=== PATIENT | male | born 1955 | race Caucasian/White ===

== ENCOUNTER 2017-10-31 09:39 | Emergency (ER) | payer MEDICARE, OTHER ==
[~2017-10-31] VITALS: Ht 170.2 cm; Wt 120.2 kg
[~2017-10-31 09:39] MED LIST: AMLO5 PO; CARB50 PO; CEFD300 PO; CEFU500 PO; CEPH500 PO; CHOL10002; CHOL10002 PO; CIPR500 PO; CLON.1 PO; COLE5P; COLE5P PO; Ciprodex Otic7.5 ML RIGHTEAR; Ferrousul325 MG PO; GLUCHON; HCTZ; HYDACE5 PO; HYDACE5325 PO; HYDR1TAB94 PO; IRON; IRON PO; IRON150C PO; LEVAQUIN; LEVFLO500 PO; LEVO750 PO; LISI5; LOPE2C PO; Lisinopril2.5 MG PO; METF500; METF500 PO; MULT50L PO; MULVITA; MULVITMIND PO; MULVITMINE PO; MULVITMINF PO; Macrobid 100 M100 MG PO; NAPR500 PO; NEOPOLHCSU LEFTEAR; NEOPOLHCSU RIGHTEAR; NITR100; NITR100 PO; NITR100CA PO; Norco 5-325 Ta1 EACH PO; OLME20; OLME40 PO; OXYACE5T PO; OXYM.05NI; POTCIT5 PO; PROM25 PO; RIFA300 PO; RXDIPATR PO; SENN187 PO; SULFAMYLON TOP; SULTRIDS PO; TRIM100 PO; UNKNOWN ANTIBIOTIC; VITAMIN D3100 GM; VITNEPH PO; ZINC15; [UNRECOGNIZED DRUG - OTHER] PO; [UNRECOGNIZED DRUG - REMARK]
[2017-10-31] MEDS ORDERED: LISI5 PO (09:57)
== END 2017-10-31 10:42 | disposition home or self-care (01) ==
LOC: ER 09:39
DX: I87.2 Venous insufficiency (chronic) (peripheral) (principal); Z88.0 Allergy status to penicillin; Z88.8 Allergy status to other drugs, medicaments and biological substances; Z88.1 Allergy status to other antibiotic agents; Z79.899 Other long term (current) drug therapy; E11.9 Type 2 diabetes mellitus without complications; I10 Essential (primary) hypertension
CPT/HCPCS: 99282

== ENCOUNTER 2018-01-27 14:04 | Observation (INO) | payer MEDICARE, OTHER ==
[~2018-01-27] VITALS: Ht 170.2 cm; Wt 128.6 kg
[~2018-01-27 14:04] MED LIST changes: +LISI5 PO
[2018-01-27 15:02] LABS: BASOPHILS ABSOLUTE AUTO 0.04 K/mm3 (0.00-0.23); BASOPHILS PERCENT AUTO 0 % (0-2); EOSINOPHILS ABSOLUTE AUTO 0.24 K/mm3 (0.00-0.68); EOSINOPHILS PERCENT AUTO 2 % (0-6); Hematocrit 37.3 % (37.0-53.0); Hemoglobin 10.9 g/dL (13.5-17.5); IMMATURE GRAN ABSOLUTE AUTO 0.05 K/mm3 (0.00-0.10); IMMATURE GRAN PERCENT AUTO 1 % (0-1); LYMPHOCYTES PERCENT AUTO 14 % (21-46); MONOCYTES ABSOLUTE AUTO 0.59 K/mm3 (0.16-1.47); MONOCYTES PERCENT AUTO 6 % (4-13); Mean Corpuscular HGB 21.9 pg (26.0-34.0); Mean Corpuscular HGB Conc 29.2 g/dL (31.5-36.5); Mean Corpuscular Volume 75 fL (80-100); Mean Platelet Volume 9.9 fL (9.1-12.4); NEUTROPHILS ABSOLUTE AUTO 7.82 K/mm3 (1.96-9.15); NEUTROPHILS PERCENT AUTO 77 % (41-73); Platelet Count 302 K/mm3 (150-400); RDW Coefficient Variation 19.6 % (11.7-14.2); RDW Standard Deviation 51.6 fL (35.1-46.3); Red Blood Cell Count 4.98 M/mm3 (4.30-5.90); White Blood Cell Count 10.14 K/mm3 (4.00-11.30)
[2018-01-27 15:24] LABS: Alanine Aminotransfer (ALT/SGP 17 U/L (12-78); Albumin, Blood 2.5 g/dL (3.4-5.0); Albumin/Globulin Ratio 0.5 (0.8-1.8); Alk Phos 68 U/L (50-136); Anion Gap 9 mmol/L (6-16); Aspartate Aminotrans (AST/SGOT 17 U/L (12-37); Bilirubin, Total 0.2 mg/dL (0.1-1.0); Blood Urea Nitrogen 25 mg/dL (8-24); Bun/Creatinine Ratio 33.5 (12.0-20.0); CO2, Blood 24 mmol/L (21-32); Calcium, Blood 8.7 mg/dL (8.5-10.1); Chloride, Blood 108 mmol/L (98-108); Creatinine, Blood 0.75 mg/dL (0.60-1.20); Globulin, Blood 5.5 g/dL (2.2-4.0); Glomerular Filtration Rate >60 (60-); Glucose, Blood 125 mg/dL (70-99); Potassium, Blood 4.3 mmol/L (3.5-5.5); Sodium, Blood 141 mmol/L (136-145)
[2018-01-30] MEDS ORDERED: Acetaminophen325 M1 PO (14:08)
[2018-01-30] MEDS ORDERED: DOCU100 PO (14:08)
[2018-01-30] MEDS ORDERED: Prinivil10 MG PO (14:09)
== END 2018-01-30 15:08 | disposition home or self-care (01) ==
LOC: ER 14:04 → MEDS 14:05 → ER 17:43 → MEDS 17:43
PROVIDERS: Emergency Medicine
DX: L89.329 Pressure ulcer of left buttock, unspecified stage (principal); L89.319 Pressure ulcer of right buttock, unspecified stage; Q05.9 Spina bifida, unspecified; I10 Essential (primary) hypertension; M86.9 Osteomyelitis, unspecified; Z99.3 Dependence on wheelchair; Z88.0 Allergy status to penicillin; Z88.1 Allergy status to other antibiotic agents; Z91.041 Radiographic dye allergy status; Z79.899 Other long term (current) drug therapy; Z87.891 Personal history of nicotine dependence; Z87.442 Personal history of urinary calculi; Z98.890 Other specified postprocedural states; Z79.01 Long term (current) use of anticoagulants
CPT/HCPCS: 36415; 51702; 72131; 80053; 85025; 85651; 86140; 87070; 87075; 87076; 87077; 87185; 87205; 99285; G0378; J1650

== ENCOUNTER 2018-02-05 13:03 | Emergency (ER) | payer MEDICARE, OTHER ==
[~2018-02-05] VITALS: Ht 170.2 cm; Wt 141.1 kg
[~2018-02-05 13:03] MED LIST changes: +Acetaminophen325 M1 PO; +DOCU100 PO; +Prinivil10 MG PO
== END 2018-02-05 14:13 | disposition home or self-care (01) ==
LOC: ER 13:03
DX: S90.412A Abrasion, left great toe, initial encounter (principal); W22.8XXA Striking against or struck by other objects, initial encounter; Z88.0 Allergy status to penicillin; Z88.8 Allergy status to other drugs, medicaments and biological substances; Z88.1 Allergy status to other antibiotic agents; Z79.899 Other long term (current) drug therapy; E11.9 Type 2 diabetes mellitus without complications; I10 Essential (primary) hypertension; Z87.891 Personal history of nicotine dependence
CPT/HCPCS: 73660

== ENCOUNTER 2018-05-02 10:56 | Emergency (ER) | payer MEDICARE, OTHER ==
[~2018-05-02] VITALS: Ht 170.2 cm; Wt 136.1 kg
[2018-05-02 12:10] LABS: BASOPHILS ABSOLUTE AUTO 0.03 K/mm3 (0.00-0.23); BASOPHILS PERCENT AUTO 0 % (0-2); EOSINOPHILS ABSOLUTE AUTO 0.03 K/mm3 (0.00-0.68); EOSINOPHILS PERCENT AUTO 0 % (0-6); Hematocrit 31.4 % (37.0-53.0); Hemoglobin 9.2 g/dL (13.5-17.5); IMMATURE GRAN ABSOLUTE AUTO 0.07 K/mm3 (0.00-0.10); IMMATURE GRAN PERCENT AUTO 1 % (0-1); LYMPHOCYTES ABSOLUTE AUTO 0.62 K/mm3 (0.84-5.20); LYMPHOCYTES PERCENT AUTO 8 % (21-46); MONOCYTES ABSOLUTE AUTO 0.33 K/mm3 (0.16-1.47); MONOCYTES PERCENT AUTO 4 % (4-13); Mean Corpuscular HGB 21.1 pg (26.0-34.0); Mean Corpuscular HGB Conc 29.3 g/dL (31.5-36.5); Mean Corpuscular Volume 72 fL (80-100); Mean Platelet Volume 9.2 fL (9.1-12.4); NEUTROPHILS ABSOLUTE AUTO 6.94 K/mm3 (1.96-9.15); NEUTROPHILS PERCENT AUTO 87 % (41-73); Platelet Count 298 K/mm3 (150-400); RDW Coefficient Variation 18.6 % (11.7-14.2); RDW Standard Deviation 48.1 fL (35.1-46.3); Red Blood Cell Count 4.36 M/mm3 (4.30-5.90); White Blood Cell Count 8.02 K/mm3 (4.00-11.30)
[2018-05-02 12:26] LABS: Alanine Aminotransfer (ALT/SGP 15 U/L (12-78); Albumin, Blood 2.4 g/dL (3.4-5.0); Albumin/Globulin Ratio 0.5 (0.8-1.8); Alk Phos 67 U/L (50-136); Anion Gap 9 mmol/L (6-16); Aspartate Aminotrans (AST/SGOT 15 U/L (12-37); Bilirubin, Total 0.4 mg/dL (0.1-1.0); Blood Urea Nitrogen 18 mg/dL (8-24); Bun/Creatinine Ratio 22.8 (12.0-20.0); CO2, Blood 21 mmol/L (21-32); Calcium, Blood 8.2 mg/dL (8.5-10.1); Chloride, Blood 106 mmol/L (98-108); Creatinine, Blood 0.79 mg/dL (0.60-1.20); Glomerular Filtration Rate >60 (60-); Glucose, Blood 78 mg/dL (70-99); Potassium, Blood 3.6 mmol/L (3.5-5.5); Sodium, Blood 136 mmol/L (136-145); Total Protein, Blood 7.4 g/dL (6.4-8.2)
[2018-05-02 14:42] LABS: Source, Urine Catheter
[2018-05-02 14:44] LABS: Appearance, Urine Hazy (Clear); Bilirubin, Urine Neg (Neg); Blood, Urine 4+ (Neg); Color, Urine Yellow (P-Yellow); Glucose Qualitative, Urine Neg (Neg); Ketones, Urine Neg (Neg); Leukocyte Esterase, Urine 3+ (Neg); Nitrite, Urine Pos (Neg); Protein, Urine 2+ (Neg); Urobilinogen, Urine NORM (Normal)
[2018-05-02 14:58] LABS: Amorphous Light (0-Heavy); Bacteria Many /hpf; Calcium Oxalate Crystals Few /hpf; Red Blood Cells, Urine 0-2 /hpf (0-2); Squamous Epithelial Cells Few /hpf (Few)
[2018-05-02] MEDS ORDERED: Cipro250 MG PO (15:13)
== END 2018-05-02 15:35 | disposition home or self-care (01) ==
LOC: ER 10:56
PROVIDERS: Physician Assistant
DX: N39.0 Urinary tract infection, site not specified (principal); M86.68 Other chronic osteomyelitis, other site; L89.159 Pressure ulcer of sacral region, unspecified stage; E11.9 Type 2 diabetes mellitus without complications; I10 Essential (primary) hypertension; Z88.0 Allergy status to penicillin; Z91.048 Other nonmedicinal substance allergy status; Z88.1 Allergy status to other antibiotic agents; Z79.899 Other long term (current) drug therapy
CPT/HCPCS: 36415; 71046; 72192; 80053; 81001; 83605; 85025; 87070; 87075; 87077; 87086; 87147; 87186; 87205; 96365; 96366; 96367; 99284-25; J1956; J3370; J7030; J7050

== ENCOUNTER 2018-05-08 12:18 | Emergency (ER) | payer MEDICARE, OTHER ==
[~2018-05-08] VITALS: Ht 170.2 cm; Wt 138.8 kg
[~2018-05-08 12:18] MED LIST changes: +Cipro250 MG PO
[2018-05-08 15:35] LABS: Alanine Aminotransfer (ALT/SGP 18 U/L (12-78); Albumin, Blood 2.6 g/dL (3.4-5.0); Albumin/Globulin Ratio 0.5 (0.8-1.8); Alk Phos 74 U/L (50-136); Anion Gap 5 mmol/L (6-16); Aspartate Aminotrans (AST/SGOT 19 U/L (12-37); Bilirubin, Total 0.4 mg/dL (0.1-1.0); Blood Urea Nitrogen 19 mg/dL (8-24); CO2, Blood 26 mmol/L (21-32); Calcium, Blood 8.7 mg/dL (8.5-10.1); Chloride, Blood 110 mmol/L (98-108); Creatinine, Blood 0.95 mg/dL (0.60-1.20); Globulin, Blood 5.3 g/dL (2.2-4.0); Glomerular Filtration Rate >60 (60-); Glucose, Blood 150 mg/dL (70-99); Potassium, Blood 4.1 mmol/L (3.5-5.5); Sodium, Blood 141 mmol/L (136-145); Total Protein, Blood 7.9 g/dL (6.4-8.2)
[2018-05-08 16:04] LABS: BASOPHILS ABSOLUTE AUTO 0.05 K/mm3 (0.00-0.23); BASOPHILS PERCENT AUTO 1 % (0-2); EOSINOPHILS ABSOLUTE AUTO 0.26 K/mm3 (0.00-0.68); EOSINOPHILS PERCENT AUTO 3 % (0-6); Hemoglobin 9.9 g/dL (13.5-17.5); IMMATURE GRAN ABSOLUTE AUTO 0.09 K/mm3 (0.00-0.10); IMMATURE GRAN PERCENT AUTO 1 % (0-1); LYMPHOCYTES ABSOLUTE AUTO 1.49 K/mm3 (0.84-5.20); LYMPHOCYTES PERCENT AUTO 15 % (21-46); MONOCYTES ABSOLUTE AUTO 0.68 K/mm3 (0.16-1.47); MONOCYTES PERCENT AUTO 7 % (4-13); Mean Corpuscular HGB 21.2 pg (26.0-34.0); Mean Corpuscular HGB Conc 29.1 g/dL (31.5-36.5); Mean Corpuscular Volume 73 fL (80-100); Mean Platelet Volume 8.8 fL (9.1-12.4); NEUTROPHILS ABSOLUTE AUTO 7.09 K/mm3 (1.96-9.15); NEUTROPHILS PERCENT AUTO 74 % (41-73); Platelet Count 425 K/mm3 (150-400); RDW Coefficient Variation 18.8 % (11.7-14.2); RDW Standard Deviation 48.9 fL (35.1-46.3); Red Blood Cell Count 4.67 M/mm3 (4.30-5.90); White Blood Cell Count 9.66 K/mm3 (4.00-11.30)
[2018-05-08 16:35] LABS: Source, Urine Clean Catch
[2018-05-08 16:44] LABS: Appearance, Urine Hazy (Clear); Bilirubin, Urine Neg (Neg); Blood, Urine 3+ (Neg); Color, Urine Yellow (P-Yellow); Glucose Qualitative, Urine Neg (Neg); Ketones, Urine Neg (Neg); Leukocyte Esterase, Urine 3+ (Neg); Nitrite, Urine Neg (Neg); Protein, Urine 1+ (Neg); Specific Gravity, Urine 1.015 (1.003-1.022); Urobilinogen, Urine NORM (Normal)
[2018-05-08 17:03] LABS: White Blood Cells, Urine 50-100 /hpf (0-5)
[2018-05-08 17:04] LABS: Bacteria Many /hpf; Squamous Epithelial Cells Few /hpf (Few)
== END 2018-05-08 18:53 | disposition home or self-care (01) ==
LOC: ER 12:18
PROVIDERS: Emergency Medicine
DX: S90.412A Abrasion, left great toe, initial encounter (principal); N39.0 Urinary tract infection, site not specified; R19.7 Diarrhea, unspecified; Z23 Encounter for immunization; E11.9 Type 2 diabetes mellitus without complications; I10 Essential (primary) hypertension; Z88.0 Allergy status to penicillin; Z91.048 Other nonmedicinal substance allergy status; Z88.1 Allergy status to other antibiotic agents; Z79.899 Other long term (current) drug therapy; Z87.891 Personal history of nicotine dependence; X58.XXXA Exposure to other specified factors, initial encounter
CPT/HCPCS: 51701; 73660; 80053; 81001; 83690; 85025; 87077; 87086; 87186; 90471; 90714; 99284-25

== ENCOUNTER 2018-06-11 13:06 | Emergency (ER) | payer MEDICARE, OTHER ==
[~2018-06-11] VITALS: Ht 170.2 cm; Wt 136.1 kg
[2018-06-11 13:46] LABS: BASOPHILS ABSOLUTE AUTO 0.02 K/mm3 (0.00-0.23); BASOPHILS PERCENT AUTO 0 % (0-2); EOSINOPHILS PERCENT AUTO 0 % (0-6); Hematocrit 30.4 % (37.0-53.0); Hemoglobin 9.2 g/dL (13.5-17.5); IMMATURE GRAN ABSOLUTE AUTO 0.05 K/mm3 (0.00-0.10); IMMATURE GRAN PERCENT AUTO 1 % (0-1); LYMPHOCYTES ABSOLUTE AUTO 0.65 K/mm3 (0.84-5.20); LYMPHOCYTES PERCENT AUTO 7 % (21-46); MONOCYTES PERCENT AUTO 6 % (4-13); Mean Corpuscular HGB 21.6 pg (26.0-34.0); Mean Corpuscular HGB Conc 30.3 g/dL (31.5-36.5); Mean Corpuscular Volume 71 fL (80-100); Mean Platelet Volume 8.7 fL (9.1-12.4); NEUTROPHILS ABSOLUTE AUTO 7.93 K/mm3 (1.96-9.15); NEUTROPHILS PERCENT AUTO 87 % (41-73); Platelet Count 325 K/mm3 (150-400); RDW Coefficient Variation 19.6 % (11.7-14.2); RDW Standard Deviation 50.1 fL (35.1-46.3); Red Blood Cell Count 4.26 M/mm3 (4.30-5.90); White Blood Cell Count 9.15 K/mm3 (4.00-11.30)
[2018-06-11 13:59] LABS: Alanine Aminotransfer (ALT/SGP 31 U/L (12-78); Albumin, Blood 2.2 g/dL (3.4-5.0); Albumin/Globulin Ratio 0.4 (0.8-1.8); Alk Phos 65 U/L (50-136); Anion Gap 10 mmol/L (6-16); Aspartate Aminotrans (AST/SGOT 36 U/L (12-37); Bilirubin, Total 0.6 mg/dL (0.1-1.0); Blood Urea Nitrogen 20 mg/dL (8-24); Bun/Creatinine Ratio 20.7 (12.0-20.0); CO2, Blood 22 mmol/L (21-32); Chloride, Blood 102 mmol/L (98-108); Creatinine, Blood 0.97 mg/dL (0.60-1.20); Glomerular Filtration Rate >60 (60-); Glucose, Blood 133 mg/dL (70-99); Potassium, Blood 3.8 mmol/L (3.5-5.5); Sodium, Blood 134 mmol/L (136-145); Total Protein, Blood 8.2 g/dL (6.4-8.2)
[2018-06-11 15:19] LABS: Source, Urine Catheter
[2018-06-11 15:22] LABS: Bilirubin, Urine Neg (Neg); Blood, Urine 5+ (Neg); Glucose Qualitative, Urine Neg (Neg); Ketones, Urine Neg (Neg); Leukocyte Esterase, Urine 3+ (Neg); Nitrite, Urine Neg (Neg); Protein, Urine 2+ (Neg); Urobilinogen, Urine NORM (Normal)
[2018-06-11 15:29] LABS: Appearance, Urine Clear (Clear); Color, Urine Yellow (P-Yellow)
[2018-06-11 15:30] LABS: Granular Casts 0-2 /lpf (0)
[2018-06-11 15:32] LABS: Bacteria Many /hpf; Calcium Oxalate Crystals Few /hpf; Renal Epithelial Rare /hpf (0-Rare); Squamous Epithelial Cells Few /hpf (Few); Transitional Epithelial Cells Few /hpf (0-Rare); White Blood Cells, Urine 25-50 /hpf (0-5)
[2018-06-11] MEDS ORDERED: Augmentin 875-1 EACH PO (16:40)
== END 2018-06-11 16:51 | disposition home or self-care (01) ==
LOC: ER 13:06
PROVIDERS: Emergency Medicine
DX: N39.0 Urinary tract infection, site not specified (principal); G82.20 Paraplegia, unspecified; E11.9 Type 2 diabetes mellitus without complications; I10 Essential (primary) hypertension; Z88.0 Allergy status to penicillin; Z91.09 Other allergy status, other than to drugs and biological substances; Z88.1 Allergy status to other antibiotic agents
CPT/HCPCS: 51701; 51798; 80053; 81001; 83605; 85025; 87077; 87086; 87186; 96365; 99283-25; J0696

== ENCOUNTER 2018-06-12 13:44 | Inpatient (IN) | payer MEDICARE, OTHER ==
[~2018-06-12] VITALS: Ht 170.2 cm; Wt 133.5 kg
[~2018-06-12 13:44] MED LIST changes: +Augmentin 875-1 EACH PO
[2018-06-12 14:25] LABS: BASOPHILS ABSOLUTE AUTO 0.03 K/mm3 (0.00-0.23); BASOPHILS PERCENT AUTO 0 % (0-2); EOSINOPHILS ABSOLUTE AUTO 0.09 K/mm3 (0.00-0.68); EOSINOPHILS PERCENT AUTO 1 % (0-6); Hematocrit 33.8 % (37.0-53.0); Hemoglobin 9.8 g/dL (13.5-17.5); IMMATURE GRAN ABSOLUTE AUTO 0.08 K/mm3 (0.00-0.10); IMMATURE GRAN PERCENT AUTO 1 % (0-1); LYMPHOCYTES ABSOLUTE AUTO 1.06 K/mm3 (0.84-5.20); LYMPHOCYTES PERCENT AUTO 9 % (21-46); MONOCYTES ABSOLUTE AUTO 0.82 K/mm3 (0.16-1.47); MONOCYTES PERCENT AUTO 7 % (4-13); Mean Corpuscular HGB 20.9 pg (26.0-34.0); Mean Corpuscular Volume 72 fL (80-100); Mean Platelet Volume 10.2 fL (9.1-12.4); NEUTROPHILS ABSOLUTE AUTO 9.92 K/mm3 (1.96-9.15); NEUTROPHILS PERCENT AUTO 83 % (41-73); Platelet Count 304 K/mm3 (150-400); RDW Coefficient Variation 19.9 % (11.7-14.2); Red Blood Cell Count 4.68 M/mm3 (4.30-5.90)
[2018-06-12 14:39] LABS: Alanine Aminotransfer (ALT/SGP 38 U/L (12-78); Albumin, Blood 2.3 g/dL (3.4-5.0); Albumin/Globulin Ratio 0.4 (0.8-1.8); Alk Phos 75 U/L (50-136); Anion Gap 11 mmol/L (6-16); Aspartate Aminotrans (AST/SGOT 48 U/L (12-37); Bilirubin, Total 0.6 mg/dL (0.1-1.0); Blood Urea Nitrogen 29 mg/dL (8-24); Bun/Creatinine Ratio 29.6 (12.0-20.0); CO2, Blood 21 mmol/L (21-32); Calcium, Blood 8.5 mg/dL (8.5-10.1); Chloride, Blood 104 mmol/L (98-108); Creatinine, Blood 0.98 mg/dL (0.60-1.20); Globulin, Blood 6.3 g/dL (2.2-4.0); Glomerular Filtration Rate >60 (60-); Glucose, Blood 76 mg/dL (70-99); Potassium, Blood 3.8 mmol/L (3.5-5.5); Sodium, Blood 136 mmol/L (136-145); Total Protein, Blood 8.6 g/dL (6.4-8.2)
[2018-06-12 23:18] LABS: Source, Urine Catheter
[2018-06-12 23:21] LABS: Bilirubin, Urine Neg (Neg); Blood, Urine 5+ (Neg); Glucose Qualitative, Urine Neg (Neg); Ketones, Urine Neg (Neg); Leukocyte Esterase, Urine 3+ (Neg); Nitrite, Urine Neg (Neg); Protein, Urine 2+ (Neg); Urobilinogen, Urine NORM (Normal)
[2018-06-12 23:30] LABS: Amorphous Light (0-Heavy); Appearance, Urine Cloudy (Clear); Bacteria Many /hpf; Color, Urine Yellow (P-Yellow); Red Blood Cells, Urine 0-2 /hpf (0-2); Squamous Epithelial Cells Not Seen /hpf (Few); White Blood Cells, Urine TNTC /hpf (0-5)
[2018-06-13 05:46] LABS: BASOPHILS ABSOLUTE AUTO 0.02 K/mm3 (0.00-0.23); BASOPHILS PERCENT AUTO 0 % (0-2); EOSINOPHILS ABSOLUTE AUTO 0.23 K/mm3 (0.00-0.68); EOSINOPHILS PERCENT AUTO 2 % (0-6); Hematocrit 27.2 % (37.0-53.0); Hemoglobin 8.1 g/dL (13.5-17.5); IMMATURE GRAN ABSOLUTE AUTO 0.06 K/mm3 (0.00-0.10); IMMATURE GRAN PERCENT AUTO 1 % (0-1); LYMPHOCYTES ABSOLUTE AUTO 1.22 K/mm3 (0.84-5.20); LYMPHOCYTES PERCENT AUTO 11 % (21-46); MONOCYTES ABSOLUTE AUTO 0.84 K/mm3 (0.16-1.47); MONOCYTES PERCENT AUTO 8 % (4-13); Mean Corpuscular HGB 21.7 pg (26.0-34.0); Mean Corpuscular HGB Conc 29.8 g/dL (31.5-36.5); Mean Corpuscular Volume 73 fL (80-100); NEUTROPHILS ABSOLUTE AUTO 8.74 K/mm3 (1.96-9.15); NEUTROPHILS PERCENT AUTO 79 % (41-73); Platelet Count 307 K/mm3 (150-400); RDW Coefficient Variation 19.8 % (11.7-14.2); RDW Standard Deviation 52.1 fL (35.1-46.3); Red Blood Cell Count 3.74 M/mm3 (4.30-5.90); White Blood Cell Count 11.11 K/mm3 (4.00-11.30)
[2018-06-13 06:09] LABS: Anion Gap 8 mmol/L (6-16); Blood Urea Nitrogen 27 mg/dL (8-24); CO2, Blood 21 mmol/L (21-32); Calcium, Blood 7.7 mg/dL (8.5-10.1); Chloride, Blood 108 mmol/L (98-108); Glomerular Filtration Rate >60 (60-); Glucose, Blood 96 mg/dL (70-99); Potassium, Blood 3.7 mmol/L (3.5-5.5); Sodium, Blood 137 mmol/L (136-145)
[2018-06-14 05:49] LABS: BASOPHILS ABSOLUTE AUTO 0.03 K/mm3 (0.00-0.23); BASOPHILS PERCENT AUTO 0 % (0-2); EOSINOPHILS ABSOLUTE AUTO 0.45 K/mm3 (0.00-0.68); EOSINOPHILS PERCENT AUTO 6 % (0-6); Hematocrit 28.2 % (37.0-53.0); Hemoglobin 8.2 g/dL (13.5-17.5); IMMATURE GRAN ABSOLUTE AUTO 0.06 K/mm3 (0.00-0.10); IMMATURE GRAN PERCENT AUTO 1 % (0-1); LYMPHOCYTES ABSOLUTE AUTO 1.22 K/mm3 (0.84-5.20); LYMPHOCYTES PERCENT AUTO 15 % (21-46); MONOCYTES ABSOLUTE AUTO 0.55 K/mm3 (0.16-1.47); MONOCYTES PERCENT AUTO 7 % (4-13); Mean Corpuscular HGB 20.9 pg (26.0-34.0); Mean Corpuscular HGB Conc 29.1 g/dL (31.5-36.5); Mean Corpuscular Volume 72 fL (80-100); NEUTROPHILS ABSOLUTE AUTO 5.83 K/mm3 (1.96-9.15); NEUTROPHILS PERCENT AUTO 72 % (41-73); Platelet Count 373 K/mm3 (150-400); RDW Coefficient Variation 19.8 % (11.7-14.2); RDW Standard Deviation 51.1 fL (35.1-46.3); Red Blood Cell Count 3.93 M/mm3 (4.30-5.90); White Blood Cell Count 8.14 K/mm3 (4.00-11.30)
[2018-06-14 06:14] LABS: Anion Gap 7 mmol/L (6-16); Blood Urea Nitrogen 25 mg/dL (8-24); Bun/Creatinine Ratio 27.7 (12.0-20.0); CO2, Blood 23 mmol/L (21-32); Calcium, Blood 8.2 mg/dL (8.5-10.1); Chloride, Blood 109 mmol/L (98-108); Glomerular Filtration Rate >60 (60-); Glucose, Blood 118 mg/dL (70-99); Potassium, Blood 3.7 mmol/L (3.5-5.5); Sodium, Blood 139 mmol/L (136-145)
[2018-06-14] MEDS ORDERED: LISI5 PO (10:08)
[2018-06-14] MEDS ORDERED: Sulfamethoxazo1 EAC4 PO (10:09)
== END 2018-06-14 12:33 | disposition home or self-care (01) | DRG 699 ==
LOC: ER 13:44 → MEDS 13:45 → ENPENDDIS 06-14 11:20 → MEDS 06-14 12:33
PROVIDERS: Emergency Medicine; Hospitalist; Nurse Practitioner Acute Care
DX: T83.511A Infection and inflammatory reaction due to indwelling urethral catheter, initial encounter (principal); L03.116 Cellulitis of left lower limb; Q05.9 Spina bifida, unspecified; E11.9 Type 2 diabetes mellitus without complications; I10 Essential (primary) hypertension; Z99.3 Dependence on wheelchair; Z87.891 Personal history of nicotine dependence; L89.329 Pressure ulcer of left buttock, unspecified stage; L89.319 Pressure ulcer of right buttock, unspecified stage; I95.9 Hypotension, unspecified; Z88.0 Allergy status to penicillin; N20.0 Calculus of kidney; S90.412A Abrasion, left great toe, initial encounter; X58.XXXA Exposure to other specified factors, initial encounter; Y92.9 Unspecified place or not applicable
CPT/HCPCS: 36415; 51701; 51702; 51798; 80048; 80053; 81001; 82947; 83605; 83690; 85025; 87077; 87081; 87086; 87186; 90686; 93005; 93010; 93971; 96361; 96365; 96366; 96372; 96375; 99283-25; 99285-25; G0378; J0690; J0696; J1650; J1956; J2405; J7030

== ENCOUNTER 2018-07-10 00:06 | Day surgery (SDC) | payer MEDICARE, OTHER ==
[~2018-07-10 00:06] MED LIST changes: +Sulfamethoxazo1 EAC4 PO
== END 2018-07-10 22:37 | disposition home or self-care (01) ==
LOC: WOUND 00:06
DX: E11.622 Type 2 diabetes mellitus with other skin ulcer (principal); L89.314 Pressure ulcer of right buttock, stage 4; L89.324 Pressure ulcer of left buttock, stage 4; E88.09 Other disorders of plasma-protein metabolism, not elsewhere classified; E11.42 Type 2 diabetes mellitus with diabetic polyneuropathy; E66.01 Morbid (severe) obesity due to excess calories; G82.20 Paraplegia, unspecified; G47.33 Obstructive sleep apnea (adult) (pediatric); Q05.9 Spina bifida, unspecified
CPT/HCPCS: G0463

== ENCOUNTER 2018-07-17 00:19 | Day surgery (SDC) | payer MEDICARE, OTHER | END 2018-07-17 22:44 | disposition home or self-care (01) | LOC: WOUND 00:19 | DX: E11.622 Type 2 diabetes mellitus with other skin ulcer (principal); L89.314 Pressure ulcer of right buttock, stage 4; L89.324 Pressure ulcer of left buttock, stage 4; E88.09 Other disorders of plasma-protein metabolism, not elsewhere classified; I10 Essential (primary) hypertension; E11.42 Type 2 diabetes mellitus with diabetic polyneuropathy; E66.01 Morbid (severe) obesity due to excess calories; G82.20 Paraplegia, unspecified; G47.33 Obstructive sleep apnea (adult) (pediatric); Q05.9 Spina bifida, unspecified | CPT/HCPCS: G0463 ==

== ENCOUNTER 2018-09-18 10:30 | Day surgery (SDC) | payer MEDICARE, OTHER | END 2018-09-18 22:45 | disposition home or self-care (01) | LOC: WOUND 10:30 | DX: L89.314 Pressure ulcer of right buttock, stage 4 (principal); L89.324 Pressure ulcer of left buttock, stage 4; E88.09 Other disorders of plasma-protein metabolism, not elsewhere classified; E11.42 Type 2 diabetes mellitus with diabetic polyneuropathy; E11.622 Type 2 diabetes mellitus with other skin ulcer; E66.01 Morbid (severe) obesity due to excess calories; G82.20 Paraplegia, unspecified; Q05.9 Spina bifida, unspecified | CPT/HCPCS: 87070; 87147; 87205; G0463 ==

== ENCOUNTER → 2018-10-10 | Outpatient (CLI) | payer MEDICARE, OTHER ==
[2018-10-10 16:45] LABS: Appearance, Urine Hazy (Clear); Bilirubin, Urine Neg (Neg); Blood, Urine 4+ (Neg); Color, Urine Yellow (P-Yellow); Glucose Qualitative, Urine Neg (Neg); Ketones, Urine Neg (Neg); Leukocyte Esterase, Urine 3+ (Neg); Nitrite, Urine Neg (Neg); Protein, Urine Neg (Neg); Specific Gravity, Urine 1.015 (1.003-1.022); Urobilinogen, Urine NORM (Normal)
[2018-10-10 16:53] LABS: Bacteria Many /hpf; Squamous Epithelial Cells Few /hpf (Few); White Blood Cells, Urine 25-50 /hpf (0-5)
== END | disposition home or self-care (01) ==
LOC: LAB 16:36 → LAB SHORT 16:36
PROVIDERS: Internal Medicine Hematology & Oncology
DX: N39.0 Urinary tract infection, site not specified (principal)
CPT/HCPCS: 81001; 87077; 87086; 87186

== ENCOUNTER 2018-10-22 10:45 | Day surgery (SDC) | payer MEDICARE, OTHER ==
[2018-10-22 14:48] LABS: Albumin, Blood 2.6 g/dL (3.4-5.0); Prealbumin, Blood 13.9 mg/dL (20.0-40.0)
== END 2018-10-22 22:55 | disposition home or self-care (01) ==
LOC: WOUND 10:45
PROVIDERS: Nurse Practitioner Family
PROC: 0KBP0ZZ Excision of Left Hip Muscle, Open Approach (ICD-10-PCS; principal; 2018-10-22)
PROC: 0KBN0ZZ Excision of Right Hip Muscle, Open Approach (ICD-10-PCS; principal; 2018-10-22)
DX: L89.314 Pressure ulcer of right buttock, stage 4 (principal); L89.324 Pressure ulcer of left buttock, stage 4; E11.42 Type 2 diabetes mellitus with diabetic polyneuropathy; E88.09 Other disorders of plasma-protein metabolism, not elsewhere classified; E66.01 Morbid (severe) obesity due to excess calories
CPT/HCPCS: 36415; 82040; 84134

== ENCOUNTER → 2018-10-29 | Outpatient (CLI) | payer MEDICARE, OTHER ==
[2018-10-29 11:45] LABS: Albumin, Blood 2.3 g/dL (3.4-5.0)
== END | disposition home or self-care (01) ==
LOC: LAB 10:58 → LAB SHORT 10:58
PROVIDERS: Family Medicine
DX: L89.314 Pressure ulcer of right buttock, stage 4 (principal); L89.324 Pressure ulcer of left buttock, stage 4; E88.09 Other disorders of plasma-protein metabolism, not elsewhere classified
CPT/HCPCS: 82040; 84134

== ENCOUNTER 2018-12-05 00:15 | Day surgery (SDC) | payer MEDICARE, OTHER | END 2018-12-05 12:00 | disposition home or self-care (01) | LOC: WOUND 00:15 | DX: L89.314 Pressure ulcer of right buttock, stage 4 (principal); L89.324 Pressure ulcer of left buttock, stage 4; I10 Essential (primary) hypertension; E11.42 Type 2 diabetes mellitus with diabetic polyneuropathy; E88.09 Other disorders of plasma-protein metabolism, not elsewhere classified; G82.20 Paraplegia, unspecified; Q05.9 Spina bifida, unspecified; E66.01 Morbid (severe) obesity due to excess calories; Z68.42 Body mass index [BMI] 45.0-49.9, adult | CPT/HCPCS: G0463 ==

== ENCOUNTER → 2018-12-17 | Outpatient (CLI) | payer MEDICARE, OTHER ==
[2018-12-17 14:41] LABS: Source, Urine Catheter
[2018-12-17 14:48] LABS: Bilirubin, Urine Neg (Neg); Blood, Urine 1+ (Neg); Glucose Qualitative, Urine Neg (Neg); Ketones, Urine Neg (Neg); Leukocyte Esterase, Urine 3+ (Neg); Nitrite, Urine Pos (Neg); Protein, Urine Neg (Neg); Urobilinogen, Urine NORM (Normal)
[2018-12-17 14:58] LABS: Appearance, Urine Hazy (Clear); Color, Urine Yellow (P-Yellow)
[2018-12-17 14:59] LABS: Bacteria Many /hpf; Squamous Epithelial Cells Few /hpf (Few); Transitional Epithelial Cells Few /hpf (0-Rare); White Blood Cells, Urine 50-100 /hpf (0-5)
== END | disposition home or self-care (01) ==
LOC: LAB SHORT 14:38 → LAB 14:38
PROVIDERS: Family Medicine
DX: R41.0 Disorientation, unspecified (principal)
CPT/HCPCS: 81001; 87086

== ENCOUNTER 2019-01-09 13:25 | Day surgery (SDC) | payer MEDICARE, OTHER | END 2019-01-09 16:00 | disposition home or self-care (01) | LOC: WOUND 13:25 | DX: L89.314 Pressure ulcer of right buttock, stage 4 (principal); L89.324 Pressure ulcer of left buttock, stage 4; E11.622 Type 2 diabetes mellitus with other skin ulcer; E11.42 Type 2 diabetes mellitus with diabetic polyneuropathy; I10 Essential (primary) hypertension; E88.09 Other disorders of plasma-protein metabolism, not elsewhere classified; G82.20 Paraplegia, unspecified; Q05.9 Spina bifida, unspecified; G47.33 Obstructive sleep apnea (adult) (pediatric); E66.01 Morbid (severe) obesity due to excess calories | CPT/HCPCS: G0463 ==

== ENCOUNTER 2019-02-02 07:49 | Day surgery (SDC) | payer MEDICARE, OTHER | END 2019-02-02 22:37 | disposition home or self-care (01) | LOC: WOUND 07:49 | DX: L89.314 Pressure ulcer of right buttock, stage 4 (principal); L89.324 Pressure ulcer of left buttock, stage 4; E88.09 Other disorders of plasma-protein metabolism, not elsewhere classified; E11.42 Type 2 diabetes mellitus with diabetic polyneuropathy; E11.622 Type 2 diabetes mellitus with other skin ulcer; G82.20 Paraplegia, unspecified; Q05.9 Spina bifida, unspecified ==

== ENCOUNTER 2019-02-16 10:48 | Day surgery (SDC) | payer MEDICARE, OTHER | END 2019-02-16 22:38 | disposition home or self-care (01) | LOC: WOUND 10:48 | DX: L89.314 Pressure ulcer of right buttock, stage 4 (principal); L89.324 Pressure ulcer of left buttock, stage 4; E88.09 Other disorders of plasma-protein metabolism, not elsewhere classified; E11.42 Type 2 diabetes mellitus with diabetic polyneuropathy; I10 Essential (primary) hypertension; E11.622 Type 2 diabetes mellitus with other skin ulcer; E66.01 Morbid (severe) obesity due to excess calories; G82.20 Paraplegia, unspecified; Q05.9 Spina bifida, unspecified; Z99.3 Dependence on wheelchair; Z68.42 Body mass index [BMI] 45.0-49.9, adult | CPT/HCPCS: G0463 ==

== ENCOUNTER 2019-03-02 13:50 | Day surgery (SDC) | payer MEDICARE, OTHER | END 2019-03-02 23:06 | disposition home or self-care (01) | LOC: WOUND 13:50 | DX: L89.314 Pressure ulcer of right buttock, stage 4 (principal); L89.324 Pressure ulcer of left buttock, stage 4; E88.09 Other disorders of plasma-protein metabolism, not elsewhere classified; E11.622 Type 2 diabetes mellitus with other skin ulcer; E11.42 Type 2 diabetes mellitus with diabetic polyneuropathy; I10 Essential (primary) hypertension; G82.20 Paraplegia, unspecified; E66.01 Morbid (severe) obesity due to excess calories; Q05.9 Spina bifida, unspecified; G47.33 Obstructive sleep apnea (adult) (pediatric) | CPT/HCPCS: G0463 ==

== ENCOUNTER 2019-04-14 00:08 | Day surgery (SDC) | payer MEDICARE, OTHER | END 2019-04-14 22:47 | disposition home or self-care (01) | LOC: WOUND 00:08 | DX: L89.314 Pressure ulcer of right buttock, stage 4 (principal); L89.324 Pressure ulcer of left buttock, stage 4; E11.42 Type 2 diabetes mellitus with diabetic polyneuropathy; I10 Essential (primary) hypertension; E46 Unspecified protein-calorie malnutrition; E11.622 Type 2 diabetes mellitus with other skin ulcer; E66.01 Morbid (severe) obesity due to excess calories; G82.20 Paraplegia, unspecified; Q05.9 Spina bifida, unspecified | CPT/HCPCS: G0463 ==

== ENCOUNTER 2019-04-24 08:52 | Emergency (ER) | payer MEDICARE, OTHER ==
[~2019-04-24] VITALS: Ht 170.2 cm; Wt 136.1 kg
[2019-04-24 09:28] LABS: Source, Urine Clean Catch
[2019-04-24 09:36] LABS: Bilirubin, Urine Neg (Neg); Blood, Urine 3+ (Neg); Glucose Qualitative, Urine Neg (Neg); Ketones, Urine Neg (Neg); Leukocyte Esterase, Urine 3+ (Neg); Nitrite, Urine Neg (Neg); Protein, Urine 1+ (Neg); Specific Gravity, Urine 1.015 (1.003-1.022); Urobilinogen, Urine NORM (Normal)
[2019-04-24 09:56] LABS: Appearance, Urine Hazy (Clear); Color, Urine Yellow (P-Yellow)
[2019-04-24 09:57] LABS: Bacteria Many /hpf; Red Blood Cells, Urine 25-50 /hpf (0-2); Squamous Epithelial Cells Mod /hpf (Few); White Blood Cells, Urine TNTC /hpf (0-5)
[2019-04-24 09:59] LABS: Amorphous Mod (0-Heavy); Hyaline Casts 0-2 /lpf (0-2); Mucus Light (0-Heavy); Transitional Epithelial Cells Few /hpf (0-Rare)
[2019-04-24] MEDS ORDERED: Bactrim Ds Tab1 EACH PO (10:04)
== END 2019-04-24 10:18 | disposition home or self-care (01) ==
LOC: ER 08:52
PROVIDERS: Physician Assistant
DX: N39.0 Urinary tract infection, site not specified (principal); E11.9 Type 2 diabetes mellitus without complications; I10 Essential (primary) hypertension; Z88.0 Allergy status to penicillin; Z88.1 Allergy status to other antibiotic agents; Z91.041 Radiographic dye allergy status; Z87.891 Personal history of nicotine dependence
CPT/HCPCS: 51701; 81001; 87077; 87086; 87186; 99283

== ENCOUNTER 2019-05-11 00:26 | Day surgery (SDC) | payer MEDICARE, OTHER ==
[~2019-05-11 00:26] MED LIST changes: +Bactrim Ds Tab1 EACH PO
== END 2019-05-11 22:42 | disposition home or self-care (01) ==
LOC: WOUND 00:26
DX: L89.314 Pressure ulcer of right buttock, stage 4 (principal); L89.324 Pressure ulcer of left buttock, stage 4; E11.42 Type 2 diabetes mellitus with diabetic polyneuropathy; I10 Essential (primary) hypertension; E46 Unspecified protein-calorie malnutrition; E66.01 Morbid (severe) obesity due to excess calories; G82.20 Paraplegia, unspecified; Q05.9 Spina bifida, unspecified; E11.622 Type 2 diabetes mellitus with other skin ulcer; E11.51 Type 2 diabetes mellitus with diabetic peripheral angiopathy without gangrene
CPT/HCPCS: G0463

== ENCOUNTER 2019-05-29 14:46 | Emergency (ER) | payer MEDICARE, OTHER ==
[~2019-05-29] VITALS: Ht 170.2 cm; Wt 136.1 kg
[2019-05-29 15:27] LABS: BASOPHILS ABSOLUTE AUTO 0.04 K/mm3 (0.00-0.23); BASOPHILS PERCENT AUTO 0 % (0-2); EOSINOPHILS PERCENT AUTO 0 % (0-6); Hematocrit 36.5 % (37.0-53.0); Hemoglobin 11.1 g/dL (13.5-17.5); IMMATURE GRAN ABSOLUTE AUTO 0.11 K/mm3 (0.00-0.10); IMMATURE GRAN PERCENT AUTO 1 % (0-1); LYMPHOCYTES ABSOLUTE AUTO 0.56 K/mm3 (0.84-5.20); LYMPHOCYTES PERCENT AUTO 3 % (21-46); MONOCYTES ABSOLUTE AUTO 0.41 K/mm3 (0.16-1.47); MONOCYTES PERCENT AUTO 3 % (4-13); Mean Corpuscular HGB 25.1 pg (26.0-34.0); Mean Corpuscular HGB Conc 30.4 g/dL (31.5-36.5); Mean Corpuscular Volume 83 fL (80-100); Mean Platelet Volume 9.6 fL (9.1-12.4); NEUTROPHILS ABSOLUTE AUTO 15.44 K/mm3 (1.96-9.15); NEUTROPHILS PERCENT AUTO 93 % (41-73); Platelet Count 331 K/mm3 (150-400); RDW Coefficient Variation 17.4 % (11.7-14.2); RDW Standard Deviation 52.8 fL (35.1-46.3); Red Blood Cell Count 4.42 M/mm3 (4.30-5.90); White Blood Cell Count 16.56 K/mm3 (4.00-11.30)
[2019-05-29 15:45] LABS: Alanine Aminotransfer (ALT/SGP 14 U/L (12-78); Albumin, Blood 2.5 g/dL (3.4-5.0); Albumin/Globulin Ratio 0.5 (0.8-1.8); Alk Phos 77 U/L (50-136); Anion Gap 7 mmol/L (6-16); Aspartate Aminotrans (AST/SGOT 14 U/L (12-37); Bilirubin, Total 0.5 mg/dL (0.1-1.0); Blood Urea Nitrogen 26 mg/dL (8-24); Bun/Creatinine Ratio 31.3 (12.0-20.0); CO2, Blood 20 mmol/L (21-32); Calcium, Blood 8.8 mg/dL (8.5-10.1); Chloride, Blood 111 mmol/L (98-108); Creatinine, Blood 0.83 mg/dL (0.60-1.20); Globulin, Blood 5.5 g/dL (2.2-4.0); Glomerular Filtration Rate >60 (60-); Glucose, Blood 89 mg/dL (70-99); Potassium, Blood 4.3 mmol/L (3.5-5.5); Sodium, Blood 138 mmol/L (136-145)
[2019-05-30] MEDS ORDERED: ACET325 PO (19:44)
[2019-05-30] MEDS ORDERED: THERA1 EACH PO (19:44)
== END 2019-05-29 16:53 | disposition left against medical advice (07) ==
LOC: ER 14:46
PROVIDERS: Physician Assistant
DX: Z53.21 Procedure and treatment not carried out due to patient leaving prior to being seen by health care provider (principal)
CPT/HCPCS: 36415; 80053; 85025; 99283

== ENCOUNTER 2019-05-30 12:06 | Observation (INO) | payer MEDICARE, OTHER ==
[~2019-05-30] VITALS: Ht 170.2 cm; Wt 136.1 kg
[2019-05-30 13:09] LABS: BASOPHILS ABSOLUTE AUTO 0.02 K/mm3 (0.00-0.23); BASOPHILS PERCENT AUTO 0 % (0-2); EOSINOPHILS ABSOLUTE AUTO 0.02 K/mm3 (0.00-0.68); EOSINOPHILS PERCENT AUTO 0 % (0-6); Hematocrit 38.5 % (37.0-53.0); Hemoglobin 11.6 g/dL (13.5-17.5); IMMATURE GRAN ABSOLUTE AUTO 0.05 K/mm3 (0.00-0.10); IMMATURE GRAN PERCENT AUTO 1 % (0-1); LYMPHOCYTES ABSOLUTE AUTO 0.65 K/mm3 (0.84-5.20); LYMPHOCYTES PERCENT AUTO 6 % (21-46); MONOCYTES ABSOLUTE AUTO 0.45 K/mm3 (0.16-1.47); MONOCYTES PERCENT AUTO 4 % (4-13); Mean Corpuscular HGB 24.8 pg (26.0-34.0); Mean Corpuscular HGB Conc 30.1 g/dL (31.5-36.5); Mean Corpuscular Volume 82 fL (80-100); Mean Platelet Volume 9.3 fL (9.1-12.4); NEUTROPHILS ABSOLUTE AUTO 9.46 K/mm3 (1.96-9.15); NEUTROPHILS PERCENT AUTO 89 % (41-73); Platelet Count 284 K/mm3 (150-400); RDW Coefficient Variation 17.6 % (11.7-14.2); RDW Standard Deviation 52.8 fL (35.1-46.3); Red Blood Cell Count 4.67 M/mm3 (4.30-5.90); White Blood Cell Count 10.65 K/mm3 (4.00-11.30)
[2019-05-30 13:27] LABS: Albumin, Blood 2.6 g/dL (3.4-5.0); Albumin/Globulin Ratio 0.5 (0.8-1.8); Bilirubin, Total 0.6 mg/dL (0.1-1.0); Bun/Creatinine Ratio 28.2 (12.0-20.0); Calcium, Blood 8.7 mg/dL (8.5-10.1); Creatinine, Blood 1.31 mg/dL (0.60-1.20); Globulin, Blood 5.5 g/dL (2.2-4.0); Potassium, Blood 4.5 mmol/L (3.5-5.5); Total Protein, Blood 8.1 g/dL (6.4-8.2)
[2019-05-30] MEDS ORDERED: ACET325 PO (19:44)
[2019-05-30] MEDS ORDERED: THERA1 EACH PO (19:44)
--- NOTE | 2019-05-30 20:00 | NUR ---
PT HAS LARGE DECUB ULCER TO L GLUTEAL FOLD. WOUND IS DEEP WITH FOUL ODOR AND SMALL AMOUNT OF PURULENT DISCHARGE. GRANULATION TISSUE AND SLOUGHING NOTED. ROLLED, HARD EDGES NOTED. TUNNELLING. PACKED ULCER WITH WET TO DRY DRESSING AND COVERED WITH MEPILEX. PHOTOS DOCUMENTED, SEE CHART. MRSA WOUND CULTURE SENT TO LAB, WELL THROAT AND NARES TO R/O MRSA. PT IN CONTACT ISOLATION. PT HAS EXTREMELY LARGE SWOLLEN TESTICLES WELL, ACCORDING TO PT, THIS IS BASELINE. Q SHIFT BLADDER SCAN UNREMARKABLE AT 108 ML. ASSUMING CARE OF PT.
--- NOTE | 2019-05-30 22:54 | NUR ---
CBG CHECK Q2H - PT HAS STABILIZED IN ER PT HAD CBG OF 57. DR MALONE ORDERED CBG CHECK Q2H X2 UNTIL CBG STABILIZES. LAST CBG WAS 122.
--- NOTE | 2019-05-30 23:12 | NUR ---
INCONTINENCE, URINE IN WOUND PT HAS NEUROGRENIC BLADDER D/T SPINA BIFDIA CAUSING INCONTINENCE. PT HAS SATURATED ATTENDS AND WOUND DRESSING WITH URINE SEVERAL TIMES TONIGHT. PT HAS DEEP DECUB ULCER TO L GLUTEAL FOLD, SEE PRIOR NOTE. CALLED HOSPITALIST YANNA TO OBTAIN ORDER FOR QUINTEROS PLACEMENT TO PROTECT WOUND FROM URINE. NO ANSWER. WILL RE ATTEMPT IN 15 MINS.
--- NOTE | 2019-05-30 23:24 | NUR ---
QUINTEROS CATH DECLINED. YANNA ORDERS TO USE CONDOM CATH.
--- NOTE | 2019-05-30 23:52 | NUR ---
DIFFICULTY PLACING AND KEEPIGNG CONDOM CATH ON PENIS D/T SMALL SIZE AND ENLARGED SCROTUM.
[2019-05-31 01:16] LABS: Source, Urine Voided
[2019-05-31 01:32] LABS: Appearance, Urine Cloudy (Clear); Bilirubin, Urine Neg (Neg); Blood, Urine 5+ (Neg); Color, Urine Brown (P-Yellow); Glucose Qualitative, Urine Neg (Neg); Ketones, Urine 1+ (Neg); Leukocyte Esterase, Urine 3+ (Neg); Nitrite, Urine Pos (Neg); Protein, Urine 4+ (Neg); Urobilinogen, Urine NORM (Normal)
[2019-05-31 01:33] LABS: Amorphous Light (0-Heavy); Bacteria Many /hpf; Red Blood Cells, Urine 0-2 /hpf (0-2); Squamous Epithelial Cells Few /hpf (Few); White Blood Cells, Urine TNTC /hpf (0-5)
[2019-05-31 05:12] LABS: Hematocrit 33.4 % (37.0-53.0); Hemoglobin 10.2 g/dL (13.5-17.5); Mean Corpuscular HGB Conc 30.5 g/dL (31.5-36.5); Mean Corpuscular Volume 82 fL (80-100); Mean Platelet Volume 8.8 fL (9.1-12.4); Platelet Count 240 K/mm3 (150-400); RDW Coefficient Variation 17.6 % (11.7-14.2); RDW Standard Deviation 51.8 fL (35.1-46.3); Red Blood Cell Count 4.08 M/mm3 (4.30-5.90); White Blood Cell Count 9.75 K/mm3 (4.00-11.30)
--- NOTE | 2019-05-31 05:28 | NUR ---
SHIFT SUMMARY PT HAS SPINA BIFIDA CUASING NEUROGENIC BLADDER, REQUIRING SELF CATH FOR URINATION. URINE IS BROWN, FOUL ODOR, SEDMIMENT AND MUCOUS VISUALIZED. CONDOM CATH APPLIED, BUT IS A VERY POOR REMEDY IT DOES NOT STAY ON WELL D/T SWOLLEN SCROTUM AND INVERTED PENIS. PT HAS INDEPENDENTLY STRAIGHT CATH'D TONIGHT PRN. TELE IN PLACE, NSR @ 81, NO ACUTE TELEMETRY EVENTS. PT HAS DEEP DECUB ULCER TO GLUTEAL SKIN FOLDS, SEE PRIOR NOTE. DRESSING HAS BECOME SATURATED IN URINE SEVERAL TIMES TONIGHT D/T INCONTINENCE, ATTEMPTED TO GET ORDER FOR QUINTEROS PLACEMENT TO PROTECT WOUNDS, HOWEVER RAINES DECLINED. DRESSING CHANGES HAVE BEEN DONE SEVERAL TIMES TONIGHT. NO OTHER CHANGES. WILL CONT TO MONITOR AND PROVIDE CARE UNTIL PRESUMED BY ONCOMING RN.
[2019-05-31 05:48] LABS: Albumin, Blood 2.1 g/dL (3.4-5.0); Albumin/Globulin Ratio 0.4 (0.8-1.8); Bilirubin, Total 0.4 mg/dL (0.1-1.0); Bun/Creatinine Ratio 31.8 (12.0-20.0); Calcium, Blood 7.9 mg/dL (8.5-10.1); Creatinine, Blood 1.57 mg/dL (0.60-1.20); Globulin, Blood 4.8 g/dL (2.2-4.0); Potassium, Blood 4.1 mmol/L (3.5-5.5); Total Protein, Blood 6.9 g/dL (6.4-8.2)
[2019-05-31] MEDS ORDERED: CEFD300 PO (09:29)
--- NOTE | 2019-05-31 15:10 | NUR ---
DISCHARGE PT DISCHARGED TO HOME. THIS RN EXPLAINED DISCHARGE INSTRUCTIONS AND MEDICATIONS TO PT AND HE REPORTS HE UNDERSTANDS. IV REMOVED WITHOUT DIFFICULTY. PT DRESSED SELF AND WAS ABLE TO TRANSFER SELF TO OWN WHEELCHAIR. PT TRANSFERRED TO HOME BY WHEELCHAIR VAN. BELONGINGS WITH PT.
== END 2019-05-31 13:30 | disposition home or self-care (01) ==
LOC: ER 12:06 → MEDS 12:07 → ENPENDDIS 05-31 08:56 → MEDS 05-31 13:30
PROVIDERS: Physician Assistant; ADMIT Internal Medicine
DX: N39.0 Urinary tract infection, site not specified (principal); N17.9 Acute kidney failure, unspecified; E86.0 Dehydration; I10 Essential (primary) hypertension; E11.649 Type 2 diabetes mellitus with hypoglycemia without coma; L89.159 Pressure ulcer of sacral region, unspecified stage; L89.329 Pressure ulcer of left buttock, unspecified stage; Q05.9 Spina bifida, unspecified; G82.20 Paraplegia, unspecified; Z88.1 Allergy status to other antibiotic agents; Z88.0 Allergy status to penicillin; Z91.09 Other allergy status, other than to drugs and biological substances; Z99.3 Dependence on wheelchair
CPT/HCPCS: 36415; 51701; 71045; 80053; 81001; 82947; 85025; 85027; 87040; 87081; 87086; 96360-59; 96361; 96361-59; 96365; 96372; 99284-25; G0378; J0696; J1650; J7030

== ENCOUNTER 2019-06-15 00:31 | Day surgery (SDC) | payer MEDICARE, OTHER ==
[~2019-06-15 00:31] MED LIST changes: +ACET325 PO; +THERA1 EACH PO
== END 2019-06-15 23:01 | disposition home or self-care (01) ==
LOC: WOUND 00:31
DX: L89.314 Pressure ulcer of right buttock, stage 4 (principal); L89.324 Pressure ulcer of left buttock, stage 4; E11.42 Type 2 diabetes mellitus with diabetic polyneuropathy; I10 Essential (primary) hypertension; G82.20 Paraplegia, unspecified; E46 Unspecified protein-calorie malnutrition; E66.01 Morbid (severe) obesity due to excess calories; Z68.42 Body mass index [BMI] 45.0-49.9, adult
CPT/HCPCS: G0463

== ENCOUNTER 2019-07-02 14:51 | Day surgery (SDC) | payer MEDICARE, OTHER | END 2019-07-02 23:33 | disposition home or self-care (01) | LOC: WOUND 14:51 | DX: L89.324 Pressure ulcer of left buttock, stage 4 (principal); L89.314 Pressure ulcer of right buttock, stage 4; E11.622 Type 2 diabetes mellitus with other skin ulcer; E11.42 Type 2 diabetes mellitus with diabetic polyneuropathy; I10 Essential (primary) hypertension; E66.01 Morbid (severe) obesity due to excess calories; Q05.9 Spina bifida, unspecified; G82.20 Paraplegia, unspecified; E46 Unspecified protein-calorie malnutrition; Z68.42 Body mass index [BMI] 45.0-49.9, adult | CPT/HCPCS: G0463 ==

== ENCOUNTER 2019-07-09 14:20 | Day surgery (SDC) | payer MEDICARE, OTHER | END 2019-07-09 23:54 | disposition home or self-care (01) | LOC: WOUND 14:20 | DX: L89.324 Pressure ulcer of left buttock, stage 4 (principal); L89.314 Pressure ulcer of right buttock, stage 4 ==

== ENCOUNTER 2019-07-14 00:12 | Day surgery (SDC) | payer MEDICARE, OTHER | END 2019-07-14 22:35 | disposition home or self-care (01) | LOC: WOUND 00:12 | DX: L89.324 Pressure ulcer of left buttock, stage 4 (principal); L89.314 Pressure ulcer of right buttock, stage 4; Q05.7 Lumbar spina bifida without hydrocephalus; G82.20 Paraplegia, unspecified; N31.9 Neuromuscular dysfunction of bladder, unspecified; E11.42 Type 2 diabetes mellitus with diabetic polyneuropathy; I10 Essential (primary) hypertension; E46 Unspecified protein-calorie malnutrition; E66.01 Morbid (severe) obesity due to excess calories; Z68.42 Body mass index [BMI] 45.0-49.9, adult; Z79.1 Long term (current) use of non-steroidal anti-inflammatories (NSAID); Z79.899 Other long term (current) drug therapy; Z88.0 Allergy status to penicillin; Z88.1 Allergy status to other antibiotic agents; Z88.8 Allergy status to other drugs, medicaments and biological substances; Z91.041 Radiographic dye allergy status | CPT/HCPCS: G0463 ==

== ENCOUNTER 2019-07-16 00:19 | Day surgery (SDC) | payer MEDICARE, OTHER | END 2019-07-16 23:21 | disposition home or self-care (01) | LOC: WOUND 00:19 | DX: L89.324 Pressure ulcer of left buttock, stage 4 (principal); L89.314 Pressure ulcer of right buttock, stage 4; E11.622 Type 2 diabetes mellitus with other skin ulcer; E11.42 Type 2 diabetes mellitus with diabetic polyneuropathy; E66.01 Morbid (severe) obesity due to excess calories; Q05.9 Spina bifida, unspecified; G82.20 Paraplegia, unspecified; I10 Essential (primary) hypertension; Z79.1 Long term (current) use of non-steroidal anti-inflammatories (NSAID); Z79.899 Other long term (current) drug therapy; Z88.0 Allergy status to penicillin; Z88.1 Allergy status to other antibiotic agents; Z91.041 Radiographic dye allergy status | CPT/HCPCS: G0463 ==

== ENCOUNTER 2019-07-21 00:38 | Day surgery (SDC) | payer MEDICARE, OTHER | END 2019-07-21 22:43 | disposition home or self-care (01) | LOC: WOUND 00:38 | DX: L89.314 Pressure ulcer of right buttock, stage 4 (principal); L89.324 Pressure ulcer of left buttock, stage 4; E11.42 Type 2 diabetes mellitus with diabetic polyneuropathy; I10 Essential (primary) hypertension; G82.20 Paraplegia, unspecified; Q05.9 Spina bifida, unspecified; E46 Unspecified protein-calorie malnutrition; E66.01 Morbid (severe) obesity due to excess calories; Z68.42 Body mass index [BMI] 45.0-49.9, adult; Z79.899 Other long term (current) drug therapy; Z88.0 Allergy status to penicillin; Z88.1 Allergy status to other antibiotic agents; Z91.041 Radiographic dye allergy status | CPT/HCPCS: G0463 ==

== ENCOUNTER 2019-07-24 00:44 | Day surgery (SDC) | payer MEDICARE, OTHER | END 2019-07-24 23:09 | disposition home or self-care (01) | LOC: WOUND 00:44 | DX: L89.314 Pressure ulcer of right buttock, stage 4 (principal); L89.324 Pressure ulcer of left buttock, stage 4; E11.42 Type 2 diabetes mellitus with diabetic polyneuropathy; I10 Essential (primary) hypertension; E46 Unspecified protein-calorie malnutrition; G82.20 Paraplegia, unspecified; Q05.9 Spina bifida, unspecified; E66.01 Morbid (severe) obesity due to excess calories; Z68.42 Body mass index [BMI] 45.0-49.9, adult; Z79.899 Other long term (current) drug therapy; Z88.0 Allergy status to penicillin; Z88.1 Allergy status to other antibiotic agents; Z91.041 Radiographic dye allergy status | CPT/HCPCS: G0463 ==

== ENCOUNTER 2019-07-30 00:22 | Day surgery (SDC) | payer MEDICARE, OTHER | END 2019-07-30 23:14 | disposition home or self-care (01) | LOC: WOUND 00:22 | DX: L89.314 Pressure ulcer of right buttock, stage 4 (principal); L89.324 Pressure ulcer of left buttock, stage 4; E11.42 Type 2 diabetes mellitus with diabetic polyneuropathy; I10 Essential (primary) hypertension; E46 Unspecified protein-calorie malnutrition; E66.01 Morbid (severe) obesity due to excess calories; G82.20 Paraplegia, unspecified; Q05.9 Spina bifida, unspecified; Z79.899 Other long term (current) drug therapy | CPT/HCPCS: G0463 ==

== ENCOUNTER 2019-08-06 09:47 | Day surgery (SDC) | payer MEDICARE, OTHER | END 2019-08-06 12:00 | disposition home or self-care (01) | LOC: WOUND 09:47 | DX: I96 Gangrene, not elsewhere classified (principal); L89.314 Pressure ulcer of right buttock, stage 4; L89.324 Pressure ulcer of left buttock, stage 4; E11.42 Type 2 diabetes mellitus with diabetic polyneuropathy; G82.20 Paraplegia, unspecified; Q05.9 Spina bifida, unspecified; I10 Essential (primary) hypertension; K21.9 Gastro-esophageal reflux disease without esophagitis; E66.01 Morbid (severe) obesity due to excess calories; E46 Unspecified protein-calorie malnutrition; Z68.42 Body mass index [BMI] 45.0-49.9, adult; Z79.899 Other long term (current) drug therapy; Z88.1 Allergy status to other antibiotic agents; Z91.041 Radiographic dye allergy status ==

== ENCOUNTER 2019-08-10 13:05 | Day surgery (SDC) | payer MEDICARE, OTHER | END 2019-08-10 23:11 | disposition home or self-care (01) | LOC: WOUND 13:05 | DX: L89.314 Pressure ulcer of right buttock, stage 4 (principal); L89.324 Pressure ulcer of left buttock, stage 4; E11.42 Type 2 diabetes mellitus with diabetic polyneuropathy; I10 Essential (primary) hypertension; E46 Unspecified protein-calorie malnutrition; E66.01 Morbid (severe) obesity due to excess calories; G82.20 Paraplegia, unspecified; Q05.9 Spina bifida, unspecified; Z68.42 Body mass index [BMI] 45.0-49.9, adult; Z79.899 Other long term (current) drug therapy | CPT/HCPCS: G0463 ==

== ENCOUNTER 2019-08-17 15:48 | Inpatient (IN) | payer MEDICARE, OTHER ==
[~2019-08-17] VITALS: Ht 170.2 cm; Wt 136.1 kg
[2019-08-17 16:33] LABS: BASOPHILS ABSOLUTE AUTO 0.06 K/mm3 (0.00-0.23); BASOPHILS PERCENT AUTO 1 % (0-2); EOSINOPHILS ABSOLUTE AUTO 0.23 K/mm3 (0.00-0.68); EOSINOPHILS PERCENT AUTO 2 % (0-6); Hematocrit 41.1 % (37.0-53.0); Hemoglobin 12.2 g/dL (13.5-17.5); IMMATURE GRAN ABSOLUTE AUTO 0.03 K/mm3 (0.00-0.10); IMMATURE GRAN PERCENT AUTO 0 % (0-1); LYMPHOCYTES ABSOLUTE AUTO 1.66 K/mm3 (0.84-5.20); LYMPHOCYTES PERCENT AUTO 16 % (21-46); MONOCYTES ABSOLUTE AUTO 0.62 K/mm3 (0.16-1.47); MONOCYTES PERCENT AUTO 6 % (4-13); Mean Corpuscular HGB 25.4 pg (26.0-34.0); Mean Corpuscular HGB Conc 29.7 g/dL (31.5-36.5); Mean Corpuscular Volume 86 fL (80-100); NEUTROPHILS ABSOLUTE AUTO 7.66 K/mm3 (1.96-9.15); NEUTROPHILS PERCENT AUTO 75 % (41-73); Platelet Count 355 K/mm3 (150-400); RDW Coefficient Variation 17.3 % (11.7-14.2); RDW Standard Deviation 54.8 fL (35.1-46.3); White Blood Cell Count 10.26 K/mm3 (4.00-11.30)
[2019-08-17 17:22] LABS: Alanine Aminotransfer (ALT/SGP 17 U/L (12-78); Albumin, Blood 2.8 g/dL (3.4-5.0); Albumin/Globulin Ratio 0.5 (0.8-1.8); Alk Phos 86 U/L (50-136); Anion Gap 6 mmol/L (6-16); Aspartate Aminotrans (AST/SGOT 14 U/L (12-37); Bilirubin, Total 0.7 mg/dL (0.1-1.0); Blood Urea Nitrogen 18 mg/dL (8-24); Bun/Creatinine Ratio 22.8 (12.0-20.0); CO2, Blood 23 mmol/L (21-32); Chloride, Blood 113 mmol/L (98-108); Creatinine, Blood 0.79 mg/dL (0.60-1.20); Globulin, Blood 5.5 g/dL (2.2-4.0); Glomerular Filtration Rate >60 (60-); Glucose, Blood 75 mg/dL (70-99); Potassium, Blood 3.9 mmol/L (3.5-5.5); Sodium, Blood 142 mmol/L (136-145); Total Protein, Blood 8.3 g/dL (6.4-8.2)
--- NOTE | 2019-08-18 01:50 | NUR ---
PT ADMITTED FROM ER AT APPROX 2130. PT A&O X4. VSS. QUINTEROS IN PLACE AND DRAINING URINE. PT WHEELCHAIR BOUND AT BASELINE. PARAPLEGIC R/T HX OF SPINDA BIFIDA. TWO PRESSURE ULCERS NOTED ON GLUTEAL FOLDS. ULCERS PACKED WITH KERLEX. PHOTOS TAKEN AND SWABS SENT TO LAB FOR CULTURES. LEFT KNEE WOUND WRAPPED WITH DRESSING. PT W/O COMPLAINTS. WILL CTM. PLAN FOR ULTRASOUND GUIDED ASPIRATION IN MORNING.
[2019-08-18 04:29] LABS: BASOPHILS ABSOLUTE AUTO 0.07 K/mm3 (0.00-0.23); BASOPHILS PERCENT AUTO 1 % (0-2); EOSINOPHILS ABSOLUTE AUTO 0.25 K/mm3 (0.00-0.68); EOSINOPHILS PERCENT AUTO 3 % (0-6); Hemoglobin 10.5 g/dL (13.5-17.5); IMMATURE GRAN ABSOLUTE AUTO 0.03 K/mm3 (0.00-0.10); IMMATURE GRAN PERCENT AUTO 0 % (0-1); LYMPHOCYTES PERCENT AUTO 20 % (21-46); MONOCYTES ABSOLUTE AUTO 0.79 K/mm3 (0.16-1.47); MONOCYTES PERCENT AUTO 9 % (4-13); Mean Corpuscular HGB 25.4 pg (26.0-34.0); Mean Corpuscular HGB Conc 29.2 g/dL (31.5-36.5); Mean Corpuscular Volume 87 fL (80-100); Mean Platelet Volume 9.4 fL (9.1-12.4); NEUTROPHILS ABSOLUTE AUTO 6.29 K/mm3 (1.96-9.15); NEUTROPHILS PERCENT AUTO 68 % (41-73); Platelet Count 323 K/mm3 (150-400); RDW Coefficient Variation 17.5 % (11.7-14.2); Red Blood Cell Count 4.13 M/mm3 (4.30-5.90); White Blood Cell Count 9.23 K/mm3 (4.00-11.30)
[2019-08-18 04:44] LABS: International Normalized Ratio 1.08; Prothrombin Time Results 11.4 Sec (9.7-11.5)
[2019-08-18 04:51] LABS: Anion Gap 7 mmol/L (6-16); Blood Urea Nitrogen 23 mg/dL (8-24); Bun/Creatinine Ratio 30.2 (12.0-20.0); CO2, Blood 21 mmol/L (21-32); Calcium, Blood 8.3 mg/dL (8.5-10.1); Chloride, Blood 117 mmol/L (98-108); Creatinine, Blood 0.76 mg/dL (0.60-1.20); Glomerular Filtration Rate >60 (60-); Glucose, Blood 109 mg/dL (70-99); Sodium, Blood 145 mmol/L (136-145)
--- NOTE | 2019-08-18 11:18 | NUR ---
PT TO IMAGING FOR ASPIRATION OF KNEE
[2019-08-18 12:43] LABS: Source, Urine Catheter
[2019-08-18 12:54] LABS: BODY FLUID RBC 0.122 M/mm3 (0-0); RBC Count, Synovial Fluid 122000 /mm3 (0-0); WBC Count, Synovial Fluid 4539 /mm3 (0-180)
[2019-08-18 14:25] LABS: Body Fluid Crystals NEG (NEGATIVE)
[2019-08-18 14:27] LABS: Bilirubin, Urine Neg (Neg); Blood, Urine 4+ (Neg); Glucose Qualitative, Urine Neg (Neg); Ketones, Urine Neg (Neg); Leukocyte Esterase, Urine 3+ (Neg); Nitrite, Urine Pos (Neg); Protein, Urine 2+ (Neg); Urobilinogen, Urine NORM (Normal)
[2019-08-18 14:30] LABS: Eos, Synovial Fluid 1 % (0-2); Lymphs, Synovial Fluid 80 % (0-15); Monocytes/Macrophages, Synovia 10 % (0-65); Neutrophils, Synovial Fluid 9 % (0-24)
[2019-08-18 14:31] LABS: Appearance, Synovial Fluid Cloudy (Clear); Color, Synovial Fluid Red (None-P Yel)
[2019-08-18 14:50] LABS: Appearance, Urine Turbid (Clear); Color, Urine Yellow (P-Yellow)
[2019-08-18 14:51] LABS: Amorphous Mod (0-Heavy); Bacteria Many /hpf; Mucus Mod (0-Heavy); Squamous Epithelial Cells Rare /hpf (Few); Triple Phosphate Crystals Mod /hpf; White Blood Cells, Urine TNTC /hpf (0-5)
--- NOTE | 2019-08-18 17:09 | NUR ---
SHIFT SUMMARY PT HAD ASPIRATION COMPLETED TODAY. HAS DENIED PAIN DUE TO LACK OF FEELING BLE. REPOSITIONS SELF FROM SIDE TO SIDE. TOLERALTING DIET. BLOOD SUGARS WNL. PT C/O HATING BLOOD SUGAR CHECKS, ONLY COMPLAINT TODAY.
[2019-08-19 03:54] LABS: BASOPHILS ABSOLUTE AUTO 0.05 K/mm3 (0.00-0.23); BASOPHILS PERCENT AUTO 1 % (0-2); EOSINOPHILS ABSOLUTE AUTO 0.43 K/mm3 (0.00-0.68); EOSINOPHILS PERCENT AUTO 5 % (0-6); Hematocrit 35.9 % (37.0-53.0); Hemoglobin 11.1 g/dL (13.5-17.5); IMMATURE GRAN ABSOLUTE AUTO 0.03 K/mm3 (0.00-0.10); IMMATURE GRAN PERCENT AUTO 0 % (0-1); LYMPHOCYTES ABSOLUTE AUTO 2.22 K/mm3 (0.84-5.20); LYMPHOCYTES PERCENT AUTO 25 % (21-46); MONOCYTES ABSOLUTE AUTO 0.63 K/mm3 (0.16-1.47); MONOCYTES PERCENT AUTO 7 % (4-13); Mean Corpuscular HGB 25.9 pg (26.0-34.0); Mean Corpuscular HGB Conc 30.9 g/dL (31.5-36.5); Mean Platelet Volume 9.7 fL (9.1-12.4); NEUTROPHILS ABSOLUTE AUTO 5.55 K/mm3 (1.96-9.15); NEUTROPHILS PERCENT AUTO 62 % (41-73); Platelet Count 322 K/mm3 (150-400); RDW Coefficient Variation 17.5 % (11.7-14.2); RDW Standard Deviation 53.6 fL (35.1-46.3); Red Blood Cell Count 4.28 M/mm3 (4.30-5.90); White Blood Cell Count 8.91 K/mm3 (4.00-11.30)
[2019-08-19 03:56] LABS: Mean Corpuscular Volume 84 fL (80-100)
[2019-08-19 04:11] LABS: Anion Gap 7 mmol/L (6-16); Blood Urea Nitrogen 25 mg/dL (8-24); Bun/Creatinine Ratio 29.4 (12.0-20.0); CO2, Blood 23 mmol/L (21-32); Calcium, Blood 8.6 mg/dL (8.5-10.1); Chloride, Blood 111 mmol/L (98-108); Creatinine, Blood 0.85 mg/dL (0.60-1.20); Glomerular Filtration Rate >60 (60-); Glucose, Blood 87 mg/dL (70-99); Sodium, Blood 141 mmol/L (136-145)
[2019-08-19 04:21] LABS: Percent Saturation 19.8 % (20.0-50.0)
--- NOTE | 2019-08-19 05:06 | NUR ---
SHIFT SUMMARY DRSG'S TO LEFT KNEE AND COCCYX WERE CHANGED. BED BATH WAS GIVEN DUE TO QUINTEROS LEAKING, IT WAS FLUSHEDAND APPEARS TO HAVE BEEN KINKED. FLOWING WNL AT THIS TIME, LINEN WAS CHANGED. PT DENIES PAIN. VSS. NO ACUTE CHANGES NOTED FROM ASSESSMENT. CALL LIGHT IN REACH. WCTM
--- NOTE | 2019-08-19 18:19 | NUR ---
SHIFT SUMMARY PT A&O X4 WITH VSS T/O SHIFT. DRESSING TO GLUTEAL FOLDS CHANGED AND WOUND REPACKED WITH KERLEX. LEFT KNEE DRAINING SS, DRESSING ALSO CHANGED. QUINTEROS REPLACED D/T LEAKAGE. PT DENIED PAIN OR DISCOMFORT T/O DAY. IS NPO AND AWAITING SURGERY TONIGHT. PT IS CURRENTLY RESTING IN BED WITH CALL LIGHT IN HAND. WILL CONT. TO MONITOR AND GIVE REPORT TO ONCOMING RN.
--- NOTE | 2019-08-19 20:10 | NUR ---
TAKEN TO OR FOR WASH OUT.
--- NOTE | 2019-08-19 21:01 | NUR ---
08/19/192100 Taylor Ennis PT ON SCHEDULED ANTIBIOTICS AND RECIEVED PRIOR TO ARRIVAL TO OR. DR SEPULVEDA OK WITH THIS.
--- NOTE | 2019-08-20 00:15 | NUR ---
RETURNED TO ROOM FROM ICU RECOVERY. SITTING UP IN BED, AAOX3. RESPIRATIONS EVEN AND UNLABORED ON ROOM AIR. LUNG SOUNDS COARSE BILTERALLY. ABDOMEN SOFT AND NONDISTENDED. BOWEL SOUNDS NOTED IN ALL QUADS. RIGHT UPPER ARM POWERGLIDE IS PATENT, FLUSHING WITH EASE. QUINTEROS CATH IS PATENT, DRAINING CLEAR YELLOW URINE TO GRAVITY. DENIES PAIN AT THIS TIME. WOUND VAC TO LEFT KNEE IS PATENT, SEROUS FLUID NOTED IN COLLECTION CHAMBER AND THE LINE. VSS, POST OP VS IN PROGRESS. GIVEN SANDWICHES AND OTHER SNACKS SINCE HE WAS UNABLE TO EAT DINNER. DENIES FURTHER NEEDS OR WANTS AT THIS TIME. SAFETY MEASURES IN PLACE. WILL CONTINUE TO MONITOR.
--- NOTE | 2019-08-20 06:34 | NUR ---
SHIFT SUMMARY LYING IN HIGH FOWLERS WITH EYES OPEN WHILE WATCHING TV. HAS RESTED WELL THIS SHIFT SINCE RETIRN FROM OR AND ICU RECOVERY. DENIES PAIN, DISCOMFORT, OR FURTHER NEEDS AT THIS TIME. SAFETY MEASURES IN PLACE. WILL GIVE HAND OFF TO ONCOMING SHIFT USING SBAR.
--- NOTE | 2019-08-20 15:19 | NUR ---
DR. RAO IN TO SEE PT DR. RAO IN TO SEE PT AT THIS TIME. PLAN TO D/C QUINTEROS. PT WILL STRAIGHT CATH SELF, WHICH HE DOES DAILY AT HOME. ALSO D/C POC CBG TESTING.
--- NOTE | 2019-08-20 18:00 | NUR ---
DR SEPULVEDA IN TO SEE PT DR. SEPULVEDA IN TO SEE PT. PLAN FOR HER TO CHANGE WOUND VAC TOMORROW AT BEDSIDE.
--- NOTE | 2019-08-20 20:13 | NUR ---
SHIFT SUMMARY PT A&OX4 WITH VSS AT BASELINE. QUINTEROS D/C W/ PT TO STRAIGHT CATH SELF, PER ORDER. DRESSINGS CHANGED TO GLUTEAL FOLDS X 2 C/D/I. WOUND VAC TO LEFT KNEE IN PLACE AND DRAINING SS FLUID. DENIED ANY DISCOMFORT T/O SHIFT. TOLERATED REGULAR DIET. CURRENTLY RESTING IN ROOM WITH CALL LIGHT WITHIN REACH. REPORT GIVEN TO ONCOMING RN AT BEDSIDE.
[2019-08-21 05:25] LABS: BASOPHILS ABSOLUTE AUTO 0.04 K/mm3 (0.00-0.23); BASOPHILS PERCENT AUTO 0 % (0-2); EOSINOPHILS ABSOLUTE AUTO 0.29 K/mm3 (0.00-0.68); EOSINOPHILS PERCENT AUTO 3 % (0-6); Hematocrit 34.2 % (37.0-53.0); Hemoglobin 10.4 g/dL (13.5-17.5); IMMATURE GRAN ABSOLUTE AUTO 0.04 K/mm3 (0.00-0.10); IMMATURE GRAN PERCENT AUTO 0 % (0-1); LYMPHOCYTES ABSOLUTE AUTO 2.27 K/mm3 (0.84-5.20); LYMPHOCYTES PERCENT AUTO 23 % (21-46); MONOCYTES ABSOLUTE AUTO 0.77 K/mm3 (0.16-1.47); MONOCYTES PERCENT AUTO 8 % (4-13); Mean Corpuscular HGB 25.5 pg (26.0-34.0); Mean Corpuscular HGB Conc 30.4 g/dL (31.5-36.5); Mean Corpuscular Volume 84 fL (80-100); Mean Platelet Volume 9.4 fL (9.1-12.4); NEUTROPHILS ABSOLUTE AUTO 6.52 K/mm3 (1.96-9.15); NEUTROPHILS PERCENT AUTO 66 % (41-73); Platelet Count 302 K/mm3 (150-400); RDW Coefficient Variation 17.2 % (11.7-14.2); RDW Standard Deviation 53.5 fL (35.1-46.3); Red Blood Cell Count 4.08 M/mm3 (4.30-5.90); White Blood Cell Count 9.93 K/mm3 (4.00-11.30)
[2019-08-21 05:41] LABS: Anion Gap 7 mmol/L (6-16); Blood Urea Nitrogen 34 mg/dL (8-24); Bun/Creatinine Ratio 42.9 (12.0-20.0); CO2, Blood 23 mmol/L (21-32); Calcium, Blood 8.4 mg/dL (8.5-10.1); Chloride, Blood 111 mmol/L (98-108); Creatinine, Blood 0.79 mg/dL (0.60-1.20); Glomerular Filtration Rate >60 (60-); Glucose, Blood 101 mg/dL (70-99); Sodium, Blood 141 mmol/L (136-145)
--- NOTE | 2019-08-21 05:47 | NUR ---
SHIFT SUMMARY SITTING UP IN BED WHILE WATCHING TV. NURSING ASSISTED IN SELF CATHING, TOLERATED WELL. WOUND CARE TO GLUTEAL FOLD X2 COMPLETED, TOLERATED WELL. ABLE TO REPOSITION SELF IN BED TO COMFORT. STATES THAT HE IS LOOKING FORWARD TO GOING HOME AND SPENDING TIME WITH HIS CAT. DENIES PAIN, DISCOMFORT, OR FURTHER NEEDS AT THIS TIME. SAFETY MEASURES IN PLACE. WILL CONTINUE TO MONITOR.
--- NOTE | 2019-08-21 16:59 | NUR ---
ASKED BY SWAPNA XIONG TO CALL DR. RAO TO SEE IF HE WILL ORDER ID CONSULD AND ABX FOR PT PER DR. SEPULVEDA, DR. RAO STATES HE ALREADY DISCUSSED IT WITH DR. SEPULVEDA.
--- NOTE | 2019-08-21 18:46 | NUR ---
Patient has wound vac to left kneein place and draining. Dr. Lopez changed wound vac and dressing assisted by Dr. Rahman. Denies any pain or discomfort. Patient straight cath self; declined any assistance. dressing changed to gluteal pressure ulcers x2. Ulcers are deep, strong odor, and patient declines repositioning from back. Voiding well and eating regular diet no insulin checks - diabetes controlled by diet. Patient enjoyed football game.
--- NOTE | 2019-08-21 21:00 | NUR ---
PATIENT REFUSED NURSE ALBAN CATH. STATED THAT HE WOULD DO HIS OWN. i SET THE PATIENT UP WITH WHAT HE WOULD USUALLY NEED, WITH THE ADDITION OF SUPPLIES TO CLEAN AND MAINTAIN STERILITY. THIS WAS NOT USED, PT STATED THAT HE WOULD NOT USE THESE. HE ALSO REFUSES TO BE REPOSITIONED OFF OF HIS GLUTEAL WOUNDS WITH OUR HELP. HE DOES REPOSTITION SELF IN BED WELL. HE IS RESPECTFUL OF THE STAFF AND ENGAGING IN CONVERSATION.
--- NOTE | 2019-08-21 22:10 | NUR ---
ASSUMED CARE OF PT FROM SWAPNA SALAZAR. NO CHANGES FROM ASSESSMENT CHARTED. PT SITTING UP IN BED WATCHING TV. PT CONTINUES TO REFUSE ASSISTANCE WITH REPOSITIONING + ASSESSMENT OF COCCYX WOUNDS AT THIS TIME, WILL CONTINUE TO ENCOURAGE + EDUCATE. CALL LIGHT IN REACH.
--- NOTE | 2019-08-22 07:40 | NUR ---
SHIFT SUMMARY PT RESTED WELL THIS AM. AAOX4/ANXIOUS AT TIMES. PT DENIES DISCOMFORT/NAUSEA T/O SHIFT. DRESSINGS TO RIGHT + LEFT HIP D/C/I. PT REFUSING MOST CARE T/O NIGHT, ACCEPTED MIDNIGHT PO ABX. CONTINUE TO ENCOURAGE COOPERATION WITH CARE + MEDICATIONS. NO ACUTE CHANGES THIS SHIFT. PT RESTING AT THIS TIME, NADN, WITH CALL LIGHT IN REACH.
--- NOTE | 2019-08-22 07:44 | NUR ---
SHIFT SUMMARY PT RESTED WELL T/O SHIFT. AAOX4. PT DENIES DISCOMFORT/NAUSEA. DRESSING TO LEFT KNEE WITH WOUND VAC SECURE. DECUBITAL ULCERS WITH DRESSINGS CHANGED THIS AM. NO ACUTE CHANGES THIS SHIFT. PT RESTING AT THIS TIME, NADN, WITH CALL LIGHT IN REACH. REPORT TO DAY SHIFT RN.
--- NOTE | 2019-08-23 06:34 | NUR ---
shift summary PATIENT SLEPT THE MAJORITY OF THE NIGHT. HE WAS VERY COOPERATIVE WITH CARE WITH BOTH RN AND BONE CHAR PULLER. HE IS ABLE TO TURN AND REPOSITION SEFL TO HELP WITH CLEANING. HE DID ALLOW THE BONE CHAR PULLER TO CLEAN HIS TONY AREA AFTER HE SELF CATHED. NO OTHER ACUTE CHANGES.
--- NOTE | 2019-08-23 15:20 | NUR ---
SHIFT SUMMARY PT A&OX4, VSS, POD4 L KNEE I&D, WOUND VAC IN PLACE. GLUTEAL ULCERS DRESSINGS CHANGED. PT REPOSITIONS WELL, SELF CATHS, VINCENT PO INTAKE, DENIES N&V, DENIES PAIN. WILL REPORT TO ONCOMING NOC RN.
--- NOTE | 2019-08-24 05:02 | NUR ---
SHIFT SUMMARY: ED RESTED COMFORTABLY FOR THE MAJORITY OF THE SHIFT. HE DENIES ANY PAIN, CHEST PAIN, SOB, N/V. HE IS TOLERATING PO INTAKE WELL. HIS WOUND VAC TO THE LEFT KNEE IS PATENT DRAINING SEROSANGINOUS FLUID, CANISTER CHANGED THIS SHIFT. HE HAS PERFORMED STRAIGHT CATH WITHOUT ASSISTANCE. HE DOES HAVE SOME INCONTINENCE. VSS. DRESSINGS CHANGED TO THE BILATERAL DECUB IN HIS GLUTEAL FOLDS AND THE MEPILEX TO HIS COCCYX. HE IS ABLE TO MAKE HIS NEEDS KNOWN. HE IS LYING IN BED WTIH THE CALL LIGHT IN REACH.
--- NOTE | 2019-08-24 14:52 | NUR ---
ISOLATION EVALUATION: PT NEGATIVE FOR MRSA. HOWEVER, ONE TISSUE SPECIMEN IS POSITIVE FOR ESBL. PT TO REMAIN IN ISOLATION DUE TO PRESENCE OF ESBL IN JOINT TISSUE.
--- NOTE | 2019-08-24 17:08 | NUR ---
DR. CROWLEY SAW PT, DISCUSSED IV ANTIBIOTICS AND DISCHARGE TO SNF. ONEYDA, CONTRACT MANAGER AWARE. PLAN IS FOR PT TO BE TRANSFERED TO [facility] TOMORROW. DR. SEPULVEDA AT BEDSIDE TODAY WELL FOR L KNEE WOUND CLEANSING AND WOUND VAC CHANGE.
--- NOTE | 2019-08-24 19:15 | NUR ---
SUMMARY: PT IS POD5 L KNEE I&D. NO ACUTE CHANGE TODAY. VSS, A/O. SEE PREVIOUS NOTE. PT CONTINUES TO DENY PAIN. TURNING AND REPOSITIONING SELF. URINE CONTINUES TO LEAK FROM PENIS, SERVERAL UNMEASURED VOIDS, ENCOURAGING PT TO SELF CATH MORE FREQUENTLY. DRESSINGS CHANGED USING WET TO DRY AT GLUTEAL FOLDS, NO S/SX OF INFECTION. IV ANTIBIOTIC INFUSED. NO ACUTE CONCERNS AT THIS TIME. PLAN IS DC TOMORROW TO [facility].
--- NOTE | 2019-08-25 04:10 | NUR ---
SHIFT SUMMARY PT IS A/O X4. HAS BEEN IN BED THIS SHIFT BUT REPOSITIONS SELF WITH ASSISTANCE. PT HAS BEEN REPOSITIONED MULTIPLE TIMES THIS SHIFT. PT USES STRAIGHT CATH BUT HAS ALSO HAD TO BE CHANGED SEVERAL TIMES D/T LEAKING URINE. LINENS CHANGED THIS SHIFT, TONY CARE PROVIDED MULT TIMES. DRESSINGS ON COCCYX CHANGED THIS SHIFT. PT HAS REPORTED NO PAIN. WOUND VAC IN PLACE, FUNCTIONING. ASSISTED WITH ADL'S PRN. TOLERATING PO INTAKE.
--- NOTE | 2019-08-25 10:57 | NUR ---
THIS RN IN ROOM AT ABOUT 0820 TO ASSESS PT AND GIVE MEDS. PT EDUCATED ON BOWEL CARE AND IMPORTANCE OF HAVING BM'S. PT REFUSING BOWEL CARE AT THIS TIME AND STATES THAT IT TAKES HIM SOMETIMES OVER 2 WEEKS TO HAVE A BM AND TAKING MEDICATIONS WILL NOT HELP. THIS RN DID MORE EDUCATING AND CONVINCED PT TO TAKE STOOL SOFTENERS. PT AGREED THE THE COMPROMISE OF NO LAXATIVES OR ENAMAS AT THIS TIME BUT WILL TAKE SOFTENERS. WILL CTM
--- NOTE | 2019-08-25 16:47 | NUR ---
PICC LINE INSERTION FAILED X2, CIVIL ENGINEERING INTERN ATTEMPTING AT THIS TIME. PT DID AGREE TO TAKE DOCULAX. NO BM CURRENTLY, WILL CTM CALL MADE TO [facility] FOR TRANSFER REPORT, LEFT A MESSAGE AND [facility] REPORTS WILL BE CALLING THIS RN BACK.
--- NOTE | 2019-08-25 17:19 | NUR ---
REPORT GIVEN TO ZULAY RN AT [facility] AT 1700. PICC LINE PLACED, AWAITING XRAY PLACEMENT VERIFICATION. DISCHARGE SUMMARY FAXED TO [facility] PER RN REQUEST. PT TO BE TRANSPORTED AT 1730, WILL CTM
--- NOTE | 2019-08-25 18:38 | NUR ---
DISCHARGE: PICC LINE PLACEMENT VERIFIED VIA XRAY. TRANSPORT HERE AT 1730. DISCHARGE PACKET GIVEN TO TRANSPORTER. WOUND VAC CANISTER CHANGED PRIOR TO PT DC. PT HELPED ON TO OWN WHEELCHAIR AND ESCORTED OUT WITH TRANSPORT AT ABOUT 1805
== END 2019-08-25 18:05 | DRG 464 ==
LOC: ER 15:48 → SURS 18:53
PROVIDERS: Family Medicine; Internal Medicine; Orthopaedic Surgery; Physician Assistant; ADMIT Internal Medicine
PROC: 0SPD0JZ Removal of Synthetic Substitute from Left Knee Joint, Open Approach (ICD-10-PCS; 2019-08-19)
PROC: 0QBH0ZX Excision of Left Tibia, Open Approach, Diagnostic (ICD-10-PCS; 2019-08-19)
PROC: 0SBD0ZZ Excision of Left Knee Joint, Open Approach (ICD-10-PCS; principal; 2019-08-19 21:30)
DX: T84.54XA Infection and inflammatory reaction due to internal left knee prosthesis, initial encounter (principal); M86.9 Osteomyelitis, unspecified; G82.20 Paraplegia, unspecified; M00.9 Pyogenic arthritis, unspecified; Z68.42 Body mass index [BMI] 45.0-49.9, adult; T84.033A Mechanical loosening of internal left knee prosthetic joint, initial encounter; E88.09 Other disorders of plasma-protein metabolism, not elsewhere classified; Z99.3 Dependence on wheelchair; I10 Essential (primary) hypertension; N31.9 Neuromuscular dysfunction of bladder, unspecified; M14.66 Charcot's joint, knee; Z87.891 Personal history of nicotine dependence; B96.4 Proteus (mirabilis) (morganii) as the cause of diseases classified elsewhere; E66.01 Morbid (severe) obesity due to excess calories; E11.9 Type 2 diabetes mellitus without complications
CPT/HCPCS: 20611; 36415; 36569; 51702; 71045; 73560-LT; 73700; 76942; 80048; 80053; 81001; 82728; 82947; 83540; 83550; 83605; 85025; 85610; 85651; 86141; 87040; 87070; 87071; 87075; 87077; 87081; 87086; 87186; 87205; 89051; 89060; 96374-59; 99285-25; A9270-GY; C1751; C1769; C1894; J0690; J1100; J1335; J2250; J2370; J2405; J2704; J2710; J3010; J7120

== ENCOUNTER 2019-11-04 00:31 | Day surgery (SDC) | payer MEDICARE, OTHER | END 2019-11-04 23:18 | disposition home or self-care (01) | LOC: WOUND 00:31 | DX: L89.314 Pressure ulcer of right buttock, stage 4 (principal); L89.324 Pressure ulcer of left buttock, stage 4; E11.622 Type 2 diabetes mellitus with other skin ulcer; I10 Essential (primary) hypertension; E66.01 Morbid (severe) obesity due to excess calories; L89.152 Pressure ulcer of sacral region, stage 2; L97.825 Non-pressure chronic ulcer of other part of left lower leg with muscle involvement without evidence of necrosis; Z88.0 Allergy status to penicillin; Z88.1 Allergy status to other antibiotic agents; Z88.8 Allergy status to other drugs, medicaments and biological substances; Z91.041 Radiographic dye allergy status; Z87.891 Personal history of nicotine dependence; Z68.42 Body mass index [BMI] 45.0-49.9, adult; Z79.899 Other long term (current) drug therapy | CPT/HCPCS: G0463 ==

== ENCOUNTER 2019-12-08 13:03 | Inpatient (IN) | payer MEDICARE, OTHER ==
[~2019-12-08] VITALS: Ht 172.7 cm; Wt 114.5 kg
[2019-12-08 14:09] LABS: EOSINOPHILS ABSOLUTE AUTO 0.01 K/mm3 (0.00-0.68); EOSINOPHILS PERCENT AUTO 0 % (0-6); Hematocrit 37.9 % (37.0-53.0); Hemoglobin 11.4 g/dL (13.5-17.5); IMMATURE GRAN PERCENT AUTO 2 % (0-1); LYMPHOCYTES ABSOLUTE AUTO 0.74 K/mm3 (0.84-5.20); LYMPHOCYTES PERCENT AUTO 2 % (21-46); MONOCYTES ABSOLUTE AUTO 0.77 K/mm3 (0.16-1.47); MONOCYTES PERCENT AUTO 2 % (4-13); Mean Corpuscular HGB 22.7 pg (26.0-34.0); Mean Corpuscular HGB Conc 30.1 g/dL (31.5-36.5); Mean Corpuscular Volume 75 fL (80-100); Mean Platelet Volume 9.2 fL (9.1-12.4); NEUTROPHILS ABSOLUTE AUTO 40.56 K/mm3 (1.96-9.15); NEUTROPHILS PERCENT AUTO 95 % (41-73); Platelet Count 383 K/mm3 (150-400); RDW Coefficient Variation 23.4 % (11.7-14.2); RDW Standard Deviation 61.7 fL (35.1-46.3); Red Blood Cell Count 5.03 M/mm3 (4.30-5.90); White Blood Cell Count 42.89 K/mm3 (4.00-11.30)
[2019-12-08 14:17] LABS: BASOPHILS ABSOLUTE AUTO 0.01 K/mm3 (0.00-0.23); BASOPHILS PERCENT AUTO 0 % (0-2)
[2019-12-08 14:23] LABS: Albumin, Blood 1.6 g/dL (3.4-5.0); Albumin/Globulin Ratio 0.3 (0.8-1.8); Bilirubin, Total 0.5 mg/dL (0.1-1.0); Bun/Creatinine Ratio 53.8 (12.0-20.0); Calcium, Blood 7.8 mg/dL (8.5-10.1); Creatinine, Blood 2.36 mg/dL (0.60-1.20); Globulin, Blood 4.7 g/dL (2.2-4.0); Potassium, Blood 3.2 mmol/L (3.5-5.5); Total Protein, Blood 6.3 g/dL (6.4-8.2); Troponin I 0.109 ng/mL (0.000-0.040)
[2019-12-08 15:19] LABS: Source, Urine Catheter
[2019-12-08 15:24] LABS: Bilirubin, Urine Neg (Neg); Blood, Urine 5+ (Neg); Glucose Qualitative, Urine Neg (Neg); Ketones, Urine 1+ (Neg); Leukocyte Esterase, Urine 3+ (Neg); Nitrite, Urine Neg (Neg); Protein, Urine 3+ (Neg); Specific Gravity, Urine 1.015 (1.003-1.022); Urobilinogen, Urine NORM (Normal)
[2019-12-08 15:33] LABS: Appearance, Urine Cloudy (Clear); Color, Urine Yellow (P-Yellow); White Blood Cells, Urine TNTC /hpf (0-5)
[2019-12-08 15:34] LABS: Bacteria Many /hpf; Red Blood Cells, Urine 25-50 /hpf (0-2); Squamous Epithelial Cells Few /hpf (Few)
[2019-12-09 05:07] LABS: Hematocrit 31.6 % (37.0-53.0); Hemoglobin 9.7 g/dL (13.5-17.5); Mean Corpuscular HGB 23.2 pg (26.0-34.0); Mean Corpuscular HGB Conc 30.7 g/dL (31.5-36.5); Mean Corpuscular Volume 75 fL (80-100); Mean Platelet Volume 9.2 fL (9.1-12.4); Platelet Count 328 K/mm3 (150-400); RDW Coefficient Variation 23.5 % (11.7-14.2); RDW Standard Deviation 61.4 fL (35.1-46.3); Red Blood Cell Count 4.19 M/mm3 (4.30-5.90); White Blood Cell Count 41.47 K/mm3 (4.00-11.30)
[2019-12-09 05:34] LABS: Anion Gap 16 mmol/L (6-16); Blood Urea Nitrogen 120 mg/dL (8-24); Bun/Creatinine Ratio 55.8 (12.0-20.0); CO2, Blood 12 mmol/L (21-32); Calcium, Blood 7.3 mg/dL (8.5-10.1); Chloride, Blood 109 mmol/L (98-108); Creatinine, Blood 2.15 mg/dL (0.60-1.20); Glomerular Filtration Rate 33 (60-); Glucose, Blood 96 mg/dL (70-99); Potassium, Blood 3.2 mmol/L (3.5-5.5); Sodium, Blood 137 mmol/L (136-145)
== END 2019-12-09 22:58 | disposition short-term general hospital (02) | DRG 698 ==
LOC: ER 13:03 → MEDS 17:11
PROVIDERS: Emergency Medicine; ADMIT Internal Medicine
DX: T83.518A Infection and inflammatory reaction due to other urinary catheter, initial encounter (principal); A41.9 Sepsis, unspecified organism; R65.20 Severe sepsis without septic shock; N39.0 Urinary tract infection, site not specified; N17.9 Acute kidney failure, unspecified; G82.20 Paraplegia, unspecified; L03.818 Cellulitis of other sites; M25.462 Effusion, left knee; E87.6 Hypokalemia; I10 Essential (primary) hypertension; D63.8 Anemia in other chronic diseases classified elsewhere; E11.610 Type 2 diabetes mellitus with diabetic neuropathic arthropathy; Q05.9 Spina bifida, unspecified; N31.9 Neuromuscular dysfunction of bladder, unspecified; Z87.891 Personal history of nicotine dependence; N13.9 Obstructive and reflux uropathy, unspecified; L89.899 Pressure ulcer of other site, unspecified stage; N20.0 Calculus of kidney; L89.329 Pressure ulcer of left buttock, unspecified stage
CPT/HCPCS: 36415; 51702; 71045; 74176; 76770; 80048; 80053; 80202; 81001; 83605; 84145; 84484; 85025; 85027; 87040; 87070; 87075; 87076; 87077; 87086; 87147; 87185; 87186; 87205; 93005; 93010; 96361-59; 96365-59; 96372-59; 99285-25; A9270; J1170; J1644; J2185; J2405; J3370; J7030; J7050; J7120

== ENCOUNTER → 2020-02-08 | Outpatient (CLI) | payer MEDICARE, OTHER | END | disposition home or self-care (01) | LOC: LAB RH 06:00 → EDSTATUS 12:52 | DX: N10 Acute pyelonephritis (principal); N31.9 Neuromuscular dysfunction of bladder, unspecified; N20.2 Calculus of kidney with calculus of ureter | CPT/HCPCS: 81050 ==

== ENCOUNTER → 2020-02-15 | Outpatient (CLI) | payer MEDICARE, OTHER ==
[2020-02-15 11:44] LABS: Source, Urine Catheter
[2020-02-15 12:15] LABS: Bilirubin, Urine Neg (Neg); Blood, Urine 5+ (Neg); Glucose Qualitative, Urine Neg (Neg); Ketones, Urine Neg (Neg); Leukocyte Esterase, Urine 3+ (Neg); Nitrite, Urine Neg (Neg); Protein, Urine 2+ (Neg); Urobilinogen, Urine NORM (Normal); pH, Urine 6.5 (5.0-8.0)
[2020-02-15 12:26] LABS: Appearance, Urine Hazy (Clear); Bacteria Few /hpf; Color, Urine Yellow (P-Yellow); Squamous Epithelial Cells Few /hpf (Few); Yeast/Fungi Urine Few /hpf
== END | disposition home or self-care (01) ==
LOC: EDSTATUS 10:33 → LAB RH 11:42
PROVIDERS: Family Medicine
DX: N10 Acute pyelonephritis (principal); N31.9 Neuromuscular dysfunction of bladder, unspecified
CPT/HCPCS: 81001; 87077; 87086; 87186

== ENCOUNTER → 2020-02-18 | Outpatient (CLI) | payer MEDICARE, OTHER | END | disposition home or self-care (01) | LOC: LAB RH 14:10 | DX: N10 Acute pyelonephritis (principal) | CPT/HCPCS: 85018 ==

== ENCOUNTER → 2020-03-02 | Outpatient (CLI) | payer MEDICARE, OTHER ==
[2020-03-02 21:26] LABS: Appearance, Urine Hazy (Clear); Bilirubin, Urine 1+ (Neg); Blood, Urine 5+ (Neg); Color, Urine Yellow (P-Yellow); Glucose Qualitative, Urine Neg (Neg); Ketones, Urine Neg (Neg); Leukocyte Esterase, Urine 3+ (Neg); Nitrite, Urine Neg (Neg); Protein, Urine 3+ (Neg); Specific Gravity, Urine 1.015 (1.003-1.022); Urobilinogen, Urine NORM (Normal)
[2020-03-02 21:34] LABS: Bacteria Many /hpf; Mucus Light (0-Heavy); Red Blood Cells, Urine 50-100 /hpf (0-2); Squamous Epithelial Cells Few /hpf (Few); White Blood Cells, Urine 50-100 /hpf (0-5)
== END | disposition home or self-care (01) ==
LOC: EDSTATUS 10:39 → LAB RH 20:40
PROVIDERS: Family Medicine
DX: N39.0 Urinary tract infection, site not specified (principal)
CPT/HCPCS: 81001; 87086

== ENCOUNTER 2020-04-14 11:12 | Inpatient (IN) | payer MEDICARE, OTHER ==
[~2020-04-14] VITALS: Ht 170.2 cm; Wt 102.0 kg
[2020-04-14 11:54] LABS: BASOPHILS ABSOLUTE AUTO 0.03 K/mm3 (0.00-0.23); BASOPHILS PERCENT AUTO 0 % (0-2); EOSINOPHILS ABSOLUTE AUTO 0.04 K/mm3 (0.00-0.68); EOSINOPHILS PERCENT AUTO 1 % (0-6); Hematocrit 32.1 % (37.0-53.0); Hemoglobin 9.7 g/dL (13.5-17.5); IMMATURE GRAN ABSOLUTE AUTO 0.04 K/mm3 (0.00-0.10); IMMATURE GRAN PERCENT AUTO 1 % (0-1); LYMPHOCYTES ABSOLUTE AUTO 0.78 K/mm3 (0.84-5.20); LYMPHOCYTES PERCENT AUTO 9 % (21-46); MONOCYTES ABSOLUTE AUTO 0.67 K/mm3 (0.16-1.47); MONOCYTES PERCENT AUTO 8 % (4-13); Mean Corpuscular HGB Conc 30.2 g/dL (31.5-36.5); Mean Corpuscular Volume 79 fL (80-100); Mean Platelet Volume 9.4 fL (9.1-12.4); NEUTROPHILS PERCENT AUTO 81 % (41-73); Platelet Count 274 K/mm3 (150-400); RDW Coefficient Variation 18.5 % (11.7-14.2); RDW Standard Deviation 53.1 fL (35.1-46.3); Red Blood Cell Count 4.05 M/mm3 (4.30-5.90); White Blood Cell Count 8.36 K/mm3 (4.00-11.30)
[2020-04-14 12:05] LABS: Albumin/Globulin Ratio 0.4 (0.8-1.8); Bilirubin, Total 0.4 mg/dL (0.1-1.0); Bun/Creatinine Ratio 25.3 (12.0-20.0); Calcium, Blood 8.9 mg/dL (8.5-10.1); Creatinine, Blood 1.5 mg/dL (0.60-1.20); Potassium, Blood 4.3 mmol/L (3.5-5.5)
[2020-04-14 14:36] LABS: Source, Urine Catheter
[2020-04-14 14:42] LABS: Appearance, Urine Cloudy (Clear); Bilirubin, Urine Neg (Neg); Blood, Urine 5+ (Neg); Color, Urine Yellow (P-Yellow); Glucose Qualitative, Urine Neg (Neg); Ketones, Urine Neg (Neg); Leukocyte Esterase, Urine 3+ (Neg); Nitrite, Urine Pos (Neg); Protein, Urine 3+ (Neg); Urobilinogen, Urine NORM (Normal)
[2020-04-14 14:51] LABS: Red Blood Cells, Urine TNTC /hpf (0-2); White Blood Cells, Urine TNTC /hpf (0-5)
[2020-04-14 14:52] LABS: Bacteria Many /hpf; Squamous Epithelial Cells Rare /hpf (Few)
[2020-04-14] MEDS ORDERED: FUROSEMIDE20 MG PO (15:32)
[2020-04-14] MEDS ORDERED: K-Dur10 MEQ PO (15:34)
[2020-04-14] MEDS ORDERED: CENTRUM SILVER1 EAC2 PO (15:35)
[2020-04-14] MEDS ORDERED: ACET325 PO (16:59)
[2020-04-14] MEDS ORDERED: Norco 5-325 Ta1 EACH PO (17:01)
[2020-04-14] MEDS ORDERED: MIRALAX17 GM PO (17:02)
[2020-04-14 17:53] LABS: International Normalized Ratio 1.12; Prothrombin Time Results 11.9 Sec (9.7-11.5)
[2020-04-14 18:01] LABS: Gentamicin, Random 14.4 ug/Ml
[2020-04-14 19:22] LABS: Gentamicin, Peak 9.5 ug/mL (4.0-8.0)
[2020-04-15 05:32] LABS: BASOPHILS ABSOLUTE AUTO 0.04 K/mm3 (0.00-0.23); BASOPHILS PERCENT AUTO 0 % (0-2); EOSINOPHILS PERCENT AUTO 0 % (0-6); Hematocrit 31.5 % (37.0-53.0); Hemoglobin 9.5 g/dL (13.5-17.5); IMMATURE GRAN ABSOLUTE AUTO 0.11 K/mm3 (0.00-0.10); IMMATURE GRAN PERCENT AUTO 1 % (0-1); LYMPHOCYTES ABSOLUTE AUTO 0.91 K/mm3 (0.84-5.20); LYMPHOCYTES PERCENT AUTO 6 % (21-46); MONOCYTES ABSOLUTE AUTO 1.04 K/mm3 (0.16-1.47); MONOCYTES PERCENT AUTO 7 % (4-13); Mean Corpuscular HGB Conc 30.2 g/dL (31.5-36.5); Mean Corpuscular Volume 80 fL (80-100); Mean Platelet Volume 9.6 fL (9.1-12.4); NEUTROPHILS PERCENT AUTO 86 % (41-73); Platelet Count 263 K/mm3 (150-400); RDW Coefficient Variation 18.6 % (11.7-14.2); RDW Standard Deviation 53.8 fL (35.1-46.3); Red Blood Cell Count 3.96 M/mm3 (4.30-5.90)
[2020-04-15 05:57] LABS: Albumin, Blood 1.8 g/dL (3.4-5.0); Anion Gap 5 mmol/L (6-16); Blood Urea Nitrogen 42 mg/dL (8-24); Bun/Creatinine Ratio 24.4 (12.0-20.0); CO2, Blood 25 mmol/L (21-32); Calcium, Blood 8.4 mg/dL (8.5-10.1); Chloride, Blood 109 mmol/L (98-108); Creatinine, Blood 1.72 mg/dL (0.60-1.20); Glomerular Filtration Rate 42 (60-); Glucose, Blood 93 mg/dL (70-99); Phosphorus, Blood 4.8 mg/dL (2.5-4.9); Potassium, Blood 4.4 mmol/L (3.5-5.5); Sodium, Blood 139 mmol/L (136-145)
[2020-04-15 10:33] LABS: Gentamicin, Random 6.7 ug/Ml
[2020-04-16 10:02] LABS: Creatinine, Blood 1.32 mg/dL (0.60-1.20)
[2020-04-17 04:58] LABS: BASOPHILS ABSOLUTE AUTO 0.03 K/mm3 (0.00-0.23); BASOPHILS PERCENT AUTO 1 % (0-2); EOSINOPHILS ABSOLUTE AUTO 0.38 K/mm3 (0.00-0.68); EOSINOPHILS PERCENT AUTO 6 % (0-6); Hematocrit 30.7 % (37.0-53.0); Hemoglobin 9.1 g/dL (13.5-17.5); IMMATURE GRAN ABSOLUTE AUTO 0.02 K/mm3 (0.00-0.10); IMMATURE GRAN PERCENT AUTO 0 % (0-1); LYMPHOCYTES ABSOLUTE AUTO 1.11 K/mm3 (0.84-5.20); LYMPHOCYTES PERCENT AUTO 18 % (21-46); MONOCYTES ABSOLUTE AUTO 0.57 K/mm3 (0.16-1.47); MONOCYTES PERCENT AUTO 9 % (4-13); Mean Corpuscular HGB 23.4 pg (26.0-34.0); Mean Corpuscular HGB Conc 29.6 g/dL (31.5-36.5); Mean Corpuscular Volume 79 fL (80-100); Mean Platelet Volume 8.9 fL (9.1-12.4); NEUTROPHILS ABSOLUTE AUTO 4.24 K/mm3 (1.96-9.15); NEUTROPHILS PERCENT AUTO 67 % (41-73); Platelet Count 268 K/mm3 (150-400); RDW Coefficient Variation 18.7 % (11.7-14.2); RDW Standard Deviation 53.6 fL (35.1-46.3); Red Blood Cell Count 3.89 M/mm3 (4.30-5.90); White Blood Cell Count 6.35 K/mm3 (4.00-11.30)
[2020-04-17 05:40] LABS: Alanine Aminotransfer (ALT/SGP 12 U/L (12-78); Albumin, Blood 1.6 g/dL (3.4-5.0); Albumin/Globulin Ratio 0.3 (0.8-1.8); Alk Phos 74 U/L (50-136); Anion Gap 5 mmol/L (6-16); Aspartate Aminotrans (AST/SGOT 17 U/L (12-37); Bilirubin, Total 0.3 mg/dL (0.1-1.0); Blood Urea Nitrogen 30 mg/dL (8-24); CO2, Blood 24 mmol/L (21-32); Calcium, Blood 8.3 mg/dL (8.5-10.1); Chloride, Blood 110 mmol/L (98-108); Creatinine, Blood 1.11 mg/dL (0.60-1.20); Globulin, Blood 4.6 g/dL (2.2-4.0); Glomerular Filtration Rate >60 (60-); Glucose, Blood 94 mg/dL (70-99); Potassium, Blood 3.9 mmol/L (3.5-5.5); Sodium, Blood 139 mmol/L (136-145); Total Protein, Blood 6.2 g/dL (6.4-8.2); Vancomycin, Random 10.7 ug/mL
[2020-04-18 06:00] LABS: Vancomycin, Random 16.4 ug/mL
[2020-04-19 06:40] LABS: Vancomycin, Random 21.6 ug/mL
[2020-04-19 17:36] LABS: Vancomycin, Random 17.9 ug/mL
[2020-04-20 05:52] LABS: Vancomycin, Trough 16.5 ug/mL (5.0-10.0)
[2020-04-21 05:55] LABS: Creatinine, Blood 1.05 mg/dL (0.60-1.20); Vancomycin, Random 17.8 ug/mL
[2020-04-21] MEDS ORDERED: VANCOMYCIN HCL1 G1 IV (11:22)
[2020-04-21] MEDS ORDERED: PROBIOTIC PO (11:23)
== END 2020-04-21 14:55 | DRG 698 ==
LOC: ER 11:12 → MEDS 11:13 → ENPENDDIS 04-21 10:10 → MEDS 04-21 14:55
PROVIDERS: Emergency Medicine; Internal Medicine; Nurse Practitioner Acute Care; Pharmacist; ADMIT Internal Medicine
PROC: 0T25X0Z Change Drainage Device in Kidney, External Approach (ICD-10-PCS; principal; 2020-04-15)
DX: T83.022A Displacement of nephrostomy catheter, initial encounter (principal); L89.323 Pressure ulcer of left buttock, stage 3; L89.313 Pressure ulcer of right buttock, stage 3; L89.153 Pressure ulcer of sacral region, stage 3; L89.523 Pressure ulcer of left ankle, stage 3; N17.9 Acute kidney failure, unspecified; N13.6 Pyonephrosis; G82.20 Paraplegia, unspecified; Z20.828 Contact with and (suspected) exposure to other viral communicable diseases; S81.012A Laceration without foreign body, left knee, initial encounter; S91.312A Laceration without foreign body, left foot, initial encounter; S91.311A Laceration without foreign body, right foot, initial encounter; Q05.9 Spina bifida, unspecified; K59.00 Constipation, unspecified; D63.1 Anemia in chronic kidney disease; I12.9 Hypertensive chronic kidney disease with stage 1 through stage 4 chronic kidney disease, or unspecified chronic kidney disease; E11.22 Type 2 diabetes mellitus with diabetic chronic kidney disease; N18.3 Chronic kidney disease, stage 3 (moderate); B95.1 Streptococcus, group B, as the cause of diseases classified elsewhere; B95.2 Enterococcus as the cause of diseases classified elsewhere; B95.61 Methicillin susceptible Staphylococcus aureus infection as the cause of diseases classified elsewhere; Z87.891 Personal history of nicotine dependence
CPT/HCPCS: 36415; 36569; 50435; 51702; 76770; 80048; 80053; 80069; 80170; 80202; 81001; 82565; 83605; 84145; 85025; 85610; 85651; 85730; 86141; 86850; 86900; 86901; 87040; 87077; 87086; 87147; 87186; 93306; 94762; 96361; 96365; 96367; 96375; 99152; 99285-25; A9270; C1729; C1751; C1769; J0696; J1170; J1580; J1650; J2250; J2405; J3010; J3370; J7030; J7040; J7050; J7120; Q9967; U0002

== ENCOUNTER 2020-05-11 11:23 | Day surgery (SDC) | payer MEDICARE, OTHER ==
[~2020-05-11] VITALS: Ht 170.2 cm; Wt 136.0 kg
[~2020-05-11 11:23] MED LIST changes: +CENTRUM SILVER1 EAC2 PO; +FUROSEMIDE20 MG PO; +K-Dur10 MEQ PO; +MIRALAX17 GM PO; +PROBIOTIC PO; +VANCOMYCIN HCL1 G1 IV
--- NOTE | 2020-05-11 17:15 | NUR ---
PT PROVIDED WITH MEAL TRAY, TOLERATES PO FLUIDS/FOOD WITH NO DIFFICULTIES. REPORT CALLED TO NURSE AT [facility]. BILATERAL NEPHROSTOMY TUBES DRAINGING STRAIGHT TO GRAVITY. PT DENIES PAIN. CALL LIGHT IN REACH.
--- NOTE | 2020-05-11 17:45 | NUR ---
BOTH NEPHROSTOMY TUBES REMAIN STRAIGHT DRAINING. DRESSINGS INTACT, RIGHT DRAINAGE BAG NOTED TO HAVE BLOODY COLORED URINE DRAINING AND ALSO IN QUINTEROS BAG. PT ARRIVED TO HOSPITAL TODAY WITH LEFT SIDED NEPHROSTOMY AND QUINTEROS BAG.
--- NOTE | 2020-05-11 18:00 | NUR ---
PT VERBALIZED UNDERSTANDING OF D/C INSTRUCTIONS. PAPERWORK PROVIDED TO GIVE TO NURSE AT [facility]. FULL BODY LIFT USED TO TRANSFER PT INTO PERSONAL W/C. TRANSPORTATION CALLED TO GET RIDE BACK TO FACILITY. NO ACUTE DISTRESS NOTED AT TIME OF TRANSFER. BILATERAL NEPHROSTOMY TUBES DRAINING, RED COLORED URINE WITH CLOTS. STAYFIX DRESSINGS HOLDING TUBES IN PLACE. PICC LINE REMAINS IN MARIELLA, PT ARRIVED BANQUET LEAD WITH IT IN PLACE.
== END 2020-05-11 22:00 | disposition home or self-care (01) ==
LOC: MHTC 11:23
DX: N13.30 Unspecified hydronephrosis (principal); I10 Essential (primary) hypertension; E11.9 Type 2 diabetes mellitus without complications; E66.01 Morbid (severe) obesity due to excess calories; K21.9 Gastro-esophageal reflux disease without esophagitis; Z87.891 Personal history of nicotine dependence; Z88.0 Allergy status to penicillin; Z88.1 Allergy status to other antibiotic agents; Z91.041 Radiographic dye allergy status; Z79.899 Other long term (current) drug therapy; Z96.0 Presence of urogenital implants
CPT/HCPCS: 50432; 50435; 76937; 99152; 99153; C1729; C1769; C1887; C1894; J1200; J1720; J2250; J3010; J7030; J7040; Q9967

== ENCOUNTER → 2020-05-31 | Outpatient (CLI) | payer MEDICARE, OTHER | END | disposition home or self-care (01) | LOC: OLS 09:40 → LAB SHORT 09:40 | DX: R78.81 Bacteremia (principal); B95.62 Methicillin resistant Staphylococcus aureus infection as the cause of diseases classified elsewhere | CPT/HCPCS: 87040 ==

== ENCOUNTER → 2020-07-13 | Outpatient (CLI) | payer MEDICARE, OTHER ==
[2020-07-13 20:36] LABS: Albumin, Blood 2.4 g/dL (3.4-5.0); Anion Gap 7 mmol/L (6-16); Blood Urea Nitrogen 47 mg/dL (8-24); Bun/Creatinine Ratio 45.2 (12.0-20.0); CO2, Blood 23 mmol/L (21-32); Chloride, Blood 112 mmol/L (98-108); Creatinine, Blood 1.04 mg/dL (0.60-1.20); Glomerular Filtration Rate >60 (60-); Glucose, Blood 89 mg/dL (70-99); Phosphorus, Blood 3.8 mg/dL (2.5-4.9); Potassium, Blood 3.8 mmol/L (3.5-5.5); Sodium, Blood 142 mmol/L (136-145)
== END | disposition home or self-care (01) ==
LOC: EDSTATUS 13:53 → LAB RH 19:04
PROVIDERS: Family Medicine
DX: N31.9 Neuromuscular dysfunction of bladder, unspecified (principal); Z93.6 Other artificial openings of urinary tract status
CPT/HCPCS: 80069; 85018

== ENCOUNTER 2020-07-26 16:04 | Observation (INO) | payer MEDICARE, OTHER ==
[~2020-07-26] VITALS: Ht 170.2 cm; Wt 127.0 kg
[2020-07-26] MEDS ORDERED: FUROSEMIDE20 MG PO (20:47)
[2020-07-26] MEDS ORDERED: POTA8 PO (20:47)
[2020-07-26 21:33] LABS: BASOPHILS ABSOLUTE AUTO 0.04 K/mm3 (0.00-0.23); BASOPHILS PERCENT AUTO 1 % (0-2); EOSINOPHILS ABSOLUTE AUTO 0.48 K/mm3 (0.00-0.68); EOSINOPHILS PERCENT AUTO 7 % (0-6); Hematocrit 39.5 % (37.0-53.0); Hemoglobin 12.1 g/dL (13.5-17.5); IMMATURE GRAN ABSOLUTE AUTO 0.02 K/mm3 (0.00-0.10); IMMATURE GRAN PERCENT AUTO 0 % (0-1); LYMPHOCYTES PERCENT AUTO 12 % (21-46); MONOCYTES ABSOLUTE AUTO 0.46 K/mm3 (0.16-1.47); MONOCYTES PERCENT AUTO 6 % (4-13); Mean Corpuscular HGB 25.5 pg (26.0-34.0); Mean Corpuscular HGB Conc 30.6 g/dL (31.5-36.5); Mean Corpuscular Volume 83 fL (80-100); Mean Platelet Volume 10.2 fL (9.1-12.4); NEUTROPHILS ABSOLUTE AUTO 5.39 K/mm3 (1.96-9.15); NEUTROPHILS PERCENT AUTO 74 % (41-73); Platelet Count 238 K/mm3 (150-400); RDW Coefficient Variation 16.6 % (11.7-14.2); RDW Standard Deviation 50.7 fL (35.1-46.3); Red Blood Cell Count 4.75 M/mm3 (4.30-5.90); White Blood Cell Count 7.29 K/mm3 (4.00-11.30)
[2020-07-26 21:44] LABS: Alanine Aminotransfer (ALT/SGP 16 U/L (12-78); Albumin, Blood 2.6 g/dL (3.4-5.0); Albumin/Globulin Ratio 0.5 (0.8-1.8); Alk Phos 82 U/L (50-136); Anion Gap 6 mmol/L (6-16); Aspartate Aminotrans (AST/SGOT 21 U/L (12-37); Bilirubin, Total 0.5 mg/dL (0.1-1.0); Blood Urea Nitrogen 43 mg/dL (8-24); Bun/Creatinine Ratio 33.9 (12.0-20.0); CO2, Blood 24 mmol/L (21-32); Calcium, Blood 9.1 mg/dL (8.5-10.1); Chloride, Blood 117 mmol/L (98-108); Creatinine, Blood 1.27 mg/dL (0.60-1.20); Globulin, Blood 5.2 g/dL (2.2-4.0); Glomerular Filtration Rate >60 (60-); Glucose, Blood 121 mg/dL (70-99); Potassium, Blood 3.7 mmol/L (3.5-5.5); Sodium, Blood 147 mmol/L (136-145); Total Protein, Blood 7.8 g/dL (6.4-8.2)
[2020-07-26 21:45] LABS: International Normalized Ratio 1.02; Prothrombin Time Results 10.9 Sec (9.7-11.5)
[2020-07-27 05:14] LABS: BASOPHILS ABSOLUTE AUTO 0.05 K/mm3 (0.00-0.23); BASOPHILS PERCENT AUTO 1 % (0-2); EOSINOPHILS ABSOLUTE AUTO 0.53 K/mm3 (0.00-0.68); EOSINOPHILS PERCENT AUTO 7 % (0-6); Hematocrit 33.2 % (37.0-53.0); Hemoglobin 10.4 g/dL (13.5-17.5); IMMATURE GRAN ABSOLUTE AUTO 0.03 K/mm3 (0.00-0.10); IMMATURE GRAN PERCENT AUTO 0 % (0-1); LYMPHOCYTES ABSOLUTE AUTO 1.07 K/mm3 (0.84-5.20); LYMPHOCYTES PERCENT AUTO 14 % (21-46); MONOCYTES ABSOLUTE AUTO 0.57 K/mm3 (0.16-1.47); MONOCYTES PERCENT AUTO 8 % (4-13); Mean Corpuscular HGB 25.6 pg (26.0-34.0); Mean Corpuscular HGB Conc 31.3 g/dL (31.5-36.5); Mean Corpuscular Volume 82 fL (80-100); Mean Platelet Volume 9.5 fL (9.1-12.4); NEUTROPHILS ABSOLUTE AUTO 5.26 K/mm3 (1.96-9.15); NEUTROPHILS PERCENT AUTO 70 % (41-73); Platelet Count 292 K/mm3 (150-400); RDW Coefficient Variation 16.6 % (11.7-14.2); RDW Standard Deviation 49.5 fL (35.1-46.3); Red Blood Cell Count 4.06 M/mm3 (4.30-5.90); White Blood Cell Count 7.51 K/mm3 (4.00-11.30)
[2020-07-27 05:49] LABS: Alanine Aminotransfer (ALT/SGP 10 U/L (12-78); Albumin, Blood 2.1 g/dL (3.4-5.0); Albumin/Globulin Ratio 0.5 (0.8-1.8); Alk Phos 74 U/L (50-136); Anion Gap 7 mmol/L (6-16); Aspartate Aminotrans (AST/SGOT 16 U/L (12-37); Bilirubin, Total 0.2 mg/dL (0.1-1.0); Blood Urea Nitrogen 42 mg/dL (8-24); Bun/Creatinine Ratio 40.8 (12.0-20.0); CO2, Blood 20 mmol/L (21-32); Calcium, Blood 8.5 mg/dL (8.5-10.1); Chloride, Blood 115 mmol/L (98-108); Creatinine, Blood 1.03 mg/dL (0.60-1.20); Globulin, Blood 4.5 g/dL (2.2-4.0); Glomerular Filtration Rate >60 (60-); Glucose, Blood 164 mg/dL (70-99); Potassium, Blood 3.9 mmol/L (3.5-5.5); Sodium, Blood 142 mmol/L (136-145); Total Protein, Blood 6.6 g/dL (6.4-8.2)
--- NOTE | 2020-07-27 07:37 | NUR ---
pt new admit. arrived to unit overnight. pt is a/o x4. 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 pt states he cannot feel anything from below the hips. ulcer present upon admission on left tamym-gluteal area. ulcer also present on l heel- this was cleaned with wound spray and wrapped in gauze and coban. consent for photo given. meplex in place on coccyx area. skin tears present on coccyx. pictures in chart. nephrostomy tube present in right flank. nephrostomy site on l flank has purulent drainage. pt denies pain. appears to be irritated and wants to be "left alone" and "want to sleep". pt has a suprapubic cath in place upon admission. stoma around brandi appears to be leaking draining purulent drainage. bed alarm in place, call light within reach. report given to balwinder ren.
[2020-07-27 16:31] LABS: Source, Urine Urostomy Bag
[2020-07-27 16:46] LABS: Bilirubin, Urine Neg (Neg); Blood, Urine 5+ (Neg); Glucose Qualitative, Urine Neg (Neg); Ketones, Urine Neg (Neg); Leukocyte Esterase, Urine 3+ (Neg); Nitrite, Urine Neg (Neg); Protein, Urine 2+ (Neg); Urobilinogen, Urine NORM (Normal)
[2020-07-27 17:20] LABS: Appearance, Urine Hazy (Clear); Color, Urine Yellow (P-Yellow)
[2020-07-27 17:23] LABS: Red Blood Cells, Urine 25-50 /hpf (0-2); White Blood Cells, Urine 25-50 /hpf (0-5)
[2020-07-27 17:29] LABS: Amorphous Light (0-Heavy); Bacteria Many /hpf; Squamous Epithelial Cells Few /hpf (Few)
--- NOTE | 2020-07-27 19:13 | NUR ---
SHIFT SUMMARY PT IS AOX4. PT DENIES PAIN, N/V, SOB. PT IS BEDBOUND WITH REPOSITIONING NEEDED. PT HAD BILATERAL NEPHROSTOMY TUBES PLACED THIS ROSA M. PT POST-OP VITAL SIGNS IN PROGRESS. NEW QUINTEROS CATH PLACED THIS SHIFT FOR URINE SPECIMEN COLLECTION. THIS RN SPOKE WITH PT FAMILY ABOUT WHEN PT WOULD RETURN TO ROOM AFTER PROCEDURE. PT IS IN BED, CALL LIGHT IN REACH, BED IN LOW POSITION.
--- NOTE | 2020-07-27 20:00 | NUR ---
ASSUMED CARE. AOX3, PARAPLEGIC, BEDBOUND. LUNG SOUNDS CLEAR, HR REGULAR. DENIES CHEST PAIN OR SOB. NO COUGH OR CONGESTION NOTED. ABDOMIN DISTENDED, NON TENDER, BTX4. QUINTEROS CATHETER DRAINING ORANGE TO TEA COLOR URINE, BILATERAL NEPHROSTOMY TUBES TO DRAINAGE BAGS. LEFT DRAINING BRIGHT RED BLOOD AND SOME URINE. RIGHT PINK TINGED URINE. DRESSINGS ARE INTACT. DENIES ANY PAIN OR DISCOMFORT. HAS DRESSING ON BOTTOM, DOES NOT WANT TO ROLL OVER FOR ME TO ASSESS. DRESSING TO LEFT HEEL REMOVED ULCER CLEANSED, 100% SLOUGH TO WOUND BED, REDNESS AROUND SITE. PIC TOOKEN, FOAM DRESSING APPLIED. DENIES ANY NEEDS WILL CONTINUE TO MONITOR, CALL LIGHT IN REACH.
--- NOTE | 2020-07-28 03:38 | NUR ---
PT REFUSED VITALS, NURSE NOTIFIED OF REFUSAL.
--- NOTE | 2020-07-28 05:18 | NUR ---
SHIFT SUMMARY: AOX3, BEDBOUND, PARAPLEGIC. BILATERAL NEPHROSTOMY TUBES TO DRAINAGE BAGS, LEFT DRAINING BRIGHT RED BLOOD/URINE, SMALL AMOUNT. RIGHT DRAINAGE WAS PINK TINGED THAT CLEARED UP DURING THE NIGHT. QUINTEROS CATHETER DARK ORANGE COLOR URINE, SOME SEDIMENT. TESTICALS SWOLLEN. WOUND TO COCCYX DRESSING REMAINED INTAKE. DRESSING TO LEFT MEDIAL ANKLE CHANGED, WOUND IS SLOUGH WITH REDNESS IN SURROUDING TISSUE, PIC TAKEN AND IN CHART. FOAM APPLIED. IV SL AFTER 1500 BOLUS WAS COMPLETED. HE DID REFUSE LAST POST OP VITALS AND MORNING VITALS. GOOD APPETITE. DENIED PAIN. DRESSINGS TO NEPHROSTOMY TUBES CDI. SLEPT OFF AND ON. VS WNL, AFEBRILE. NO OTHER CHANGES TO REPORT. CALL LIGHT REMAINED IN REACH.
[2020-07-28] MEDS ORDERED: CEPH500 PO (12:15)
--- NOTE | 2020-07-28 13:42 | NUR ---
DISCHARGE NOTE THIS RN REMOVED PT IV. THIS RN REVIEWED PT DC INSTRUCTIONS WITH PT AND FAMILY. PT VERBALIZED AN UNDERSTANDING OF INSTRUCTIONS. PT TRANSFERRED INTO WHEELCHAIR USING EDELMIRA LIFT BY THIS RN AND TEST PREPARER. PT REFUSED PHOTOS OF WOUNDS UPON DC. FAMILY MEMBER AND TEST PREPARER ASSISTED PT INT0 HOME CLOTHING. PT WHEELED SELF OFF UNIT WITH FAMILY MEMBER AT APPROXIMATELY 1340.
== END 2020-07-28 13:38 | disposition home health service (06) ==
LOC: ER 16:04 → MEDS 16:05
PROVIDERS: Emergency Medicine; Internal Medicine; ADMIT Internal Medicine
DX: T83.022A Displacement of nephrostomy catheter, initial encounter (principal); E87.0 Hyperosmolality and hypernatremia; B36.9 Superficial mycosis, unspecified; I12.9 Hypertensive chronic kidney disease with stage 1 through stage 4 chronic kidney disease, or unspecified chronic kidney disease; E11.22 Type 2 diabetes mellitus with diabetic chronic kidney disease; N18.30 Chronic kidney disease, stage 3 unspecified; Q05.9 Spina bifida, unspecified; G82.20 Paraplegia, unspecified; K21.9 Gastro-esophageal reflux disease without esophagitis; E66.01 Morbid (severe) obesity due to excess calories; Z68.42 Body mass index [BMI] 45.0-49.9, adult; Z51.5 Encounter for palliative care; Z88.0 Allergy status to penicillin; Z88.1 Allergy status to other antibiotic agents; Z91.041 Radiographic dye allergy status; Z79.899 Other long term (current) drug therapy; Z87.891 Personal history of nicotine dependence; Z87.442 Personal history of urinary calculi; Z96.651 Presence of right artificial knee joint; Z20.828 Contact with and (suspected) exposure to other viral communicable diseases; Z23 Encounter for immunization; Y83.8 Other surgical procedures as the cause of abnormal reaction of the patient, or of later complication, without mention of misadventure at the time of the procedure
CPT/HCPCS: 36415; 50432; 50435; 74176; 80053; 81001; 83605; 85025; 85610; 85730; 87040; 87086; 96365; 96366; 96367; 96372; 96376; 99152; 99284-25; C1729; C1769; C1887; G0378; J0696; J1650; J2250; J3010; J3370; J7040; J7050; Q9967; U0004

== ENCOUNTER 2020-08-04 10:53 | Emergency (ER) | payer MEDICARE, OTHER ==
[~2020-08-04] VITALS: Ht 170.2 cm; Wt 127.0 kg
[~2020-08-04 10:53] MED LIST changes: +POTA8 PO
== END 2020-08-04 16:35 | disposition home or self-care (01) ==
LOC: ER 10:53
DX: T83.031A Leakage of indwelling urethral catheter, initial encounter (principal); I10 Essential (primary) hypertension; E11.9 Type 2 diabetes mellitus without complications; Z88.0 Allergy status to penicillin; Z91.041 Radiographic dye allergy status; Z88.1 Allergy status to other antibiotic agents; Z79.899 Other long term (current) drug therapy; Z87.442 Personal history of urinary calculi; Z87.798 Personal history of other (corrected) congenital malformations
CPT/HCPCS: 51702; 99284-25

== ENCOUNTER 2020-08-16 12:54 | Emergency (ER) | payer MEDICARE, OTHER ==
[~2020-08-16] VITALS: Ht 170.2 cm; Wt 127.0 kg
[2020-08-16] MEDS ORDERED: MULVITA PO (13:11)
[2020-08-16] MEDS ORDERED: FUROSEMIDE20 MG PO (13:11)
[2020-08-16] MEDS ORDERED: POTA8 PO (13:11)
[2020-08-16 14:20] LABS: BASOPHILS ABSOLUTE AUTO 0.06 K/mm3 (0.00-0.23); BASOPHILS PERCENT AUTO 1 % (0-2); EOSINOPHILS ABSOLUTE AUTO 0.42 K/mm3 (0.00-0.68); EOSINOPHILS PERCENT AUTO 5 % (0-6); Hematocrit 34.6 % (37.0-53.0); Hemoglobin 10.4 g/dL (13.5-17.5); IMMATURE GRAN ABSOLUTE AUTO 0.02 K/mm3 (0.00-0.10); IMMATURE GRAN PERCENT AUTO 0 % (0-1); LYMPHOCYTES ABSOLUTE AUTO 1.34 K/mm3 (0.84-5.20); LYMPHOCYTES PERCENT AUTO 17 % (21-46); MONOCYTES PERCENT AUTO 8 % (4-13); Mean Corpuscular HGB 25.7 pg (26.0-34.0); Mean Corpuscular HGB Conc 30.1 g/dL (31.5-36.5); Mean Corpuscular Volume 85 fL (80-100); Mean Platelet Volume 9.3 fL (9.1-12.4); NEUTROPHILS ABSOLUTE AUTO 5.42 K/mm3 (1.96-9.15); NEUTROPHILS PERCENT AUTO 69 % (41-73); Platelet Count 304 K/mm3 (150-400); RDW Coefficient Variation 16.7 % (11.7-14.2); RDW Standard Deviation 52.3 fL (35.1-46.3); Red Blood Cell Count 4.05 M/mm3 (4.30-5.90); White Blood Cell Count 7.86 K/mm3 (4.00-11.30)
[2020-08-16 14:39] LABS: International Normalized Ratio 1.03
[2020-08-16 14:46] LABS: Anion Gap 5 mmol/L (6-16); Blood Urea Nitrogen 47 mg/dL (8-24); CO2, Blood 25 mmol/L (21-32); Calcium, Blood 8.6 mg/dL (8.5-10.1); Chloride, Blood 113 mmol/L (98-108); Creatinine, Blood 1.12 mg/dL (0.60-1.20); Glomerular Filtration Rate >60 (60-); Glucose, Blood 105 mg/dL (70-99); Potassium, Blood 4.2 mmol/L (3.5-5.5); Sodium, Blood 143 mmol/L (136-145)
[2020-08-16 15:53] LABS: Influenza A, PCR Negative (NEGATIVE); Influenza B, PCR Negative (NEGATIVE); Resp Syncytial Virus, PCR Negative (NEGATIVE); SARS-Cov-2 (COVID-19) PCR, MMC Negative (NEGATIVE)
--- NOTE | 2020-08-16 17:38 | NUR ---
PT OUT TO VAN AFTER PROCEDURE. RIGHT NEPHROSTOMY TUBE REPLACEMENT WAS UNSUCCESSFUL, BUT DR MARTINEZ STATES PT URETER APPEARS TO BE WORKING ON THE RIGHT. PT WILL HAVE A FOLLOW UP ULTRASOUND THIS WEEK AND FOLLOW UP WITH DR MARTINEZ NEXT WEEK. PT VERBALIZED UNDERSTANDING OF DC INSTRUCTIONS AND FOLLOW UP.
== END 2020-08-16 16:20 | disposition other institution (70) ==
LOC: ER 12:54
PROVIDERS: Emergency Medicine; Radiology Diagnostic Radiology
DX: T83.022A Displacement of nephrostomy catheter, initial encounter (principal); E11.9 Type 2 diabetes mellitus without complications; I10 Essential (primary) hypertension; Z87.442 Personal history of urinary calculi; Z79.899 Other long term (current) drug therapy; Z87.891 Personal history of nicotine dependence; Z88.0 Allergy status to penicillin; Z91.041 Radiographic dye allergy status; Z20.828 Contact with and (suspected) exposure to other viral communicable diseases
CPT/HCPCS: 0241U; 36415; 50431; 80048; 85025; 85610; 99284-25; C1769; C1887; C1894; Q9967

== ENCOUNTER 2020-08-18 16:20 | Emergency (ER) | payer MEDICARE, OTHER ==
[~2020-08-18] VITALS: Ht 170.2 cm; Wt 127.0 kg
[~2020-08-18 16:20] MED LIST changes: +MULVITA PO
[2020-08-18 19:14] LABS: Source, Urine Catheter
[2020-08-18 19:22] LABS: Appearance, Urine Hazy (Clear); Bilirubin, Urine Neg (Neg); Blood, Urine 5+ (Neg); Color, Urine Yellow (P-Yellow); Glucose Qualitative, Urine Neg (Neg); Ketones, Urine Neg (Neg); Leukocyte Esterase, Urine 3+ (Neg); Nitrite, Urine Neg (Neg); Protein, Urine 2+ (Neg); Urobilinogen, Urine NORM (Normal)
[2020-08-18 19:39] LABS: White Blood Cells, Urine 50-100 /hpf (0-5)
[2020-08-18 19:40] LABS: Bacteria Many /hpf; Squamous Epithelial Cells Few /hpf (Few)
== END 2020-08-18 20:35 | disposition home or self-care (01) ==
LOC: ER 16:20
PROVIDERS: Physician Assistant
DX: R33.9 Retention of urine, unspecified (principal); I10 Essential (primary) hypertension; E11.9 Type 2 diabetes mellitus without complications; Z87.891 Personal history of nicotine dependence; Z88.0 Allergy status to penicillin; Z91.041 Radiographic dye allergy status; Z88.1 Allergy status to other antibiotic agents; Z79.899 Other long term (current) drug therapy
CPT/HCPCS: 51702; 51798; 81001; 87077; 87086; 87186; 99283-25

== ENCOUNTER 2020-08-21 10:02 | Emergency (ER) | payer MEDICARE, OTHER ==
[~2020-08-21] VITALS: Ht 172.7 cm; Wt 127.0 kg
[2020-08-21 11:32] LABS: Source, Urine Catheter
[2020-08-21 11:35] LABS: Calcium, Ionized (POC) 1.21 mmol/L (1.10-1.46); Chloride (POC) 107 mmol/L (98-108); Creatinine (POC) 1.3 mg/dL (0.8-1.3); Glucose (ISTAT POC) 98 mg/dL (70-99); Hemoglobin (POC) 10.9 g/dL (13.5-17.5); Potassium (POC) 3.9 mmol/L (3.5-5.5); Sodium (POC) 142 mmol/L (135-148); Total CO2 (POC) 22 mmol/L (21-32)
[2020-08-21 11:36] LABS: Appearance, Urine Turbid (Clear); Bilirubin, Urine Neg (Neg); Blood, Urine 4+ (Neg); Color, Urine Yellow (P-Yellow); Glucose Qualitative, Urine Neg (Neg); Ketones, Urine Neg (Neg); Leukocyte Esterase, Urine 3+ (Neg); Nitrite, Urine Neg (Neg); Protein, Urine 2+ (Neg); Urobilinogen, Urine NORM (Normal)
[2020-08-21 12:09] LABS: White Blood Cells, Urine TNTC /hpf (0-5)
[2020-08-21 12:10] LABS: Bacteria Many /hpf; Squamous Epithelial Cells Few /hpf (Few)
[2020-08-21 12:11] LABS: Hyaline Casts 0-2 /lpf (0-2); Yeast/Fungi Urine Few /hpf
== END 2020-08-21 12:30 | disposition home or self-care (01) ==
LOC: ER 10:02
PROVIDERS: Emergency Medicine
DX: T83.022A Displacement of nephrostomy catheter, initial encounter (principal); Q05.9 Spina bifida, unspecified; G82.20 Paraplegia, unspecified; E11.9 Type 2 diabetes mellitus without complications; I10 Essential (primary) hypertension; Z79.899 Other long term (current) drug therapy; Z96.0 Presence of urogenital implants; Z88.0 Allergy status to penicillin; Z91.041 Radiographic dye allergy status; Z88.1 Allergy status to other antibiotic agents; Z87.891 Personal history of nicotine dependence
CPT/HCPCS: 76770; 80047; 81001; 85014; 87077; 87086; 87186; 99284-25

== ENCOUNTER → 2020-09-30 | Outpatient (CLI) | payer MEDICARE, OTHER ==
[~2020-09-30] MED LIST changes: +CEFTRIAXONE2 G7 IV; +Cipro500 MG PO; +FURO20 PO; +K-TAB ER20 ME1 PO
== END ==
LOC: LAB SHORT 19:05 → LAB EV 19:05
DX: N39.0 Urinary tract infection, site not specified (principal)
CPT/HCPCS: 87077; 87086; 87186

== ENCOUNTER 2020-10-14 14:28 | Emergency (ER) | payer MEDICARE, OTHER ==
[~2020-10-14] VITALS: Ht 170.2 cm; Wt 127.0 kg
[~2020-10-14 14:28] MED LIST changes: -CEFTRIAXONE2 G7 IV; -Cipro500 MG PO; -FURO20 PO; -K-TAB ER20 ME1 PO
[2020-10-14 15:56] LABS: BASOPHILS ABSOLUTE AUTO 0.04 K/mm3 (0.00-0.23); BASOPHILS PERCENT AUTO 0 % (0-2); EOSINOPHILS ABSOLUTE AUTO 0.44 K/mm3 (0.00-0.68); EOSINOPHILS PERCENT AUTO 5 % (0-6); Hemoglobin 9.6 g/dL (13.5-17.5); IMMATURE GRAN ABSOLUTE AUTO 0.05 K/mm3 (0.00-0.10); IMMATURE GRAN PERCENT AUTO 1 % (0-1); LYMPHOCYTES ABSOLUTE AUTO 1.34 K/mm3 (0.84-5.20); LYMPHOCYTES PERCENT AUTO 15 % (21-46); MONOCYTES ABSOLUTE AUTO 0.64 K/mm3 (0.16-1.47); MONOCYTES PERCENT AUTO 7 % (4-13); Mean Corpuscular HGB 24.5 pg (26.0-34.0); Mean Corpuscular Volume 82 fL (80-100); NEUTROPHILS ABSOLUTE AUTO 6.49 K/mm3 (1.96-9.15); NEUTROPHILS PERCENT AUTO 72 % (41-73); Platelet Count 354 K/mm3 (150-400); RDW Coefficient Variation 16.9 % (11.7-14.2); RDW Standard Deviation 50.3 fL (35.1-46.3); Red Blood Cell Count 3.92 M/mm3 (4.30-5.90)
[2020-10-14 16:16] LABS: Albumin/Globulin Ratio 0.4 (0.8-1.8); Bilirubin, Total 0.3 mg/dL (0.1-1.0); Bun/Creatinine Ratio 26.5 (12.0-20.0); C-REACTIVE PROTEIN, EXT RANGE 6.1 mg/dL (0.000-0.300); Calcium, Blood 8.5 mg/dL (8.5-10.1); Creatinine, Blood 1.36 mg/dL (0.60-1.20); Globulin, Blood 5.7 g/dL (2.2-4.0); Potassium, Blood 3.8 mmol/L (3.5-5.5); Total Protein, Blood 7.7 g/dL (6.4-8.2)
[2020-10-14] MEDS ORDERED: Cipro500 MG PO (19:19)
[2020-10-14] MEDS ORDERED: Bactrim Ds Tab1 EACH PO (19:19)
== END 2020-10-14 23:40 | disposition home or self-care (01) ==
LOC: ER 14:28
PROVIDERS: Emergency Medicine
DX: E11.622 Type 2 diabetes mellitus with other skin ulcer (principal); L89.159 Pressure ulcer of sacral region, unspecified stage; I10 Essential (primary) hypertension; Z88.0 Allergy status to penicillin; Z91.041 Radiographic dye allergy status; Z88.1 Allergy status to other antibiotic agents; Z87.442 Personal history of urinary calculi; Z87.891 Personal history of nicotine dependence
CPT/HCPCS: 36415; 51702; 74176; 80053; 83605; 85025; 85651; 86140; 87040; 99284-25; A9270

== ENCOUNTER 2020-10-18 10:37 | Day surgery (SDC) | payer MEDICARE, OTHER ==
[~2020-10-18 10:37] MED LIST changes: +Cipro500 MG PO
== END 2020-10-18 23:45 ==
LOC: WOUND 10:37
DX: L89.304 Pressure ulcer of unspecified buttock, stage 4 (principal); Z20.822 Contact with and (suspected) exposure to COVID-19
CPT/HCPCS: G0463

== ENCOUNTER 2020-10-27 00:38 | Day surgery (SDC) | payer MEDICARE, OTHER | END 2020-10-27 22:48 | disposition home or self-care (01) | LOC: WOUND 00:38 | DX: L89.154 Pressure ulcer of sacral region, stage 4 (principal); L89.522 Pressure ulcer of left ankle, stage 2; Q05.9 Spina bifida, unspecified; G82.20 Paraplegia, unspecified; I10 Essential (primary) hypertension; E11.9 Type 2 diabetes mellitus without complications; G47.30 Sleep apnea, unspecified; D50.9 Iron deficiency anemia, unspecified; E66.01 Morbid (severe) obesity due to excess calories; N31.9 Neuromuscular dysfunction of bladder, unspecified; Z68.41 Body mass index [BMI] 40.0-44.9, adult ==

== ENCOUNTER → 2020-11-02 | Outpatient (CLI) | payer MEDICARE, OTHER ==
[~2020-11-02] MED LIST changes: +CEFTRIAXONE2 G7 IV; +FURO20 PO; +K-TAB ER20 ME1 PO
== END | disposition home or self-care (01) ==
LOC: LAB SHORT 15:57 → LAB 15:57
DX: L89.324 Pressure ulcer of left buttock, stage 4 (principal)
CPT/HCPCS: 87070; 87075; 87076; 87077; 87185; 87186; 87205

== ENCOUNTER 2020-11-03 00:33 | Day surgery (SDC) | payer MEDICARE, OTHER ==
[~2020-11-03 00:33] MED LIST changes: -CEFTRIAXONE2 G7 IV; -FURO20 PO; -K-TAB ER20 ME1 PO
== END 2020-11-03 23:50 | disposition home or self-care (01) ==
LOC: WOUND 00:33
DX: L89.154 Pressure ulcer of sacral region, stage 4 (principal); L89.522 Pressure ulcer of left ankle, stage 2; L89.892 Pressure ulcer of other site, stage 2; E11.9 Type 2 diabetes mellitus without complications; I10 Essential (primary) hypertension; E66.01 Morbid (severe) obesity due to excess calories; Z68.41 Body mass index [BMI] 40.0-44.9, adult; Q05.9 Spina bifida, unspecified; G82.20 Paraplegia, unspecified

== ENCOUNTER 2020-11-10 00:18 | Day surgery (SDC) | payer MEDICARE, OTHER | END 2020-11-10 23:44 | disposition home or self-care (01) | LOC: WOUND 00:18 | DX: L89.154 Pressure ulcer of sacral region, stage 4 (principal); L89.522 Pressure ulcer of left ankle, stage 2; L89.892 Pressure ulcer of other site, stage 2; L89.304 Pressure ulcer of unspecified buttock, stage 4; S91.104D Unspecified open wound of right lesser toe(s) without damage to nail, subsequent encounter; S91.102A Unspecified open wound of left great toe without damage to nail, initial encounter; E11.9 Type 2 diabetes mellitus without complications; I10 Essential (primary) hypertension; E66.01 Morbid (severe) obesity due to excess calories; G82.20 Paraplegia, unspecified; Q05.9 Spina bifida, unspecified; Z68.41 Body mass index [BMI] 40.0-44.9, adult | CPT/HCPCS: 87071; 87075; 87076; 87077; 87185; 87205; A9270 ==

== ENCOUNTER 2020-11-17 00:06 | Day surgery (SDC) | payer MEDICARE, OTHER ==
[2020-11-17] MEDS ORDERED: CEFTRIAXONE2 G7 IV (17:30)
[2020-11-17] MEDS ORDERED: FURO20 PO (17:31)
[2020-11-17] MEDS ORDERED: K-TAB ER20 ME1 PO (17:31)
== END 2020-11-17 17:45 | disposition home or self-care (01) ==
LOC: ATC 00:06
DX: L89.154 Pressure ulcer of sacral region, stage 4 (principal); E66.9 Obesity, unspecified; E11.22 Type 2 diabetes mellitus with diabetic chronic kidney disease; I12.0 Hypertensive chronic kidney disease with stage 5 chronic kidney disease or end stage renal disease; N18.6 End stage renal disease; Q05.9 Spina bifida, unspecified; G82.20 Paraplegia, unspecified; Z87.891 Personal history of nicotine dependence; Z88.0 Allergy status to penicillin; Z88.8 Allergy status to other drugs, medicaments and biological substances; Z88.1 Allergy status to other antibiotic agents; Z91.041 Radiographic dye allergy status
CPT/HCPCS: 36569; 96365; C1751; J0696

== ENCOUNTER 2020-11-17 00:19 | Day surgery (SDC) | payer MEDICARE, OTHER ==
[2020-11-17] MEDS ORDERED: CEFTRIAXONE2 G7 IV (17:30)
[2020-11-17] MEDS ORDERED: K-TAB ER20 ME1 PO (17:31)
[2020-11-17] MEDS ORDERED: FURO20 PO (17:31)
== END 2020-11-17 23:02 | disposition home or self-care (01) ==
LOC: WOUND 00:19
DX: L89.154 Pressure ulcer of sacral region, stage 4 (principal); L89.324 Pressure ulcer of left buttock, stage 4; L89.522 Pressure ulcer of left ankle, stage 2; L89.892 Pressure ulcer of other site, stage 2; L89.312 Pressure ulcer of right buttock, stage 2; S91.102D Unspecified open wound of left great toe without damage to nail, subsequent encounter; S91.104D Unspecified open wound of right lesser toe(s) without damage to nail, subsequent encounter; I10 Essential (primary) hypertension; E11.9 Type 2 diabetes mellitus without complications; E66.01 Morbid (severe) obesity due to excess calories; G47.30 Sleep apnea, unspecified; Q05.9 Spina bifida, unspecified; G82.20 Paraplegia, unspecified; D50.9 Iron deficiency anemia, unspecified; X58.XXXD Exposure to other specified factors, subsequent encounter; Z99.3 Dependence on wheelchair

== ENCOUNTER 2020-11-24 00:26 | Day surgery (SDC) | payer MEDICARE, OTHER ==
[~2020-11-24 00:26] MED LIST changes: +CEFTRIAXONE2 G7 IV; +FURO20 PO; +K-TAB ER20 ME1 PO
== END 2020-11-24 22:55 | disposition home or self-care (01) ==
LOC: WOUND 00:26
DX: L89.154 Pressure ulcer of sacral region, stage 4 (principal); L89.522 Pressure ulcer of left ankle, stage 2; L89.892 Pressure ulcer of other site, stage 2; L89.324 Pressure ulcer of left buttock, stage 4; L89.314 Pressure ulcer of right buttock, stage 4; S91.102D Unspecified open wound of left great toe without damage to nail, subsequent encounter; S91.104D Unspecified open wound of right lesser toe(s) without damage to nail, subsequent encounter; G82.20 Paraplegia, unspecified; I10 Essential (primary) hypertension; E11.9 Type 2 diabetes mellitus without complications; G47.30 Sleep apnea, unspecified; D50.9 Iron deficiency anemia, unspecified; E66.01 Morbid (severe) obesity due to excess calories; Z68.41 Body mass index [BMI] 40.0-44.9, adult

== ENCOUNTER 2020-11-28 10:27 | Day surgery (SDC) | payer MEDICARE, OTHER | END 2020-11-28 14:59 | disposition home or self-care (01) | LOC: ATC 10:27 | DX: L89.154 Pressure ulcer of sacral region, stage 4 (principal); I13.2 Hypertensive heart and chronic kidney disease with heart failure and with stage 5 chronic kidney disease, or end stage renal disease; I50.9 Heart failure, unspecified; E09.22 Drug or chemical induced diabetes mellitus with diabetic chronic kidney disease; N18.6 End stage renal disease; G47.33 Obstructive sleep apnea (adult) (pediatric); Z87.891 Personal history of nicotine dependence; Z88.0 Allergy status to penicillin; Z88.8 Allergy status to other drugs, medicaments and biological substances; Z88.1 Allergy status to other antibiotic agents; Z91.041 Radiographic dye allergy status | CPT/HCPCS: 96365; J0696 ==

== ENCOUNTER 2020-11-29 00:27 | Day surgery (SDC) | payer MEDICARE, OTHER | END 2020-11-29 14:00 | disposition home or self-care (01) | LOC: ATC 00:27 | DX: L89.154 Pressure ulcer of sacral region, stage 4 (principal); G47.33 Obstructive sleep apnea (adult) (pediatric); I13.2 Hypertensive heart and chronic kidney disease with heart failure and with stage 5 chronic kidney disease, or end stage renal disease; E11.22 Type 2 diabetes mellitus with diabetic chronic kidney disease; I50.9 Heart failure, unspecified; N18.6 End stage renal disease; E66.9 Obesity, unspecified; E11.40 Type 2 diabetes mellitus with diabetic neuropathy, unspecified; G82.20 Paraplegia, unspecified | CPT/HCPCS: 96365; J0696 ==

== ENCOUNTER 2020-11-30 09:24 | Day surgery (SDC) | payer MEDICARE, OTHER | END 2020-11-30 14:36 | disposition home or self-care (01) | LOC: ATC 09:24 | DX: L89.154 Pressure ulcer of sacral region, stage 4 (principal); G47.33 Obstructive sleep apnea (adult) (pediatric); I13.2 Hypertensive heart and chronic kidney disease with heart failure and with stage 5 chronic kidney disease, or end stage renal disease; I50.9 Heart failure, unspecified; E11.22 Type 2 diabetes mellitus with diabetic chronic kidney disease; N18.6 End stage renal disease; E66.9 Obesity, unspecified; E11.40 Type 2 diabetes mellitus with diabetic neuropathy, unspecified; G82.20 Paraplegia, unspecified; Q05.9 Spina bifida, unspecified | CPT/HCPCS: 96365; J0696 ==

== ENCOUNTER 2020-12-01 00:23 | Day surgery (SDC) | payer MEDICARE, OTHER | END 2020-12-01 23:00 | disposition home or self-care (01) | LOC: WOUND 00:23 | DX: L89.154 Pressure ulcer of sacral region, stage 4 (principal); L89.522 Pressure ulcer of left ankle, stage 2; L89.892 Pressure ulcer of other site, stage 2; L89.324 Pressure ulcer of left buttock, stage 4; L89.314 Pressure ulcer of right buttock, stage 4; S91.102D Unspecified open wound of left great toe without damage to nail, subsequent encounter; S91.104D Unspecified open wound of right lesser toe(s) without damage to nail, subsequent encounter; G82.20 Paraplegia, unspecified; Q05.9 Spina bifida, unspecified; I10 Essential (primary) hypertension; E11.9 Type 2 diabetes mellitus without complications; G47.30 Sleep apnea, unspecified; E66.01 Morbid (severe) obesity due to excess calories; Z68.41 Body mass index [BMI] 40.0-44.9, adult | CPT/HCPCS: 96365; G0463; J0696 ==

== ENCOUNTER 2020-12-02 00:52 | Day surgery (SDC) | payer MEDICARE, OTHER ==
--- NOTE | 2020-12-02 14:34 | NUR ---
REC'D CALL THAT PT WAS IN [place] TODAY AND WILL NOT BE HERE FOR HIS INFUSION.
== END 2020-12-02 22:41 | disposition home or self-care (01) ==
LOC: ATC 00:52
DX: L89.154 Pressure ulcer of sacral region, stage 4 (principal); Z88.0 Allergy status to penicillin; Z88.1 Allergy status to other antibiotic agents; Z91.041 Radiographic dye allergy status; G47.33 Obstructive sleep apnea (adult) (pediatric); I13.2 Hypertensive heart and chronic kidney disease with heart failure and with stage 5 chronic kidney disease, or end stage renal disease; I50.9 Heart failure, unspecified; N18.6 End stage renal disease; E11.22 Type 2 diabetes mellitus with diabetic chronic kidney disease
CPT/HCPCS: J0696

== ENCOUNTER 2021-09-07 10:15 | Inpatient (IN) | payer MEDICARE, OTHER ==
[~2021-09-07] VITALS: Ht 170.2 cm; Wt 126.0 kg
[~2021-09-07 10:15] MED LIST changes: -FURO20 PO; -K-TAB ER20 ME1 PO
[2021-09-07 10:48] LABS: BASOPHILS ABSOLUTE AUTO 0.03 K/mm3 (0.00-0.23); BASOPHILS PERCENT AUTO 0 % (0-2); EOSINOPHILS ABSOLUTE AUTO 0.02 K/mm3 (0.00-0.68); EOSINOPHILS PERCENT AUTO 0 % (0-6); Hematocrit 35.4 % (37.0-53.0); IMMATURE GRAN ABSOLUTE AUTO 0.07 K/mm3 (0.00-0.10); IMMATURE GRAN PERCENT AUTO 1 % (0-1); LYMPHOCYTES ABSOLUTE AUTO 0.28 K/mm3 (0.84-5.20); LYMPHOCYTES PERCENT AUTO 3 % (21-46); MONOCYTES ABSOLUTE AUTO 0.98 K/mm3 (0.16-1.47); MONOCYTES PERCENT AUTO 10 % (4-13); Mean Corpuscular HGB 27.4 pg (26.0-34.0); Mean Corpuscular HGB Conc 31.1 g/dL (31.5-36.5); Mean Corpuscular Volume 88 fL (80-100); Mean Platelet Volume 9.6 fL (9.1-12.4); NEUTROPHILS ABSOLUTE AUTO 8.58 K/mm3 (1.96-9.15); NEUTROPHILS PERCENT AUTO 86 % (41-73); Platelet Count 170 K/mm3 (150-400); RDW Standard Deviation 52.4 fL (35.1-46.3); Red Blood Cell Count 4.01 M/mm3 (4.30-5.90); White Blood Cell Count 9.96 K/mm3 (4.00-11.30)
[2021-09-07 11:04] LABS: Albumin/Globulin Ratio 0.5 (0.8-1.8); Bilirubin, Total 0.4 mg/dL (0.1-1.0); Bun/Creatinine Ratio 30.8 (12.0-20.0); Calcium, Blood 7.7 mg/dL (8.5-10.1); Creatinine, Blood 1.56 mg/dL (0.60-1.20); Potassium, Blood 4.7 mmol/L (3.5-5.5)
[2021-09-07 11:20] LABS: Source, Urine Catheter
[2021-09-07 11:35] LABS: Appearance, Urine Turbid (Clear); Bilirubin, Urine Neg (Neg); Blood, Urine 5+ (Neg); Color, Urine Brown (P-Yellow); Glucose Qualitative, Urine Neg (Neg); Ketones, Urine 1+ (Neg); Leukocyte Esterase, Urine 3+ (Neg); Nitrite, Urine Pos (Neg); Protein, Urine 4+ (Neg); Urobilinogen, Urine NORM (Normal)
[2021-09-07 12:18] LABS: Red Blood Cells, Urine TNTC /hpf (0-2); White Blood Cells, Urine TNTC /hpf (0-5)
[2021-09-07 12:19] LABS: Bacteria Many /hpf; Squamous Epithelial Cells Rare /hpf (Few)
[2021-09-07] MEDS ORDERED: ESCI10 PO (12:23)
[2021-09-07] MEDS ORDERED: FURO20 PO (15:44)
[2021-09-07] MEDS ORDERED: LISI5 PO (15:56)
--- NOTE | 2021-09-08 03:17 | NUR ---
BLOOD CULTURE RESULT OF GRAM - BACILLI CAME BACK. THE MD WAS NOTIFIED AND IS NOW REVIEWING THE PTs ABX COVERAGE.
[2021-09-08 05:03] LABS: Hematocrit 32.1 % (37.0-53.0); Mean Corpuscular HGB 27.2 pg (26.0-34.0); Mean Corpuscular HGB Conc 31.2 g/dL (31.5-36.5); Mean Corpuscular Volume 88 fL (80-100); Red Blood Cell Count 3.67 M/mm3 (4.30-5.90)
[2021-09-08 05:04] LABS: BASOPHILS ABSOLUTE AUTO 0.01 K/mm3 (0.00-0.23); BASOPHILS PERCENT AUTO 0 % (0-2); EOSINOPHILS ABSOLUTE AUTO 0.01 K/mm3 (0.00-0.68); EOSINOPHILS PERCENT AUTO 0 % (0-6); IMMATURE GRAN ABSOLUTE AUTO 0.04 K/mm3 (0.00-0.10); IMMATURE GRAN PERCENT AUTO 1 % (0-1); LYMPHOCYTES ABSOLUTE AUTO 0.29 K/mm3 (0.84-5.20); LYMPHOCYTES PERCENT AUTO 4 % (21-46); MONOCYTES ABSOLUTE AUTO 0.75 K/mm3 (0.16-1.47); MONOCYTES PERCENT AUTO 10 % (4-13); Mean Platelet Volume 9.2 fL (9.1-12.4); NEUTROPHILS PERCENT AUTO 85 % (41-73); Platelet Count 169 K/mm3 (150-400); RDW Coefficient Variation 16.2 % (11.7-14.2); RDW Standard Deviation 51.5 fL (35.1-46.3)
--- NOTE | 2021-09-08 06:01 | NUR ---
PT IS A/OX3-4. HE IS A PARAPLEGIC. THE PT IS ON CONTACT FOR MRSA IN THE WOUNDS, ESBL IN URINE. QUINTEROS CATH HAS DARK JYOTI URINE. A 1L LR BAG IS INFUSING AND HE'LL BE SL/INTERMITTENT ABX AFTER. WOUND PICTURES ARE IN CHART, ALL DRESSINGS ARE CDI.
[2021-09-08 06:21] LABS: Albumin, Blood 1.8 g/dL (3.4-5.0); Anion Gap 9 mmol/L (6-16); Blood Urea Nitrogen 48 mg/dL (8-24); Bun/Creatinine Ratio 26.2 (12.0-20.0); CO2, Blood 18 mmol/L (21-32); Calcium, Blood 7.8 mg/dL (8.5-10.1); Chloride, Blood 106 mmol/L (98-108); Creatinine, Blood 1.83 mg/dL (0.60-1.20); Glomerular Filtration Rate 37 (60-); Glucose, Blood 102 mg/dL (70-99); Magnesium, Blood 1.3 mg/dL (1.6-2.4); Phosphorus, Blood 3.7 mg/dL (2.5-4.9); Potassium, Blood 5.2 mmol/L (3.5-5.5); Sodium, Blood 133 mmol/L (136-145)
--- NOTE | 2021-09-08 17:10 | NUR ---
PT AAOX 4 ABLE TO MAKE NEEDS KNOWN, COMPLIANT WITH MEDICATION REGIMEN. PT HAS GOOD APPETITE, TAKES MEDS WHOLE. DRESSING DONE,IN PLACE TO COCCYX AND BUTTOCKS AREA CLEAN AND INTACT. PT CONTINUES ON IV FLUIDS AND ABT, NO ADVERSE REACTION NOTED. NO COMPLAINTS VOICED, NO DISTRESS NOTED. ASSIST X 2 PROVIDED ACRE NEEDED, TOLERATED WELL. BED IN LOWEST POSITION. CALL LIGHT IN REACH.
--- NOTE | 2021-09-09 05:14 | NUR ---
PATIENT WAS ALERT AND ORIENTED X4, STABLE VITAL SIGNS, NO ACUTE CHANGES, PATIENT DENIES ANY PAIN, QUINTEROS PATENT. PATIENT SLEPT FOR MOST OF THE NIGHT. CALL LIGHT WITHIN REACH, BED DOWN TO THE LOWEST POSITION. WILL CONTINUE TO MONITOR TILL HAND OFF.
--- NOTE | 2021-09-09 18:42 | NUR ---
PATIENT RESTING IN BED WATCHING TV. PATIENT ON CONTACT ISOLATION FOR ESBL IN BLOOD. PATIENT RECEIVING IV ANTIBIOTICS AND PLAN TO STAY IN HOSPITAL FOR A 5 DAY COURSE. PATIENT COMPLETE BEDREST WITH 2PA FOR TURNING AND CHANGING. PATIENT HAS A CHRONIC QUINTEROS CATHETER DRAINING TEA COLORED URINE. VITAL SIGNS STABLE WILL CONTINUE TO MONITOR.
--- NOTE | 2021-09-10 03:27 | NUR ---
SHIFT SUMMARY PATIENT HAD NO ACUTE CHANGES. AXOX 3 AND BEDREST, PARAPLEGIC. PIV REMAINS INTACT. IV ABX INFUSED. CBG 82. CHRONIC QUINTEROS INTACT DRAINING TEA COLOR URINE. WOUND PHOTOS IN CHART. DRESSINGS C/D/I. VSS/AFEBRILE. DENIES PAIN, SOB, AND N/V. CALL LIGHT IN REACH. BED IN LOWEST POSITION. WILL CONTINUE TO MONITOR UNTIL DAY SHIFT NURSE ASSUMES CARE.
[2021-09-10 05:22] LABS: BASOPHILS ABSOLUTE AUTO 0.02 K/mm3 (0.00-0.23); BASOPHILS PERCENT AUTO 0 % (0-2); EOSINOPHILS PERCENT AUTO 6 % (0-6); Hematocrit 30.6 % (37.0-53.0); Hemoglobin 9.6 g/dL (13.5-17.5); IMMATURE GRAN ABSOLUTE AUTO 0.03 K/mm3 (0.00-0.10); IMMATURE GRAN PERCENT AUTO 1 % (0-1); LYMPHOCYTES ABSOLUTE AUTO 0.45 K/mm3 (0.84-5.20); LYMPHOCYTES PERCENT AUTO 8 % (21-46); MONOCYTES ABSOLUTE AUTO 0.88 K/mm3 (0.16-1.47); MONOCYTES PERCENT AUTO 16 % (4-13); Mean Corpuscular HGB 27.2 pg (26.0-34.0); Mean Corpuscular HGB Conc 31.4 g/dL (31.5-36.5); Mean Corpuscular Volume 87 fL (80-100); Mean Platelet Volume 8.7 fL (9.1-12.4); NEUTROPHILS ABSOLUTE AUTO 3.68 K/mm3 (1.96-9.15); NEUTROPHILS PERCENT AUTO 69 % (41-73); Platelet Count 172 K/mm3 (150-400); RDW Coefficient Variation 16.5 % (11.7-14.2); RDW Standard Deviation 52.4 fL (35.1-46.3); Red Blood Cell Count 3.53 M/mm3 (4.30-5.90); White Blood Cell Count 5.36 K/mm3 (4.00-11.30)
[2021-09-10 06:53] LABS: Albumin, Blood 1.8 g/dL (3.4-5.0); Albumin/Globulin Ratio 0.5 (0.8-1.8); Bilirubin, Total 0.4 mg/dL (0.1-1.0); Bun/Creatinine Ratio 30.7 (12.0-20.0); Calcium, Blood 8.3 mg/dL (8.5-10.1); Creatinine, Blood 2.15 mg/dL (0.60-1.20); Globulin, Blood 3.9 g/dL (2.2-4.0); Potassium, Blood 5.1 mmol/L (3.5-5.5); Total Protein, Blood 5.7 g/dL (6.4-8.2)
--- NOTE | 2021-09-10 18:29 | NUR ---
SHIFT SUMMARY PATIENT RESTING IN BED WATCHING TV. NO SIGNIFICANT EVENTS T/O SHIFT. PATIENT HAS MULTIPLE PRESSURE WOUNDS. DRESSINGS ON SACRUM AND UPPER THIGH BECAME SOILED AND WERE CHANGED TODAY. PATIENT HAS A CHRONIC QUINTEROS WITH DARK TEA COLORED URINE DRAINING WELL. VITAL SIGNS STABLE. WILL CONTINUE TO MONITOR
--- NOTE | 2021-09-11 03:23 | NUR ---
SHIFT SUMMARY PATIENT HAD NO ACUTE CHANGES OBSERVED. AXOX 3 AND BEDREST, PARAPLEGIC. PIV REMAINS INTACT. IV ABX INFUSED. LR STARTED AT 75mL/HR. VSS/AFEBRILE. DENIES PAIN, SOB, AND N/V. MULTIPLE WOUND PHOTOS IN CHART. DRESSINGS C/D/I. CHRONIC QUINTEROS DRAINING TEA COLOR URINE. CALL LIGHT IN REACH. BED IN LOWEST POSITION. WILL CONTINUE TO MONITOR UNTIL DAY SHIFT NURSE ASSUMES CARE.
[2021-09-11 05:09] LABS: BASOPHILS ABSOLUTE AUTO 0.04 K/mm3 (0.00-0.23); BASOPHILS PERCENT AUTO 1 % (0-2); EOSINOPHILS ABSOLUTE AUTO 0.38 K/mm3 (0.00-0.68); EOSINOPHILS PERCENT AUTO 8 % (0-6); Hematocrit 32.8 % (37.0-53.0); Hemoglobin 9.8 g/dL (13.5-17.5); IMMATURE GRAN ABSOLUTE AUTO 0.03 K/mm3 (0.00-0.10); IMMATURE GRAN PERCENT AUTO 1 % (0-1); LYMPHOCYTES ABSOLUTE AUTO 0.65 K/mm3 (0.84-5.20); LYMPHOCYTES PERCENT AUTO 13 % (21-46); MONOCYTES ABSOLUTE AUTO 0.74 K/mm3 (0.16-1.47); MONOCYTES PERCENT AUTO 15 % (4-13); Mean Corpuscular HGB 26.4 pg (26.0-34.0); Mean Corpuscular HGB Conc 29.9 g/dL (31.5-36.5); Mean Corpuscular Volume 88 fL (80-100); Mean Platelet Volume 9.5 fL (9.1-12.4); NEUTROPHILS ABSOLUTE AUTO 3.16 K/mm3 (1.96-9.15); NEUTROPHILS PERCENT AUTO 63 % (41-73); Platelet Count 188 K/mm3 (150-400); RDW Coefficient Variation 16.5 % (11.7-14.2); RDW Standard Deviation 53.1 fL (35.1-46.3); Red Blood Cell Count 3.71 M/mm3 (4.30-5.90)
[2021-09-11 05:59] LABS: Bun/Creatinine Ratio 34.5 (12.0-20.0); Creatinine, Blood 2.06 mg/dL (0.60-1.20); Potassium, Blood 5.6 mmol/L (3.5-5.5)
--- NOTE | 2021-09-11 16:13 | NUR ---
SHIFT SUMMARY PATIENT DENIES PAIN, NAUSEA, AND SHORTNESS OF BREATH. PATIENT OFFERED REPOSITIONING REGULARLY BUT FREQUENTLY DECLINES. PATIENT EDUCATED ON PRESSURE INJURY PREVENTION. EATING AND DRINKING WELL. QUINTEROS DRAINING DARK CLOUDY URINE. PLEASANT AND COOPERATIVE WITH CARE.
--- NOTE | 2021-09-12 04:32 | NUR ---
NO CHANGES WITH EDWARD LAST NIGHT. NO COMPLAINTS OF PAIN OR DISCOMFORT. VERY FLAT, ALMOST GRUFF AFFECT. WOUNDS IMPROVING SLOWLY. COOPERATIVE WITH EVELIN
[2021-09-12] MEDS ORDERED: JUVEN PACKET1 EAC3 PO (10:04)
[2021-09-12] MEDS ORDERED: Vitamin D1000 UNI1 PO (10:05)
[2021-09-12] MEDS ORDERED: VISBIOME 112.51 EACH PO (10:05)
--- NOTE | 2021-09-12 14:36 | NUR ---
DISCHARGE DISCHARGE MEDICATIONS AND INSTRUCTIONS EXPLAINED TO PATIENT. PATIENT STATED UNDERSTANDING. COUSIN TRENT WILL BE WAITING AT HOME FOR PATIENT. [facility] NOTIFIED OF PATIENT'S DISCHARGE. FOLLOW UP WITH PCP SCHEDULED. IV REMOVED WITHOUT ISSUE. PATIENT TRANSFERED HOME VIA [facility]SP[facility].
== END 2021-09-12 14:10 | disposition home or self-care (01) | DRG 698 ==
LOC: ER 10:15 → MEDS 13:02
PROVIDERS: Emergency Medicine; Internal Medicine; ADMIT Internal Medicine
DX: T83.511A Infection and inflammatory reaction due to indwelling urethral catheter, initial encounter (principal); A41.51 Sepsis due to Escherichia coli [E. coli]; N17.0 Acute kidney failure with tubular necrosis; Z68.42 Body mass index [BMI] 45.0-49.9, adult; G82.20 Paraplegia, unspecified; N39.0 Urinary tract infection, site not specified; Q05.9 Spina bifida, unspecified; Z96.651 Presence of right artificial knee joint; M19.012 Primary osteoarthritis, left shoulder; E11.22 Type 2 diabetes mellitus with diabetic chronic kidney disease; N18.2 Chronic kidney disease, stage 2 (mild); N31.9 Neuromuscular dysfunction of bladder, unspecified; L89.152 Pressure ulcer of sacral region, stage 2; I12.9 Hypertensive chronic kidney disease with stage 1 through stage 4 chronic kidney disease, or unspecified chronic kidney disease; E66.01 Morbid (severe) obesity due to excess calories; M19.011 Primary osteoarthritis, right shoulder; Z87.442 Personal history of urinary calculi; Z98.890 Other specified postprocedural states; Z98.1 Arthrodesis status; Z90.49 Acquired absence of other specified parts of digestive tract; Z88.0 Allergy status to penicillin; Z88.1 Allergy status to other antibiotic agents; Z88.8 Allergy status to other drugs, medicaments and biological substances; Z91.041 Radiographic dye allergy status; Z87.891 Personal history of nicotine dependence; Z79.899 Other long term (current) drug therapy; Z99.3 Dependence on wheelchair; Z74.01 Bed confinement status
CPT/HCPCS: 36415; 51702; 71045; 80048; 80053; 80069; 81001; 82947; 83605; 83735; 85025; 87040; 87077; 87086; 87186; 92526; 92610; 96365; 99285-25; A9270; J0696; J0878; J1650; J2185; J7030; J7050; J7120

== ENCOUNTER 2021-09-26 08:10 | Inpatient (IN) | payer MEDICARE, OTHER ==
[~2021-09-26] VITALS: Ht 170.2 cm; Wt 136.0 kg
[~2021-09-26 08:10] MED LIST changes: +ESCI10 PO; +FURO20 PO; +JUVEN PACKET1 EAC3 PO; +VISBIOME 112.51 EACH PO; +Vitamin D1000 UNI1 PO
[2021-09-26 09:14] LABS: BASOPHILS ABSOLUTE AUTO 0.08 K/mm3 (0.00-0.23); BASOPHILS PERCENT AUTO 1 % (0-2); EOSINOPHILS ABSOLUTE AUTO 0.06 K/mm3 (0.00-0.68); EOSINOPHILS PERCENT AUTO 0 % (0-6); Hematocrit 38.6 % (37.0-53.0); Hemoglobin 11.7 g/dL (13.5-17.5); IMMATURE GRAN ABSOLUTE AUTO 0.08 K/mm3 (0.00-0.10); IMMATURE GRAN PERCENT AUTO 1 % (0-1); LYMPHOCYTES ABSOLUTE AUTO 1.04 K/mm3 (0.84-5.20); LYMPHOCYTES PERCENT AUTO 7 % (21-46); MONOCYTES PERCENT AUTO 6 % (4-13); Mean Corpuscular HGB 26.8 pg (26.0-34.0); Mean Corpuscular HGB Conc 30.3 g/dL (31.5-36.5); Mean Corpuscular Volume 89 fL (80-100); Mean Platelet Volume 9.9 fL (9.1-12.4); NEUTROPHILS ABSOLUTE AUTO 13.68 K/mm3 (1.96-9.15); NEUTROPHILS PERCENT AUTO 86 % (41-73); Platelet Count 394 K/mm3 (150-400); RDW Coefficient Variation 16.3 % (11.7-14.2); RDW Standard Deviation 52.2 fL (35.1-46.3); Red Blood Cell Count 4.36 M/mm3 (4.30-5.90); White Blood Cell Count 15.84 K/mm3 (4.00-11.30)
[2021-09-26 09:40] LABS: Albumin, Blood 2.3 g/dL (3.4-5.0); Albumin/Globulin Ratio 0.4 (0.8-1.8); Bilirubin, Total 0.5 mg/dL (0.1-1.0); Bun/Creatinine Ratio 31.6 (12.0-20.0); Calcium, Blood 8.9 mg/dL (8.5-10.1); Creatinine, Blood 2.15 mg/dL (0.60-1.20); Globulin, Blood 5.7 g/dL (2.2-4.0); Potassium, Blood 6.1 mmol/L (3.5-5.5)
[2021-09-26 11:04] LABS: Source, Urine Foley catheter
[2021-09-26 11:09] LABS: Appearance, Urine Turbid (Clear); Bilirubin, Urine Neg (Neg); Blood, Urine 5+ (Neg); Color, Urine Yellow (P-Yellow); Glucose Qualitative, Urine Neg (Neg); Ketones, Urine Neg (Neg); Leukocyte Esterase, Urine 3+ (Neg); Nitrite, Urine Neg (Neg); Protein, Urine 4+ (Neg); Urobilinogen, Urine NORM (Normal)
[2021-09-26 11:36] LABS: Red Blood Cells, Urine 25-50 /hpf (0-2); Squamous Epithelial Cells Rare /hpf (Few); White Blood Cells, Urine TNTC /hpf (0-5)
[2021-09-26 11:37] LABS: Bacteria Many /hpf
--- NOTE | 2021-09-26 18:33 | NUR ---
SUMMARY PT ADMITTED FROM THE ER FOR UTI SEPSIS, PT IS ALERT AND ORIENTED, IS BED BOUND AT BASELINE, HAS SPINA BIFIDA, PT HAS AN OPEN AREA ON HIS COCCYX/LOWER BACK AREA, AND A SMALL OPEN AREA BETWEEN THE POSTERIOR OF HIS SCROTUM AND ANUS, OPEN AREA ALSO TO THE R FOOT INNER ANKLE, PT DENIES ANY PAIN, ABLE TO TAKE PILLS WHOLE AND FEED SELF, VSS, WILL CONT TO MONITOR
[2021-09-27 04:38] LABS: BASOPHILS ABSOLUTE AUTO 0.05 K/mm3 (0.00-0.23); BASOPHILS PERCENT AUTO 1 % (0-2); EOSINOPHILS ABSOLUTE AUTO 0.33 K/mm3 (0.00-0.68); EOSINOPHILS PERCENT AUTO 3 % (0-6); Hematocrit 30.5 % (37.0-53.0); Hemoglobin 9.4 g/dL (13.5-17.5); IMMATURE GRAN ABSOLUTE AUTO 0.04 K/mm3 (0.00-0.10); IMMATURE GRAN PERCENT AUTO 0 % (0-1); LYMPHOCYTES ABSOLUTE AUTO 0.81 K/mm3 (0.84-5.20); LYMPHOCYTES PERCENT AUTO 8 % (21-46); MONOCYTES ABSOLUTE AUTO 0.67 K/mm3 (0.16-1.47); MONOCYTES PERCENT AUTO 6 % (4-13); Mean Corpuscular HGB 27.5 pg (26.0-34.0); Mean Corpuscular HGB Conc 30.8 g/dL (31.5-36.5); Mean Corpuscular Volume 89 fL (80-100); Mean Platelet Volume 9.8 fL (9.1-12.4); NEUTROPHILS ABSOLUTE AUTO 8.58 K/mm3 (1.96-9.15); NEUTROPHILS PERCENT AUTO 82 % (41-73); Platelet Count 292 K/mm3 (150-400); RDW Coefficient Variation 16.5 % (11.7-14.2); Red Blood Cell Count 3.42 M/mm3 (4.30-5.90); White Blood Cell Count 10.48 K/mm3 (4.00-11.30)
[2021-09-27 05:05] LABS: Magnesium, Blood 1.8 mg/dL (1.6-2.4)
[2021-09-27 05:11] LABS: Albumin, Blood 1.9 g/dL (3.4-5.0); Albumin/Globulin Ratio 0.5 (0.8-1.8); Bilirubin, Total 0.4 mg/dL (0.1-1.0); Bun/Creatinine Ratio 32.8 (12.0-20.0); Calcium, Blood 7.7 mg/dL (8.5-10.1); Creatinine, Blood 2.04 mg/dL (0.60-1.20); Globulin, Blood 3.9 g/dL (2.2-4.0); Potassium, Blood 5.3 mmol/L (3.5-5.5)
[2021-09-27 05:14] LABS: Total Protein, Blood 5.8 g/dL (6.4-8.2)
--- NOTE | 2021-09-27 05:43 | NUR ---
SHIFT SUMMARY AOX3. FOLLOWS DIRECTIONS. DX SEPSIS R/T UTI, RECIEVING IV ANTIBIOTICS. QUINTEROS PATENT & DRAINING CLOUDY RESTREPO COLORED URINE. BP LOW THIS AM @88/50 WHEN CHECKED MANUALLY, RECHECKED LATER & 99/54, PT WAS SLEEPING BOTH TIMES BP CHECKED. REST OF VITALS STABLE. HAS MULT ABRASIONS, WOUNDS. COCCYX HAS STAGE 2 PRESSURE SORE, CLEANSED & PLACED MEPILEX DRESSING ON. UNDER L GLUTE FOLD THERE IS AN 5x2.5 CM OPEN WOUND, TOOK PIC & PLACED IN CHART, SEE CHART FOR ALL OTHER WOUNDS. REPOSITIONED, CLEANSED FOLDS. DENIES N/V OR SOB. CALL LIGHT IN REACH. WCTM.
--- NOTE | 2021-09-27 12:47 | NUR ---
Wound care recommendation; apply calazine barrier cream nickel thick, cover with bordered foam, change daily or when soiled or dislodged. Reposition Q2hrs
[2021-09-27] MEDS ORDERED: FURO20 PO (15:58)
[2021-09-27] MEDS ORDERED: POTA10T PO (15:58)
[2021-09-27] MEDS ORDERED: TROSPIUM CHLORI60 MG PO (15:59)
[2021-09-27] MEDS ORDERED: BUPROPION XL150 M1 PO (15:59)
[2021-09-27] MEDS ORDERED: POTA8 PO (15:59)
--- NOTE | 2021-09-27 17:05 | NUR ---
SUMMARY PT SITTING UP IN BED WATCHING TV, PT HAS BEEN PLEASANT AND COOPERATIVE WITH CARE T/O THE DAY, PT DECLINED TO TURN FREQUENTLY ASKED, PT USING OVERHEAD TRAPEEZE TO REPOSITION SELF AT TIMES, WOUND CARE HAS BEEN IN TO DRESS PT'S WOUNDS AND MAKE RECOMMENDATIONS, PT'S FAMILY AND MANAGER STUDIO HAVE BEEN IN TO VISIT, HOME CARE AGENCY AND PT'S [facility] ADMINISTRATIVE ASSISTANT HAVE CALLED TO CHECK ON THE PT, PLAN TO DC PT HOME TOMORROW TO RESUME HOME HEALTH, PT AND FAMILY AWARE AND AGREEABLE, VSS, NO COMPLAINTS, WILL CONT TO MONITOR
--- NOTE | 2021-09-28 04:17 | NUR ---
SHIFT SUMMARY ADMITTED FOR UTI/SEPSIS. FULL CODE. CONTACT PRECAUTIONS FOR ESBL IN BLOOD. HX OF MRSA IN WOUND, ESBL IN WOUND. CHRONIC QUINTEROS IN PLACE. NS INFUSING @ 150 ML/HR. IV ANTIB RX ARE SCHEDULED. PLAN IS TO HOPEFULLY DC TODAY W/HH. HE LIVES W/HIS NIECE AND HAS CAREGIVERS. HE IS BEDBOUND/WHEELCHAIR BOUND DUE TO SPINA BIFIDA. HE HAS A NEUROGENIC BLADDER. HE IS A&O X4
[2021-09-28 04:30] LABS: BASOPHILS ABSOLUTE AUTO 0.03 K/mm3 (0.00-0.23); BASOPHILS PERCENT AUTO 1 % (0-2); EOSINOPHILS ABSOLUTE AUTO 0.07 K/mm3 (0.00-0.68); EOSINOPHILS PERCENT AUTO 1 % (0-6); Hematocrit 30.5 % (37.0-53.0); IMMATURE GRAN ABSOLUTE AUTO 0.04 K/mm3 (0.00-0.10); IMMATURE GRAN PERCENT AUTO 1 % (0-1); LYMPHOCYTES ABSOLUTE AUTO 0.45 K/mm3 (0.84-5.20); LYMPHOCYTES PERCENT AUTO 7 % (21-46); MONOCYTES PERCENT AUTO 5 % (4-13); Mean Corpuscular HGB 27.1 pg (26.0-34.0); Mean Corpuscular HGB Conc 29.5 g/dL (31.5-36.5); Mean Corpuscular Volume 92 fL (80-100); Mean Platelet Volume 9.3 fL (9.1-12.4); NEUTROPHILS ABSOLUTE AUTO 5.73 K/mm3 (1.96-9.15); NEUTROPHILS PERCENT AUTO 87 % (41-73); Platelet Count 257 K/mm3 (150-400); RDW Coefficient Variation 16.3 % (11.7-14.2); RDW Standard Deviation 54.4 fL (35.1-46.3); Red Blood Cell Count 3.32 M/mm3 (4.30-5.90); White Blood Cell Count 6.62 K/mm3 (4.00-11.30)
[2021-09-28 05:13] LABS: Bun/Creatinine Ratio 31.5 (12.0-20.0); Calcium, Blood 7.6 mg/dL (8.5-10.1); Creatinine, Blood 1.84 mg/dL (0.60-1.20); Potassium, Blood 5.1 mmol/L (3.5-5.5)
--- NOTE | 2021-09-28 17:20 | NUR ---
PATIENT IS ALERT AND ORIENTED AND COOPERATIVE WITH CARE. PLANS TO DISCHARGE THIS EVENING. NO NEW CONCERNS TODAY. WAITING FOR RIDE. WILL CONTINUE TO MONITOR
== END 2021-09-28 18:14 | disposition home or self-care (01) | DRG 698 ==
LOC: ER 08:10 → MEDS 13:09 → ERHOLD 13:09 → MEDS 16:47
PROVIDERS: Emergency Medicine; Family Medicine; Internal Medicine; Nurse Practitioner Acute Care; ADMIT Internal Medicine
DX: T83.511A Infection and inflammatory reaction due to indwelling urethral catheter, initial encounter (principal); G92.8 Other toxic encephalopathy; Z68.42 Body mass index [BMI] 45.0-49.9, adult; I12.9 Hypertensive chronic kidney disease with stage 1 through stage 4 chronic kidney disease, or unspecified chronic kidney disease; N31.9 Neuromuscular dysfunction of bladder, unspecified; N18.30 Chronic kidney disease, stage 3 unspecified; E87.5 Hyperkalemia; Z96.652 Presence of left artificial knee joint; E11.22 Type 2 diabetes mellitus with diabetic chronic kidney disease; F41.8 Other specified anxiety disorders; E86.0 Dehydration; F19.90 Other psychoactive substance use, unspecified, uncomplicated; L89.152 Pressure ulcer of sacral region, stage 2; E66.01 Morbid (severe) obesity due to excess calories; Z96.653 Presence of artificial knee joint, bilateral; Z74.01 Bed confinement status; Z98.1 Arthrodesis status; Z99.3 Dependence on wheelchair; Z98.890 Other specified postprocedural states; Z87.891 Personal history of nicotine dependence; Z88.0 Allergy status to penicillin; Z88.1 Allergy status to other antibiotic agents; Z88.8 Allergy status to other drugs, medicaments and biological substances; Z79.899 Other long term (current) drug therapy; Y84.6 Urinary catheterization as the cause of abnormal reaction of the patient, or of later complication, without mention of misadventure at the time of the procedure
CPT/HCPCS: 36415; 51702; 74176; 80048; 80053; 80400; 81001; 82533; 82550; 82947; 83605; 83690; 83735; 85025; 87040; 87077; 87086; 87186; 94760; 96365-59; 96375-59; 97162; 97530; 99285-25; A9270; J0834; J1644; J1815; J2185; J2405; J7030; J7040

== ENCOUNTER 2021-12-28 10:02 | Inpatient (IN) | payer MEDICARE, OTHER ==
[~2021-12-28] VITALS: Ht 170.2 cm; Wt 143.0 kg
[~2021-12-28 10:02] MED LIST changes: +BUPROPION XL150 M1 PO; +POTA10T PO; +TROSPIUM CHLORI60 MG PO
[2021-12-28 11:00] LABS: Hematocrit 33.1 % (37.0-53.0); Hemoglobin 10.3 g/dL (13.5-17.5); Mean Corpuscular HGB 26.1 pg (26.0-34.0); Mean Corpuscular HGB Conc 31.1 g/dL (31.5-36.5); Mean Corpuscular Volume 84 fL (80-100); Mean Platelet Volume 9.4 fL (9.1-12.4); Platelet Count 228 K/mm3 (150-400); RDW Coefficient Variation 16.1 % (11.7-14.2); RDW Standard Deviation 49.7 fL (35.1-46.3); Red Blood Cell Count 3.94 M/mm3 (4.30-5.90); White Blood Cell Count 12.83 K/mm3 (4.00-11.30)
[2021-12-28 11:12] LABS: Albumin, Blood 2.5 g/dL (3.4-5.0); Albumin/Globulin Ratio 0.5 (0.8-1.8); Bilirubin, Total 0.4 mg/dL (0.1-1.0); Bun/Creatinine Ratio 37.7 (12.0-20.0); Calcium, Blood 8.2 mg/dL (8.5-10.1); Creatinine, Blood 1.51 mg/dL (0.60-1.20); Potassium, Blood 4.1 mmol/L (3.5-5.5); Total Protein, Blood 7.5 g/dL (6.4-8.2)
[2021-12-28 12:08] LABS: BAND PERCENT MAN 13 % (0-8); BASOPHILS PERCENT MAN 0 % (0-2); EOSINOPHILS PERCENT MAN 0 % (0-6); LYMPHOCYTES ABSOLUTE MAN 0.25 K/mm3 (0.84-5.20); LYMPHOCYTES PERCENT MAN 2 % (21-46); MONOCYTES ABSOLUTE MAN 0.25 K/mm3 (0.16-1.47); MONOCYTES PERCENT MAN 2 % (4-13); NEUTROPHILS ABSOLUTE MAN 12.31 K/mm3 (1.96-9.15); SEG NEUTROPHILS PERCENT MAN 83 % (41-73); TOTAL CELLS COUNTED 100
[2021-12-28 12:09] LABS: Source, Urine Foley catheter
[2021-12-28 12:22] LABS: Appearance, Urine Cloudy (Clear); Bilirubin, Urine Neg (Neg); Blood, Urine 5+ (Neg); Color, Urine Amber (P-Yellow); Glucose Qualitative, Urine Neg (Neg); Ketones, Urine 1+ (Neg); Leukocyte Esterase, Urine 3+ (Neg); Nitrite, Urine Neg (Neg); Protein, Urine 3+ (Neg); Urobilinogen, Urine 1+ (Normal)
[2021-12-28 12:44] LABS: Amorphous Mod (0-Heavy); Bacteria Many /hpf; Red Blood Cells, Urine TNTC /hpf (0-2); Squamous Epithelial Cells Few /hpf (Few); White Blood Cells, Urine 25-50 /hpf (0-5)
[2021-12-28 12:53] LABS: Influenza A, PCR NEGATIVE (NEGATIVE); Influenza B, PCR NEGATIVE (NEGATIVE); Resp Syncytial Virus, PCR NEGATIVE (NEGATIVE); SARS-Cov-2 (COVID-19) PCR, MMC NEGATIVE (NEGATIVE)
[2021-12-28 16:01] LABS: Source, Urine Foley catheter
[2021-12-28 16:32] LABS: Appearance, Urine Cloudy (Clear); Bilirubin, Urine Neg (Neg); Blood, Urine 5+ (Neg); Color, Urine Brown (P-Yellow); Glucose Qualitative, Urine Neg (Neg); Ketones, Urine 1+ (Neg); Leukocyte Esterase, Urine 3+ (Neg); Nitrite, Urine Pos (Neg); Protein, Urine 3+ (Neg); Urobilinogen, Urine NORM (Normal)
[2021-12-28 16:58] LABS: Red Blood Cells, Urine TNTC /hpf (0-2); White Blood Cells, Urine TNTC /hpf (0-5)
[2021-12-28 16:59] LABS: Bacteria Many /hpf; Renal Epithelial Rare /hpf (0-Rare); Squamous Epithelial Cells Few /hpf (Few); Transitional Epithelial Cells Few /hpf (0-Rare)
[2021-12-28 17:00] LABS: Hyaline Casts 0-2 /lpf (0-2); Mucus Light (0-Heavy)
--- NOTE | 2021-12-28 17:49 | NUR ---
PATIENT ADMIT TO PCU AT 1530. WHEELCHAIR BOUND AT BASELINE. USED SLIDE SHEET TO TRANSFER. PERRLA. NUMBNESS TO BLE BELOW KNEES AND SOME INTERMITTENT NUMBNESS TO HIPS. HISTORY OF CEREBRAL PALSY. COMPLAINS OF CHRONIC JOINT PAIN. RIGHT SHOULDER PAIN, MEDICATED WITH TYLENOL. ALERT AND ORIENTED X4. VERY QUIET. TELE SHOWING SINUS RHYTHM WITH HR 70-80'S. BP SLIGHTLY ELEVATED. DENIES CHEST PAIN/PRESSURE. ON 2L UPON ADMIT, DOES NOT WEAR O2 AT HOME. ABLE TO TITRATED DOWN TO ROOM AIR, SATING HIGH 90'S. DENIES COUGH. DENIES ABDOMINAL PAIN/NAUSEA. TOLERATING PO DIET, DRINKING WATER. STATES OCCASIONAL CONSTIPATION. COUSIN AND CAREGIVER TRENT AT BEDSIDE. MED REC COMPLETED. PATIENT HOME MEDS IN BELONGINGS AND INSTRUCTED TRENT TO TAKE HOME. CHRONIC QUINTEROS THAT WAS REPLACED IN ED AND URINE SAMPLE SENT. URINE OUTPUT DARK/JYOTI IN COLOR, DRAINING TO GRAVITY. VERY ENLARGED/EDEMATOUS SCROTUM. PATIENT STATES NO PAIN, AND THAT HIS SCROTUM HAS ALWAYS BEEN ENLARGED, WEEPING AT THIS TIME. ELEVATED AND CLEANED. ISO PRECAUTIONS IN PLACE. LR INFUSING AT 125 ML/HR. SKIN OVERALL HOT TO TOUCH, ORAL TEMP 99.2, TYLENOL GIVEN AND COLD WASH CLOTH. SEE CHART FOR WOUND PICTURES. RIGHT LOWER EXTREMITY WARM AND SLIGHTLY RED COMPARED TO LEFT. CALL LIGHT IN REACH. Q2 TURNING AND NEEDED. WILL CONTINUE TO MONITOR AND REPORT OFF.
--- NOTE | 2021-12-29 00:21 | NUR ---
CARE ASSUMPTION: PATIENT ASLEEP IN BED. CALL LIGHT IN REACH. LR RUNNING PER EMAR. PATIENT SLOW TO WAKE UPON RN INTRODUCTION AND DRIFTED BACK TO SLEEP WHILE RN TOOK VS. VSS ON RA. QUINTEROS DRAINING DARK URINE TO GRAVITY.
[2021-12-29 04:14] LABS: Hematocrit 35.2 % (37.0-53.0); Hemoglobin 10.5 g/dL (13.5-17.5); Mean Corpuscular HGB 25.7 pg (26.0-34.0); Mean Corpuscular HGB Conc 29.8 g/dL (31.5-36.5); Mean Corpuscular Volume 86 fL (80-100); Mean Platelet Volume 9.4 fL (9.1-12.4); Platelet Count 204 K/mm3 (150-400); RDW Coefficient Variation 16.3 % (11.7-14.2); Red Blood Cell Count 4.08 M/mm3 (4.30-5.90); White Blood Cell Count 11.47 K/mm3 (4.00-11.30)
[2021-12-29 04:46] LABS: Albumin, Blood 2.2 g/dL (3.4-5.0); Albumin/Globulin Ratio 0.4 (0.8-1.8); Bilirubin, Total 0.5 mg/dL (0.1-1.0); Bun/Creatinine Ratio 32.5 (12.0-20.0); Calcium, Blood 8.3 mg/dL (8.5-10.1); Creatinine, Blood 1.94 mg/dL (0.60-1.20); Globulin, Blood 4.9 g/dL (2.2-4.0); Potassium, Blood 4.2 mmol/L (3.5-5.5); Total Protein, Blood 7.1 g/dL (6.4-8.2)
[2021-12-29 05:55] LABS: BAND PERCENT MAN 13 % (0-8); BASOPHILS PERCENT MAN 0 % (0-2); EOSINOPHILS ABSOLUTE MAN 0.11 K/mm3 (0.00-0.68); EOSINOPHILS PERCENT MAN 1 % (0-6); LYMPHOCYTES ABSOLUTE MAN 0.22 K/mm3 (0.84-5.20); LYMPHOCYTES PERCENT MAN 2 % (21-46); MONOCYTES PERCENT MAN 7 % (4-13); NEUTROPHILS ABSOLUTE MAN 10.32 K/mm3 (1.96-9.15); SEG NEUTROPHILS PERCENT MAN 77 % (41-73); TOTAL CELLS COUNTED 100
--- NOTE | 2021-12-29 06:03 | NUR ---
SHIFT SUMMARY: PATIENT DENIES SOB AND CHEST PAIN, A&O X4. VSS T/O SHIFT. ONE LARGE BM THIS MORNING. QUINTEROS DRAINING DARK JYOTI URINE WITH SEDIMENT TO GRAVITY. WOUNDS ON BUTTOCKS CLEANED WITH WOUND CLEANSER THIS AM. LR RUNNING PER EMAR. NO ACUTE EVENTS THIS SHIFT. WILL CONTINUE TO MONITOR AND REPORT TO ONCOMING RN.
--- NOTE | 2021-12-29 17:50 | NUR ---
SHIFT NOTE PT A/O X3, ANSWERS QUESTIONS SLOWLY BUT APPROPRIATELY. PT WITH LARGE BM THIS AM. VSS. DENIES CP OR SOB. NSR ON MONITOR. DAILY PHOTOS TAKEN OF BUTTOCK WOUND. REPOSITIONED NEEDED FOR COMFORT. PT HAS SLEPT THOROUGH THE DAY. QUINTEROS DRAINING TEA COLORED URINE TO GRAVITY. LR INFUSING AT 125/HR. PT WITH DECREASED SENSATION TO LEGS BITLAT WHICH PT STS IS NORMAL. THERE ARE NO ADDITIONAL ACUTE CHANGES TO DISCUSS FOR THIS SHIFT
--- NOTE | 2021-12-30 05:27 | NUR ---
SHIFT SUMMARY: PATIENT'S VSS T/O SHIFT, DENIES SOB OR CHEST PAIN, MILD NONPRODUCTIVE COUGH THIS AM. LR RUNNING 125 MLS/HR AND ABX INFUSED PER EMAR. QUINTEROS DRAINING JYOTI URINE TO GRAVITY, SCANT BM THIS AM. PATIENT AWAKE MOST OF NIGHT, REQUESTED TO BE LAID ON SIDE AND SLEPT INTERMITTENTLY IN THAT POSITION. NO ACUTE EVENTS THIS SHIFT. WILL CONTINUE TO MONITOR AND REPORT TO ONCOMING RN.
[2021-12-30 08:31] LABS: BASOPHILS ABSOLUTE AUTO 0.03 K/mm3 (0.00-0.23); BASOPHILS PERCENT AUTO 0 % (0-2); EOSINOPHILS ABSOLUTE AUTO 0.49 K/mm3 (0.00-0.68); EOSINOPHILS PERCENT AUTO 5 % (0-6); Hematocrit 31.3 % (37.0-53.0); Hemoglobin 9.5 g/dL (13.5-17.5); IMMATURE GRAN ABSOLUTE AUTO 0.06 K/mm3 (0.00-0.10); IMMATURE GRAN PERCENT AUTO 1 % (0-1); LYMPHOCYTES ABSOLUTE AUTO 0.54 K/mm3 (0.84-5.20); LYMPHOCYTES PERCENT AUTO 6 % (21-46); MONOCYTES ABSOLUTE AUTO 0.55 K/mm3 (0.16-1.47); MONOCYTES PERCENT AUTO 6 % (4-13); Mean Corpuscular HGB 25.7 pg (26.0-34.0); Mean Corpuscular HGB Conc 30.4 g/dL (31.5-36.5); Mean Corpuscular Volume 85 fL (80-100); Mean Platelet Volume 9.4 fL (9.1-12.4); NEUTROPHILS ABSOLUTE AUTO 7.69 K/mm3 (1.96-9.15); NEUTROPHILS PERCENT AUTO 82 % (41-73); Platelet Count 195 K/mm3 (150-400); RDW Coefficient Variation 16.4 % (11.7-14.2); RDW Standard Deviation 50.4 fL (35.1-46.3); White Blood Cell Count 9.36 K/mm3 (4.00-11.30)
[2021-12-30 08:51] LABS: Albumin, Blood 2.1 g/dL (3.4-5.0); Albumin/Globulin Ratio 0.4 (0.8-1.8); Bilirubin, Total 0.3 mg/dL (0.1-1.0); Bun/Creatinine Ratio 30.4 (12.0-20.0); Creatinine, Blood 2.17 mg/dL (0.60-1.20); Globulin, Blood 4.7 g/dL (2.2-4.0); Potassium, Blood 4.4 mmol/L (3.5-5.5); Total Protein, Blood 6.8 g/dL (6.4-8.2)
--- NOTE | 2021-12-30 16:27 | NUR ---
SHIFT NOTE PT A/O X4, ANSWERING QUESTIONS APPROPRIATELY IN FULL SENTENCES. DENIES ANY PAIN. FLUIDS D/C TODAY, REMAINS WITH GOOD INTAKE AND OUTPUT. DENIES CP OR SOB. VSS. PT HAS BEEN CHANGED TO MEDICAL WITHOUT TELE STATUS, PT HAD REMAINED NSR UNTIL TIME THAT TELE WAS REMOVED. AFEBRILE. FAMILY HAS BEEN IN TODAY AND IS UPDATED. THERE ARE NO OTHER ACUTE CHANGES TO DISCUSS FOR THIS SHIFT
--- NOTE | 2021-12-30 21:44 | NUR ---
CARE ASSUMPTION: PATIENT ASLEEP IN BED, COMPLAINED OF ABDOMINAL PAIN "LIKE HEARTBURN" AND REFUSED HEPARIN. PATIENT ASKED TO BE TURNED ONTO RIGHT SIDE, LINENS AND CHUCKS WERE SOILED SO WERE CHANGED WITH 3 PERSON ASSIST. PATIENT LATER COMPLAINED OF NAUSEA, BROUGHT EMESIS BAG AND MEDICATED PER EMAR. PATIENT RESTING IN BED NOW.
[2021-12-31 03:43] LABS: BASOPHILS ABSOLUTE AUTO 0.03 K/mm3 (0.00-0.23); BASOPHILS PERCENT AUTO 0 % (0-2); EOSINOPHILS ABSOLUTE AUTO 0.46 K/mm3 (0.00-0.68); EOSINOPHILS PERCENT AUTO 6 % (0-6); Hemoglobin 9.3 g/dL (13.5-17.5); IMMATURE GRAN ABSOLUTE AUTO 0.06 K/mm3 (0.00-0.10); IMMATURE GRAN PERCENT AUTO 1 % (0-1); LYMPHOCYTES ABSOLUTE AUTO 0.56 K/mm3 (0.84-5.20); LYMPHOCYTES PERCENT AUTO 8 % (21-46); MONOCYTES PERCENT AUTO 8 % (4-13); Mean Corpuscular HGB 25.6 pg (26.0-34.0); Mean Corpuscular Volume 85 fL (80-100); Mean Platelet Volume 8.9 fL (9.1-12.4); NEUTROPHILS ABSOLUTE AUTO 5.56 K/mm3 (1.96-9.15); NEUTROPHILS PERCENT AUTO 77 % (41-73); Platelet Count 212 K/mm3 (150-400); RDW Coefficient Variation 16.5 % (11.7-14.2); RDW Standard Deviation 51.2 fL (35.1-46.3); Red Blood Cell Count 3.63 M/mm3 (4.30-5.90); White Blood Cell Count 7.27 K/mm3 (4.00-11.30)
[2021-12-31 04:02] LABS: Bun/Creatinine Ratio 30.5 (12.0-20.0); Calcium, Blood 7.6 mg/dL (8.5-10.1); Creatinine, Blood 2.2 mg/dL (0.60-1.20); Potassium, Blood 4.5 mmol/L (3.5-5.5)
--- NOTE | 2021-12-31 06:57 | NUR ---
SHIFT SUMMARY: PATIENT A&O X4, NAUSEA SUBSIDED WITH MEDICATION, RESTED THROUGH MOST OF SHIFT, NO ACUTE CHANGES. CALL LIGHT IN PLACE, WILL REPORT TO ONCOMING RN.
--- NOTE | 2021-12-31 16:40 | NUR ---
SUMMARY NO ACUTE CHANGES NOTED THROUGH THE DAY. PT REMAINS A&O X4, ON RA, IV ABX INFUSED PER EMAR, PT DENIES PAIN. PT HAS REFUSED REPOSITIONING ON OCCASION BUT IS DOING BETTER WITH IT THIS AFTERNOON. DRYFLOW PADS PLACED UNDER PT DUE TO WEEPING EDEMA. PT'S CAREGIVER WAS IN TO VISIT TODAY AND BROUGHT FOOD. QUINTEROS REMAINS PATENT, DARK JYOTI URINE NOTED. WCTM & REPORT TO NOC RN. CALL LIGHT IN REACH.
--- NOTE | 2021-12-31 22:51 | NUR ---
Assumed care of pt at 1900. A/Ox4, very displeased to still be in the hospital but still cooperative with care. W/C bound at baseline. Denies any pain, CP/pressure, N/V. Genitourinary: Chronic perez draining josey urine to gravity. Scrotal weeping edema noted. Respiratory: Maintains above 95% on RA, LS expiratory wheezes upper lobes bl, and dim at bases. Cardiac: SBP 167, pt not on telemetry. Faint +1 ble pulses. Cap refill over 3 seconds. 3+ pitting edema ble, with redness and warmth noted at the R ankle. +1 pitting edema BUE. Integumentary: Pale with fair skin turgor. Redness on coccyx (q2 turns), cellulitis RLE with a small red ulcer. L buttock wounds. Photos available in chart. Gastrointestinal: Firm & distended abdomen, pt states normal. Hypoactive bs. Psychosocial: Flat affect. Will update as changes occur.
[2022-01-01 04:30] LABS: BASOPHILS ABSOLUTE AUTO 0.03 K/mm3 (0.00-0.23); BASOPHILS PERCENT AUTO 1 % (0-2); EOSINOPHILS ABSOLUTE AUTO 0.46 K/mm3 (0.00-0.68); EOSINOPHILS PERCENT AUTO 8 % (0-6); Hematocrit 31.5 % (37.0-53.0); Hemoglobin 9.3 g/dL (13.5-17.5); IMMATURE GRAN ABSOLUTE AUTO 0.07 K/mm3 (0.00-0.10); IMMATURE GRAN PERCENT AUTO 1 % (0-1); LYMPHOCYTES ABSOLUTE AUTO 0.42 K/mm3 (0.84-5.20); LYMPHOCYTES PERCENT AUTO 7 % (21-46); MONOCYTES ABSOLUTE AUTO 0.55 K/mm3 (0.16-1.47); MONOCYTES PERCENT AUTO 10 % (4-13); Mean Corpuscular HGB 25.3 pg (26.0-34.0); Mean Corpuscular HGB Conc 29.5 g/dL (31.5-36.5); Mean Corpuscular Volume 86 fL (80-100); Mean Platelet Volume 9.6 fL (9.1-12.4); NEUTROPHILS ABSOLUTE AUTO 4.15 K/mm3 (1.96-9.15); NEUTROPHILS PERCENT AUTO 73 % (41-73); Platelet Count 223 K/mm3 (150-400); RDW Coefficient Variation 16.5 % (11.7-14.2); RDW Standard Deviation 51.7 fL (35.1-46.3); Red Blood Cell Count 3.68 M/mm3 (4.30-5.90); White Blood Cell Count 5.68 K/mm3 (4.00-11.30)
[2022-01-01 04:49] LABS: Bun/Creatinine Ratio 28.9 (12.0-20.0); Calcium, Blood 7.9 mg/dL (8.5-10.1); Creatinine, Blood 2.28 mg/dL (0.60-1.20); Potassium, Blood 5.1 mmol/L (3.5-5.5)
--- NOTE | 2022-01-01 08:25 | NUR ---
AM NOTE PT ALERT, ORIENTED x4; COOPERATIVE WITH CARE. PT RESTING IN BED. Q2 TURN. PT DENIES PAIN, CHEST PAIN/PRESSURE, SOB, NAUSEA, DIZZINESS AND NUMB/TINGLING. SPO2 >90% ON RA, RESP RATE 18-20, BREATHING EVEN AND UNLABORED. BP ELEVATED BUT STABLE. ABD DISTENDED, FIRM, WITH NORMOACTIVE BT x4 QUAD; NO BM SINCE 12/29/21, NOTIFIED DR STRICKLAND AT BEDSIDE, NEW ORDERS ENTERED. CLARIFIED ORDERS FOR 1/2 NS AND EDEMA, NEW ORDERS TO HOLD FLUID BOLUS. 4+ PITTING EDEMA TO RLE, RED AND WARM TO TOUCH; 3+ PUTTING EDEMA TO LLE, EDEMA NOTED TO BUE, AND WEEPING EDEMA NOTED TO SCRTUM. OTHER VSS. NO OTHER ACUTE CHANGES NOTED.
--- NOTE | 2022-01-01 18:14 | NUR ---
SHIFT SUMMARY NO ACUTE CHANGES NOTED DURING SHIFT. LINENS CHANGED THIS AFTERNOON DUE TO WEEPING EDEMA. NO BM T/O SHIFT, PT REFUSING MIRALAX AND COLACE AT THIS TIME. PT REFUSING Q2 TURNING AT TIMES. VSS. NO S/SX OF DISTRESS NOTED. PT AGREEABLE TO GO TO SNF FOR ANTIBIOTICS. PIV TO RIGHT HAND NOT PATENT, PLACED PG IN AMANDA. WILL CONTINUE TO MONITOR UNITL REPORT GIVEN TO ONCOMING RN.
--- NOTE | 2022-01-02 05:48 | NUR ---
INSIDE PARTS SALES SUMMARY PT IS AXO X4 AND COMMUNICATING APPROPRIATELY. PT HAS BEEN VERY UPSET THIS SHIFT REFUSING TO BE REPOSITIONED AT TIMES AND YELLING WHEN STAFF ATTEMPTS TO MOVE HIM. VSS AND AFEBRILE. PT SLEPT FOR MOST OF THE SHIFT WITH CALL LIGHT WITHIN REACH. QUINTEROS IN PLACE AND DRAINING VERY DARK URINE, SEE I&O'S FOR OUTPUT. WILL REPORT TO ONCOMING RN.
[2022-01-02 07:21] LABS: Bun/Creatinine Ratio 30.3 (12.0-20.0); Calcium, Blood 7.9 mg/dL (8.5-10.1); Creatinine, Blood 2.08 mg/dL (0.60-1.20); Potassium, Blood 4.9 mmol/L (3.5-5.5)
[2022-01-02] MEDS ORDERED: ACET325 PO (11:08)
[2022-01-02] MEDS ORDERED: AMOCLA875 PO (11:09)
[2022-01-02] MEDS ORDERED: Colace100 MG PO (11:11)
[2022-01-02] MEDS ORDERED: Prinivil10 MG PO (11:12)
[2022-01-02] MEDS ORDERED: MEROPENEM IV (11:13)
[2022-01-02] MEDS ORDERED: MIRALAX17 GM PO (11:14)
[2022-01-02] MEDS ORDERED: VISBIOME 112.51 EACH PO (11:15)
[2022-01-02 11:16] LABS: Influenza A, PCR NEGATIVE (NEGATIVE); Influenza B, PCR NEGATIVE (NEGATIVE); Resp Syncytial Virus, PCR NEGATIVE (NEGATIVE); SARS-Cov-2 (COVID-19) PCR, MMC NEGATIVE (NEGATIVE)
--- NOTE | 2022-01-02 15:02 | NUR ---
DISCHARGE SUMMARY PT A&Ox4; IRRITABLE, UNCOOPERATIVE WITH CARE AT TIMES. PT REFUSING Q2 TURNS. ALLOWED DRESSING CHANGE AND PICTURES FOR DISCHARGE. PT W/C BOUND AT BASELINE, LIFT USED. PT DENIES PAIN, CHEST PAIN/PRESSURE, SOB, NAUSEA, DIZZINESS AND NUMB/TINGLING. POWERGLIDE IN PLACE IN AMANDA, DRESSING CHANGED, STAYING IN PLACE FOR DISCHARGE NEEDING IV ABX. BP AND HEART RATE STABLE. LS EXP WHEEZES IN UPPER LOBES, DIM T/O, SPO2 >90% ON RA. BT HYPOACTIVE T/O, NO BM SINCE 12/29/21, PT CONTINUES TO HAVE FLATULENCE, REFUSING BOWEL CARE. CHRONIC QUNITEROS IN PLACE AND DRAINING. PT CONTINUES TO HAVE BLE AND SCROTAL EDEMA. OTHER VSS. NO S/SX OF DISTRESS NOTED. NO OTHER ACUTE CHANGES. EDUCATED PT AND CAREGIVER OF DISCHARGE PLANS TO [facility]. REPORT GIVEN TO [facility]ULAY NURSE ASSUMING CARE OF PATIENT AT 1422. PT LEFT ROOM VIA WHEELCHAIR TRANSPORT AT 1448.
== END 2022-01-02 14:55 | DRG 698 ==
LOC: ER 10:02 → PCU 13:14
PROVIDERS: Emergency Medicine; Family Medicine; Nurse Practitioner Acute Care; Physician Assistant; Student in an Organized Health Care Education/Training Program; ADMIT Internal Medicine
DX: T83.511A Infection and inflammatory reaction due to indwelling urethral catheter, initial encounter (principal); A41.51 Sepsis due to Escherichia coli [E. coli]; A41.81 Sepsis due to Enterococcus; N17.9 Acute kidney failure, unspecified; G93.40 Encephalopathy, unspecified; N39.0 Urinary tract infection, site not specified; N31.9 Neuromuscular dysfunction of bladder, unspecified; Q05.9 Spina bifida, unspecified; E11.9 Type 2 diabetes mellitus without complications; Z20.822 Contact with and (suspected) exposure to COVID-19; E66.01 Morbid (severe) obesity due to excess calories; Z88.0 Allergy status to penicillin; Z88.1 Allergy status to other antibiotic agents; Z88.8 Allergy status to other drugs, medicaments and biological substances; N18.30 Chronic kidney disease, stage 3 unspecified; Z98.890 Other specified postprocedural states; Z79.899 Other long term (current) drug therapy; Z96.652 Presence of left artificial knee joint; Z74.01 Bed confinement status; L89.159 Pressure ulcer of sacral region, unspecified stage
CPT/HCPCS: 0241U; 36415; 51702; 71045; 80048; 80053; 81001; 83605; 83735; 84100; 85025; 87040; 87077; 87086; 87186; 93005; 93010; 96365; 96375; 99285-25; A9270; C1751; J1644; J2185; J2405; J7030; J7120

== ENCOUNTER → 2022-01-29 | Outpatient (CLI) | payer MEDICARE, OTHER ==
[~2022-01-29] MED LIST changes: +AMOCLA875 PO; +Colace100 MG PO; +MEROPENEM IV; +POTA10T
[2022-01-30 08:19] LABS: Source, Urine Foley catheter
[2022-01-30 09:27] LABS: Appearance, Urine Cloudy (Clear); Bilirubin, Urine Neg (Neg); Blood, Urine 5+ (Neg); Color, Urine Yellow (P-Yellow); Glucose Qualitative, Urine Neg (Neg); Ketones, Urine Neg (Neg); Leukocyte Esterase, Urine 3+ (Neg); Nitrite, Urine Neg (Neg); Protein, Urine 3+ (Neg); Specific Gravity, Urine 1.015 (1.003-1.022); Urobilinogen, Urine NORM (Normal)
[2022-01-30 09:52] LABS: White Blood Cells, Urine TNTC /hpf (0-5)
[2022-01-30 09:54] LABS: Bacteria Many /hpf; Squamous Epithelial Cells Few /hpf (Few); Yeast/Fungi Urine Mod /hpf
== END | disposition home or self-care (01) ==
LOC: LAB 18:13 → LAB SHORT 18:13
PROVIDERS: Internal Medicine Nephrology
DX: N39.0 Urinary tract infection, site not specified (principal); N31.9 Neuromuscular dysfunction of bladder, unspecified; T85.51 Breakdown (mechanical) of gastrointestinal prosthetic devices, implants and grafts
CPT/HCPCS: 81001; 87086

== ENCOUNTER 2022-02-24 18:55 | Inpatient (IN) | payer MEDICARE, OTHER ==
[~2022-02-24] VITALS: Ht 170.2 cm; Wt 134.9 kg
[~2022-02-24 18:55] MED LIST changes: -POTA10T
[2022-02-24 19:41] LABS: BASOPHILS ABSOLUTE AUTO 0.03 K/mm3 (0.00-0.23); BASOPHILS PERCENT AUTO 0 % (0-2); EOSINOPHILS ABSOLUTE AUTO 0.04 K/mm3 (0.00-0.68); EOSINOPHILS PERCENT AUTO 0 % (0-6); Hemoglobin 9.4 g/dL (13.5-17.5); IMMATURE GRAN ABSOLUTE AUTO 0.08 K/mm3 (0.00-0.10); IMMATURE GRAN PERCENT AUTO 1 % (0-1); LYMPHOCYTES ABSOLUTE AUTO 0.56 K/mm3 (0.84-5.20); LYMPHOCYTES PERCENT AUTO 3 % (21-46); MONOCYTES ABSOLUTE AUTO 0.51 K/mm3 (0.16-1.47); MONOCYTES PERCENT AUTO 3 % (4-13); Mean Corpuscular HGB 26.5 pg (26.0-34.0); Mean Corpuscular HGB Conc 31.3 g/dL (31.5-36.5); Mean Corpuscular Volume 85 fL (80-100); Mean Platelet Volume 9.4 fL (9.1-12.4); NEUTROPHILS ABSOLUTE AUTO 16.04 K/mm3 (1.96-9.15); NEUTROPHILS PERCENT AUTO 93 % (41-73); Platelet Count 266 K/mm3 (150-400); RDW Coefficient Variation 18.8 % (11.7-14.2); RDW Standard Deviation 58.3 fL (35.1-46.3); Red Blood Cell Count 3.55 M/mm3 (4.30-5.90); White Blood Cell Count 17.26 K/mm3 (4.00-11.30)
[2022-02-24 19:50] LABS: Calcium, Blood 8.4 mg/dL (8.5-10.1); Creatinine, Blood 2.44 mg/dL (0.60-1.20); Potassium, Blood 4.6 mmol/L (3.5-5.5)
[2022-02-24 20:35] LABS: Source, Urine Foley catheter
[2022-02-24 20:37] LABS: Appearance, Urine Cloudy (Clear); Bilirubin, Urine Neg (Neg); Blood, Urine 5+ (Neg); Color, Urine Red (P-Yellow); Glucose Qualitative, Urine Neg (Neg); Ketones, Urine 1+ (Neg); Leukocyte Esterase, Urine 3+ (Neg); Nitrite, Urine Neg (Neg); Protein, Urine 3+ (Neg); Urobilinogen, Urine NORM (Normal)
[2022-02-24 20:52] LABS: Bacteria Many /hpf; Red Blood Cells, Urine TNTC /hpf (0-2); Squamous Epithelial Cells Few /hpf (Few); White Blood Cells, Urine 25-50 /hpf (0-5)
[2022-02-24 20:54] LABS: Triple Phosphate Crystals Few /hpf
[2022-02-24 20:55] LABS: Amorphous Mod (0-Heavy)
[2022-02-24 21:01] LABS: Influenza A, PCR NEGATIVE (NEGATIVE); Influenza B, PCR NEGATIVE (NEGATIVE); Resp Syncytial Virus, PCR NEGATIVE (NEGATIVE); SARS-Cov-2 (COVID-19) PCR, MMC NEGATIVE (NEGATIVE)
[2022-02-24] MEDS ORDERED: POTA10T (21:01)
[2022-02-25 04:53] LABS: BASOPHILS ABSOLUTE AUTO 0.02 K/mm3 (0.00-0.23); BASOPHILS PERCENT AUTO 0 % (0-2); EOSINOPHILS ABSOLUTE AUTO 0.13 K/mm3 (0.00-0.68); EOSINOPHILS PERCENT AUTO 1 % (0-6); Hematocrit 29.1 % (37.0-53.0); Hemoglobin 8.9 g/dL (13.5-17.5); IMMATURE GRAN ABSOLUTE AUTO 0.11 K/mm3 (0.00-0.10); IMMATURE GRAN PERCENT AUTO 1 % (0-1); LYMPHOCYTES ABSOLUTE AUTO 0.59 K/mm3 (0.84-5.20); LYMPHOCYTES PERCENT AUTO 4 % (21-46); MONOCYTES PERCENT AUTO 3 % (4-13); Mean Corpuscular HGB 25.9 pg (26.0-34.0); Mean Corpuscular HGB Conc 30.6 g/dL (31.5-36.5); Mean Corpuscular Volume 85 fL (80-100); Mean Platelet Volume 9.3 fL (9.1-12.4); NEUTROPHILS ABSOLUTE AUTO 13.84 K/mm3 (1.96-9.15); NEUTROPHILS PERCENT AUTO 91 % (41-73); Platelet Count 203 K/mm3 (150-400); RDW Standard Deviation 58.8 fL (35.1-46.3); Red Blood Cell Count 3.44 M/mm3 (4.30-5.90); White Blood Cell Count 15.19 K/mm3 (4.00-11.30)
[2022-02-25 05:16] LABS: Albumin, Blood 2.8 g/dL (3.4-5.0); Albumin/Globulin Ratio 0.6 (0.8-1.8); Bilirubin, Total 0.4 mg/dL (0.1-1.0); Bun/Creatinine Ratio 42.5 (12.0-20.0); Calcium, Blood 8.4 mg/dL (8.5-10.1); Creatinine, Blood 2.54 mg/dL (0.60-1.20); Globulin, Blood 4.7 g/dL (2.2-4.0); Potassium, Blood 4.6 mmol/L (3.5-5.5); Total Protein, Blood 7.5 g/dL (6.4-8.2)
--- NOTE | 2022-02-25 05:35 | NUR ---
SHIFT SUMMARY ER TRANSFER. PT ALERT AND ORIENTED X3. BP STABLE. AFEBRILE. ON RA SATS OVER 97%. HR SR 70'S. QUINTEROS IN PLACE DRAINING DARK COLORED URINE TO GRAVITY. SKIN BREAKDOWN ON SACRUM, MEPILEX IN PLACE AND Q2 TURNS. PT FORGETFUL AT TIMES, UNABLE TO RECALL NAME OF FAMILY MEMBERS. PG PLACED IN AMANDA, DRAWS BLOOD. SODIUM BICAR INFUSING. ASLEEP MOST OF NIGHT. IN BED SLEEPING WITH CALL ALARM AT SIDE, WILL CONTINUE TO MONITOR UNTIL REPORT GIVEN TO DAYSHIFT RN
--- NOTE | 2022-02-25 10:15 | NUR ---
CARE ASSUMPTION THIS RN ASSUMED CARE FROM MONICA BARCENAS AT 0700. VSS. TELE SR BBB PVC 70S. RA SPO2 >95%. PATIENT IS ALERT AND ORIENTED X4. NEURO INTACT. PERRLA. PATIENT HAS NO SENSATION FROM HIS KNEES DOWN. PATINET REPORTS NO NUMBNESS OR TINGLING OR HEADACHES. PATIENT REPORTS NO PAIN. PATIENT REPORTS NO SHORTNESS OF BREATH. LUNG SOUNDS CLEAR. PATINET REPORTS NO CHEST PAIN/PRESSURE. STRONG RADIAL AND PEDIS PULSE. CAP REFILL <3SECONDS. NO EDEMA NOTED. PATIENT SCROTUM IS ENLARGED, LARGE THAN A GRAPEFRUIT. REDDNESS TO BOTTOM MEPILEX IN PLACE AND REPOSITIONING EVERY TWO HPURS. ABD IS NONTENDER AND ACTIVE. SEE SHIFT ASSESSMENT FOR FURTHER DETAILS. CHRONIC QUINTEROS CATH IN PLACE DRAINING WITH GRAVITY, JYOTI COLORATION. MD GARCIA IN TO SEE PATIENT THIS AM AND WENT OVER PLAN OF CARE. DIET ORDERED FOR PATIENT. PATIENT HAS SODIUM BICARB INFUSING, THE FIRST BAG, ONCE BAG IS COMPLETE WILL START THE SECOND BAG AND ONLY INFUSE HALF A LITER PER EMAR. PATIENT TAKES MEDS HOLE WITH WATER WITH NO DIFFICULITIES. PATIENT IS ABLE TO MAKE NEEDS KNOWN AND USES CALL LIGHT APPROPRIATELY. PATIENT REFUSED A BED BATH AND RANGE OF MOTION. THIS RN WILL ASK LATER TO SEE IF PATIENT WANTS TO DO RANGE OF MOTION. CALL LIGHT IS WITHIN REACH, BED IN LOWEST POSITION. WILL CONITNUE TO MONITOR AND PROVIDE CARE.
[2022-02-25 12:40] LABS: Vancomycin, Random 17.1 ug/mL
--- NOTE | 2022-02-25 14:57 | NUR ---
EDUCATION ON CATH CARE THIS RN EDUCATED THE PATIENT AND FAMILY MEMBER ON CATH CARE. THIS RN PROVIDED PRINTED HAND OUT WITH INFORMATION FOR THEM TO REFER TO. THIS RN DEOMSTRATED HOW TO PERFORM THE CATH CARE. THIS RN EDUCATED THE IMPORTANCE OF CLEANING THE CATHETER WHERE THE URINE COMES FROM AND NOT HAVING IT TOUCH THE URINAL WHEN EMPTYING IT, BUT IF IT DOES ENSURE TO CLEAN IT WITH AN ALCOHOL SWAB. PATIENT AND FAMILY VERABLIZED UNDERSTANDING. PATIENT HAS DECLINED THE LAST REPOSITION AND THIS RN EDUCATED HIM THAT WE NEED TO REPOSITION HIM TO PREVENT SKIN BREAKDOWN.
--- NOTE | 2022-02-25 17:08 | NUR ---
SHIFT SUMMARY PATIENT NEURO REMAINS INTACT. NO ACUTE CHANGES THIS SHIFT. VSS. TELE SR PVC BBB 70S. QUINTEROS CATH DRAINING WITH GRAVITY TEA COLORATION. REPOSITIONED PATIENT PATIENTED ALLOWED. CALL LIGHT WITHIN REACH. WILL CONTINUE TO MONITOR AND PROVIDE CARE UNTIL HAND OFF WITH NEXT SHIFT.
[2022-02-26 03:57] LABS: BASOPHILS ABSOLUTE AUTO 0.02 K/mm3 (0.00-0.23); BASOPHILS PERCENT AUTO 0 % (0-2); EOSINOPHILS ABSOLUTE AUTO 0.44 K/mm3 (0.00-0.68); EOSINOPHILS PERCENT AUTO 5 % (0-6); Hematocrit 28.7 % (37.0-53.0); Hemoglobin 9.1 g/dL (13.5-17.5); IMMATURE GRAN ABSOLUTE AUTO 0.04 K/mm3 (0.00-0.10); IMMATURE GRAN PERCENT AUTO 0 % (0-1); LYMPHOCYTES ABSOLUTE AUTO 0.49 K/mm3 (0.84-5.20); LYMPHOCYTES PERCENT AUTO 5 % (21-46); MONOCYTES PERCENT AUTO 5 % (4-13); Mean Corpuscular HGB 26.6 pg (26.0-34.0); Mean Corpuscular HGB Conc 31.7 g/dL (31.5-36.5); Mean Corpuscular Volume 84 fL (80-100); Mean Platelet Volume 9.6 fL (9.1-12.4); NEUTROPHILS ABSOLUTE AUTO 7.72 K/mm3 (1.96-9.15); NEUTROPHILS PERCENT AUTO 84 % (41-73); Platelet Count 221 K/mm3 (150-400); RDW Standard Deviation 58.2 fL (35.1-46.3); Red Blood Cell Count 3.42 M/mm3 (4.30-5.90); White Blood Cell Count 9.21 K/mm3 (4.00-11.30)
[2022-02-26 04:18] LABS: Albumin, Blood 2.4 g/dL (3.4-5.0); Anion Gap 9 mmol/L (6-16); Blood Urea Nitrogen 104 mg/dL (8-24); Bun/Creatinine Ratio 37.4 (12.0-20.0); CO2, Blood 16 mmol/L (21-32); Calcium, Blood 8.2 mg/dL (8.5-10.1); Chloride, Blood 111 mmol/L (98-108); Creatinine, Blood 2.78 mg/dL (0.60-1.20); Glomerular Filtration Rate 24 (60-); Glucose, Blood 117 mg/dL (70-99); Phosphorus, Blood 5.7 mg/dL (2.5-4.9); Potassium, Blood 4.2 mmol/L (3.5-5.5); Sodium, Blood 136 mmol/L (136-145); Vancomycin, Random 24.2 ug/mL
--- NOTE | 2022-02-26 05:26 | NUR ---
SHIFT SUMMARY PT ALERT AND ORIENTED X4. AFEBRILE. HR SR W/ PVC'S, 60-70'S. BP STABLE. ON RA SATS OVER 97%. DENIES PAIN. AMANDA PG SALINE LOCKED, DRAWS BLOOD. QUINTEROS IN PLACE DRAINING JYOTI COLORED URINE TO GRAVITY. PT ABLE TO REPOSITION HIMSELF IN BED. IN BED SLEEPING WITH CALL ALARM AT SIDE. WILL CONTINUE TO MONITOR UNTIL REPORT GIVEN TO DAYSHIFT RN
--- NOTE | 2022-02-26 08:54 | NUR ---
AM NOTE: ALERT AND ORIENTED X4. DENIES NUMBNESS/TINGLING. PERRLA. HISTORY OF SPINA BIFIDA, PATIENT STATES HE IS "NUMB FROM KNEES DOWN". WHEELCHAIR BOUND AT BASELINE. DENIES PAINS. Q2 TURNING AND NEEDED. ON ROOM AIR SATING ABOVE 94%. LUNGS SOUNDING CLEAR. DRY OCCASIONAL COUGH. DENIES SOB. TELE SHOWING SINUS RHYTHM WITH HR 60-70'S. DENIES CP/PRESSURE. VITAL SIGNS STABLE. DENIES ABDOMINAL PAIN/NAUSEA. TOLERATING PO DIET. QUINTEROS CATH IN PLACE DRAINING DARK JYOTI URINE WITH SEDIMENT. CATH CARE COMPLETED THIS AM. PRESSURE WOUND ON COCCYX. CLEANED AND MEPILEX CHANGED THIS AM, Q2 TURNING IN PLACE AND NEEDED. ANTIBIOTICS INFUSED. POWER GLIDE SALINE LOCKED. CALL LIGHT IN REACH. WILL CONTINUE TO MONITOR.
--- NOTE | 2022-02-26 16:46 | NUR ---
SHIFT SUMMARY: NO ACUTE CHANGES. PATIENT NEURO REMAINS UNCHANGED. Q2 TURNING AND NEEDED TO RELIEVE PRESSURE ON COCCYX. ON ROOM AIR SATING ABOVE 94% ALL VITALS STABLE. MEDICAL STATUS NO TELE. CONTINUES TO DENY ALL PAINS. QUINTEROS CATH REMAINS IN PLACE DRAINING DARK/JYOTI URINE WITH SEDIMENT. CATH CARE COMPLETED THIS SHIFT. TOLERATING PO DIET. DRINKING FLUIDS. CALL LIGHT IN REACH. WATCHING TV AT THIS TIME. DENIES NEEDS. WILL CONTINUE TO MONITOR AND REPORT OFF.
[2022-02-27 04:15] LABS: BASOPHILS ABSOLUTE AUTO 0.03 K/mm3 (0.00-0.23); BASOPHILS PERCENT AUTO 0 % (0-2); EOSINOPHILS ABSOLUTE AUTO 0.53 K/mm3 (0.00-0.68); EOSINOPHILS PERCENT AUTO 7 % (0-6); Hematocrit 30.8 % (37.0-53.0); Hemoglobin 9.4 g/dL (13.5-17.5); IMMATURE GRAN ABSOLUTE AUTO 0.05 K/mm3 (0.00-0.10); IMMATURE GRAN PERCENT AUTO 1 % (0-1); LYMPHOCYTES ABSOLUTE AUTO 0.44 K/mm3 (0.84-5.20); LYMPHOCYTES PERCENT AUTO 6 % (21-46); MONOCYTES ABSOLUTE AUTO 0.56 K/mm3 (0.16-1.47); MONOCYTES PERCENT AUTO 7 % (4-13); Mean Corpuscular HGB 25.7 pg (26.0-34.0); Mean Corpuscular HGB Conc 30.5 g/dL (31.5-36.5); Mean Corpuscular Volume 84 fL (80-100); Mean Platelet Volume 9.3 fL (9.1-12.4); NEUTROPHILS ABSOLUTE AUTO 5.97 K/mm3 (1.96-9.15); NEUTROPHILS PERCENT AUTO 79 % (41-73); Platelet Count 241 K/mm3 (150-400); RDW Standard Deviation 58.8 fL (35.1-46.3); Red Blood Cell Count 3.66 M/mm3 (4.30-5.90); White Blood Cell Count 7.58 K/mm3 (4.00-11.30)
[2022-02-27 04:36] LABS: Albumin, Blood 2.5 g/dL (3.4-5.0); Anion Gap 9 mmol/L (6-16); Blood Urea Nitrogen 107 mg/dL (8-24); Bun/Creatinine Ratio 37.9 (12.0-20.0); CO2, Blood 15 mmol/L (21-32); Calcium, Blood 8.4 mg/dL (8.5-10.1); Chloride, Blood 113 mmol/L (98-108); Creatinine, Blood 2.82 mg/dL (0.60-1.20); Glomerular Filtration Rate 24 (60-); Glucose, Blood 96 mg/dL (70-99); Potassium, Blood 4.5 mmol/L (3.5-5.5); Sodium, Blood 137 mmol/L (136-145); Vancomycin, Random 21.3 ug/mL
--- NOTE | 2022-02-27 05:28 | NUR ---
SHIFT SUMMARY PT ALERT AND ORIENTED X 4. HR STABLE. BP STABLE. NO CP OR PRESSURE. MEPLEX IN PLACE ON COCCYX. PT REFUSING Q 2 TURNS AT TIMES. OXYGEN SATURATION MAINTAINED ABOVE 95% ON RA. NO ACUTE CHANGES T/O SHIFT. CALL LIGHT WITHIN REACH. WILL CONT TO MONITOR UNTIL REPORT GIVEN TO DAYSHIFT RN.
--- NOTE | 2022-02-27 17:43 | NUR ---
NO ACUTE EVENTS T/O THE SHIFT. PT HAS NO COMPLAINTS. VSS. QUINTEROS CATHETER CONTINUES TO DRAIN COLA COLORED URINE. LABS ORDERED FOR AM. NO NEEDS IDENTIFIED AT THIS TIME. CALL LIGHT IN REACH. WILL CONTINUE TO MONITOR AND GIVE REPORT TO NOC SHIFT RN.
--- NOTE | 2022-02-27 18:35 | NUR ---
PT TRANSFERED TO ROOM 310, ALL BELONGINGS SENT WITH PT. REPORT TO RECEIVING RN.
--- NOTE | 2022-02-27 18:44 | NUR ---
PATIENT TRANSFERRED FROM PCU AT 1835. Handoff report given from AUTO SUSPENSION AND STEERING MECHANIC, Patient alert & oriented. Oriented pt to room, bed alarm activated and audible for safety. Call light in reach, pt demonstrated how to use. Bernal patent, draining to gravity. No other concerns at this time.
--- NOTE | 2022-02-28 04:37 | NUR ---
SHIFT SUMMARY 66 YR M TRANSFERED FROM U ON 02/27/22. FULL CODE. NO ACUTE CHANGES THIS SHIFT. PT HAS BEEN RESTING COMFORTABLY FOR MOST OF THIS SHIFT. HE HAS HAD NO C/O PAIN. QUINTEROS IS DRAINING JYOTI COLORED URINE TO GRAVITY. BED IN LOW POSITION AND CALL LIGHT WITHIN REACH.
[2022-02-28 05:17] LABS: Hemoglobin 9.5 g/dL (13.5-17.5)
[2022-02-28 05:48] LABS: Albumin, Blood 2.5 g/dL (3.4-5.0); Anion Gap 9 mmol/L (6-16); Blood Urea Nitrogen 103 mg/dL (8-24); Bun/Creatinine Ratio 37.2 (12.0-20.0); CO2, Blood 14 mmol/L (21-32); Calcium, Blood 8.6 mg/dL (8.5-10.1); Chloride, Blood 115 mmol/L (98-108); Creatinine, Blood 2.77 mg/dL (0.60-1.20); Glomerular Filtration Rate 24 (60-); Glucose, Blood 83 mg/dL (70-99); Phosphorus, Blood 5.9 mg/dL (2.5-4.9); Potassium, Blood 4.7 mmol/L (3.5-5.5); Sodium, Blood 138 mmol/L (136-145); Vancomycin, Random 19.9 ug/mL
--- NOTE | 2022-03-01 05:25 | NUR ---
PT A/OX4, PER REPORT PT HAS BEEN REFUSING TO ALLOW ASSESSMENTS OF HIS SACRAL WOUND. PT WILLING TO ALLOW ME TO ASSESS WOUND AND TAKE PICTURES. FOUL ODOR NOTED HOWEVER UNABLE TO DETERMINE IF THIS IS FROM WOUND OR SCROTUM SWELLING/MOISTURE. PT REPORTS SCROTUM HAS ALWAYS BEEN THIS SWOLLEN AND SOMETIMES IT WEEPS. UNABLE TO DO THROUGH SKIN ASSESSMENT DUE TO PT BECOMING ANNOYED AND WANTING TO BE LEFT ALONE. MEPILEX APPLIED TO SACRAL AREA. EDUCATED PT ON NEED FOR Q2H TURNS HOWEVER PT STRONGLY REFUSED AND STATED HE COULD TURN HIMSELF. PT WAS ABLE TO ASSIST IN TURNING WHILE ASSESSING SACRAL AREA. PT NOTED TO BE LAYING ON HIS RIGHT SIDE ONLY, COUNSELED ONCE AGAIN ON IMPORTANCE OF TURNING Q2H AND OFFERED ASSISTANCE WITH THIS. PT ROLLED HIS EYES AND STATED THAT "I KNOW I'VE HAD PREVIOUS SURGERIES FOR WOUND." WILL CONTINUE TO ENCOURAGE PT TURNING Q2H.
[2022-03-01 05:48] LABS: Vancomycin, Random 18.1 ug/mL
[2022-03-01 06:04] LABS: Hematocrit 30.3 % (37.0-53.0); Hemoglobin 9.5 g/dL (13.5-17.5)
[2022-03-01 06:15] LABS: Albumin, Blood 2.4 g/dL (3.4-5.0); Anion Gap 11 mmol/L (6-16); Blood Urea Nitrogen 98 mg/dL (8-24); Bun/Creatinine Ratio 37.5 (12.0-20.0); CO2, Blood 13 mmol/L (21-32); Calcium, Blood 8.5 mg/dL (8.5-10.1); Chloride, Blood 117 mmol/L (98-108); Creatinine, Blood 2.61 mg/dL (0.60-1.20); Glomerular Filtration Rate 26 (60-); Glucose, Blood 86 mg/dL (70-99); Phosphorus, Blood 5.7 mg/dL (2.5-4.9); Potassium, Blood 4.9 mmol/L (3.5-5.5); Sodium, Blood 141 mmol/L (136-145)
[2022-03-02 04:41] LABS: Vancomycin, Random 16.3 ug/mL
--- NOTE | 2022-03-02 07:16 | NUR ---
PT A/OX4, THIS SHIFT PT MORE WILLING TO TURN [id number]. PT STATING "WE WILL DO WHAT YOU WANT" WHEN ASKED HIM IF HE WOULD ALLOW US TO TURN HIM. PT ABLE TO HAVE 2 SMALL BM. PT UPSET THIS [id number] WHEN STAFF TURNED HIM AND CLEANED HIM. STATING HE JUST WANTS TO GO HOME AND BE LEFT ALONE. PT ONCE AGAIN EDUCATED REGARDING WHY WE ARE TURNING AND WHY WE NEEDED TO CLEAN HIS BM. PT LOOKING FORWARD TO GOING HOME. TURNED PT TO BEST THAT HE WOULD ALLOW US. OTHERWISE NO ACUTE CHANGES NOTED.
[2022-03-02] MEDS ORDERED: VISBIOME 112.51 EACH PO (11:53)
--- NOTE | 2022-03-02 13:21 | NUR ---
DISCHARGE NOTE PATIENT DISCHARGED AT 1255 TODAY VIA [facility]. PATIENT WAS GIVEN DISCHARGE INSTRUCTIONS. PATIENT VERBALIZED UNDERSTANDING OF DISCHARGE INSTRUCTIONS GIVEN. PATIENT WILL FOLLOW UP WITH PCP AND DR. KO SCHEDULED. LINN'S MEDICATIONS FAXED TO [facility]. VITAL SIGNS STABLE AT DISCHARGE NOTHING FURTHER TO REPORT.
== END 2022-03-02 12:55 | disposition home health service (06) | DRG 698 ==
LOC: ER 18:55 → PCU 18:56 → MEDS 02-27 18:30
PROVIDERS: Internal Medicine; Pharmacist; Student in an Organized Health Care Education/Training Program; ADMIT Internal Medicine
DX: T83.511A Infection and inflammatory reaction due to indwelling urethral catheter, initial encounter (principal); A41.51 Sepsis due to Escherichia coli [E. coli]; R65.20 Severe sepsis without septic shock; N17.9 Acute kidney failure, unspecified; E87.2 Acidosis; Z68.42 Body mass index [BMI] 45.0-49.9, adult; G82.20 Paraplegia, unspecified; N18.4 Chronic kidney disease, stage 4 (severe); Z16.12 Extended spectrum beta lactamase (ESBL) resistance; Z20.822 Contact with and (suspected) exposure to COVID-19; N39.0 Urinary tract infection, site not specified; N31.9 Neuromuscular dysfunction of bladder, unspecified; D63.1 Anemia in chronic kidney disease; L89.90 Pressure ulcer of unspecified site, unspecified stage; F32.A Depression, unspecified; F41.9 Anxiety disorder, unspecified; E66.01 Morbid (severe) obesity due to excess calories; I12.9 Hypertensive chronic kidney disease with stage 1 through stage 4 chronic kidney disease, or unspecified chronic kidney disease; Z96.0 Presence of urogenital implants; Z96.652 Presence of left artificial knee joint; E11.22 Type 2 diabetes mellitus with diabetic chronic kidney disease; Q05.9 Spina bifida, unspecified; Z88.0 Allergy status to penicillin; Z88.1 Allergy status to other antibiotic agents; Z88.8 Allergy status to other drugs, medicaments and biological substances; Z79.899 Other long term (current) drug therapy; Z98.890 Other specified postprocedural states; Y84.6 Urinary catheterization as the cause of abnormal reaction of the patient, or of later complication, without mention of misadventure at the time of the procedure
CPT/HCPCS: 0241U; 51702; 71045; 80048; 80053; 80069; 80202; 81001; 83880; 85014; 85018; 85025; 87077; 87086; 87186; 96361; 96374; 99284-25; A9270; C1751; J1650; J2185; J3370; J7030; J7060; P9046

== ENCOUNTER → 2022-03-08 | Outpatient (CLI) | payer MEDICARE, OTHER ==
[~2022-03-08] MED LIST changes: +POTA10T
[2022-03-08 12:18] LABS: Hematocrit 29.4 % (37.0-53.0); Mean Corpuscular HGB 26.5 pg (26.0-34.0); Mean Corpuscular HGB Conc 30.6 g/dL (31.5-36.5); Mean Corpuscular Volume 87 fL (80-100); Mean Platelet Volume 9.4 fL (9.1-12.4); Platelet Count 335 K/mm3 (150-400); RDW Coefficient Variation 18.2 % (11.7-14.2); RDW Standard Deviation 58.3 fL (35.1-46.3); White Blood Cell Count 10.01 K/mm3 (4.00-11.30)
[2022-03-08 12:21] LABS: Albumin, Blood 2.5 g/dL (3.4-5.0); Anion Gap 9 mmol/L (6-16); Blood Urea Nitrogen 80 mg/dL (8-24); Bun/Creatinine Ratio 44.2 (12.0-20.0); CO2, Blood 13 mmol/L (21-32); Calcium, Blood 8.3 mg/dL (8.5-10.1); Chloride, Blood 117 mmol/L (98-108); Creatinine, Blood 1.81 mg/dL (0.60-1.20); Glomerular Filtration Rate 40 (60-); Glucose, Blood 106 mg/dL (70-99); Phosphorus, Blood 5.8 mg/dL (2.5-4.9); Potassium, Blood 5.5 mmol/L (3.5-5.5); Sodium, Blood 139 mmol/L (136-145)
== END | disposition home or self-care (01) ==
LOC: LAB SHORT 10:00 → LAB 10:00
PROVIDERS: Family Medicine
DX: N17.9 Acute kidney failure, unspecified (principal); E11.22 Type 2 diabetes mellitus with diabetic chronic kidney disease; I13.0 Hypertensive heart and chronic kidney disease with heart failure and stage 1 through stage 4 chronic kidney disease, or unspecified chronic kidney disease; I50.9 Heart failure, unspecified; N18.9 Chronic kidney disease, unspecified; N39.0 Urinary tract infection, site not specified
CPT/HCPCS: 80069; 83036; 85027

== ENCOUNTER 2022-03-19 13:26 | Inpatient (IN) | payer MEDICARE, OTHER ==
[~2022-03-19] VITALS: Ht 170.2 cm; Wt 136.1 kg
[2022-03-19 14:41] LABS: BASOPHILS ABSOLUTE AUTO 0.03 K/mm3 (0.00-0.23); BASOPHILS PERCENT AUTO 0 % (0-2); EOSINOPHILS ABSOLUTE AUTO 0.47 K/mm3 (0.00-0.68); EOSINOPHILS PERCENT AUTO 6 % (0-6); Hematocrit 29.6 % (37.0-53.0); IMMATURE GRAN ABSOLUTE AUTO 0.06 K/mm3 (0.00-0.10); IMMATURE GRAN PERCENT AUTO 1 % (0-1); LYMPHOCYTES ABSOLUTE AUTO 0.94 K/mm3 (0.84-5.20); LYMPHOCYTES PERCENT AUTO 12 % (21-46); MONOCYTES ABSOLUTE AUTO 0.63 K/mm3 (0.16-1.47); MONOCYTES PERCENT AUTO 8 % (4-13); Mean Corpuscular HGB Conc 30.4 g/dL (31.5-36.5); Mean Corpuscular Volume 89 fL (80-100); NEUTROPHILS ABSOLUTE AUTO 5.61 K/mm3 (1.96-9.15); NEUTROPHILS PERCENT AUTO 73 % (41-73); Platelet Count 320 K/mm3 (150-400); RDW Coefficient Variation 19.2 % (11.7-14.2); Red Blood Cell Count 3.33 M/mm3 (4.30-5.90); White Blood Cell Count 7.74 K/mm3 (4.00-11.30)
[2022-03-19 15:13] LABS: Albumin, Blood 2.6 g/dL (3.4-5.0); Albumin/Globulin Ratio 0.5 (0.8-1.8); Bilirubin, Total 0.2 mg/dL (0.1-1.0); Bun/Creatinine Ratio 22.6 (12.0-20.0); Calcium, Blood 8.2 mg/dL (8.5-10.1); Creatinine, Blood 5.17 mg/dL (0.60-1.20); Globulin, Blood 5.1 g/dL (2.2-4.0); Potassium, Blood 6.3 mmol/L (3.5-5.5); Total Protein, Blood 7.7 g/dL (6.4-8.2)
[2022-03-19 16:30] LABS: Calcium, Ionized (POC) 1.25 mmol/L (1.10-1.46); Chloride (POC) 118 mmol/L (98-108); Creatinine (POC) 5.9 mg/dL (0.8-1.3); Glucose (ISTAT POC) 116 mg/dL (70-99); Hemoglobin (POC) 8.5 g/dL (13.5-17.5); Potassium (POC) 5.7 mmol/L (3.5-5.5); Sodium (POC) 139 mmol/L (135-148); Total CO2 (POC) 11 mmol/L (21-32)
[2022-03-19 17:30] LABS: pH Blood Arterial 7.05 (7.35-7.45)
[2022-03-19 17:31] LABS: PCO2 Arterial 25.3 mmHg (35-45); PO2 Arterial 105 mmHg (80-100)
--- NOTE | 2022-03-19 19:16 | NUR ---
PT ADMITTED FROM ED 1820, BED TO BED SLIDE TX. VS OBTAINED, AND IN NORMAL LIMIT. SATS 98% ROOM AIR. LUNGS DIM IN BASES BUT NO CRACKLES. GEN BODY EDEMA WITH GROSS SCROTAL EDEMA. QUINTEROS INTACT, DRAINING SCANT AMOUNTS OF CLOUDY URINE ONLY IN TUBING. GLUTIUS EXCORIATION AND BREAKDOWN, BLEEDING AND FOUL SMELLING UPON ARIVAL. CLEANSED AND PLACED AIR BED PADS, PT TURNED ONTO SIDE. GIVEN WATER. ORIENTED TO ROOM SET UP AND SAFETY. SODIUM BICARB RUNNING AT 100/HR,. LALITO, FOLLOWS COMMAND BUT FALLS ASLEEP IN MID CONVERSATION. REPOETED ALL TO NOC SWAPNA WHITTAKER. SHE IS AWARE THAT ADMIT AND ASSESSMENT NEED TO BE COMPLETED. WE HAVE PHONE # FOR HIS NEICE SHOULD WE NEED TO CALL FOR CHANGES.
[2022-03-19 21:59] LABS: Bun/Creatinine Ratio 24.1 (12.0-20.0); Calcium, Blood 8.4 mg/dL (8.5-10.1); Creatinine, Blood 4.89 mg/dL (0.60-1.20)
--- NOTE | 2022-03-20 02:53 | NUR ---
CRITICAL VALUES *LATE ENTRY* AROUND [address] RAO OF CRITICAL K @6.0 & CRITICAL CO2 @6. HE ORDERED 1 AMP D50 IV, 1 AMP BICARB IV, AND 5U REGULAR INSULIN IV.
[2022-03-20 05:50] LABS: Bicarbonate Venous 9.5 mmol/L (24.0-30.0); PCO2 Venous 22.6 mmHg (38-42)
[2022-03-20 05:52] LABS: pH Blood Venous 7.12 (7.34-7.37)
[2022-03-20 05:59] LABS: BASOPHILS ABSOLUTE AUTO 0.04 K/mm3 (0.00-0.23); BASOPHILS PERCENT AUTO 1 % (0-2); EOSINOPHILS ABSOLUTE AUTO 0.42 K/mm3 (0.00-0.68); EOSINOPHILS PERCENT AUTO 6 % (0-6); Hematocrit 27.4 % (37.0-53.0); Hemoglobin 8.3 g/dL (13.5-17.5); IMMATURE GRAN ABSOLUTE AUTO 0.03 K/mm3 (0.00-0.10); IMMATURE GRAN PERCENT AUTO 0 % (0-1); LYMPHOCYTES ABSOLUTE AUTO 0.89 K/mm3 (0.84-5.20); LYMPHOCYTES PERCENT AUTO 12 % (21-46); MONOCYTES PERCENT AUTO 10 % (4-13); Mean Corpuscular HGB 26.8 pg (26.0-34.0); Mean Corpuscular HGB Conc 30.3 g/dL (31.5-36.5); Mean Corpuscular Volume 88 fL (80-100); NEUTROPHILS PERCENT AUTO 72 % (41-73); Platelet Count 277 K/mm3 (150-400); RDW Standard Deviation 62.1 fL (35.1-46.3); White Blood Cell Count 7.38 K/mm3 (4.00-11.30)
[2022-03-20 06:17] LABS: Albumin, Blood 2.4 g/dL (3.4-5.0); Albumin/Globulin Ratio 0.5 (0.8-1.8); Bilirubin, Total 0.3 mg/dL (0.1-1.0); Bun/Creatinine Ratio 24.6 (12.0-20.0); Creatinine, Blood 4.95 mg/dL (0.60-1.20); Globulin, Blood 4.7 g/dL (2.2-4.0); Potassium, Blood 5.9 mmol/L (3.5-5.5); Total Protein, Blood 7.1 g/dL (6.4-8.2)
--- NOTE | 2022-03-20 06:27 | NUR ---
SHIFT SUMMARY RESPONDS TO VERBAL STIMULI. AOX2-SELF, PLACE, "BEING SICK", FOLLOWING MINIMAL DIRECTIONS. UNABLE TO FULLY ASSESS ORIENTATION FOR PT FALLS ASLEEP WHILE TALKING. HAS SLOW SLURRED SPEECH R/T BEING LETHARGIC/DROWSY & FALLING ASLEEP. VSS. DENIES PAIN. HAD 1 EPISODE NAUSEA & EMESIS AT BEGINNING OF SHIFT, MEDICATED 1X c ZOFRAN & NO FURTHER N/V NOTED. HS CBG @79, HAD PT DRINK SOME JUICE TO PREVENT HYPOGLYCEMIA. PT HAS CRITICAL K & CO2, INFORMED DR MILLARD- READ PREVIOUS NOTE. THIS AM PT STILL HAS A CRITICAL PH & CARBON DIOXIDE, WILL PASS TO ONCOMING NURSE, INFORMED CHARGE NURSE CHASE QUINTEROS PATENT & CLOUDY c SEDIMENT. CALL LIGHT & BED ALARM IN PLACE.
--- NOTE | 2022-03-20 13:39 | NUR ---
Pt resting in bed and is pleasantly confused. Pt is A&OX2. Pt denies pain and dyspnea at this time. Pt's niece Jacki is at bedside who reports being Pt's medical and durable POA. Reviewed current plan of care and answered questions. Spoke with Pt's Primary RN Deandre and discussed case. Palliative Care will remain available.
[2022-03-20 13:45] LABS: Bun/Creatinine Ratio 24.1 (12.0-20.0); Creatinine, Blood 4.86 mg/dL (0.60-1.20); Potassium, Blood 5.4 mmol/L (3.5-5.5)
--- NOTE | 2022-03-20 20:32 | NUR ---
SUMM- PT ALERT ORIENTED X3. INCEASED WEAKNESS AND LETHARGY PAST 2 WEEKS ACCORDING TO DAUGHTER AND CAREGIVER. PT HAD BEGAN REFUSING FOOD AND FLUIDS. THEY STATED HE ALSO HADN'T HAD A BM FOR A WEEK BUT THAT HE HASN'T EATEN MUCH. PT HAS BEEN TOLERATING PO FOOD FLUIDS AND EATING ABOUT 50% OF MEALS. MARLIN QUINTEROS, PUT OUT 400ML THIS SHIFT. GIVEN 2 AMPS NAHCO3 THIS AM, AND CHANGED IVF TO D5WITH SODIUM BICARG AT 100ML HR. OBTAINED 2ND IV LAC WAS POSITIONAL. PT ON BEDREST AND ROUTINE TURNS. BREAKDOWN TO GLUT, MEPILEX IN PLACE. CLEANSED ALL FOLDS AND APPLIED POWDER THIS AM AND ALSO PM ABOUT 1730. REDNESS TO AXILLA AND GROIN, SKIN SPLIT IN GROIN AREA. PT BECAME MORE AWAKE AND ALERT DAY PROGRESSED, DISORIENTED AT TIMES. FALLS ASLEEP BUT AWAKENS EASILY. PERIODS OF LOUD SNORING AND OBSTRUCTIVE APNEA, CONT PULSE OX, SATS NEVER DROPPED BELOW 95% ROOM AIR. LUNGS CTA, DIM IN BASES. VSS, HOLDING A GOOD BP AND MAP. AFIBRILE. REPORTED ALL TO NOC RN
[2022-03-21 05:46] LABS: Base Excess Venous -14.1 mmol/L; Bicarbonate Venous 14.3 mmol/L (24.0-30.0); PCO2 Venous 26.1 mmHg (38-42); pH Blood Venous 7.29 (7.34-7.37)
[2022-03-21 06:14] LABS: Bun/Creatinine Ratio 24.5 (12.0-20.0); Calcium, Blood 8.1 mg/dL (8.5-10.1); Creatinine, Blood 4.66 mg/dL (0.60-1.20); Potassium, Blood 5.1 mmol/L (3.5-5.5)
--- NOTE | 2022-03-21 07:43 | NUR ---
SHIFT SUMMARY NO ACUTE CHANGES OVERNIGHT. PT ON BEDREST OVERNIGHT. REPOSITIONED Q2. ENC ORAL FLUIDS, DENIES NAUSEA AND VOMITING. IV INFUSING 5Q NA BICARB AT 100MLS/HR. IV ON R AC IS POSITIONAL. AOX3, FORGETFUL AT TIMES AND HAS SOME DISORIENTED EPISODES. ANSWERS APPROPRIATELY AND COOPERATIVE WITH CARE. PT'S SCROTUM REMAINED SWOLLEN, PERICARE AND CATH CARE PERFORMED AND APPLIED POWDER TO HIS FOLD TO PREVENT SKIN BREAKDOWN AND REDUCE MOISTURE. REDNESS IN HIS AMPIT AND GROIN UNCHANGED. LUNG ARE CLEAR BUT DIM. MILD INT DRY COUGH. VSS. AFEBRILE. REPORT GIVEN TO LINDA BARCENAS
[2022-03-21 14:11] LABS: Calcium, Blood 7.9 mg/dL (8.5-10.1); Creatinine, Blood 4.4 mg/dL (0.60-1.20)
--- NOTE | 2022-03-21 16:18 | NUR ---
SHIFT SUMMARY PT AxOx3 WITH INTERMITTENT CONFUSION/FORGETFULNESS. PT BEDREST AT BASELINE WITH HX OF SPINA BIFIDA. PT RECEIVING BICARB INFUSION THIS SHIFT. PT DENIES PAIN. PT INCONTINENT OF BOWEL AND BLADDER. CHRONIC QUINTEROS DRAINING TO GRAVITY R/T NEUROGENIC BLADDER. PT HAS URINE LEAKAGE FROM AROUND QUINTEROS. SCROTUM HAS GROSS SWELLING AND SKIN BREAKDOWN NOTED. PT HAS PRESSURE ULCER ON COCCYX. WOUNDS CLEANSED AND NEW DRESSINGS PLACED THIS SHIFT. WOUND CARE CONSULT PLACED THIS SHIFT. VITALS REVIEWED. PT CURRENTLY RESTING IN BED WITH CALL LIGHT IN REACH. DENIES ANY NEEDS AT THIS TIME.
--- NOTE | 2022-03-22 03:00 | NUR ---
SHIFT SUMMARY NO ACUTE CHANGES OVERNIGHT. PT AOX2-3. FORGETFUL AND SOMETIMES CONFUSE, ABLE TO ANSWER QUESTIONS APPROPRIATELY. VSS, SOME MILD HTN T/O SHIFT. 160'S ON SYSTOLIC. AFEBRILE. BEDREST. NEEDING 3 PERSON ASSIST WHEN TURNING. PERICARE DONE, CLEANSED AND KEPT FOLDS DRY WITH POWDER. SCROTUM SWOLLEN WITH SKIN BREAKDOWN. AND ULCER ON COCCYX WITH MEPLEX. QUINTEROS CATH DRAINING, PATENT AND OFF FLOOR. SODIUM BICARB DRIP AT 100MLS/HR ON R AC IV. PT HAD 1 MED SOFT BM, DARK BROWN. PT DENIES CP, SOB, DIZZINESS, NAUSEA AND VOMITING. PT ALSO DENIES ANY PAIN. TOLERATING PO INTAKE. SWALLOW MEDS WHOLE. CALL LIGHT WITHIN REACH. WILL PROVIDE REPORT TO ONCOMING NURSE.
--- NOTE | 2022-03-22 07:30 | NUR ---
ASSUMED CARE: PT RESTING QUIETLY AT THIS TIME. NO ACUTE NEEDS OR CONCERNS.
[2022-03-22 08:05] LABS: Base Excess Venous -8.8 mmol/L; Bicarbonate Venous 17.9 mmol/L (24.0-30.0); PCO2 Venous 32.7 mmHg (38-42); pH Blood Venous 7.33 (7.34-7.37)
--- NOTE | 2022-03-22 17:37 | NUR ---
SHIFT SUMMARY: PT NO LONGER ON IV FLUIDS BUT GETTING ORAL SODIUM BICARB. SYSTEMS SOFTWARE MANAGER CAME TO SEE PT AND WAS GIVEN AN UPDATE. DRESSING CHANGE TO COCCYX THIS SHIFT. NO FURTHER NEEDS OR CONCERNS AT THIS TIME.
[2022-03-23 05:37] LABS: Bicarbonate Venous 17.5 mmol/L (24.0-30.0); PCO2 Venous 36.9 mmHg (38-42)
[2022-03-23 05:38] LABS: Base Excess Venous -9.3 mmol/L
[2022-03-23 05:39] LABS: pH Blood Venous 7.28 (7.34-7.37)
[2022-03-23 05:57] LABS: Bun/Creatinine Ratio 26.4 (12.0-20.0); Calcium, Blood 8.4 mg/dL (8.5-10.1); Creatinine, Blood 3.68 mg/dL (0.60-1.20); Potassium, Blood 4.7 mmol/L (3.5-5.5)
--- NOTE | 2022-03-23 06:36 | NUR ---
PT A/OX4 HOWEVER WITH PERIODS OF FORGETFULNESS AND CONFUSION. QUINTEROS NOTED WITH SOME LEAKING AROUND CATH HOWEVER PER REPORT QUINTEROS IS REPLACED BY UROLOGIST AND PT ALSO REPORTS THIS. THIS MORNING VBG PH 7.28, PCO2 36.9, BICARB 17.5, BASE EXCESS -9.3 DR. MALONE AWARE WITH NO NEW ORDERS. PT AWAKE AND WATCHING TV. PT WITH NOTED WOUNDS TO BUTTOCKS HOWEVER VERY ADAMANTLY REFUSING Q2H TURNS. PT AGREED TO TURN TO LET US SEE IF HE HAD BM. NOTICED SOME BLEEDING TO SITE AND EXPLAINED TO PT THAT WE NEEDED TO TURN HIM AND HE AGREED TO Q3H TURNS.
--- NOTE | 2022-03-23 16:55 | NUR ---
DAY SHIFT SUMMARY 66 YR OLD MALE PT WITH ACUTE ON CHRONIC KIDNEY INJURY. IV FLUIDS THROUGHOUT SHIFT. PT IS FORGETFUL, ON RA, TAKES MEDS WHOLE. ENLARGED SCROTUM, DECUBITUS ULCER TO SACRAL AREA, WOUND CARE PROVIDED PER ORDERS. QUINTEROS PATENT/INTACT/DRAINING VIA GRAVITY. CHRONIC QUINTEROS D/T NEUTROGENIC BLADDER. CALL LIGHT WITHIN REACH. FREQUENT ROUNDING. PT IS ON CONTACT ISOLATION.
[2022-03-24 00:40] LABS: Source, Urine Foley catheter
[2022-03-24 00:43] LABS: Bilirubin, Urine Neg (Neg); Blood, Urine 5+ (Neg); Glucose Qualitative, Urine Neg (Neg); Ketones, Urine Neg (Neg); Leukocyte Esterase, Urine 3+ (Neg); Nitrite, Urine Neg (Neg); Protein, Urine 2+ (Neg); Urobilinogen, Urine NORM (Normal)
[2022-03-24 01:10] LABS: Appearance, Urine Hazy (Clear); Color, Urine Pale Yellow (P-Yellow)
[2022-03-24 01:11] LABS: Bacteria Many /hpf; Squamous Epithelial Cells Not Seen /hpf (Few); White Blood Cells, Urine 50-100 /hpf (0-5)
[2022-03-24 06:13] LABS: Albumin, Blood 2.3 g/dL (3.4-5.0); Anion Gap 9 mmol/L (6-16); Blood Urea Nitrogen 86 mg/dL (8-24); Bun/Creatinine Ratio 27.5 (12.0-20.0); CO2, Blood 18 mmol/L (21-32); Chloride, Blood 118 mmol/L (98-108); Creatinine, Blood 3.13 mg/dL (0.60-1.20); Glomerular Filtration Rate 21 (60-); Glucose, Blood 84 mg/dL (70-99); Magnesium, Blood 1.5 mg/dL (1.6-2.4); Phosphorus, Blood 4.5 mg/dL (2.5-4.9); Potassium, Blood 4.4 mmol/L (3.5-5.5); Sodium, Blood 145 mmol/L (136-145)
--- NOTE | 2022-03-24 07:34 | NUR ---
PT OVERNIGHT WITH NO NEW COMPLAINS. QUINTEROS REMAINS WITH LEAKAGE HOWEVER BAG CONTINOUS TO HAVE GOOD DRAINAGE. PT REPORTS QUINTEROS IS USUALLY CHANGED BY UROLOGIST.
--- NOTE | 2022-03-24 08:00 | NUR ---
pt sitting on the side of the bed eating breakfast, asking for more food, tells nurse exactly how he will take his beth with coffee, PT in to see him, worked with him, took his po meds without diff, skin has wound vac to right stump, with dressing in place, otherwise skin c/w/d, [place], sylvia, voids via urinal, iv 22g to left wrist, clear and patent, decined miralax states he is moving his bowels, call light in reach.
--- NOTE | 2022-03-24 10:29 | NUR ---
pt laying in bed watching tv, a/ox3, flat affect, when asked how he is doing he states im here, lungs are clear dim in bases, resp even and unlabored, no cough noted, hrr, 2+ edema noted to b/l le, looks like foot drop, iv x3 infusing 1/2 ns at 75ml/hr, sites are clear and patent, btx4, abd large soft hypoactive bt, chronic perez cath draining josey urine, skin has a mepilex to coccyx, takes po meds without diff, moves upper ext well, is bed rest, sylvia, call light in reach.
--- NOTE | 2022-03-24 18:37 | NUR ---
pt has been turned throughout the day, had a large bm, no further acute changes this shift. call light in reach.
[2022-03-25 05:21] LABS: Base Excess Venous -6.6 mmol/L; Bicarbonate Venous 19.6 mmol/L (24.0-30.0); PCO2 Venous 31.2 mmHg (38-42); pH Blood Venous 7.38 (7.34-7.37)
[2022-03-25 05:21] LABS: BASOPHILS ABSOLUTE AUTO 0.03 K/mm3 (0.00-0.23); BASOPHILS PERCENT AUTO 0 % (0-2); EOSINOPHILS ABSOLUTE AUTO 0.53 K/mm3 (0.00-0.68); EOSINOPHILS PERCENT AUTO 6 % (0-6); Hemoglobin 7.6 g/dL (13.5-17.5); IMMATURE GRAN ABSOLUTE AUTO 0.06 K/mm3 (0.00-0.10); IMMATURE GRAN PERCENT AUTO 1 % (0-1); LYMPHOCYTES ABSOLUTE AUTO 0.94 K/mm3 (0.84-5.20); LYMPHOCYTES PERCENT AUTO 11 % (21-46); MONOCYTES ABSOLUTE AUTO 0.67 K/mm3 (0.16-1.47); MONOCYTES PERCENT AUTO 8 % (4-13); Mean Corpuscular HGB 26.9 pg (26.0-34.0); Mean Corpuscular HGB Conc 30.4 g/dL (31.5-36.5); Mean Corpuscular Volume 88 fL (80-100); Mean Platelet Volume 9.2 fL (9.1-12.4); NEUTROPHILS ABSOLUTE AUTO 6.45 K/mm3 (1.96-9.15); NEUTROPHILS PERCENT AUTO 74 % (41-73); Platelet Count 242 K/mm3 (150-400); RDW Coefficient Variation 18.6 % (11.7-14.2); RDW Standard Deviation 60.4 fL (35.1-46.3); Red Blood Cell Count 2.83 M/mm3 (4.30-5.90); White Blood Cell Count 8.68 K/mm3 (4.00-11.30)
[2022-03-25 05:44] LABS: Calcium, Blood 8.2 mg/dL (8.5-10.1); Creatinine, Blood 2.52 mg/dL (0.60-1.20); Potassium, Blood 4.1 mmol/L (3.5-5.5)
--- NOTE | 2022-03-25 07:44 | NUR ---
PT OVERNIGHT WITH NO NEW COMPLAINS. PT DECLINED BARIATRIC BED DUE TO NOT BEING SUE TO SLEEP DUE TO AIR PUMP. PT REPORTS HE HAS USED THEM BEFORE AND DOES NOT WANT TO HAVE ONE. TURNED IN BED BEST OF STAFF AVAILABILITY. CHRONIC QUINTEROS IN PLACE. DRESSING TO SACRAL AREA CHANGED AND PICTURES UPDATED IN CHART.
--- NOTE | 2022-03-25 08:00 | NUR ---
pt laying in bed, a/ox3, but forgetful, flat affect, but not as pronounced as yesterday, cooperative with care, lungs are clear dim t/o, resp even and unlabored, no cough noted, hrr, edema noted to b/l le, up legs, severe to scrotum, cap refill <3sec, vs stable, afebrile, iv site is clear and patent, btx4, abd large soft nontender, perez cath placed by urology draining josey urine, skin has a mepilex to coccyx, and left heel, dressings are c/d/i, moves upper ext well, no movement in legs, sylvia, call light in reach.
--- NOTE | 2022-03-25 18:18 | NUR ---
pt has been turned, although he refuses at times, he insisted on being on his back this evening, his fluids have been stopped, no further changes this shift. call light in reach.
[2022-03-26 05:38] LABS: BASOPHILS ABSOLUTE AUTO 0.03 K/mm3 (0.00-0.23); BASOPHILS PERCENT AUTO 0 % (0-2); EOSINOPHILS ABSOLUTE AUTO 0.52 K/mm3 (0.00-0.68); EOSINOPHILS PERCENT AUTO 6 % (0-6); Hematocrit 26.1 % (37.0-53.0); Hemoglobin 7.9 g/dL (13.5-17.5); IMMATURE GRAN ABSOLUTE AUTO 0.07 K/mm3 (0.00-0.10); IMMATURE GRAN PERCENT AUTO 1 % (0-1); LYMPHOCYTES ABSOLUTE AUTO 1.01 K/mm3 (0.84-5.20); LYMPHOCYTES PERCENT AUTO 12 % (21-46); MONOCYTES ABSOLUTE AUTO 0.58 K/mm3 (0.16-1.47); MONOCYTES PERCENT AUTO 7 % (4-13); Mean Corpuscular HGB 26.8 pg (26.0-34.0); Mean Corpuscular HGB Conc 30.3 g/dL (31.5-36.5); Mean Corpuscular Volume 89 fL (80-100); Mean Platelet Volume 9.6 fL (9.1-12.4); NEUTROPHILS ABSOLUTE AUTO 6.22 K/mm3 (1.96-9.15); NEUTROPHILS PERCENT AUTO 74 % (41-73); Platelet Count 235 K/mm3 (150-400); RDW Coefficient Variation 18.6 % (11.7-14.2); RDW Standard Deviation 60.6 fL (35.1-46.3); Red Blood Cell Count 2.95 M/mm3 (4.30-5.90); White Blood Cell Count 8.43 K/mm3 (4.00-11.30)
--- NOTE | 2022-03-26 06:15 | NUR ---
PT HAD ONE EPISODE OF NAUSEA/VOMIT. PT OFFERED REGLAN HOWEVER HE STATED HE DID NOT NEED IT STATING "I JUST NEED TO RELAX." INFORMED PT TO NOTIFY RN IF HE CHANGED HIS MIND. PT DID NOT HAVE ANY FURTHER EPISODES. QUINTEROS IN PLACE WITH SOME LEAKAGE HOWEVER DRAINING TO GRAVITY. SCROTUM CHRONICALLY SWOLLEN HOWEVER NOTED TO BE WEEPING. DRESSING TO L ANKLE CHANGED. PT INTERMITTENTLY REFUSING Q2H TURNS. SACRAL DRESSING C/D/I.
[2022-03-26 06:25] LABS: Ferritin, Serum 149 ng/mL (26-388); Iron Serum 25 ug/dL (65-175); Percent Saturation 11.8 % (20.0-50.0); Total Iron Binding Capacity 211 ug/dL (250-450)
[2022-03-26 07:07] LABS: Albumin, Blood 2.3 g/dL (3.4-5.0); Anion Gap 6 mmol/L (6-16); Blood Urea Nitrogen 64 mg/dL (8-24); Bun/Creatinine Ratio 28.7 (12.0-20.0); CO2, Blood 20 mmol/L (21-32); Calcium, Blood 8.3 mg/dL (8.5-10.1); Chloride, Blood 117 mmol/L (98-108); Creatinine, Blood 2.23 mg/dL (0.60-1.20); Glomerular Filtration Rate 31 (60-); Glucose, Blood 88 mg/dL (70-99); Potassium, Blood 3.9 mmol/L (3.5-5.5); Sodium, Blood 143 mmol/L (136-145)
[2022-03-26] MEDS ORDERED: Amlodipine Bes2.5 MG PO (10:59)
[2022-03-26] MEDS ORDERED: FAMO20 PO (11:00)
[2022-03-26] MEDS ORDERED: SODIUM BICARBO PO (11:00)
--- NOTE | 2022-03-26 12:20 | NUR ---
DISCHARGE: PATIENT D/C'D TO HOME WITH HOME HEALTH VIA W/C TRANSPORT. PATIENT USED OWN W/C. CAREGIVER MILA CALLED AND VERBAL D/C INSTRUCTION GIVEN TO HER ABOUT F/U APPOINTMENTS AND MEDICATIONS. RX MEDICATIONS FAXED TO [facility]. D/C INSTRUCTIONS AND EDUCATIONS SENT HOME WITH PATIENT IN PACKET. DRESSINGS CHANGED AND PHOTOS OF WOUNDS TAKEN PRIOR TO D/C. PATIENT DENIES ANY FURTHER QUESTIONS OR CONCERNS.
== END 2022-03-26 13:22 | disposition home health service (06) | DRG 682 ==
LOC: ER 13:26 → MEDS 17:39
PROVIDERS: Emergency Medicine; Family Medicine; Internal Medicine Nephrology; ADMIT Internal Medicine
DX: N17.0 Acute kidney failure with tubular necrosis (principal); G92.8 Other toxic encephalopathy; L89.524 Pressure ulcer of left ankle, stage 4; E87.1 Hypo-osmolality and hyponatremia; E87.2 Acidosis; N18.4 Chronic kidney disease, stage 4 (severe); I95.9 Hypotension, unspecified; I12.9 Hypertensive chronic kidney disease with stage 1 through stage 4 chronic kidney disease, or unspecified chronic kidney disease; E87.5 Hyperkalemia; Z74.01 Bed confinement status; G47.33 Obstructive sleep apnea (adult) (pediatric); F41.9 Anxiety disorder, unspecified; E88.09 Other disorders of plasma-protein metabolism, not elsewhere classified; E86.0 Dehydration; E11.22 Type 2 diabetes mellitus with diabetic chronic kidney disease; N31.9 Neuromuscular dysfunction of bladder, unspecified; Z88.1 Allergy status to other antibiotic agents; Z88.8 Allergy status to other drugs, medicaments and biological substances; Z88.0 Allergy status to penicillin; Z96.652 Presence of left artificial knee joint; Z98.890 Other specified postprocedural states; Z79.899 Other long term (current) drug therapy; Q05.9 Spina bifida, unspecified
CPT/HCPCS: 36415; 36600; 71045; 76770; 80047; 80048; 80053; 80069; 81001; 82306; 82607; 82728; 82746; 82803; 82947; 83540; 83550; 83605; 83690; 83735; 84100; 84484; 85014; 85025; 87040; 93005; 93010; 96374; 96375; 96376; 99285-25; A9270; J0610; J1815; J2765; J3475; J7030; J7070; J7120; J7799

== ENCOUNTER → 2022-04-06 | Outpatient (CLI) | payer MEDICARE, OTHER ==
[~2022-04-06] MED LIST changes: +Amlodipine Bes2.5 MG PO; +FAMO20 PO; +SODIUM BICARBO PO
[2022-04-06 18:08] LABS: Albumin, Blood 2.2 g/dL (3.4-5.0); Anion Gap 6 mmol/L (6-16); Blood Urea Nitrogen 55 mg/dL (8-24); Bun/Creatinine Ratio 33.1 (12.0-20.0); CO2, Blood 24 mmol/L (21-32); Chloride, Blood 112 mmol/L (98-108); Creatinine, Blood 1.66 mg/dL (0.60-1.20); Glomerular Filtration Rate 45 (60-); Glucose, Blood 98 mg/dL (70-99); Phosphorus, Blood 3.7 mg/dL (2.5-4.9); Potassium, Blood 5.4 mmol/L (3.5-5.5); Sodium, Blood 142 mmol/L (136-145)
== END | disposition home or self-care (01) ==
LOC: LAB 16:05 → LAB SHORT 16:05
PROVIDERS: Internal Medicine Nephrology
DX: N18.30 Chronic kidney disease, stage 3 unspecified (principal); D63.1 Anemia in chronic kidney disease; N25.81 Secondary hyperparathyroidism of renal origin; E55.9 Vitamin D deficiency, unspecified; E78.00 Pure hypercholesterolemia, unspecified; R76.9 Abnormal immunological finding in serum, unspecified; R94.5 Abnormal results of liver function studies; R94.6 Abnormal results of thyroid function studies
CPT/HCPCS: 80069

== ENCOUNTER → 2022-04-20 | Outpatient (CLI) | payer MEDICARE, OTHER | END | disposition home or self-care (01) | LOC: LAB SHORT 15:45 → LAB 15:45 | DX: E87.5 Hyperkalemia (principal) | CPT/HCPCS: 84132 ==

== ENCOUNTER → 2022-06-25 | Outpatient (CLI) | payer MEDICARE, OTHER ==
[2022-06-25 19:26] LABS: Albumin, Blood 2.7 g/dL (3.4-5.0); Anion Gap 10 mmol/L (6-16); Blood Urea Nitrogen 98 mg/dL (8-24); Bun/Creatinine Ratio 43.9 (12.0-20.0); CO2, Blood 19 mmol/L (21-32); Calcium, Blood 8.5 mg/dL (8.5-10.1); Chloride, Blood 106 mmol/L (98-108); Creatinine, Blood 2.23 mg/dL (0.60-1.20); Glomerular Filtration Rate 31 (60-); Glucose, Blood 87 mg/dL (70-99); Phosphorus, Blood 4.6 mg/dL (2.5-4.9); Potassium, Blood 4.4 mmol/L (3.5-5.5); Sodium, Blood 135 mmol/L (136-145)
== END | disposition home or self-care (01) ==
LOC: LAB 18:20 → LAB SHORT 18:20
PROVIDERS: Internal Medicine Nephrology
DX: N18.2 Chronic kidney disease, stage 2 (mild) (principal); D63.1 Anemia in chronic kidney disease; N25.81 Secondary hyperparathyroidism of renal origin; E55.9 Vitamin D deficiency, unspecified; E78.00 Pure hypercholesterolemia, unspecified; R76.9 Abnormal immunological finding in serum, unspecified; R94.5 Abnormal results of liver function studies; R94.6 Abnormal results of thyroid function studies
CPT/HCPCS: 80069

== ENCOUNTER 2022-07-31 08:27 | Inpatient (IN) | payer MEDICARE, OTHER ==
[~2022-07-31] VITALS: Ht 172.7 cm; Wt 133.4 kg
[2022-07-31] MEDS ORDERED: Nitrofurantoin100 M1 PO (08:58)
[2022-07-31] MEDS ORDERED: FURO80 PO (08:58)
[2022-07-31 09:36] LABS: BASOPHILS ABSOLUTE AUTO 0.08 K/mm3 (0.00-0.23); BASOPHILS PERCENT AUTO 0 % (0-2); EOSINOPHILS ABSOLUTE AUTO 0.02 K/mm3 (0.00-0.68); EOSINOPHILS PERCENT AUTO 0 % (0-6); Hematocrit 29.6 % (37.0-53.0); Hemoglobin 9.3 g/dL (13.5-17.5); IMMATURE GRAN ABSOLUTE AUTO 0.39 K/mm3 (0.00-0.10); IMMATURE GRAN PERCENT AUTO 1 % (0-1); LYMPHOCYTES ABSOLUTE AUTO 0.81 K/mm3 (0.84-5.20); LYMPHOCYTES PERCENT AUTO 2 % (21-46); MONOCYTES ABSOLUTE AUTO 0.75 K/mm3 (0.16-1.47); MONOCYTES PERCENT AUTO 2 % (4-13); Mean Corpuscular HGB Conc 31.4 g/dL (31.5-36.5); Mean Corpuscular Volume 86 fL (80-100); Mean Platelet Volume 9.4 fL (9.1-12.4); NEUTROPHILS ABSOLUTE AUTO 32.34 K/mm3 (1.96-9.15); NEUTROPHILS PERCENT AUTO 94 % (41-73); Platelet Count 331 K/mm3 (150-400); RDW Coefficient Variation 18.8 % (11.7-14.2); RDW Standard Deviation 59.2 fL (35.1-46.3); Red Blood Cell Count 3.45 M/mm3 (4.30-5.90); White Blood Cell Count 34.39 K/mm3 (4.00-11.30)
[2022-07-31 09:59] LABS: Bun/Creatinine Ratio 37.1 (12.0-20.0); Calcium, Blood 8.4 mg/dL (8.5-10.1); Creatinine, Blood 3.64 mg/dL (0.60-1.20); Potassium, Blood 5.2 mmol/L (3.5-5.5)
[2022-07-31 12:40] LABS: Bicarbonate Venous 10.4 mmol/L (24.0-30.0); PCO2 Venous 35.7 mmHg (38-42); PO2 Venous 101 mmHg (38-42)
[2022-07-31 12:41] LABS: pH Blood Venous 7.04 (7.34-7.37)
[2022-07-31 14:51] LABS: Uric Acid, Blood 7.1 mg/dL (3.5-7.2)
[2022-07-31 15:21] LABS: Source, Urine Foley catheter
--- NOTE | 2022-07-31 15:24 | NUR ---
1515 Pt has arrived in unit a few minutes earlier. Telephone report received from SWAPNA Aaron. Requested correction of indwelling urinary catheter which was "difficult to place" and "had to be placed by the attending physician in ED" and placement had been confirmed as "in the wrong place" by ultrasound and CT scan, per report from SWAPNA Aaron. Pt arrived in unit, 18 Nepalese coude noted in space inferior to penis with very long tail attached to collection bag which is not draining anything. 14 Nepalese coude was placed in the space which is inferior to pt's penis, and cloudy yellow urine was evacauted, with significant amount of sediment. Pt tolerated this very well. He is sleeping, often snoring. Repositioned to his left side. Vital signs are stable. Denies sleep apnea, denies use of CPAP/BIPAP at home. STates that he lives with a roommate who helps him out. States that he is wheelchair bound at baseline, without any sensation below the level of his knees. Pt is drowsy when not being spoken to. He is otherwise oriented to person, place, and ongoing events and situation. Answers questions appropriately.
[2022-07-31 15:27] LABS: Appearance, Urine Turbid (Clear); Bilirubin, Urine Neg (Neg); Blood, Urine 5+ (Neg); Color, Urine Yellow (P-Yellow); Glucose Qualitative, Urine Neg (Neg); Ketones, Urine 1+ (Neg); Leukocyte Esterase, Urine 3+ (Neg); Nitrite, Urine Neg (Neg); Protein, Urine 3+ (Neg); Urobilinogen, Urine NORM (Normal)
[2022-07-31 15:55] LABS: Mucus Heavy (0-Heavy)
[2022-07-31 15:56] LABS: Bacteria Many /hpf; Red Blood Cells, Urine 25-50 /hpf (0-2); Squamous Epithelial Cells Many /hpf (Few); Transitional Epithelial Cells Many /hpf (0-Rare); White Blood Cells, Urine TNTC /hpf (0-5)
[2022-07-31 15:57] LABS: Renal Epithelial Mod /hpf (0-Rare)
--- NOTE | 2022-07-31 16:49 | NUR ---
Call to Dr. Hammond per his request. New orders received. Pt continues to be sleepy, but awakens readily to conversation. He has no complaints.
[2022-07-31 17:49] LABS: Albumin, Blood 2.4 g/dL (3.4-5.0); Anion Gap 11 mmol/L (6-16); Blood Urea Nitrogen 116 mg/dL (8-24); Bun/Creatinine Ratio 33.9 (12.0-20.0); CO2, Blood 14 mmol/L (21-32); Chloride, Blood 111 mmol/L (98-108); Creatinine, Blood 3.42 mg/dL (0.60-1.20); Glomerular Filtration Rate 19 (60-); Glucose, Blood 91 mg/dL (70-99); Phosphorus, Blood 5.6 mg/dL (2.5-4.9); Potassium, Blood 5.3 mmol/L (3.5-5.5); Sodium, Blood 136 mmol/L (136-145)
--- NOTE | 2022-07-31 17:57 | NUR ---
Called renal panel results to Dr. Hammond at this time.
--- NOTE | 2022-07-31 18:42 | NUR ---
Pt remains sleepy, but awakens to eat dinner and to conversation. Sitting up in bed, occasionally spontaneously opening eyes. Appropriate in conversation. Urine output noted 125 cc, yellow with white sediment.
--- NOTE | 2022-08-01 04:20 | NUR ---
2 LPM NC PLACED, PT HAS HAD MULTIPLE EPISODES OF DESATURATION IN 70'S AND 80'S ASSOCIATED WITH BRIEF APNEA WHILE ASLEEP, PT RECOVERS QUICKLY AND STATES HE DOES NOT WEAR ANY TYPE OF DEVICE WHILE SLEEPING AT HOME, RT NOTIFIED WELL
[2022-08-01 04:53] LABS: BASOPHILS ABSOLUTE AUTO 0.04 K/mm3 (0.00-0.23); BASOPHILS PERCENT AUTO 0 % (0-2); EOSINOPHILS ABSOLUTE AUTO 0.45 K/mm3 (0.00-0.68); EOSINOPHILS PERCENT AUTO 3 % (0-6); Hematocrit 28.2 % (37.0-53.0); Hemoglobin 8.7 g/dL (13.5-17.5); IMMATURE GRAN ABSOLUTE AUTO 0.11 K/mm3 (0.00-0.10); IMMATURE GRAN PERCENT AUTO 1 % (0-1); LYMPHOCYTES ABSOLUTE AUTO 0.59 K/mm3 (0.84-5.20); LYMPHOCYTES PERCENT AUTO 3 % (21-46); MONOCYTES ABSOLUTE AUTO 0.69 K/mm3 (0.16-1.47); MONOCYTES PERCENT AUTO 4 % (4-13); Mean Corpuscular HGB 26.3 pg (26.0-34.0); Mean Corpuscular HGB Conc 30.9 g/dL (31.5-36.5); Mean Corpuscular Volume 85 fL (80-100); Mean Platelet Volume 9.6 fL (9.1-12.4); NEUTROPHILS ABSOLUTE AUTO 15.39 K/mm3 (1.96-9.15); NEUTROPHILS PERCENT AUTO 89 % (41-73); Platelet Count 288 K/mm3 (150-400); RDW Coefficient Variation 18.9 % (11.7-14.2); RDW Standard Deviation 59.3 fL (35.1-46.3); Red Blood Cell Count 3.31 M/mm3 (4.30-5.90); White Blood Cell Count 17.27 K/mm3 (4.00-11.30)
[2022-08-01 05:13] LABS: Alanine Aminotransfer (ALT/SGP 26 U/L (12-78); Albumin, Blood 2.3 g/dL (3.4-5.0); Albumin/Globulin Ratio 0.5 (0.8-1.8); Alk Phos 67 U/L (50-136); Anion Gap 9 mmol/L (6-16); Aspartate Aminotrans (AST/SGOT 21 U/L (12-37); Bilirubin, Total 0.2 mg/dL (0.1-1.0); Blood Urea Nitrogen 133 mg/dL (8-24); Bun/Creatinine Ratio 37.8 (12.0-20.0); CO2, Blood 17 mmol/L (21-32); Calcium, Blood 8.1 mg/dL (8.5-10.1); Chloride, Blood 108 mmol/L (98-108); Creatinine, Blood 3.52 mg/dL (0.60-1.20); Globulin, Blood 4.4 g/dL (2.2-4.0); Glomerular Filtration Rate 18 (60-); Glucose, Blood 108 mg/dL (70-99); Magnesium, Blood 1.9 mg/dL (1.6-2.4); Potassium, Blood 5.4 mmol/L (3.5-5.5); Sodium, Blood 134 mmol/L (136-145); Total Protein, Blood 6.7 g/dL (6.4-8.2); Vancomycin, Random 16.1 ug/mL
--- NOTE | 2022-08-01 05:58 | NUR ---
PT DROWSY OVERNIGHT BUT AROUSABLE, 360CC OF PO INTAKE AND 425 CC UO, PT REQUIRED THE ADDITION OF 2LPM O2 WHILE ASLEEP, VSS, ALL NEEDS MET, CALL LIGHT IN REACH
--- NOTE | 2022-08-01 13:50 | NUR ---
Pt is having hypoxia while sleeping supine, HOB elevated 45 degrees. spo2 82-90% while sleeping. Oxygen applied at 2 l/min. He is still having some occasional brief hypoxia even while on the oxygen.
--- NOTE | 2022-08-01 13:51 | NUR ---
Call to [facility], pt's caregiver/roommate to ask about possiblity of a sleep apnea diagnosis; pt states had a sleep study as outpatient 1-2 years ago.
--- NOTE | 2022-08-01 14:15 | NUR ---
Spoke with Nidhi, pt's roommate (also his cousin she informs me) who has been living with him and helping him for a year. She does not know of any outpatient sleep study. Confirms that the pt snores a lot at home, too, but does not use CPAP/BIPAP nor oxygen at home. She confirmed all of the doses of the pt's home medications with me over the phone.
[2022-08-01] MEDS ORDERED: FURO80 PO (14:20)
--- NOTE | 2022-08-01 15:19 | NUR ---
Assisted to reposition in bed. Pt is able to pull himself up by the handles on head board. He usually uses a trapeze at home for transfers. Ferguson pad was damp, as was the pillow case sling under his scrotum. Both were changed for the second time in 5 hours, and heavily powdered to promote drying of moisture in groin folds. Pt assisted to reposition to the left side lying position. HOB elevated to his stated comfort level.
[2022-08-02 04:15] LABS: Hematocrit 25.4 % (37.0-53.0)
[2022-08-02 04:38] LABS: Albumin, Blood 2.1 g/dL (3.4-5.0); Anion Gap 8 mmol/L (6-16); Blood Urea Nitrogen 133 mg/dL (8-24); Bun/Creatinine Ratio 37.5 (12.0-20.0); CO2, Blood 23 mmol/L (21-32); Calcium, Blood 7.9 mg/dL (8.5-10.1); Chloride, Blood 107 mmol/L (98-108); Creatinine, Blood 3.55 mg/dL (0.60-1.20); Glomerular Filtration Rate 18 (60-); Glucose, Blood 108 mg/dL (70-99); Magnesium, Blood 1.7 mg/dL (1.6-2.4); Phosphorus, Blood 6.4 mg/dL (2.5-4.9); Sodium, Blood 138 mmol/L (136-145); Vancomycin, Random 20.6 ug/mL
--- NOTE | 2022-08-02 06:18 | NUR ---
PT RESTING ON CPAP, NEEDED ADDITIONAL 2LPM O2 BLEED IN FOR EPISODES OF DESATURATION, HCO3 AT 75ML/HR, 800 CC UO, NO BM, VSS
--- NOTE | 2022-08-02 07:55 | NUR ---
Pt was wearing CPAP. Awakens easily to conversation. Mask off for conversation and breakfast this morning; he is appropriate and oriented. Falls back to sleep quite readily when not talking to staff.
[2022-08-02 11:50] LABS: Creatinine, Blood 3.2 mg/dL (0.60-1.20)
--- NOTE | 2022-08-02 12:39 | NUR ---
Pt was repositioned after linen change, pericare and cleansing his back and groin folds. Nystatin powder and dry linen to folds and his buttocks to keep his skin dry. Noted serous fluid on linens underneath him prior to this. No urine noted leaking around the perez insertion site. Possibly weeping from edematous scrotum. Repositioned up for eating lunch.
[2022-08-03 04:14] LABS: Hematocrit 27.7 % (37.0-53.0); Hemoglobin 8.6 g/dL (13.5-17.5)
[2022-08-03 04:35] LABS: Albumin, Blood 2.2 g/dL (3.4-5.0); Anion Gap 10 mmol/L (6-16); Blood Urea Nitrogen 128 mg/dL (8-24); Bun/Creatinine Ratio 36.9 (12.0-20.0); CO2, Blood 25 mmol/L (21-32); Calcium, Blood 7.8 mg/dL (8.5-10.1); Chloride, Blood 104 mmol/L (98-108); Creatinine, Blood 3.47 mg/dL (0.60-1.20); Glomerular Filtration Rate 18 (60-); Glucose, Blood 92 mg/dL (70-99); Magnesium, Blood 1.8 mg/dL (1.6-2.4); Phosphorus, Blood 5.7 mg/dL (2.5-4.9); Potassium, Blood 4.6 mmol/L (3.5-5.5); Sodium, Blood 139 mmol/L (136-145)
--- NOTE | 2022-08-03 05:56 | NUR ---
PT RESTED ON CPAP OVERNIGHT WITH ONE HOUR BREAK, HE DESATTED INTO THE 70'S AND MASK WAS PLACED, 2.5L UO, VSS, TMAX FOR SHIFT WAS 100.1
--- NOTE | 2022-08-03 18:11 | NUR ---
SHIFT SUMMARY. THIS RN ASSUMED PT CARE AT 0930 THIS AM. PT HAS BEEN REPOSITIONED Q2 HOURS AND NEED T/O THE DAY. PT HAS BEEN RESTING WELL T/O THIS SHIFT. PT WITH GOOD APPETITE FOR BREAKFAST AND LUNCH BUT DID REFUSE DINNER TRAY. ACHS BLOOD SUGARS PERFORMED, NO INSULIN COVERAGE REQUIRED. VSS. NADN. PT DENIES ANY CP OR SOB. 24 HOUR URINE COLLECTION IN PROGRESS, QUINTEROS BAG IS ON ICE, QUINTEROS DRAINING WELL TO GRAVITY. BIPAP PLACED THIS EVENING PT STS HE READY FOR BED. OTHERWISE THERE ARE NO ADDITIONAL CHANGES TO REPORT FROM THIS SHIFT
[2022-08-04 05:16] LABS: Hematocrit 27.6 % (37.0-53.0); Hemoglobin 8.9 g/dL (13.5-17.5)
[2022-08-04 05:42] LABS: Albumin, Blood 2.4 g/dL (3.4-5.0); Anion Gap 8 mmol/L (6-16); Blood Urea Nitrogen 119 mg/dL (8-24); Bun/Creatinine Ratio 40.6 (12.0-20.0); CO2, Blood 30 mmol/L (21-32); Calcium, Blood 8.3 mg/dL (8.5-10.1); Chloride, Blood 100 mmol/L (98-108); Creatinine, Blood 2.93 mg/dL (0.60-1.20); Glomerular Filtration Rate 23 (60-); Glucose, Blood 114 mg/dL (70-99); Magnesium, Blood 1.6 mg/dL (1.6-2.4); Phosphorus, Blood 5.4 mg/dL (2.5-4.9); Sodium, Blood 138 mmol/L (136-145)
--- NOTE | 2022-08-04 05:42 | NUR ---
SHIFT SUMMARY PATIENT ALERT AND ORIENTED x4, ABLE TO MAKE NEEDS KNOWN TO STAFF. VSS, PATIENT ALTERNATING BETWEEN RA, 2L NC AND WORE CPAP FOR A VERY SHORT TIME OVERNIGHT. O2 SAT >90%. QUINTEROS IN PLACE DRAINING YELLOW URINE WITH SOME SEDIMENT. QUINTEROS DRAINAGE BAG ON ICE. 24 HOUR URINE COLLECTION IN PROGRESS. PATIENT ABLE TO HAVE VERY LARGE BM THIS SHIFT. Q2 TURNS. NO OTHER CHANGES THIS SHIFT, WILL REPORT TO DAY SHIFT RN.
[2022-08-04 15:07] LABS: Protein, Urine Quantitative 38.5 mg/dL (0.0-11.9)
--- NOTE | 2022-08-04 18:50 | NUR ---
PT SUMMARY: PT HAD 2 EPISODES OF DRY HEAVING TODAY, NO EMESIS. MEDICATED WITH ZOFRAN, REFUSED BREAKFAST AND LUNCH, HAD ATLEAST SODA AND CRACKER FOR LUNCH AND ATE 50% OF DINNER. 24 HRS URINE COLLECTION DONE AND SENT TO LAB HAD ABOUT 2L URINE OUTPUT FOR THE SHIFT QUINTEROS DRAINING CLEAR URINE VIA GRAVITY, SODIUM BICARB RUNNING AT 75MLS/HR. HAD SMALL INCONTINENT BOWEL FOR THE SHIFT. PT DENIES ANY CHEST PAIN/DISCOMFORT. EDUCATED ABOUT MOBILITY IN BED TO PREVENT PRESSURE ULCER PT WAS ABLE TO TURN SIDEWAYS IN BED, REPOSITIONED WELL IN BED FOR COMFORT, MEPILEX IN PLACE AT THE BOTTOM, BARRIER CREAM APPLIED. PT TRANSITIONED TO MEDICAL STATUS WITH NO TELE. VITALS HRR 70'S, SBP 130'S, SATS ABOVE 90% ON RA, CPAP AT BEDSIDE PRN FOR SLEEP WHICH PT USED ONCE FOR THE SHIFT, AFEBRILE. PT REMAINS FORGETFUL CAN GET ANXIOUS BUT ABLE TO MAKE NEEDS KNOWN AND ANSWER QUESTIONS APPROPRIATELY. NO OTHER ISSUES ENCOUNTERED WILL REPORT TO ONCOMING SHIFT
[2022-08-05 04:49] LABS: Hematocrit 28.4 % (37.0-53.0)
[2022-08-05 05:23] LABS: Albumin, Blood 2.6 g/dL (3.4-5.0); Anion Gap 9 mmol/L (6-16); Blood Urea Nitrogen 106 mg/dL (8-24); Bun/Creatinine Ratio 39.1 (12.0-20.0); CO2, Blood 36 mmol/L (21-32); Calcium, Blood 8.6 mg/dL (8.5-10.1); Chloride, Blood 95 mmol/L (98-108); Creatinine, Blood 2.71 mg/dL (0.60-1.20); Glomerular Filtration Rate 25 (60-); Glucose, Blood 118 mg/dL (70-99); Magnesium, Blood 1.4 mg/dL (1.6-2.4); Phosphorus, Blood 5.2 mg/dL (2.5-4.9); Sodium, Blood 140 mmol/L (136-145)
--- NOTE | 2022-08-05 06:25 | NUR ---
SHIFT SUMMARY: NEURO: PARAPLEGIC. TURNS SELF WITH VERBAL CUES. CARDIAC: BP WNL. AFEBRILE. NO COMPLAINT OF CP OR SOB. RESP: 2L NC OVERNIGHT. CPAP FROM 2200 TO 0500. LUNGS DIM. GI/: CHRONIC QUINTEROS IN PLACE, 2000 UOP OVERNIGHT. ONE SMEAR BM NOTED. PATIENT HAVING BLADDER SPASMS. SKIN: DEXENEX POWDER APPLIED. FULL BED BATH COMPLETED. OTHER: MAGNESIUM LOW THIS AM, ORDERS RECEIVED FROM DR. KO FOR MAG REPLACEMENT. DC BICARB GTT.
--- NOTE | 2022-08-05 15:14 | NUR ---
PT TRANSFERRED TO 311 REPORT WAS GIVEN TO GERBER BARCENAS. ALL BELONGINGS SENT WITH THE PT. NO OTHER ISSUES FOR THE SHIFT, VITALS REMAINED STABLE. DRY HEAVING WAS ADDRESSED TO PROVIDER PT STARTED ON REGLAN PO, AND TESSALON PEARLS FOR COUGH. PT RECEIVED A BED BATH THIS MORNING, ALL WOUND DRESSING WAS CLEANED AND REPLACED. PT DENIES ANY CHEST PAIN/DISCOMFORT. REPOSITIONED Q2HRS. FOR POSSIBLE DISCHARGE TOMORROW IF REMAIN STABLE. WILL CONTINUE TO MONITOR
--- NOTE | 2022-08-05 19:41 | NUR ---
SHIFT SUMMARY PTN TRANSFER FROM PCU. CONTACT ISOLATION FOR ESBL. ADMIT DX UROSEPSIS. PARAPLEGIA, WHO CAN TURN AND IS USED TO ABOVE HEAD TRAPEZE, OTHERWISE NEEDS ASSIST. PTN ON 2L NEEDED AND CPAP AT 2L HS, SET UP BY RESPIRATORY. REPORTS OF BLE WOUNDS AND OTHER THAT WERE DRESSED IN PCU TODAY, PICTURES IN CHART. CHRONIC QUINTEROS, INCONTINENT STOOL. PTN WITH CKD, SHELBIE WITH GFR 25, CONSULT WITH DR KO ORDERED. INFORMATION PASSED ON TO WEBSPHERE CONSULTANT NURSE. CONTINUE TO MONITOR.
[2022-08-06 04:56] LABS: Hematocrit 31.2 % (37.0-53.0); Hemoglobin 9.6 g/dL (13.5-17.5)
[2022-08-06 05:37] LABS: Albumin, Blood 2.9 g/dL (3.4-5.0); Anion Gap 10 mmol/L (6-16); Blood Urea Nitrogen 100 mg/dL (8-24); Bun/Creatinine Ratio 40.2 (12.0-20.0); CO2, Blood 35 mmol/L (21-32); Calcium, Blood 8.5 mg/dL (8.5-10.1); Chloride, Blood 93 mmol/L (98-108); Creatinine, Blood 2.49 mg/dL (0.60-1.20); Glomerular Filtration Rate 27 (60-); Glucose, Blood 91 mg/dL (70-99); Magnesium, Blood 1.7 mg/dL (1.6-2.4); Phosphorus, Blood 5.2 mg/dL (2.5-4.9); Potassium, Blood 3.7 mmol/L (3.5-5.5); Sodium, Blood 138 mmol/L (136-145)
--- NOTE | 2022-08-06 05:57 | NUR ---
SHIFT SUMMARY: NO ACUTE CHANGES THIS SHIFT, VSS. NO REPORTS OF PAIN OR DISCOMFORT. QUINTEROS PUT OUT 2250 MLS OF JYOTI URINE. PATIENT IS ABLE TO MAKE NEEDS KNOWN AND PARTICIPATS IN REPOSITIONING TO ASSIST WITH WOUND HEALING.
--- NOTE | 2022-08-06 08:00 | NUR ---
pt laying in bed watching tv, a/ox3, cooperative with care, follows commands well, states his night was pretty good, and is feeling ok, can be a bit forgetful, lungs are clear t/o, dim in bases, on r/a at this time, hrr, has a chronic perez cath draining josey urine, skin has some wound to b/l le and sacrum has a mepilex in place, is bed bound, legs are contracted, power glide noted to marcelo, site is clear and patent, btx4, abd round soft nontender, moves upper arms/body, sylvia, call light in reach.
[2022-08-06] MEDS ORDERED: BUME2 PO (11:32)
[2022-08-06] MEDS ORDERED: Acetaminophen325 M1 PO (11:33)
[2022-08-06] MEDS ORDERED: Tessalon200 MG PO (11:33)
[2022-08-06] MEDS ORDERED: METO5 PO (11:34)
[2022-08-06] MEDS ORDERED: MICONAZOLE NITRATE TOP (11:36)
[2022-08-06] MEDS ORDERED: LOKELMA10 GM PO (11:37)
[2022-08-06] MEDS ORDERED: VISBIOME 112.51 EACH PO (11:37)
--- NOTE | 2022-08-06 13:04 | NUR ---
Pt is being discharged to home, with caregiver, transportation being arranged, iv removed intact, went over instructions, he verbalized understanding with no questions. call light in reach./
--- NOTE | 2022-08-06 16:49 | NUR ---
transport here to take pt home, using a john to lift pt to his wheelchair. he has all his belongings. notified his animal caregiver of departure.
[2022-08-07 11:10] LABS: M-SPIKE, % Not Observed % (Not Observed)
[2022-08-07 13:10] LABS: IMMUNOGLOBULIN A, QN, SERUM 596 mg/dL (61-437); IMMUNOGLOBULIN G, QN, SERUM 1216 mg/dL (603-1613); IMMUNOGLOBULIN M, QN, SERUM 51 mg/dL (20-172)
[2022-08-07 16:10] LABS: ANTIMYELOPEROXIDASE (MPO) ABS <0.2 units (0.0-0.9); ANTIPROTEINASE 3 (PR-3) ABS <0.2 units (0.0-0.9); ATYPICAL PANCA <1:20 titer (Neg:<1:20); CYTOPLASMIC (C-ANCA) <1:20 titer (Neg:<1:20); PERINUCLEAR (P-ANCA) <1:20 titer (Neg:<1:20)
== END 2022-08-06 17:00 | disposition home health service (06) | DRG 698 ==
LOC: ER 08:27 → MEDS 13:02 → PCU 13:02 → MEDS 08-05 14:42
PROVIDERS: Internal Medicine Nephrology; Nurse Practitioner Acute Care; Student in an Organized Health Care Education/Training Program; ADMIT Internal Medicine
DX: T83.511A Infection and inflammatory reaction due to indwelling urethral catheter, initial encounter (principal); A41.51 Sepsis due to Escherichia coli [E. coli]; R65.20 Severe sepsis without septic shock; N25.81 Secondary hyperparathyroidism of renal origin; E87.1 Hypo-osmolality and hyponatremia; E87.20 Acidosis, unspecified; N17.9 Acute kidney failure, unspecified; G82.20 Paraplegia, unspecified; N13.6 Pyonephrosis; Z68.43 Body mass index [BMI] 50.0-59.9, adult; L89.159 Pressure ulcer of sacral region, unspecified stage; D63.1 Anemia in chronic kidney disease; E83.39 Other disorders of phosphorus metabolism; E88.09 Other disorders of plasma-protein metabolism, not elsewhere classified; E11.22 Type 2 diabetes mellitus with diabetic chronic kidney disease; E87.5 Hyperkalemia; F41.8 Other specified anxiety disorders; E66.01 Morbid (severe) obesity due to excess calories; I12.9 Hypertensive chronic kidney disease with stage 1 through stage 4 chronic kidney disease, or unspecified chronic kidney disease; N18.30 Chronic kidney disease, stage 3 unspecified; E87.70 Fluid overload, unspecified; N31.9 Neuromuscular dysfunction of bladder, unspecified; Z98.1 Arthrodesis status; Q05.9 Spina bifida, unspecified; Z98.890 Other specified postprocedural states; Z88.0 Allergy status to penicillin; Z88.1 Allergy status to other antibiotic agents; Z88.8 Allergy status to other drugs, medicaments and biological substances
CPT/HCPCS: 36415; 51703; 71045; 74176; 76857; 80048; 80053; 80069; 80202; 81001; 82550; 82565; 82803; 82947; 83516; 83520; 83605; 83735; 84156; 84166; 84550; 85014; 85018; 85025; 86037; 86038; 86334; 86335; 87040; 87077; 87086; 87186; 94660; 94762; 96365; 96366; 96367; 96375; 97162; 97166; 97530; 99285-25; A9270; J0881; J1644; J2185; J2270; J2405; J3370; J3475; J7030; J7040; J7050; J7070; P9047

== ENCOUNTER 2022-09-09 19:33 | Inpatient (IN) | payer MEDICARE, OTHER ==
[~2022-09-09] VITALS: Ht 170.2 cm; Wt 134.8 kg
[~2022-09-09 19:33] MED LIST changes: +BUME2 PO; +FURO80 PO; +LOKELMA10 GM PO; +METO5 PO; +MICONAZOLE NITRATE TOP; +Nitrofurantoin100 M1 PO; +Tessalon200 MG PO
[2022-09-09 20:01] LABS: BASOPHILS ABSOLUTE AUTO 0.03 K/mm3 (0.00-0.23); BASOPHILS PERCENT AUTO 0 % (0-2); EOSINOPHILS ABSOLUTE AUTO 0.08 K/mm3 (0.00-0.68); EOSINOPHILS PERCENT AUTO 1 % (0-6); Hematocrit 29.9 % (37.0-53.0); Hemoglobin 9.8 g/dL (13.5-17.5); IMMATURE GRAN ABSOLUTE AUTO 0.11 K/mm3 (0.00-0.10); IMMATURE GRAN PERCENT AUTO 1 % (0-1); LYMPHOCYTES ABSOLUTE AUTO 0.25 K/mm3 (0.84-5.20); LYMPHOCYTES PERCENT AUTO 2 % (21-46); MONOCYTES PERCENT AUTO 5 % (4-13); Mean Corpuscular HGB 27.4 pg (26.0-34.0); Mean Corpuscular HGB Conc 32.8 g/dL (31.5-36.5); Mean Corpuscular Volume 84 fL (80-100); Mean Platelet Volume 8.7 fL (9.1-12.4); NEUTROPHILS ABSOLUTE AUTO 13.99 K/mm3 (1.96-9.15); NEUTROPHILS PERCENT AUTO 92 % (41-73); Platelet Count 260 K/mm3 (150-400); RDW Standard Deviation 51.6 fL (35.1-46.3); Red Blood Cell Count 3.58 M/mm3 (4.30-5.90); White Blood Cell Count 15.16 K/mm3 (4.00-11.30)
[2022-09-09 20:25] LABS: Albumin, Blood 2.5 g/dL (3.4-5.0); Albumin/Globulin Ratio 0.5 (0.8-1.8); Bilirubin, Total 0.3 mg/dL (0.1-1.0); Bun/Creatinine Ratio 40.5 (12.0-20.0); Calcium, Blood 8.1 mg/dL (8.5-10.1); Creatinine, Blood 2.57 mg/dL (0.60-1.20); Globulin, Blood 4.7 g/dL (2.2-4.0); Potassium, Blood 4.5 mmol/L (3.5-5.5); Total Protein, Blood 7.2 g/dL (6.4-8.2)
[2022-09-09 20:28] LABS: Source, Urine Foley catheter
[2022-09-09 20:41] LABS: Bilirubin, Urine Neg (Neg); Blood, Urine 5+ (Neg); Glucose Qualitative, Urine Neg (Neg); Ketones, Urine Neg (Neg); Leukocyte Esterase, Urine 3+ (Neg); Nitrite, Urine Neg (Neg); Protein, Urine 4+ (Neg); Specific Gravity, Urine 1.015 (1.003-1.022); Urobilinogen, Urine NORM (Normal)
[2022-09-09 20:47] LABS: Appearance, Urine Turbid (Clear); Color, Urine Yellow (P-Yellow)
[2022-09-09 20:50] LABS: Bacteria Many /hpf; Mucus Heavy (0-Heavy); Red Blood Cells, Urine 25-50 /hpf (0-2); Squamous Epithelial Cells Rare /hpf (Few); Triple Phosphate Crystals Few /hpf
[2022-09-09 22:11] LABS: Influenza A, PCR NEGATIVE (NEGATIVE); Influenza B, PCR NEGATIVE (NEGATIVE); Resp Syncytial Virus, PCR NEGATIVE (NEGATIVE); SARS-Cov-2 (COVID-19) PCR, MMC NEGATIVE (NEGATIVE)
[2022-09-09 23:07] LABS: Source, Urine Foley catheter
[2022-09-09 23:09] LABS: Bilirubin, Urine Neg (Neg); Blood, Urine 5+ (Neg); Glucose Qualitative, Urine Neg (Neg); Ketones, Urine Neg (Neg); Leukocyte Esterase, Urine 3+ (Neg); Nitrite, Urine Neg (Neg); Protein, Urine 3+ (Neg); Specific Gravity, Urine 1.015 (1.003-1.022); Urobilinogen, Urine NORM (Normal)
[2022-09-09 23:17] LABS: Appearance, Urine Hazy (Clear); Color, Urine Yellow (P-Yellow)
[2022-09-09 23:19] LABS: Amorphous Mod (0-Heavy); Bacteria Many /hpf; Red Blood Cells, Urine 0-2 /hpf (0-2); Squamous Epithelial Cells Rare /hpf (Few); White Blood Cells, Urine 25-50 /hpf (0-5)
[2022-09-10 01:27] LABS: BASOPHILS ABSOLUTE AUTO 0.03 K/mm3 (0.00-0.23); BASOPHILS PERCENT AUTO 0 % (0-2); EOSINOPHILS ABSOLUTE AUTO 0.04 K/mm3 (0.00-0.68); EOSINOPHILS PERCENT AUTO 0 % (0-6); Hematocrit 26.7 % (37.0-53.0); Hemoglobin 8.5 g/dL (13.5-17.5); IMMATURE GRAN ABSOLUTE AUTO 0.17 K/mm3 (0.00-0.10); IMMATURE GRAN PERCENT AUTO 1 % (0-1); LYMPHOCYTES PERCENT AUTO 3 % (21-46); MONOCYTES ABSOLUTE AUTO 1.02 K/mm3 (0.16-1.47); MONOCYTES PERCENT AUTO 6 % (4-13); Mean Corpuscular HGB Conc 31.8 g/dL (31.5-36.5); Mean Corpuscular Volume 85 fL (80-100); NEUTROPHILS ABSOLUTE AUTO 16.48 K/mm3 (1.96-9.15); NEUTROPHILS PERCENT AUTO 90 % (41-73); Platelet Count 260 K/mm3 (150-400); RDW Coefficient Variation 17.2 % (11.7-14.2); RDW Standard Deviation 52.8 fL (35.1-46.3); Red Blood Cell Count 3.15 M/mm3 (4.30-5.90); White Blood Cell Count 18.24 K/mm3 (4.00-11.30)
[2022-09-10 01:29] LABS: Bicarbonate Venous 14.2 mmol/L (24.0-30.0); PCO2 Venous 34.5 mmHg (38-42)
[2022-09-10 01:31] LABS: pH Blood Venous 7.21 (7.34-7.37)
[2022-09-10 01:49] LABS: Albumin, Blood 2.6 g/dL (3.4-5.0); Albumin/Globulin Ratio 0.6 (0.8-1.8); Bilirubin, Total 0.3 mg/dL (0.1-1.0); Bun/Creatinine Ratio 38.2 (12.0-20.0); Calcium, Blood 7.5 mg/dL (8.5-10.1); Creatinine, Blood 2.46 mg/dL (0.60-1.20); Globulin, Blood 4.3 g/dL (2.2-4.0); Magnesium, Blood 1.6 mg/dL (1.6-2.4); Potassium, Blood 4.1 mmol/L (3.5-5.5); Total Protein, Blood 6.9 g/dL (6.4-8.2)
[2022-09-10 06:04] LABS: Bicarbonate Venous 14.7 mmol/L (24.0-30.0); PCO2 Venous 39.5 mmHg (38-42); pH Blood Venous 7.19 (7.34-7.37)
[2022-09-10 06:05] LABS: Base Excess Venous -12.8 mmol/L
--- NOTE | 2022-09-10 06:34 | NUR ---
SHIFT SUMMARY/ARRIVAL TO PCU7 PT ARRIVED TO PCU7 AT APPROXIMATELY 0100. PT WAS SLID OVER FROM ER GURNEY TO HOSPITAL BED BY 5 CLINICAL STAFF MEMBERS. PT A&Ox4, ORIIENTED TO CALL LIGHT/UNIT. PT REFUSED TO ANSWER ADMISSION Hx QUESTIONS. QUINTEROS CATHETER IN PLACE, PATENT, DRAINING DARK BROWN/RED URINE TO GRAVITY. VSS, BP STABLE SINCE ARRIVAL TO UNIT WITH SBP >100, SINUS 60-70's, DENIES CP/PRESSURE. SpO2> 92% RA, DENIES SOB. NOTIFIED OF CRITICAL pH AND HCO3 AT 0130, CALL TO PHYSICIAN, ORDERS PLACED FOR REPEAT VBG AT 0500. REPEAT VBG SHOWED WORSENING pH AND SLIGHTLY IMPROVED HCO3, PHYSCIAN NOTIFIED, NO NEW ORDERS OTHER THAN ANOTHER REPEAT VBG. PT REMAINS A&Ox4, VSS, DENIES PAIN/SOB/CP/PRESSURE/PALPITAIONS. NO OTHER EVENTS THIS SHIFT, WILL REPORT TO ONCOMING RN.
[2022-09-10 07:13] LABS: Albumin, Blood 2.6 g/dL (3.4-5.0); Anion Gap 11 mmol/L (6-16); Blood Urea Nitrogen 92 mg/dL (8-24); Bun/Creatinine Ratio 35.7 (12.0-20.0); CO2, Blood 17 mmol/L (21-32); Calcium, Blood 7.5 mg/dL (8.5-10.1); Chloride, Blood 111 mmol/L (98-108); Creatinine, Blood 2.58 mg/dL (0.60-1.20); Glomerular Filtration Rate 26 (60-); Glucose, Blood 101 mg/dL (70-99); Phosphorus, Blood 4.7 mg/dL (2.5-4.9); Potassium, Blood 3.8 mmol/L (3.5-5.5); Sodium, Blood 139 mmol/L (136-145)
[2022-09-10 10:04] LABS: Base Excess Venous -13.8 mmol/L; Bicarbonate Venous 14.2 mmol/L (24.0-30.0); PCO2 Venous 41.1 mmHg (38-42); PO2 Venous 58.7 mmHg (38-42); pH Blood Venous 7.17 (7.34-7.37)
[2022-09-10 15:19] LABS: Bicarbonate Venous 15.4 mmol/L (24.0-30.0); PO2 Venous 42.5 mmHg (38-42); pH Blood Venous 7.25 (7.34-7.37)
[2022-09-10 16:03] LABS: Vancomycin, Trough 13.9 ug/mL (5.0-10.0)
--- NOTE | 2022-09-10 18:22 | NUR ---
SHIFT SUMMARY: PT A&Ox4, SLEEPS OFTEN, AROUSES EASILY, ANSWERS QUESTIONS APPROPRIATELY BUT IS SHORT W/ANSWERS, SELECTIVE W/CARE PROVIDED (SUCH REPOSITIONING). O2 SATS >92% ON RA, PT DENIES SOB. SR ON MONITOR W/RATE 60s-70s, PT DENIES CHEST PAIN/PRESSURE. REPEAT VBGs CONTINUE TO SHOW CRITICALLY LOW pH BUT DOES SHOW IMPROVEMENT, SODIUM BICARB CONTINUES TO INFUSE PERS ORDERS. INDWELLING QUINTEROS PATENT, DRAINING MAROON COLORED URINE TO GRAVITY. AT THIS TIME, PT RESTING QUIETLY IN BED. WILL CONTINUE TO MONITOR AND TREAT ACCORDINGLY UNTIL CHANGE OF SHIFT.
[2022-09-11 04:12] LABS: BASOPHILS ABSOLUTE AUTO 0.03 K/mm3 (0.00-0.23); BASOPHILS PERCENT AUTO 0 % (0-2); EOSINOPHILS ABSOLUTE AUTO 0.37 K/mm3 (0.00-0.68); EOSINOPHILS PERCENT AUTO 4 % (0-6); Hematocrit 24.7 % (37.0-53.0); IMMATURE GRAN ABSOLUTE AUTO 0.05 K/mm3 (0.00-0.10); IMMATURE GRAN PERCENT AUTO 1 % (0-1); LYMPHOCYTES ABSOLUTE AUTO 0.37 K/mm3 (0.84-5.20); LYMPHOCYTES PERCENT AUTO 4 % (21-46); MONOCYTES ABSOLUTE AUTO 0.64 K/mm3 (0.16-1.47); MONOCYTES PERCENT AUTO 7 % (4-13); Mean Corpuscular HGB 27.1 pg (26.0-34.0); Mean Corpuscular HGB Conc 32.4 g/dL (31.5-36.5); Mean Corpuscular Volume 84 fL (80-100); Mean Platelet Volume 9.3 fL (9.1-12.4); NEUTROPHILS ABSOLUTE AUTO 8.12 K/mm3 (1.96-9.15); NEUTROPHILS PERCENT AUTO 85 % (41-73); Platelet Count 243 K/mm3 (150-400); RDW Coefficient Variation 17.2 % (11.7-14.2); RDW Standard Deviation 52.7 fL (35.1-46.3); Red Blood Cell Count 2.95 M/mm3 (4.30-5.90); White Blood Cell Count 9.58 K/mm3 (4.00-11.30)
[2022-09-11 04:18] LABS: pH Blood Venous 7.25 (7.34-7.37)
[2022-09-11 04:19] LABS: Base Excess Venous -13.2 mmol/L; Bicarbonate Venous 14.8 mmol/L (24.0-30.0); PCO2 Venous 31.9 mmHg (38-42)
[2022-09-11 04:30] LABS: Albumin, Blood 2.4 g/dL (3.4-5.0); Albumin/Globulin Ratio 0.6 (0.8-1.8); Bilirubin, Total 0.2 mg/dL (0.1-1.0); Bun/Creatinine Ratio 34.5 (12.0-20.0); Calcium, Blood 7.7 mg/dL (8.5-10.1); Creatinine, Blood 2.58 mg/dL (0.60-1.20); Potassium, Blood 3.7 mmol/L (3.5-5.5); Total Protein, Blood 6.4 g/dL (6.4-8.2)
--- NOTE | 2022-09-11 05:01 | NUR ---
SHIFT SUMMAR PT A&Ox4, CALLS AND COMMUNICATES NEEDS APPROPRIATELY. VSS, SpO2> 92% RA, DENIES SOB. BP STABLE, SINUS 70's, DENIES CP/PRESSURE. PT WITH FLAT AFFECT AND SHORT WITH STAFF WHEN CARE IS PROVIDED, STATING HE WANTS TO BE LEFT ALONE. PT REPOSITIONS SELF IND IN BED WELL. QUINTEROS CATHETER IN PLACE, DRAINING MAROON URINE TO GRAVITY. AT 0436, CALL TO NOTIFY PHSYCIAN OF CRITICAL pH VALUE, PHYSICIAN STATED THAT THEY WILL LOOK INTO PT CHART AND CALL THIS RN BACK TO UPDATE ABOUT PLAN. NO CHANGE IN PT CONDITION. WILL REPORT TO ONCOMING RN.
--- NOTE | 2022-09-11 05:35 | NUR ---
UPDATE PHYSICIAN CALLED BACK TO DISCUSS PLAN REGARDING PT's pH LEVEL. PHYSICIAN STATED THAT THEY WILL LEAVE IT UP TO THE DAY TEAM TO DECIDE WHAT TO DO ABOUT THE pH AND HCO3.
[2022-09-11 16:18] LABS: Vancomycin, Random 20.9 ug/mL
--- NOTE | 2022-09-11 17:29 | NUR ---
SHIFT SUMMARY: PT CONTINUES A&Ox4 W/FLAT AFFECT, COOPERATIVE W/CARE. O2 SATS >92% ON RA, PT DENIES SOB. SR ON MONITOR, TELEMETRY MONITORING DC'd PER ORDERS, PT DENIES CP/PRESSURE. PT REPOSITIONING SELF IN BED. BEDBATH PROVIDED TODAY. WOUND CARE CONSULTATION COMPLETED TODAY, WOUND CARE COMPLETED AND NEW ORDERS IN EMAR. INDWELLING QUINTEROS CONTINUES TO DRAIN LIGHT RED/MAROON COLORED URINE TO GRAVITY. PO SODIUM BICARB STARTED THIS AM. PLAN IS FOR PT TO START FIRST DOSE AUGEMENTIN TONIGHT AND SECOND DOSE IN THE AM, TO BE MONITORED FOR APPROXIMATELY 3 HRS POST ADMINISTRATION OF SECOND DOSE, THEN DC HOME IF NO ADVERSE RXNs OCCUR. PT HAS RECEIVED NEW ROOM ASSIGNMENT IN MEDICAL DEPT. WILL CONTINUE TO MONITOR AND TREAT ACCORDINGLY UNTIL REPORT GIVEN TO RECEIVING RN.
--- NOTE | 2022-09-11 18:40 | NUR ---
PATIENT ARRIVED TO ROOM AT 1830 TRANSFERRED FROM PCU 7 VIA BED. ORIENT TO ROOM AND CALL LIGHT. POWERGLIDE TO MARIELLA SALINE LOCKED. PROVIDED c FRESH ICE WATER. BED ALARM ON FOR SAFETY. CALL LIGHT AND TELEPHONE WITHIN REACH.
--- NOTE | 2022-09-12 03:02 | NUR ---
A/OX3-4; CALM AND COOPERATIVE. IRRITABLE AT TIMES. FLAT AFFECT. BEDREST; Q2 TURN, 2X ASSIST. POWERGLIDE LUE PATENT. CHRONIC INDWELLING QUINTEROS CATH (NEUROGENIC BLADDER) PATENT. DENIES PAIN AT THIS TIME. DRESSINGS BLE CDI (DRSG CHANGES BY CARTOON ANIMATOR) CONTACT PRECAUTIONS MAINTAINED FOR ESBL, VRE, AND MRSA IN URINE. SLEEP PROMOTED. BED ALARM SET. CALL LIGHT IN REACH; ENCOURAGED TO MAKE NEEDS KNOWN.
[2022-09-12 07:58] LABS: Base Excess Venous -12.1 mmol/L; Bicarbonate Venous 15.5 mmol/L (24.0-30.0); PCO2 Venous 37.3 mmHg (38-42)
[2022-09-12 07:59] LABS: pH Blood Venous 7.23 (7.34-7.37)
[2022-09-12 08:05] LABS: BASOPHILS ABSOLUTE AUTO 0.04 K/mm3 (0.00-0.23); BASOPHILS PERCENT AUTO 1 % (0-2); EOSINOPHILS ABSOLUTE AUTO 0.41 K/mm3 (0.00-0.68); EOSINOPHILS PERCENT AUTO 5 % (0-6); Hematocrit 27.7 % (37.0-53.0); Hemoglobin 8.7 g/dL (13.5-17.5); IMMATURE GRAN ABSOLUTE AUTO 0.07 K/mm3 (0.00-0.10); IMMATURE GRAN PERCENT AUTO 1 % (0-1); LYMPHOCYTES PERCENT AUTO 6 % (21-46); MONOCYTES ABSOLUTE AUTO 0.69 K/mm3 (0.16-1.47); MONOCYTES PERCENT AUTO 8 % (4-13); Mean Corpuscular HGB 26.4 pg (26.0-34.0); Mean Corpuscular HGB Conc 31.4 g/dL (31.5-36.5); Mean Corpuscular Volume 84 fL (80-100); Mean Platelet Volume 9.1 fL (9.1-12.4); NEUTROPHILS ABSOLUTE AUTO 6.79 K/mm3 (1.96-9.15); NEUTROPHILS PERCENT AUTO 80 % (41-73); Platelet Count 237 K/mm3 (150-400); RDW Coefficient Variation 17.5 % (11.7-14.2); RDW Standard Deviation 54.2 fL (35.1-46.3); Red Blood Cell Count 3.29 M/mm3 (4.30-5.90)
[2022-09-12 08:24] LABS: Albumin, Blood 2.5 g/dL (3.4-5.0); Anion Gap 9 mmol/L (6-16); Blood Urea Nitrogen 88 mg/dL (8-24); Bun/Creatinine Ratio 36.1 (12.0-20.0); CO2, Blood 17 mmol/L (21-32); Calcium, Blood 7.9 mg/dL (8.5-10.1); Chloride, Blood 116 mmol/L (98-108); Creatinine, Blood 2.44 mg/dL (0.60-1.20); Glomerular Filtration Rate 28 (60-); Glucose, Blood 90 mg/dL (70-99); Phosphorus, Blood 4.5 mg/dL (2.5-4.9); Potassium, Blood 3.9 mmol/L (3.5-5.5); Sodium, Blood 142 mmol/L (136-145)
--- NOTE | 2022-09-12 10:14 | NUR ---
Upon receiving a vocera referral for spiritual care, I visit the patient. Pt's Wood Type Finisher Tavares is leaving the as I was coming in so we talk in the hallway. She explains about pt's overly compliant disposition that she says stems from frustrations with poor treatment and neglect from medical staff in other hospitals and home health care. She gives a glowing review of [facility] and home health but says that the damage is already done for the pt. She also discusses her journey in life and the family connections that led her to be pt's skin care specialist for the last year. 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 She speaks of the many stressors that she has been experiencing. I normalize her experience, and provide therapeutic listening, anxiety containment and a calming presence. Tavares responds well and shows signs of increased peace. I will continue to remain available.
--- NOTE | 2022-09-12 17:21 | NUR ---
EVENING NOTE PT AWAKE, ALERT WATCHING FOOTBALL. HE ISN'T REALLY PARTICAPATORY. DOESN'T CONVERSE. ROLLS HIS EYES IF STAFF TRY. WOUND CARE DONE. SCROTUM 3+ EDEMA. PARTIAL BED BATH DONE. FOLDS AND QUINTEROS CARE. SCROTUM FOLDS POWDERED AND PILLOW CASES PLACED. FOLDS WERE VERY SWEATY. ARM PITS. RIGHT SHOULDER/UE VERY PAINFUL TO MOVE. HE STATED HE HAS FROZEN SHOULDER. QUINTEROS PATENT. DRAINING REDDISH/BROWN TINGED URINE. GOOD OUTPT. LR INFUSING IN THE LEFT UE POWER GLIDE. CONTINUE POC.
--- NOTE | 2022-09-13 05:40 | NUR ---
WHEEL AND AXLE INSPECTOR SUMMARY: A&Ox4. STOIC WITH LIMITED PARTICIPATION IN CARE AND COMMUNICATION EARLY ON IN SHIFT BUT WARMED UP TIME WENT ON. CALLS APPROPRIATELY AND IS ABLE TO COMMUNICATE NEEDS EFFECTIVELY. MULTIPLE WOUNDS IN VARIOUS STAGES OF HEALING ON LEs; PICS IN CHART. USES AN AUTOMATIC WHEELCHAIR AT BASELINE BUT IS BED BOUND WHILE IN HOSPITAL. 1-2 MAX ASSIST FOR CARE HE IS ABLE TO ROLL AND REPOSITION HIMSELF, BUT MAY NEED HELP WITH MOVING HIS LEGS. NO ACUTE CONCERNS T/O THE NIGHT. SCHEDULED FOR AM LABS, BUT LINE WILL NOT DRAW; WILL CALL LAB BACK TO ROOM FOR WINCH TRUCK OPERATOR. WILL REPORT TO ONCOMING RN.
[2022-09-13 07:15] LABS: BASOPHILS ABSOLUTE AUTO 0.04 K/mm3 (0.00-0.23); BASOPHILS PERCENT AUTO 1 % (0-2); EOSINOPHILS ABSOLUTE AUTO 0.64 K/mm3 (0.00-0.68); EOSINOPHILS PERCENT AUTO 9 % (0-6); Hematocrit 27.3 % (37.0-53.0); Hemoglobin 8.6 g/dL (13.5-17.5); IMMATURE GRAN ABSOLUTE AUTO 0.14 K/mm3 (0.00-0.10); IMMATURE GRAN PERCENT AUTO 2 % (0-1); LYMPHOCYTES PERCENT AUTO 8 % (21-46); MONOCYTES ABSOLUTE AUTO 0.61 K/mm3 (0.16-1.47); MONOCYTES PERCENT AUTO 8 % (4-13); Mean Corpuscular HGB 26.7 pg (26.0-34.0); Mean Corpuscular HGB Conc 31.5 g/dL (31.5-36.5); Mean Corpuscular Volume 85 fL (80-100); Mean Platelet Volume 9.3 fL (9.1-12.4); NEUTROPHILS ABSOLUTE AUTO 5.35 K/mm3 (1.96-9.15); NEUTROPHILS PERCENT AUTO 73 % (41-73); Platelet Count 255 K/mm3 (150-400); RDW Coefficient Variation 17.7 % (11.7-14.2); RDW Standard Deviation 53.9 fL (35.1-46.3); Red Blood Cell Count 3.22 M/mm3 (4.30-5.90); White Blood Cell Count 7.38 K/mm3 (4.00-11.30)
[2022-09-13 07:41] LABS: Albumin, Blood 2.3 g/dL (3.4-5.0); Anion Gap 6 mmol/L (6-16); Blood Urea Nitrogen 74 mg/dL (8-24); Bun/Creatinine Ratio 31.9 (12.0-20.0); CO2, Blood 19 mmol/L (21-32); Calcium, Blood 8.1 mg/dL (8.5-10.1); Chloride, Blood 117 mmol/L (98-108); Creatinine, Blood 2.32 mg/dL (0.60-1.20); Glomerular Filtration Rate 30 (60-); Glucose, Blood 103 mg/dL (70-99); Phosphorus, Blood 4.3 mg/dL (2.5-4.9); Potassium, Blood 4.1 mmol/L (3.5-5.5); Sodium, Blood 142 mmol/L (136-145)
[2022-09-13] MEDS ORDERED: AMOCLA875 PO (13:45)
[2022-09-13] MEDS ORDERED: SODBIC650 PO (13:46)
--- NOTE | 2022-09-13 16:19 | NUR ---
PT DISCHARGED AT 1500. ALL PERSONAL BELINGS COLLECTED AND PAPERWORK AND EDUCATIONAL MATERIAL SENT WITH PT. ESCORTED OUT VIA PT'S OWN PERSONAL WHEELCHAIR. PT NEEDED TO PEOPLE TO HELP HIM GET FROM BED TO CHAIR. CAREGIVER WAS NOTIFIED OF PT DISCHARGING. NO DISTRESS NOTED WILL CONTINUE TO MONITOR.
== END 2022-09-13 15:07 | disposition home health service (06) | DRG 194 ==
LOC: ER 19:33 → MEDS 21:50 → PCU 21:50 → MEDS 09-11 18:38
PROVIDERS: Emergency Medicine; Family Medicine; Internal Medicine; Nurse Practitioner Acute Care; ADMIT Family Medicine
DX: J18.9 Pneumonia, unspecified organism (principal); E87.20 Acidosis, unspecified; N17.9 Acute kidney failure, unspecified; G82.20 Paraplegia, unspecified; Z68.42 Body mass index [BMI] 45.0-49.9, adult; N18.4 Chronic kidney disease, stage 4 (severe); D63.1 Anemia in chronic kidney disease; Q05.9 Spina bifida, unspecified; N31.9 Neuromuscular dysfunction of bladder, unspecified; F32.A Depression, unspecified; L89.899 Pressure ulcer of other site, unspecified stage; F41.9 Anxiety disorder, unspecified; E11.22 Type 2 diabetes mellitus with diabetic chronic kidney disease; I12.9 Hypertensive chronic kidney disease with stage 1 through stage 4 chronic kidney disease, or unspecified chronic kidney disease; Z96.652 Presence of left artificial knee joint; Z20.822 Contact with and (suspected) exposure to COVID-19; Z74.01 Bed confinement status; Z98.890 Other specified postprocedural states; Z88.0 Allergy status to penicillin; Z88.1 Allergy status to other antibiotic agents; Z91.041 Radiographic dye allergy status; Z79.899 Other long term (current) drug therapy; Z98.1 Arthrodesis status
CPT/HCPCS: 0241U; 36415; 51702; 71046; 80053; 80069; 80202; 81001; 82803; 82947; 83605; 83735; 83880; 84145; 85025; 87040; 87086; 96365-59; 96366-59; 96367-59; 96375-59; 99285-25; A9270; C1751; J0696; J1644; J2185; J3370; J7030; J7050; J7120; P9047

== ENCOUNTER → 2022-09-28 | Outpatient (CLI) | payer MEDICARE, OTHER ==
[~2022-09-28] MED LIST changes: +SODBIC650 PO
[2022-09-28 17:50] LABS: Albumin, Blood 2.3 g/dL (3.4-5.0); Anion Gap 8 mmol/L (6-16); Blood Urea Nitrogen 48 mg/dL (8-24); Bun/Creatinine Ratio 26.4 (12.0-20.0); CO2, Blood 20 mmol/L (21-32); Calcium, Blood 8.4 mg/dL (8.5-10.1); Chloride, Blood 109 mmol/L (98-108); Creatinine, Blood 1.82 mg/dL (0.60-1.20); Glomerular Filtration Rate 40 (60-); Glucose, Blood 107 mg/dL (70-99); Phosphorus, Blood 3.6 mg/dL (2.5-4.9); Potassium, Blood 4.6 mmol/L (3.5-5.5); Sodium, Blood 137 mmol/L (136-145)
== END | disposition home or self-care (01) ==
LOC: LAB SHORT 11:50 → LAB 11:50
PROVIDERS: Internal Medicine Nephrology
DX: N18.30 Chronic kidney disease, stage 3 unspecified (principal); D63.1 Anemia in chronic kidney disease
CPT/HCPCS: 80069

== ENCOUNTER → 2022-11-28 | Outpatient (CLI) | payer MEDICARE, OTHER ==
[~2022-11-28] MED LIST changes: +Acetaminophen650 M1 PO; +BUMETANIDE2 M6 PO; +BUPR150ER PO; +FAMO10 PO; +FURO40 PO; +FUROSEMIDE40 MG PO; +HIGH POTENCY P1 EAC2 PO; +MEROPENEM1 G1 IV
[2022-11-28 17:48] LABS: Albumin/Globulin Ratio 0.4 (0.8-1.8); Bilirubin, Total 0.3 mg/dL (0.1-1.0); Bun/Creatinine Ratio 28.1 (12.0-20.0); Calcium, Blood 8.1 mg/dL (8.5-10.1); Creatinine, Blood 2.17 mg/dL (0.60-1.20); Potassium, Blood 3.9 mmol/L (3.5-5.5)
[2022-11-28 17:55] LABS: BASOPHILS ABSOLUTE AUTO 0.06 K/mm3 (0.00-0.23); BASOPHILS PERCENT AUTO 1 % (0-2); EOSINOPHILS PERCENT AUTO 4 % (0-6); Hematocrit 27.9 % (37.0-53.0); Hemoglobin 8.4 g/dL (13.5-17.5); IMMATURE GRAN ABSOLUTE AUTO 0.14 K/mm3 (0.00-0.10); IMMATURE GRAN PERCENT AUTO 1 % (0-1); LYMPHOCYTES ABSOLUTE AUTO 1.04 K/mm3 (0.84-5.20); LYMPHOCYTES PERCENT AUTO 9 % (21-46); MONOCYTES ABSOLUTE AUTO 0.65 K/mm3 (0.16-1.47); MONOCYTES PERCENT AUTO 6 % (4-13); Mean Corpuscular HGB Conc 30.1 g/dL (31.5-36.5); Mean Corpuscular Volume 83 fL (80-100); NEUTROPHILS ABSOLUTE AUTO 8.93 K/mm3 (1.96-9.15); NEUTROPHILS PERCENT AUTO 79 % (41-73); Platelet Count 353 K/mm3 (150-400); RDW Coefficient Variation 18.8 % (11.7-14.2); RDW Standard Deviation 56.3 fL (35.1-46.3); Red Blood Cell Count 3.36 M/mm3 (4.30-5.90); White Blood Cell Count 11.32 K/mm3 (4.00-11.30)
== END | disposition home or self-care (01) ==
LOC: LAB HH 15:25 → LAB SHORT 15:25
PROVIDERS: Family Medicine
DX: L03.317 Cellulitis of buttock (principal); L89.154 Pressure ulcer of sacral region, stage 4
CPT/HCPCS: 80053; 85025

== ENCOUNTER → 2022-12-03 | Outpatient (CLI) | payer MEDICARE, OTHER ==
[2022-12-04 06:14] LABS: BASOPHILS ABSOLUTE AUTO 0.05 K/mm3 (0.00-0.23); BASOPHILS PERCENT AUTO 0 % (0-2); EOSINOPHILS ABSOLUTE AUTO 0.39 K/mm3 (0.00-0.68); EOSINOPHILS PERCENT AUTO 3 % (0-6); Hematocrit 26.4 % (37.0-53.0); IMMATURE GRAN ABSOLUTE AUTO 0.11 K/mm3 (0.00-0.10); IMMATURE GRAN PERCENT AUTO 1 % (0-1); LYMPHOCYTES PERCENT AUTO 7 % (21-46); MONOCYTES ABSOLUTE AUTO 0.62 K/mm3 (0.16-1.47); MONOCYTES PERCENT AUTO 5 % (4-13); Mean Corpuscular HGB 25.7 pg (26.0-34.0); Mean Corpuscular HGB Conc 30.3 g/dL (31.5-36.5); Mean Corpuscular Volume 85 fL (80-100); Mean Platelet Volume 10.2 fL (9.1-12.4); NEUTROPHILS ABSOLUTE AUTO 10.12 K/mm3 (1.96-9.15); NEUTROPHILS PERCENT AUTO 84 % (41-73); Platelet Count 402 K/mm3 (150-400); RDW Coefficient Variation 18.6 % (11.7-14.2); Red Blood Cell Count 3.11 M/mm3 (4.30-5.90); White Blood Cell Count 12.09 K/mm3 (4.00-11.30)
[2022-12-04 06:23] LABS: Albumin, Blood 1.9 g/dL (3.4-5.0); Albumin/Globulin Ratio 0.4 (0.8-1.8); Bilirubin, Total 0.3 mg/dL (0.1-1.0); Bun/Creatinine Ratio 32.2 (12.0-20.0); Calcium, Blood 8.2 mg/dL (8.5-10.1); Creatinine, Blood 2.08 mg/dL (0.60-1.20); Potassium, Blood 3.8 mmol/L (3.5-5.5); Total Protein, Blood 6.9 g/dL (6.4-8.2)
[2022-12-04 06:38] LABS: Albumin, Blood 1.8 g/dL (3.4-5.0); Anion Gap 5 mmol/L (6-16); Blood Urea Nitrogen 66 mg/dL (8-24); Bun/Creatinine Ratio 31.9 (12.0-20.0); CO2, Blood 17 mmol/L (21-32); Calcium, Blood 8.2 mg/dL (8.5-10.1); Chloride, Blood 115 mmol/L (98-108); Creatinine, Blood 2.07 mg/dL (0.60-1.20); Glomerular Filtration Rate 34 (60-); Glucose, Blood 107 mg/dL (70-99); Phosphorus, Blood 6.4 mg/dL (2.5-4.9); Potassium, Blood 3.8 mmol/L (3.5-5.5); Sodium, Blood 137 mmol/L (136-145)
== END | disposition home or self-care (01) ==
LOC: LAB HH 15:30
PROVIDERS: Family Medicine; Internal Medicine Nephrology
DX: E11.22 Type 2 diabetes mellitus with diabetic chronic kidney disease (principal); N18.30 Chronic kidney disease, stage 3 unspecified; D63.1 Anemia in chronic kidney disease; R80.9 Proteinuria, unspecified; L03.317 Cellulitis of buttock; L89.154 Pressure ulcer of sacral region, stage 4; E11.21 Type 2 diabetes mellitus with diabetic nephropathy; N25.81 Secondary hyperparathyroidism of renal origin; E78.00 Pure hypercholesterolemia, unspecified; R76.9 Abnormal immunological finding in serum, unspecified; R94.5 Abnormal results of liver function studies; R94.6 Abnormal results of thyroid function studies
CPT/HCPCS: 80053; 80069; 83036; 84100; 85018; 85025

== ENCOUNTER 2022-12-14 15:21 | Inpatient (IN) | payer MEDICARE, OTHER ==
[~2022-12-14] VITALS: Ht 182.9 cm; Wt 132.0 kg
[2022-12-14 15:54] LABS: BASOPHILS ABSOLUTE AUTO 0.04 K/mm3 (0.00-0.23); BASOPHILS PERCENT AUTO 0 % (0-2); EOSINOPHILS ABSOLUTE AUTO 0.61 K/mm3 (0.00-0.68); EOSINOPHILS PERCENT AUTO 5 % (0-6); Hematocrit 28.1 % (37.0-53.0); Hemoglobin 8.2 g/dL (13.5-17.5); IMMATURE GRAN ABSOLUTE AUTO 0.12 K/mm3 (0.00-0.10); IMMATURE GRAN PERCENT AUTO 1 % (0-1); LYMPHOCYTES ABSOLUTE AUTO 0.87 K/mm3 (0.84-5.20); LYMPHOCYTES PERCENT AUTO 7 % (21-46); MONOCYTES ABSOLUTE AUTO 0.66 K/mm3 (0.16-1.47); MONOCYTES PERCENT AUTO 5 % (4-13); Mean Corpuscular HGB 24.8 pg (26.0-34.0); Mean Corpuscular HGB Conc 29.2 g/dL (31.5-36.5); Mean Corpuscular Volume 85 fL (80-100); Mean Platelet Volume 9.3 fL (9.1-12.4); NEUTROPHILS ABSOLUTE AUTO 10.39 K/mm3 (1.96-9.15); NEUTROPHILS PERCENT AUTO 82 % (41-73); Platelet Count 479 K/mm3 (150-400); RDW Coefficient Variation 19.3 % (11.7-14.2); RDW Standard Deviation 59.6 fL (35.1-46.3); White Blood Cell Count 12.69 K/mm3 (4.00-11.30)
[2022-12-14 16:19] LABS: Albumin, Blood 2.1 g/dL (3.4-5.0); Albumin/Globulin Ratio 0.4 (0.8-1.8); Bilirubin, Total 0.3 mg/dL (0.1-1.0); Bun/Creatinine Ratio 20.8 (12.0-20.0); Calcium, Blood 8.2 mg/dL (8.5-10.1); Creatinine, Blood 3.71 mg/dL (0.60-1.20); Globulin, Blood 5.3 g/dL (2.2-4.0); Total Protein, Blood 7.4 g/dL (6.4-8.2)
[2022-12-14 18:51] LABS: Source, Urine Foley catheter
[2022-12-14 18:59] LABS: Appearance, Urine Turbid (Clear); Bilirubin, Urine Neg (Neg); Blood, Urine 5+ (Neg); Glucose Qualitative, Urine Neg (Neg); Ketones, Urine Neg (Neg); Leukocyte Esterase, Urine 3+ (Neg); Nitrite, Urine Pos (Neg); Protein, Urine 4+ (Neg); Specific Gravity, Urine 1.015 (1.003-1.022); Urobilinogen, Urine NORM (Normal)
[2022-12-14 19:10] LABS: Color, Urine Pale Yellow (P-Yellow)
[2022-12-14 19:11] LABS: White Blood Cells, Urine TNTC /hpf (0-5)
[2022-12-14 19:13] LABS: Bacteria Many /hpf; Squamous Epithelial Cells Many /hpf (Few); Transitional Epithelial Cells Mod /hpf (0-Rare)
[2022-12-14 19:14] LABS: Calcium Oxalate Crystals Rare /hpf
--- NOTE | 2022-12-15 04:19 | NUR ---
PT ARRIVED ON UNIT AROUND ~2200. PT IS LIFT PATIENT, UNABLE TO AMBULATE DUE TO SPINA BIFIDA. SELF REPORTED TOTAL CONTROL OF BUE AND VERY VERY LIMITED USE OF BLE. OVERHEAD LIFT IN ROOM IS NONFUNCTIONAL, CHARGE NURSE NOTIFIED APPROPRIATE RESOURCES TO HAVE IT EXAMINED. PT HAS BEEN AOX3-4 THROUGHOUT SHIFT, MOSTLY ORIENTED WITH SPORADIC AND BRIEF EPISODES OF CONFUSION. EASILY REDIRECTED. COOPERATIVE WITH CARE IF MILDLY IRRITABLE. SKIN ASSESSMENT REMARKABLE FOR EXCORIATION OVER BOTTOM/SACRUM AREA. BARRIER CREAM APPLIED. SMALL ABRASION ON LEFT ANKLE, DRESSED. SCROTUM IS VERY SWOLLEN/EDEMATOUS. QUINTEROS IN PLACE ON ADMISSION. PT REPORTS THAT HOME HEALTH PUT IN THIS QUINTEROS VERY RECENTLY AND REFUSED TO HAVE IT CHANGED OUT FOR NEW ONE. PT HAS CHRONIC QUINTEROS IN PLACE DUE TO SPINA BIFIDA. PT LIVES AT HOME WITH ROOMATE, WORKS WITH HOME HEALTH. QUINTEROS HAS BEEN PATENT AND DRAINING THROUGHOUT SHIFT. PT HAS NOT COMPLAINED OF PAIN THROUGHOUT SHIFT. EARLY THIS MORNING PT HAD MINOR BOUT OF NAUSEA WITH VERY LITTLE VOMITING. ACQUIRED ORDER FOR AND ADMINISTERED PO ZOFRAN WHICH ALLEVIATED SYMPTOMS. FLUIDS RUNNING THROUGHOUT SHIFT. PT HAS BEEN COMFORTABLE IN BED AND CALLS APPROPRIATELY. CALL LIGHT LEFT WITHIN REACH .
[2022-12-15 05:26] LABS: BASOPHILS ABSOLUTE AUTO 0.05 K/mm3 (0.00-0.23); BASOPHILS PERCENT AUTO 0 % (0-2); EOSINOPHILS ABSOLUTE AUTO 0.53 K/mm3 (0.00-0.68); EOSINOPHILS PERCENT AUTO 5 % (0-6); Hematocrit 27.7 % (37.0-53.0); IMMATURE GRAN PERCENT AUTO 1 % (0-1); LYMPHOCYTES ABSOLUTE AUTO 0.93 K/mm3 (0.84-5.20); LYMPHOCYTES PERCENT AUTO 8 % (21-46); MONOCYTES ABSOLUTE AUTO 0.73 K/mm3 (0.16-1.47); MONOCYTES PERCENT AUTO 6 % (4-13); Mean Corpuscular HGB 24.9 pg (26.0-34.0); Mean Corpuscular HGB Conc 28.9 g/dL (31.5-36.5); Mean Corpuscular Volume 86 fL (80-100); Mean Platelet Volume 8.9 fL (9.1-12.4); NEUTROPHILS ABSOLUTE AUTO 9.47 K/mm3 (1.96-9.15); NEUTROPHILS PERCENT AUTO 80 % (41-73); Platelet Count 466 K/mm3 (150-400); RDW Coefficient Variation 19.2 % (11.7-14.2); RDW Standard Deviation 60.6 fL (35.1-46.3); Red Blood Cell Count 3.21 M/mm3 (4.30-5.90); White Blood Cell Count 11.81 K/mm3 (4.00-11.30)
[2022-12-15 06:20] LABS: Albumin/Globulin Ratio 0.4 (0.8-1.8); Bilirubin, Total 0.3 mg/dL (0.1-1.0); Bun/Creatinine Ratio 20.4 (12.0-20.0); Calcium, Blood 8.2 mg/dL (8.5-10.1); Creatinine, Blood 3.88 mg/dL (0.60-1.20); Globulin, Blood 5.2 g/dL (2.2-4.0); Potassium, Blood 4.3 mmol/L (3.5-5.5); Total Protein, Blood 7.2 g/dL (6.4-8.2)
--- NOTE | 2022-12-15 06:27 | NUR ---
LATE NOTE: DURING ADMISSION, PT VOICED THAT HE WOULD LIKE TO BE A FULL CODE DESPITE HAVING ORDERS FOR DNI STATUS. BRIEFLY DISCUSSED WITH PATIENT. PATIENT AGAIN REITERATED THAT HE WOULD LIKE TO BE A FULL CODE BUT WAS NOT COMPLETELY ORIENTED AND MILDLY IRRITATED WITH EXTENDED ADMISSION PROCESS. DISCUSSED WITH FLAT BED KNITTER ALECIA IVORY. PLAN TO WAIT FOR PATIENT TO AWAKE TO HAVE MORE IN DEPTH DISCUSSION REGARDING HIS WISHES AND CODE STATUS. PT HAS THUS FAR SLEPT THROUGH REMAINDER OF SHIFT. WILL PASS ALONG TO DAY SHIFT THAT THIS IS CONVERSATION THAT NEEDS TO HAPPEN SOON PATIENT IS UP TO IT.
--- NOTE | 2022-12-15 08:00 | NUR ---
Pt very sleepy this am, wakes with verbal but returns to sleep when left undisturbed, a/ox3, forgetful at times, lungs are dim t/o, on r/a, resp even and unlabored, no cough noted, hrr, pt has a chronic perez, draining joesy urine, skin has half dollar size open area to right buttock mepilex was placed on it, otherwise is pink in tammy area, left ankle has a mepilex, moves upper ext well, legs are flacid, sylvia, call light in reach.
--- NOTE | 2022-12-15 20:40 | NUR ---
PT REFUSED CBG CHECK AT 2033 TONIGHT. I REMINDED PATIENT THAT HE HAS BEEN RUNNING LOW TODAY. PT TOLD ME "GO AWAY." LAST 2 CHECKS WERE IN THE 95-105 RANGE.
[2022-12-16 07:28] LABS: Calcium, Blood 7.6 mg/dL (8.5-10.1); Creatinine, Blood 4.31 mg/dL (0.60-1.20); Potassium, Blood 4.7 mmol/L (3.5-5.5)
--- NOTE | 2022-12-16 17:00 | NUR ---
SHIFT SUMMARY PATIENT HAS HAD NO ACUTE EVENTS THIS SHIFT. VITAL SIGNS REVIEWED. PATIENT A/0X3. DR TAD QUINTEROS REPLACED, THIS RN STATED SUCH TO PATIENT, PATIENT STATED "ITS NEW AND DOESNT NEED CHANGED". PATIENT HAS HAD NO COMPLAINTS OF PAIN, NAUSEA, SOB OR VOMITTING THIS SHIFT. PATIENT HAS BEEN TURNED OFTEN PATIENT ALLOWS. PATIENT OCCASIONALLY REFUSES CARE. BED IN LOCKED AND LOWEST POSITION. CALL LIGHT IN PLACE. WILL MONITOR UNTIL SHIFT CHANGE.
[2022-12-17 03:53] LABS: Source, Urine Straight Cath
[2022-12-17 03:55] LABS: Bilirubin, Urine Neg (Neg); Blood, Urine 4+ (Neg); Glucose Qualitative, Urine Neg (Neg); Ketones, Urine Neg (Neg); Leukocyte Esterase, Urine 3+ (Neg); Nitrite, Urine Neg (Neg); Protein, Urine 3+ (Neg); Specific Gravity, Urine 1.005 (1.003-1.022); Urobilinogen, Urine NORM (Normal)
[2022-12-17 04:00] LABS: Appearance, Urine Hazy (Clear); Color, Urine Yellow (P-Yellow)
[2022-12-17 04:01] LABS: Amorphous Light (0-Heavy); Bacteria Many /hpf; Red Blood Cells, Urine 0-2 /hpf (0-2); Squamous Epithelial Cells Not Seen /hpf (Few); White Blood Cells, Urine TNTC /hpf (0-5)
--- NOTE | 2022-12-17 05:35 | NUR ---
SUMMARY: PATIENT QUINTEROS DRAINING AT START OF SHIFT. NOTICED NO DRAINAGE AFTER 1999 WHEN IT WAS EMPTIED. ATTEMPTED TO IRRIGATE EXISTING QUINTEROS AND IT WAS CLOGGED WITH PUSS DRAINGING OUT AROUND CATHETER AT INSERTION SITE. QUINTEROS WAS NOT EXCHANGED ON ADMISSION DUE TO PATIENT REFUSAL. PATIENT AGREED TO ALLOW STAFF TO CHANGE QUINTEROS. FEW ATTEMPTS WERE MADE WITH SUCCESS ON AN 18 SAMI COUDE CATHETER. 900ML OF URINE WITH PUSS LIKE SEDEMENT DRAINED FROM CATHETER. PATIENT ALSO HAD POSITIVE BLOOD CULTURES RESULT OVERNIGHT. NOTIFIED MD OF EVENTS AND THAT PATIENT WAS NOT ON ANTIBIOTICS. VANC STARTED THIS AM. BICARB DRIP RUNNING OVERNIGHT. PATIENT IRRITABLE WITH STAFF PROVIDING CARE. BED ALARM ONLINE CONTENT DEVELOPER LIGHT IN REACH.
[2022-12-17 05:40] LABS: Bun/Creatinine Ratio 18.4 (12.0-20.0); Calcium, Blood 7.3 mg/dL (8.5-10.1); Creatinine, Blood 4.23 mg/dL (0.60-1.20); Potassium, Blood 4.4 mmol/L (3.5-5.5)
--- NOTE | 2022-12-17 06:21 | NUR ---
LAB CALLED THIS AM TO CLARIFY THAT BLOOD CULTURE WAS GROWING GRAM - RODS. PATIENT STARTED ON VANC THIS AM.
--- NOTE | 2022-12-17 15:33 | NUR ---
SHIFT SUMMARY PATIENT IS ALERT AND ORIENTED X3. PATIENT HAS INTERMITTENT CONFUSION. SODIUM BICARB INFUSING AT 100/HR THIS SHIFT. NO ACUTE EVENTS THIS SHIFT. VITAL SIGNS REVIEWED. PATIENT HAS NOT HAD ANY COMPLAINTS OF PAIN, NAUSEA, SOB OR VOMITTING. QUINTEROS DRAINING TO GRAVITY. BED IN LOCKED AND LOWEST POSITION. CALL LIGHT IN PLACE. WILL MONITOR UNTIL SHIFT CHANGE.
--- NOTE | 2022-12-18 04:02 | NUR ---
SHIFT UNREMARKABLE. PT HAS SLEPT THROUGH MOST OF SHIFT. IV RUNNING SODIUM BICARBONATE THROUGHOUT SHIFT. FREQUENT DISTAL OCCLUSIONS, ALLEVIATED AFTER ARM WAS PLACED ON TOP OF PILLOW TO EXTEND ELBOW. PT HAS CONTINUED TO DENY PAIN. QUINTEROS INTACT AND DRAINING WELL. Q2 HOUR TURNS. CALL LIGHT LEFT WITHIN REACH.
[2022-12-18 05:53] LABS: Anion Gap 8 mmol/L (6-16); Blood Urea Nitrogen 74 mg/dL (8-24); Bun/Creatinine Ratio 17.8 (12.0-20.0); CO2, Blood 18 mmol/L (21-32); Calcium, Blood 7.3 mg/dL (8.5-10.1); Chloride, Blood 113 mmol/L (98-108); Creatinine, Blood 4.16 mg/dL (0.60-1.20); Glomerular Filtration Rate 15 (60-); Glucose, Blood 83 mg/dL (70-99); Potassium, Blood 4.4 mmol/L (3.5-5.5); Sodium, Blood 139 mmol/L (136-145); Vancomycin, Random 14.2 ug/mL
--- NOTE | 2022-12-18 18:06 | NUR ---
Pt resting in bed upon arrival. Pt denies pain, dyspnea, and anxiety. Pt reports living with a roomate and is wheel chair bound at baseline. He reports abiltity to transfer himself and is indepenent of his ADLs. Pt reports never being and having no children. He does report having a brother who lives in [facility], a sister who lives in [place], and another brother but is unsure where he lives. Engaged in therapeutic discusion regarding advanced directives. Discussed the importance of appointing a healthcare commercial sales representative in the event he can not speak for himself. Pt reports he will consider completeing. Instructed on each section to complete and offered Pt assistance with completing if interested. Pt will consider offer. Discussed code status wishes. Educated on life sustaining treatments including risk factors and implications of CPR. Pt will consider his wishes but would like to keep code status the same for now which is DNI. Pt expresses appreciation and reports no concerns at this time. Palliative Care will remain available.
--- NOTE | 2022-12-18 18:17 | NUR ---
SHIFT SUMMARY: PT A&O X4. PT HAS BEEN PLEASANT AND COOPERATIVE WITH CARE. NO ACUTE CHANGES WITH PT THIS SHIFT. PT HAS NOT C/O ANY PAIN OR N/V. QUINTEROS PATENT AND DRAINING TO GRAVITY. PT CONTINUES TO HAVE 3-4+ EDEMA IN BLE AND SCROTUM. PT STARTED ON MERREM THIS SHIFT. RECEIVED CALL FROM SVETA, PERSON TO NOTIFY, AROUND 1820 EXPRESSING CONCERNS WITH BM'S, FOOD INTAKE, AND LAB RESULTS. [facility] STATES PT WAS NOT COGNITIVE YESTERDAY. I STATED TO FAMILY THAT PT HAS NOT SHOWN ANY ABNORMALTIES THIS SHIFT AND HAS BEEN VERY PLEASANT, TALKATIVE, AND EATING WELL. CALL LIGHT IN REACH. BED IN LOWEST POSITION. WILL CONTINUE TO MONITOR.
--- NOTE | 2022-12-19 03:47 | NUR ---
SHIFT UNREMARKABLE. PT TOOK 2100 MEDICATIONS WITHOUT DIFFICULTY. HAS SLEPT THROUGH MOST OF SHIFT. IRRITABLE FOR POSITIONAL CHANGES. QUINTEROS INTACT AND DRAINING WELL. PER DAY SHIFT REPORT PLAN IS FOR PATIENT TO BE DISCHARGED TODAY ON DAY SHIFT. PT IS ANXIOUS TO BE DISCHARGED. BED LOCKED IN LOWEST POSITION. CALL LIGHT LEFT WITHIN REACH.
[2022-12-19 09:25] LABS: Bun/Creatinine Ratio 19.7 (12.0-20.0); Calcium, Blood 7.7 mg/dL (8.5-10.1); Creatinine, Blood 3.71 mg/dL (0.60-1.20); Potassium, Blood 4.5 mmol/L (3.5-5.5)
[2022-12-19 09:26] LABS: Hemoglobin 7.9 g/dL (13.5-17.5); Mean Corpuscular HGB 25.4 pg (26.0-34.0); Mean Corpuscular HGB Conc 30.4 g/dL (31.5-36.5); Mean Corpuscular Volume 84 fL (80-100); Mean Platelet Volume 9.2 fL (9.1-12.4); Platelet Count 398 K/mm3 (150-400); RDW Coefficient Variation 19.9 % (11.7-14.2); RDW Standard Deviation 60.4 fL (35.1-46.3); Red Blood Cell Count 3.11 M/mm3 (4.30-5.90); White Blood Cell Count 9.64 K/mm3 (4.00-11.30)
[2022-12-19 09:39] LABS: Vancomycin, Random 19.2 ug/mL
--- NOTE | 2022-12-19 17:56 | NUR ---
PT IS A/O, PLESANT AND COOPERTAVIE. CAREGIVER WAS IN THIS SHIFT DISCUSSED PENDING CULTURES WITH HER. HIS QUINTEROS IS PATINET AND DRAINING. RECIEVING IV ABX. HE SLEPT INTERMITENTLY THROUGHOUT THIS SHIFT. HIS BED IS IN THE LOW POSITON AND CALL LIGHT IS WITIN REACH.
--- NOTE | 2022-12-20 04:09 | NUR ---
SHIFT SUMMARY NO ACUTE CHANGES OVERNIGHT. THE PT IS AXO X4 AND ON BEDREST. THE PT HAS BEEN SLEEPING FOR THE MAJORITY OF THE NIGHT. THE PTS QUINTEROS IS IN PLACE, IT IS PATENT WITH MINIMAL LEAKING, DRAINING TO GRAVITY. THE PT DENIES ANY PAIN, SOB, CHEST PAIN/PRESSURE THIS SHIFT. CURRENTLY THE PT IS RESTING IN BED WITH THE BED IN THE LOWEST POSITION AND THE CALL LIGHT AT BEDSIDE.
[2022-12-20 06:50] LABS: Anion Gap 7 mmol/L (6-16); Blood Urea Nitrogen 78 mg/dL (8-24); Bun/Creatinine Ratio 23.2 (12.0-20.0); CO2, Blood 19 mmol/L (21-32); Calcium, Blood 7.7 mg/dL (8.5-10.1); Chloride, Blood 117 mmol/L (98-108); Creatinine, Blood 3.36 mg/dL (0.60-1.20); Glomerular Filtration Rate 19 (60-); Glucose, Blood 84 mg/dL (70-99); Potassium, Blood 5.8 mmol/L (3.5-5.5); Sodium, Blood 143 mmol/L (136-145); Vancomycin, Random 16.6 ug/mL
--- NOTE | 2022-12-20 12:46 | NUR ---
MINIMAL INTERACTION, RESISTANT TO REPOSITION, LIFT SHEET UNDER PATIENT, MAKES NEEDS KNOWN, NO ACUTE CHANGES OR DISTRESS, CALL LIGHT WITH IN REACH
--- NOTE | 2022-12-20 15:13 | NUR ---
juan rounding on patient
[2022-12-20] MEDS ORDERED: BUME1 PO (15:40)
== END 2022-12-20 18:41 | disposition home or self-care (01) | DRG 699 ==
LOC: ER 15:21 → MEDS 20:44
PROVIDERS: Emergency Medicine; Family Medicine; Student in an Organized Health Care Education/Training Program; ADMIT Internal Medicine
PROC: 0T2BX0Z Change Drainage Device in Bladder, External Approach (ICD-10-PCS; principal; 2022-12-16)
DX: T83.511A Infection and inflammatory reaction due to indwelling urethral catheter, initial encounter (principal); A52.16 Charcot's arthropathy (tabetic); G82.20 Paraplegia, unspecified; N17.9 Acute kidney failure, unspecified; R78.81 Bacteremia; N39.0 Urinary tract infection, site not specified; R74.01 Elevation of levels of liver transaminase levels; D47.3 Essential (hemorrhagic) thrombocythemia; E88.09 Other disorders of plasma-protein metabolism, not elsewhere classified; E83.51 Hypocalcemia; I95.9 Hypotension, unspecified; Q05.9 Spina bifida, unspecified; N25.89 Other disorders resulting from impaired renal tubular function; B95.62 Methicillin resistant Staphylococcus aureus infection as the cause of diseases classified elsewhere; B96.5 Pseudomonas (aeruginosa) (mallei) (pseudomallei) as the cause of diseases classified elsewhere; B95.2 Enterococcus as the cause of diseases classified elsewhere; E11.649 Type 2 diabetes mellitus with hypoglycemia without coma; D63.1 Anemia in chronic kidney disease; E11.22 Type 2 diabetes mellitus with diabetic chronic kidney disease; I12.9 Hypertensive chronic kidney disease with stage 1 through stage 4 chronic kidney disease, or unspecified chronic kidney disease; N31.9 Neuromuscular dysfunction of bladder, unspecified; N18.30 Chronic kidney disease, stage 3 unspecified; B96.20 Unspecified Escherichia coli [E. coli] as the cause of diseases classified elsewhere; Z98.890 Other specified postprocedural states; Z98.1 Arthrodesis status; Z96.652 Presence of left artificial knee joint; Z88.0 Allergy status to penicillin; Y84.6 Urinary catheterization as the cause of abnormal reaction of the patient, or of later complication, without mention of misadventure at the time of the procedure; Z88.8 Allergy status to other drugs, medicaments and biological substances; Z88.1 Allergy status to other antibiotic agents; Z91.041 Radiographic dye allergy status; Z79.899 Other long term (current) drug therapy; Z79.811 Long term (current) use of aromatase inhibitors; Z79.2 Long term (current) use of antibiotics; Z87.891 Personal history of nicotine dependence
CPT/HCPCS: 36415; 80048; 80053; 80202; 81001; 82947; 84132; 85025; 85027; 87040; 87076; 87077; 87086; 87186; 93005; 93010; 99285-25; A9270; J0696; J1650; J2185; J2405; J3370; J7030; J7050; J7070; J7120; J7121

== ENCOUNTER → 2022-12-31 | Outpatient (CLI) | payer MEDICARE, OTHER ==
[~2022-12-31] MED LIST changes: +BUME1 PO
[2022-12-31 18:21] LABS: Anion Gap 4 mmol/L (6-16); Blood Urea Nitrogen 67 mg/dL (8-24); Bun/Creatinine Ratio 27.5 (12.0-20.0); CO2, Blood 17 mmol/L (21-32); Calcium, Blood 8.4 mg/dL (8.5-10.1); Chloride, Blood 118 mmol/L (98-108); Creatinine, Blood 2.44 mg/dL (0.60-1.20); Ferritin, Serum 120 ng/mL (26-388); Glomerular Filtration Rate 28 (60-); Glucose, Blood 102 mg/dL (70-99); Iron Serum 21 ug/dL (65-175); Phosphorus, Blood 5.3 mg/dL (2.5-4.9); Potassium, Blood 4.9 mmol/L (3.5-5.5); Sodium, Blood 139 mmol/L (136-145)
== END | disposition home or self-care (01) ==
LOC: LAB HH 15:23 → LAB SHORT 15:23
PROVIDERS: Internal Medicine Nephrology
DX: I12.9 Hypertensive chronic kidney disease with stage 1 through stage 4 chronic kidney disease, or unspecified chronic kidney disease (principal); E11.22 Type 2 diabetes mellitus with diabetic chronic kidney disease; N18.4 Chronic kidney disease, stage 4 (severe); D63.1 Anemia in chronic kidney disease
CPT/HCPCS: 80069; 82306; 82728; 83540; 83970

== ENCOUNTER 2023-01-12 09:40 | Inpatient (IN) | payer MEDICARE, OTHER ==
[~2023-01-12] VITALS: Ht 170.2 cm; Wt 129.0 kg
[2023-01-12 10:24] LABS: BASOPHILS ABSOLUTE AUTO 0.06 K/mm3 (0.00-0.23); BASOPHILS PERCENT AUTO 1 % (0-2); EOSINOPHILS ABSOLUTE AUTO 0.87 K/mm3 (0.00-0.68); EOSINOPHILS PERCENT AUTO 9 % (0-6); Hematocrit 29.7 % (37.0-53.0); Hemoglobin 8.6 g/dL (13.5-17.5); IMMATURE GRAN ABSOLUTE AUTO 0.08 K/mm3 (0.00-0.10); IMMATURE GRAN PERCENT AUTO 1 % (0-1); LYMPHOCYTES PERCENT AUTO 12 % (21-46); MONOCYTES ABSOLUTE AUTO 0.65 K/mm3 (0.16-1.47); MONOCYTES PERCENT AUTO 7 % (4-13); Mean Corpuscular HGB 25.8 pg (26.0-34.0); Mean Corpuscular Volume 89 fL (80-100); Mean Platelet Volume 9.6 fL (9.1-12.4); NEUTROPHILS ABSOLUTE AUTO 6.92 K/mm3 (1.96-9.15); NEUTROPHILS PERCENT AUTO 71 % (41-73); Platelet Count 410 K/mm3 (150-400); RDW Coefficient Variation 20.6 % (11.7-14.2); Red Blood Cell Count 3.33 M/mm3 (4.30-5.90); White Blood Cell Count 9.78 K/mm3 (4.00-11.30)
[2023-01-12 10:41] LABS: Albumin, Blood 2.4 g/dL (3.4-5.0); Albumin/Globulin Ratio 0.5 (0.8-1.8); Bilirubin, Total 0.2 mg/dL (0.1-1.0); Bun/Creatinine Ratio 21.6 (12.0-20.0); Calcium, Blood 8.4 mg/dL (8.5-10.1); Creatinine, Blood 3.84 mg/dL (0.60-1.20); Globulin, Blood 5.1 g/dL (2.2-4.0); Potassium, Blood 5.3 mmol/L (3.5-5.5); Total Protein, Blood 7.5 g/dL (6.4-8.2)
[2023-01-12 12:26] LABS: Source, Urine Foley catheter
[2023-01-12 12:29] LABS: Bilirubin, Urine Neg (Neg); Blood, Urine 4+ (Neg); Glucose Qualitative, Urine Neg (Neg); Ketones, Urine Neg (Neg); Leukocyte Esterase, Urine 3+ (Neg); Nitrite, Urine Neg (Neg); Protein, Urine 3+ (Neg); Specific Gravity, Urine 1.015 (1.003-1.022); Urobilinogen, Urine NORM (Normal); pH, Urine 6.5 (5.0-8.0)
[2023-01-12 12:48] LABS: Appearance, Urine Cloudy (Clear); Color, Urine Yellow (P-Yellow)
[2023-01-12 12:50] LABS: Bacteria Many /hpf; Red Blood Cells, Urine 0-2 /hpf (0-2); Squamous Epithelial Cells Few /hpf (Few); White Blood Cells, Urine TNTC /hpf (0-5)
--- NOTE | 2023-01-12 19:37 | NUR ---
PATIENT TO FLOOR AT 1840, SHEETS CLEAN AND DRY, ORIENTED TO HOSPITAL ROOM, REPORTED TO PM RN
--- NOTE | 2023-01-13 04:38 | NUR ---
ASSISTANT HEALTH EDUCATOR SUMMARY PT NEW TO THE FLOOR AT THE START OF THE SHIFT. AOX4, BEDREST. HE STATES HE USES A WC AT HOME. NEW MEPALEX APPLIED T/O, REPOSITIONED. PT HAS HAD NO C/O P/N/V/CP/SOB. PT ALSO PROVIDED A PARTIAL BED BATH HE REFUSED A FULL BED BATH. HE HAS BEEN PLEASANT AND COOPERATIVE. BED IN THE LOWEST POSITION, CALL LIGHT WITHIN REACH. WILL REPORT TO ONCOMING NURSE.
--- NOTE | 2023-01-13 04:43 | NUR ---
TURNER OFF SUMMARY PT A NEW ADMIT THIS SHIFT, CURRENTLY EXPERIENCING EXPRESSIVE APHASIA SO HISTORY WAS DIFFICULT TO OBTAIN. HIS WAS AT THE BS IN THE ED AND MAY BE ABLE TO PROVIDE MORE INFORMATION. PT IS CURRENTLY NPO AND ON Q 6 CBG. HE IS ON 2L NC AND NO OXYGEN AT BASELINE. PT WAS GIVEN LOVENOX UPON ARRIVAL AND THE AM DOSE ON 01/13 AT 0900 SHOULD BE HELD AND RESUMED ON 01/14 PER PHARMACY. PER HIS , HE STRAIGHT CATHS HIMSELF AT HOME 4X'S DAILY. HE HAS HAD NO C/O P/N/V/CP/SOB. HE RESPONDS TO QUESTIONS BY A NOD, AN EYE BLINK, OR SIMPLY WILL NOT RESPOND AT ALL. CALL LIGHT IS WITHIN REACH, BED IN THE LOWEST POSITION. WILL REPORT TO ONCOMING NURSE.
[2023-01-13 05:18] LABS: Hematocrit 30.4 % (37.0-53.0); Hemoglobin 8.9 g/dL (13.5-17.5); Mean Corpuscular HGB 25.9 pg (26.0-34.0); Mean Corpuscular HGB Conc 29.3 g/dL (31.5-36.5); Mean Corpuscular Volume 89 fL (80-100); Mean Platelet Volume 9.4 fL (9.1-12.4); Platelet Count 404 K/mm3 (150-400); RDW Coefficient Variation 20.7 % (11.7-14.2); RDW Standard Deviation 67.1 fL (35.1-46.3); Red Blood Cell Count 3.43 M/mm3 (4.30-5.90); White Blood Cell Count 10.38 K/mm3 (4.00-11.30)
[2023-01-13 05:54] LABS: Magnesium, Blood 1.9 mg/dL (1.6-2.4)
[2023-01-13 05:57] LABS: Alanine Aminotransfer (ALT/SGP 15 U/L (12-78); Albumin, Blood 2.3 g/dL (3.4-5.0); Albumin/Globulin Ratio 0.5 (0.8-1.8); Alk Phos 77 U/L (50-136); Anion Gap 11 mmol/L (6-16); Aspartate Aminotrans (AST/SGOT 12 U/L (12-37); Bilirubin, Total 0.2 mg/dL (0.1-1.0); Blood Urea Nitrogen 82 mg/dL (8-24); Bun/Creatinine Ratio 20.9 (12.0-20.0); CO2, Blood 8 mmol/L (21-32); Calcium, Blood 8.3 mg/dL (8.5-10.1); Chloride, Blood 121 mmol/L (98-108); Creatinine, Blood 3.92 mg/dL (0.60-1.20); Globulin, Blood 4.9 g/dL (2.2-4.0); Glomerular Filtration Rate 16 (60-); Glucose, Blood 72 mg/dL (70-99); Potassium, Blood 5.4 mmol/L (3.5-5.5); Sodium, Blood 140 mmol/L (136-145); Total Protein, Blood 7.2 g/dL (6.4-8.2); Vancomycin, Random 19.8 ug/mL
--- NOTE | 2023-01-13 06:06 | NUR ---
CRITICAL LAB VALUE NOTIFED BY LAB OF A CO2 LEVEL OF 8. THE PROVIDER, DR. JOHNSON WAS NOTIFIED.
[2023-01-13 08:13] VITALS: BP 127/66
[2023-01-13 16:01] VITALS: BP 125/79
[2023-01-13 18:23] LABS: Albumin, Blood 2.4 g/dL (3.4-5.0); Anion Gap 10 mmol/L (6-16); Blood Urea Nitrogen 79 mg/dL (8-24); Bun/Creatinine Ratio 19.9 (12.0-20.0); CO2, Blood 10 mmol/L (21-32); Calcium, Blood 8.2 mg/dL (8.5-10.1); Chloride, Blood 122 mmol/L (98-108); Creatinine, Blood 3.97 mg/dL (0.60-1.20); Glomerular Filtration Rate 16 (60-); Glucose, Blood 82 mg/dL (70-99); Phosphorus, Blood 5.7 mg/dL (2.5-4.9); Potassium, Blood 5.5 mmol/L (3.5-5.5); Sodium, Blood 142 mmol/L (136-145)
[2023-01-13 19:43] VITALS: BP 117/66
[2023-01-14 05:30] LABS: Vancomycin, Random 24.9 ug/mL
[2023-01-14 08:02] VITALS: BP 115/68
--- NOTE | 2023-01-14 12:59 | NUR ---
AM ASSESSMENT I WAS PRESENT DURING THE [facility] STUDENT ANDREW BUTLER ASSESSMENT ON THIS PT AND AGREE WITH THE ASSESSMENT AND DOCUMENTATION ON THE PATIENT
[2023-01-14 16:30] VITALS: BP 132/71
--- NOTE | 2023-01-14 16:58 | NUR ---
SHIFT SUMMARY: ED CONTINUES WITH BED REST THIS SHIFT. HE IS A&O X 1, ABLE TO MAKE NEEDS KNOWN. HE CONTINUES ON IV THERAPY AND FLUIDS. HE DENIES ANY CHEST PAIN OR DISCOMFORT. EDEMA BLE EDEMA 2+, SCROTUM EDEMA AND BUE. RESPIRATIONS ARE EVEN UNLABORED, NO COUGH. BOWEL TONES PRESENT HAS A GOOD APETITE FOOD AND FLUIDS. HE IS ABLE TO ASSIST WITH BED MOBILITY TO THE LEFT SIDE. SUPRA PUBIC CATHETER DRAINING YELLOW URINE. HE CONTINUES TO NEED TOTAL ASSIST FOR ADL'S. DRESSING TO COCCYX AND RT BUTTOCK CHANGED, BLE DRESSINGS CDI. CAREGIVERS IN TO VISIT THIS AFTERNOON AND PLAN TO RETURN TOMORROW. BED CONTROL AND CALL LIGHT IN REACH.
[2023-01-14 20:35] VITALS: BP 113/56
[2023-01-15 03:36] VITALS: BP 146/72
--- NOTE | 2023-01-15 04:58 | NUR ---
ATTEMPT Q2HR TURNS, PT REFUSING AT TIMES, Q3-4 HR TURNS WITH STOOL CLEANED DURING TURNS.
--- NOTE | 2023-01-15 06:35 | NUR ---
FRIEND/CAREGIVER BROUGHT IN SOME OF PTS HOME MEDS LATE IN EVENING. IN PT LOCKED DRAWER AT THIS TIME.
[2023-01-15 07:32] LABS: Anion Gap 5 mmol/L (6-16); Blood Urea Nitrogen 73 mg/dL (8-24); Bun/Creatinine Ratio 20.3 (12.0-20.0); CO2, Blood 15 mmol/L (21-32); Calcium, Blood 7.6 mg/dL (8.5-10.1); Chloride, Blood 120 mmol/L (98-108); Glomerular Filtration Rate 18 (60-); Glucose, Blood 120 mg/dL (70-99); Phosphorus, Blood 5.1 mg/dL (2.5-4.9); Potassium, Blood 4.4 mmol/L (3.5-5.5); Sodium, Blood 140 mmol/L (136-145)
[2023-01-15 08:09] VITALS: BP 137/72
[2023-01-15 16:24] VITALS: BP 141/80
--- NOTE | 2023-01-15 16:33 | NUR ---
SHIFT SUMMARY: A&O X 3, USES CALL LIGHT TO MAKE NEEDS KNOWN. VSS. NO COMPLAINTS OF CHEST PAIN OR DISCOMOFRT. NO SOB OR RESPIRATORY DISTRESS. EDEMA BLE 3+ PITTING. DRESSINGS IN PLACE CDI. LUNG SOUNDS CLEAR AND DIM. CONTINUES ON RA. BOWEL TONES PRESENT ALL 4 QUADRANTS GOOD APPETITE. QUINTEROS DRAINIG YELLOW URINE, GOOD PO INTAKE. REPOSITIONING IN BED AND PILLOWS FOR OFFLOADING. PT CONTINUES ON IV ABX THERAPY AND D5 HYDRATION. PLAN IS FOR PT TO DISCHARGE HOME TOMORROW AND SPOUSE WILL CONTINUE IV THERAPY IN THE HOME. SHE DOES HAVE A DENTAL APPT IN THE AFTERNOON @ 1400 IS REQUESTING DISCHARGE AFTER THAT. BS CONTINUE TO BE LESS THAT 125 Q 4 HOUR CHECKS, BS 101 @ 1643. CALL LIGHT WITHIN REACH.
[2023-01-15 19:32] VITALS: BP 141/77
[2023-01-15] MEDS ORDERED: Prinivil10 MG PO (21:43)
[2023-01-15] MEDS ORDERED: AZIT250 PO (21:44)
--- NOTE | 2023-01-15 21:56 | NUR ---
ENTERED PT ROOM AND PT ON PHONE WITH FRIEND AND VERY CONFUSED " THIS IS MY APARTMENT, WHERE IS MY CLOSET?" UNABLE TO GIVE YEAR, OR TIME OF DAY. CBG CHECKED WITH 115 RESULT. PT NOW MORE ORIENTED. NOTIFIED DR SPENCER OF PT BEHAVIOUR. NO NEW ODERS
[2023-01-16 04:26] VITALS: BP 169/87
[2023-01-16 07:29] VITALS: BP 156/79
[2023-01-16 08:47] LABS: Albumin, Blood 2.1 g/dL (3.4-5.0); Anion Gap 2 mmol/L (6-16); Blood Urea Nitrogen 67 mg/dL (8-24); CO2, Blood 23 mmol/L (21-32); Calcium, Blood 7.9 mg/dL (8.5-10.1); Chloride, Blood 117 mmol/L (98-108); Creatinine, Blood 3.19 mg/dL (0.60-1.20); Glomerular Filtration Rate 20 (60-); Glucose, Blood 99 mg/dL (70-99); Phosphorus, Blood 4.7 mg/dL (2.5-4.9); Potassium, Blood 4.3 mmol/L (3.5-5.5); Sodium, Blood 142 mmol/L (136-145)
[2023-01-16] MEDS ORDERED: DOCUZEN 8.6-501 EACH PO (11:25)
[2023-01-16] MEDS ORDERED: MEROPENEM500 M1 IV (11:27)
[2023-01-16] MEDS ORDERED: MIRALAX17 GM PO (11:28)
[2023-01-16] MEDS ORDERED: VISBIOME 112.51 EACH PO (11:29)
--- NOTE | 2023-01-16 16:59 | NUR ---
SHIFT SUMMARY: PATIENT IN BED THIS SHIFT CONTINUES ON IV ABX. A&O X 2-3 THIS AM, AND IS MORE CONFUSED THIS AFTERNOON. PT WILL BE DISHCARGING HOME THIS EVENING AND WILL CONTINUE IV THERAPY AT HOME. HIS IV FLUIDS WERE STOPPED THIS MORNING. A POWER GLIDE PRO WAS PLACE IN HIS RUE AND FLUSHES WELL. HE DENIES ANY CHEST PAIN OR DISCOMFORT. RESPIRATIONS ARE EVEN UNLABORED, NO COMPLAINTS OF RESPIRATORY DISTRESS. HE CONTINUES ON RA. EDEMA BLE AND SCROTUM 3+ PITTING. BOWEL TONES ALL 4 QUADRANTS GOOD APPETITE. QUINTEROS PATENT DRAINING YELLOW URINE. DRESSINGS CHANGED TO COCCYX AND BLE. HE DENIES ANY PAIN AND WILL BE PICKED UP AND TAKEN HOME BY WHEEL CHAIR TRANSPORT.
--- NOTE | 2023-01-16 17:50 | NUR ---
PATIENT DISCHARGED @ 1750 HRS THIS EVENING, [facility] RO[facility] TO HOME VIA [facility] TRANSP[facility]. CALL PLACE TO SPOUSE TO UPDATE ON HIM LEAVING THE HOSPITAL.
== END 2023-01-16 17:45 | disposition home or self-care (01) | DRG 699 ==
LOC: ER 09:40 → MEDS 15:04
PROVIDERS: Family Medicine; Internal Medicine; ADMIT Internal Medicine
PROC: 0T2BX0Z Change Drainage Device in Bladder, External Approach (ICD-10-PCS; principal; 2023-01-12)
DX: T83.511A Infection and inflammatory reaction due to indwelling urethral catheter, initial encounter (principal); A52.16 Charcot's arthropathy (tabetic); N17.9 Acute kidney failure, unspecified; E87.20 Acidosis, unspecified; G82.20 Paraplegia, unspecified; Z16.20 Resistance to unspecified antibiotic; N18.4 Chronic kidney disease, stage 4 (severe); Z68.42 Body mass index [BMI] 45.0-49.9, adult; N39.0 Urinary tract infection, site not specified; D63.1 Anemia in chronic kidney disease; K59.00 Constipation, unspecified; L89.90 Pressure ulcer of unspecified site, unspecified stage; F41.8 Other specified anxiety disorders; E11.22 Type 2 diabetes mellitus with diabetic chronic kidney disease; Q05.9 Spina bifida, unspecified; I12.9 Hypertensive chronic kidney disease with stage 1 through stage 4 chronic kidney disease, or unspecified chronic kidney disease; E66.01 Morbid (severe) obesity due to excess calories; E11.649 Type 2 diabetes mellitus with hypoglycemia without coma; N31.9 Neuromuscular dysfunction of bladder, unspecified; B96.20 Unspecified Escherichia coli [E. coli] as the cause of diseases classified elsewhere; B96.5 Pseudomonas (aeruginosa) (mallei) (pseudomallei) as the cause of diseases classified elsewhere; Y84.6 Urinary catheterization as the cause of abnormal reaction of the patient, or of later complication, without mention of misadventure at the time of the procedure; B96.4 Proteus (mirabilis) (morganii) as the cause of diseases classified elsewhere; Z88.0 Allergy status to penicillin; Z88.1 Allergy status to other antibiotic agents; Z91.041 Radiographic dye allergy status; Z86.14 Personal history of Methicillin resistant Staphylococcus aureus infection; Z79.899 Other long term (current) drug therapy; Z98.890 Other specified postprocedural states; Z98.1 Arthrodesis status; Z96.652 Presence of left artificial knee joint; Z87.891 Personal history of nicotine dependence; Z99.3 Dependence on wheelchair; Z87.442 Personal history of urinary calculi; Z74.01 Bed confinement status
CPT/HCPCS: 36415; 51702; 74018; 80053; 80069; 80202; 81001; 82947; 83735; 85025; 85027; 87077; 87086; 87186; 96361-59; 96374-59; 96375-59; 99285-25; A9270; C1751; J0696; J1644; J2185; J2405; J3370; J7030; J7050; J7070; J7120

== ENCOUNTER → 2023-01-21 | Outpatient (CLI) | payer MEDICARE, OTHER ==
[~2023-01-21] MED LIST changes: +AZIT250 PO; +DOCUZEN 8.6-501 EACH PO; +MEROPENEM500 M1 IV
[2023-01-21 15:55] LABS: Albumin, Blood 2.3 g/dL (3.4-5.0); Anion Gap 2 mmol/L (6-16); Blood Urea Nitrogen 55 mg/dL (8-24); Bun/Creatinine Ratio 25.9 (12.0-20.0); CO2, Blood 23 mmol/L (21-32); Calcium, Blood 8.1 mg/dL (8.5-10.1); Chloride, Blood 115 mmol/L (98-108); Creatinine, Blood 2.12 mg/dL (0.60-1.20); Glomerular Filtration Rate 33 (60-); Glucose, Blood 117 mg/dL (70-99); Phosphorus, Blood 4.4 mg/dL (2.5-4.9); Potassium, Blood 4.8 mmol/L (3.5-5.5); Sodium, Blood 140 mmol/L (136-145)
== END | disposition home or self-care (01) ==
LOC: LAB SHORT 14:16 → LAB 14:16
PROVIDERS: Internal Medicine Nephrology
DX: N18.30 Chronic kidney disease, stage 3 unspecified (principal); D63.1 Anemia in chronic kidney disease; N39.0 Urinary tract infection, site not specified; B96.20 Unspecified Escherichia coli [E. coli] as the cause of diseases classified elsewhere
CPT/HCPCS: 80069; 85018

== ENCOUNTER 2023-04-18 17:29 | Inpatient (IN) | payer MEDICARE, OTHER ==
[~2023-04-18] VITALS: Ht 170.2 cm; Wt 120.7 kg
[2023-04-18 18:16] LABS: Albumin/Globulin Ratio 0.4 (0.8-1.8); Bilirubin, Total 0.2 mg/dL (0.1-1.0); Bun/Creatinine Ratio 19.8 (12.0-20.0); Calcium, Blood 8.4 mg/dL (8.5-10.1); Creatinine, Blood 3.39 mg/dL (0.60-1.20); Globulin, Blood 5.3 g/dL (2.2-4.0); Potassium, Blood 6.3 mmol/L (3.5-5.5); Total Protein, Blood 7.3 g/dL (6.4-8.2)
[2023-04-18 19:34] LABS: BASOPHILS ABSOLUTE AUTO 0.05 K/mm3 (0.00-0.23); BASOPHILS PERCENT AUTO 0 % (0-2); EOSINOPHILS PERCENT AUTO 6 % (0-6); Hematocrit 30.7 % (37.0-53.0); Hemoglobin 9.3 g/dL (13.5-17.5); IMMATURE GRAN ABSOLUTE AUTO 0.05 K/mm3 (0.00-0.10); IMMATURE GRAN PERCENT AUTO 0 % (0-1); LYMPHOCYTES ABSOLUTE AUTO 0.92 K/mm3 (0.84-5.20); LYMPHOCYTES PERCENT AUTO 7 % (21-46); MONOCYTES ABSOLUTE AUTO 0.89 K/mm3 (0.16-1.47); MONOCYTES PERCENT AUTO 7 % (4-13); Mean Corpuscular HGB 25.5 pg (26.0-34.0); Mean Corpuscular HGB Conc 30.3 g/dL (31.5-36.5); Mean Corpuscular Volume 84 fL (80-100); Mean Platelet Volume 9.7 fL (9.1-12.4); NEUTROPHILS ABSOLUTE AUTO 10.56 K/mm3 (1.96-9.15); NEUTROPHILS PERCENT AUTO 80 % (41-73); Platelet Count 432 K/mm3 (150-400); RDW Coefficient Variation 17.2 % (11.7-14.2); RDW Standard Deviation 53.6 fL (35.1-46.3); Red Blood Cell Count 3.65 M/mm3 (4.30-5.90); White Blood Cell Count 13.27 K/mm3 (4.00-11.30)
[2023-04-18 20:07] LABS: Source, Urine Foley catheter
[2023-04-18 20:09] LABS: Bilirubin, Urine Neg (Neg); Blood, Urine 5+ (Neg); Glucose Qualitative, Urine Neg (Neg); Ketones, Urine Neg (Neg); Leukocyte Esterase, Urine 3+ (Neg); Nitrite, Urine Neg (Neg); Protein, Urine 2+ (Neg); Urobilinogen, Urine NORM (Normal)
[2023-04-18 20:13] LABS: Appearance, Urine Cloudy (Clear); Color, Urine Yellow (P-Yellow)
[2023-04-18 20:30] LABS: Bacteria Many /hpf; Squamous Epithelial Cells Rare /hpf (Few); White Blood Cells, Urine TNTC /hpf (0-5)
[2023-04-18 20:31] LABS: Transitional Epithelial Cells Few /hpf (0-Rare)
[2023-04-18 23:45] VITALS: BP 114/94
--- NOTE | 2023-04-19 | NUR ---
SAFETY & EDUCATION / ARRIVAL TO U20 PT & FAMILY EDUCATED RE: IGNITION SOURCES AND RISK OF INJURY WHILE OXYGEN IS IN USE. PT DENIES SMOKING & PT AND FAMILY VERBALIZE UNDERSTANDING. PT ARRIVED TO U20 AT APPROXIMATELY 2330. PT SLID OVER FROM ER GURNEY TO HOSPITAL BED BY 3 CLINICAL STAFF MEMBERS. PT A&Ox4, COMMUNICATES NEEDS APPROPRIATELY. BP STABLE, SINUS 80's, DENIES CP/PRESSURE. SpO2> 92% RA, DENIES SOB. CHRONIC QUINTEROS CATH IN PLACE, PATENT AND DRIANING TO GRAVITY. BLOOD NOTED AT [facility], CLEANED AND APPLIED STAT LOCK. PT DENIES PAIN, PROPER PLACEMENT OF QUINTEROS CATH CONFIRMED BY MARKETING COORDINATOR DURING RENAL ULTRASOUND. WOUND CARE PROVIDED, PHOTOS OF WOUNDS IN PT CHART. BED IN LOWEST POSITION, CALL LIGHT IN REACH.
[2023-04-19 01:04] LABS: Base Excess Venous -6.4 mmol/L; Bicarbonate Venous 19.2 mmol/L (24.0-30.0); PCO2 Venous 37.3 mmHg (38-42); pH Blood Venous 7.33 (7.34-7.37)
[2023-04-19 04:13] VITALS: BP 103/62
[2023-04-19 04:15] LABS: BASOPHILS ABSOLUTE AUTO 0.07 K/mm3 (0.00-0.23); BASOPHILS PERCENT AUTO 1 % (0-2); EOSINOPHILS ABSOLUTE AUTO 0.44 K/mm3 (0.00-0.68); EOSINOPHILS PERCENT AUTO 3 % (0-6); Hematocrit 28.8 % (37.0-53.0); Hemoglobin 8.7 g/dL (13.5-17.5); IMMATURE GRAN ABSOLUTE AUTO 0.08 K/mm3 (0.00-0.10); IMMATURE GRAN PERCENT AUTO 1 % (0-1); LYMPHOCYTES ABSOLUTE AUTO 0.83 K/mm3 (0.84-5.20); LYMPHOCYTES PERCENT AUTO 6 % (21-46); MONOCYTES ABSOLUTE AUTO 0.92 K/mm3 (0.16-1.47); MONOCYTES PERCENT AUTO 7 % (4-13); Mean Corpuscular HGB 25.3 pg (26.0-34.0); Mean Corpuscular HGB Conc 30.2 g/dL (31.5-36.5); Mean Corpuscular Volume 84 fL (80-100); Mean Platelet Volume 9.5 fL (9.1-12.4); NEUTROPHILS ABSOLUTE AUTO 10.74 K/mm3 (1.96-9.15); NEUTROPHILS PERCENT AUTO 82 % (41-73); Platelet Count 391 K/mm3 (150-400); RDW Coefficient Variation 17.3 % (11.7-14.2); RDW Standard Deviation 53.2 fL (35.1-46.3); Red Blood Cell Count 3.44 M/mm3 (4.30-5.90); White Blood Cell Count 13.08 K/mm3 (4.00-11.30)
[2023-04-19 04:38] LABS: Alanine Aminotransfer (ALT/SGP 26 U/L (12-78); Albumin, Blood 1.9 g/dL (3.4-5.0); Albumin/Globulin Ratio 0.4 (0.8-1.8); Alk Phos 89 U/L (50-136); Anion Gap 9 mmol/L (6-16); Aspartate Aminotrans (AST/SGOT 18 U/L (12-37); Bilirubin, Total 0.2 mg/dL (0.1-1.0); Blood Urea Nitrogen 70 mg/dL (8-24); Bun/Creatinine Ratio 20.1 (12.0-20.0); CO2, Blood 19 mmol/L (21-32); Calcium, Blood 8.1 mg/dL (8.5-10.1); Chloride, Blood 113 mmol/L (98-108); Creatinine, Blood 3.49 mg/dL (0.60-1.20); Glomerular Filtration Rate 18 (60-); Glucose, Blood 100 mg/dL (70-99); Magnesium, Blood 1.6 mg/dL (1.6-2.4); Phosphorus, Blood 6.4 mg/dL (2.5-4.9); Potassium, Blood 5.5 mmol/L (3.5-5.5); Sodium, Blood 141 mmol/L (136-145); Total Protein, Blood 6.9 g/dL (6.4-8.2)
--- NOTE | 2023-04-19 05:14 | NUR ---
SHIFT SUMMARY SEE PREVIOUS NOTE. NO ACUTE CHANGES. PT SLEPT COMFORTABLY SINCE ARRIVAL. MANAGED PT's PAIN PER EMAR. BICARB gtt INFUSING PER EMAR. NO OTHER EVENTS, WILL REPORT TO ONCOMING RN.
[2023-04-19 08:43] VITALS: BP 137/80
[2023-04-19 16:40] VITALS: BP 113/74
--- NOTE | 2023-04-19 18:08 | NUR ---
PT WITH VERY FLAT AFFECT T/O THE DAY. VSS. PT ALERT, HE ANSWERS MANY QUESTIONS WITH NOD OR SHORT ANSWERS. PT EXPRESSED THAT HE WAS NOT HAPPY ABOUT NOT BEING D/C HOME TODAY, HE IS EDUCATED ABOUT WHY HE HAS NOT BEEN D/C TODAY. PT HAS REFUSED REPOSITIONING T/O THE DAY, HE DID ALLOW FOR A PARTIAL BED BATH AND LINEN CHANGE TODAY. PT'S PERINEAL DRESSING HAS BEEN CHANGED TWICE TODAY, HE REPORTS THAT DRAINAGE AROUND CATHETER IS BASELINE FOR HIM, DRAINAGE IS BLOODY AND PURULENT AT THIS TIME. FLUIDS CONTINUE TO INFUSE.
[2023-04-19 20:45] VITALS: BP 132/68
--- NOTE | 2023-04-19 21:42 | NUR ---
ASSUMPTION O FCARE: VSS DENIES CHEST PAIN PRESSURE OR SOB. RA. INFUSING BICARB AT NOW 75. MERREM RUNNING. PATIENT COOPERATIVE WITH CARE, DENIES NEED FOR REPOSITION WILL ENDORSE AGAIN DUE TO INCREASED RISK FOR SKIN BREAKDOWN. PATIENT ONLY QUESTION IS ABOUT DISCHARGE. WILL CONTINUE TO MONITOR UNTIL SHIFT CHANGE.
--- NOTE | 2023-04-20 05:59 | NUR ---
EOS. NO CHANGES FROM ASSUMPTION OF CARE, LABS PREFORMED LATER, RENAL PANEL STILL PENDING. PATIENT HAS BEEN COOPERATIVE WITH CARE, NEW IV PLACED. VSS WILL CONTINUE TO MONITOR UNTIL SHIFT CHANGE.
[2023-04-20 06:32] LABS: Albumin, Blood 1.9 g/dL (3.4-5.0); Anion Gap 7 mmol/L (6-16); Blood Urea Nitrogen 63 mg/dL (8-24); Bun/Creatinine Ratio 17.4 (12.0-20.0); CO2, Blood 25 mmol/L (21-32); Calcium, Blood 7.9 mg/dL (8.5-10.1); Chloride, Blood 108 mmol/L (98-108); Creatinine, Blood 3.63 mg/dL (0.60-1.20); Glomerular Filtration Rate 17 (60-); Glucose, Blood 92 mg/dL (70-99); Magnesium, Blood 1.4 mg/dL (1.6-2.4); Phosphorus, Blood 6.9 mg/dL (2.5-4.9); Sodium, Blood 140 mmol/L (136-145)
[2023-04-20 09:39] VITALS: BP 122/93
--- NOTE | 2023-04-20 12:46 | NUR ---
PT A/O X4. VSS. PT DENIES SOB AT THIS TIME, AND DENIES CP. PT ABLE TO USE CALL LIGHT TO MAKE NEEDS KNOWN. PT TALKING IN FULL SENTENCES, LS CLEAR TO DIM. PT HAS CHRONIC QUINTEROS, WITH GOOD URINE OUTPUT TO GRAVITY. PT REFUSES REPOSITIONING HE STATES THAT IT INCREASES PAIN IN BACK AND HIPS. DRESSINGS TO BUTTOCK WOND REPLACED LAST NOC, THEY REMAIN INTACT WITHOUT NOTED DRAINAGE. PT CONTINUES TO DRAIN PERULANT DRAINAGE FROM AROUND QUINTEROS, PT STS THAT IT IS BASELINE FOR HIS QUINTEROS TO LEAK AROUND. DRESSINGS AROUND SCROTUM REPLACED NEEDED TODAY. PT EDUCATED ON FIRE PREVENTION AND DENIES IGNITION DEVICES
[2023-04-20 16:34] VITALS: BP 122/84
--- NOTE | 2023-04-20 16:36 | NUR ---
NO CHANGE IN PATIENT STATUS SINCE PREVIOUS NOTE. VSS. PT REMAINS ALERT, CONVERSIVE. QUINTEROS CONTINUES TO DRAIN TO GRAVITY. PT HAD A BED BATH TODAY. PT REFUSES REPOSITIONING TODAY AND YESTERDAY, PT REPORTS INCREASED PAIN WITH REPOSITIONING, IT WAS NOTED THAT WHEN PT ON SIDES DID APPEAR VERY UNCOMFORTABLE
[2023-04-20 19:22] VITALS: BP 116/48
--- NOTE | 2023-04-20 19:37 | NUR ---
ASSUMPTION OF CARE: ONLY CHANGE FROM PREVIOUS SHIFT IS A NEW COMPLAINT OF RIGHT LOWER BACK/RIB/FLANK PAIN THAT IS TENDER TO TOUCH, TREATED WITH TYLENOL WILL MONITOR POTENTIAL FOR KIDNEY REFERRED PAIN. PATIENT APPEARS TO BE SR FROM AUSCULATATION. VSS AFEBRILE. STILL INFUSING BICARB. NO COMPLAINTS OF CHEST PAIN PRESSSURE OR SOB AT REST. RA
[2023-04-21 03:39] LABS: Hematocrit 27.7 % (37.0-53.0); Hemoglobin 8.3 g/dL (13.5-17.5)
--- NOTE | 2023-04-21 03:45 | NUR ---
EOS: PATIENT DESATURATING THROUGH THE NIGHT WHILE SLEEPING UP TO 3-4L TO ENSURE SPO2 >88. WHILE AWAKE RA. PATIENT HESITENT, BUT ULTIMATELY COOPERATIVE. PATIENT HAS BEEN REPOSITIONED Q2 SELF, AND PRN WHEN STAFF IS ASKED. PATIENT IN NO SIGN OF DISTRESS, SODIUM BICARB STILL INFUSING WELL. VSS A/O X 4. WILL CONTINUE TO MONITOR UNTIL SHIFT CHANGE
[2023-04-21 03:57] LABS: Albumin, Blood 1.7 g/dL (3.4-5.0); Anion Gap 6 mmol/L (6-16); Blood Urea Nitrogen 62 mg/dL (8-24); Bun/Creatinine Ratio 18.8 (12.0-20.0); CO2, Blood 26 mmol/L (21-32); Calcium, Blood 7.4 mg/dL (8.5-10.1); Chloride, Blood 106 mmol/L (98-108); Creatinine, Blood 3.29 mg/dL (0.60-1.20); Glomerular Filtration Rate 20 (60-); Glucose, Blood 93 mg/dL (70-99); Magnesium, Blood 1.5 mg/dL (1.6-2.4); Phosphorus, Blood 6.4 mg/dL (2.5-4.9); Potassium, Blood 4.9 mmol/L (3.5-5.5); Sodium, Blood 138 mmol/L (136-145)
[2023-04-21 05:06] VITALS: BP 134/77
[2023-04-21 09:52] VITALS: BP 153/93
--- NOTE | 2023-04-21 12:24 | NUR ---
HARDNESS TESTER IS EDUCATED THAT PT HAS A FOLLOW UP APPOINTMENT WITH DR KO, CAREGIVER LAUGHS STS "SURE", SHE IS AGAIN EDUCATED THAT PT HAS AN APPOINTMENT WITH DR KO AT 2PM, HARDNESS TESTER AGAIN LAUGHS AND STS "SURE, THEN DR KO CAN COME GET HIM"
--- NOTE | 2023-04-21 18:25 | NUR ---
PT D/C TO HOME, PT WAS EDUCATED ABOUT D/C TEACHING AND FOLLOW UP. FOOD AND BEVERAGE ASSISTANT MANAGER WAS ALSO EDUCATED WHEN SHE BRIEFLY ARRIVED PRIOR TO D/C. CAREGIVER WAS NOT RECEPTIVE OF EDUCATION, STATING "YEAH SURE" AND "SURE" WHEN EDUCATED THAT PT HAS AN APPOINTMENT IN 2 DAYS ELZA KO STS "WELL THEN STEFANI CAN COME TAKE HIM". PT STS THAT HE WILL CALL FOR TRANSIT TO ATTEND APPOINTMENT
== END 2023-04-21 14:00 | disposition home or self-care (01) | DRG 683 ==
LOC: ER 17:29 → PCU 23:16
PROVIDERS: Emergency Medicine; Internal Medicine Nephrology; Nurse Practitioner Acute Care; ADMIT Internal Medicine
PROC: 0T2BX0Z Change Drainage Device in Bladder, External Approach (ICD-10-PCS; principal; 2023-04-19)
DX: N17.9 Acute kidney failure, unspecified (principal); E87.1 Hypo-osmolality and hyponatremia; G82.20 Paraplegia, unspecified; Z16.12 Extended spectrum beta lactamase (ESBL) resistance; E87.20 Acidosis, unspecified; E87.5 Hyperkalemia; N18.4 Chronic kidney disease, stage 4 (severe); E11.22 Type 2 diabetes mellitus with diabetic chronic kidney disease; F32.A Depression, unspecified; Q05.9 Spina bifida, unspecified; E83.42 Hypomagnesemia; K21.9 Gastro-esophageal reflux disease without esophagitis; I12.9 Hypertensive chronic kidney disease with stage 1 through stage 4 chronic kidney disease, or unspecified chronic kidney disease; D63.1 Anemia in chronic kidney disease; N31.9 Neuromuscular dysfunction of bladder, unspecified; E86.9 Volume depletion, unspecified; B96.1 Klebsiella pneumoniae [K. pneumoniae] as the cause of diseases classified elsewhere; N13.9 Obstructive and reflux uropathy, unspecified; E87.70 Fluid overload, unspecified; Z96.652 Presence of left artificial knee joint; Z88.0 Allergy status to penicillin; Z88.1 Allergy status to other antibiotic agents; Z93.6 Other artificial openings of urinary tract status; Z91.041 Radiographic dye allergy status; Z98.890 Other specified postprocedural states; Z90.49 Acquired absence of other specified parts of digestive tract; Z98.1 Arthrodesis status; Z87.891 Personal history of nicotine dependence; Z79.899 Other long term (current) drug therapy
CPT/HCPCS: 36415; 51702; 71045; 76770; 80053; 80069; 81001; 82803; 82947; 83735; 83880; 84132; 84145; 85014; 85018; 85025; 87040; 87077; 87086; 87186; 93005; 93010; 94644; 94664; 94760; 96365-59; 96366-59; 96367-59; 96375-59; 99285-25; A9270; J0612; J0881; J1644; J1815; J1940; J2185; J3475; J7050; J7070

== ENCOUNTER → 2023-04-18 | Outpatient (CLI) | payer MEDICARE, OTHER ==
[~2023-04-18] MED LIST changes: +PANT40 PO
[2023-04-18 13:11] LABS: Albumin, Blood 1.9 g/dL (3.4-5.0); Anion Gap 9 mmol/L (6-16); Blood Urea Nitrogen 66 mg/dL (8-24); CO2, Blood 18 mmol/L (21-32); Calcium, Blood 8.1 mg/dL (8.5-10.1); Chloride, Blood 111 mmol/L (98-108); Creatinine, Blood 3.47 mg/dL (0.60-1.20); Glomerular Filtration Rate 18 (60-); Glucose, Blood 96 mg/dL (70-99); Phosphorus, Blood 6.5 mg/dL (2.5-4.9); Sodium, Blood 138 mmol/L (136-145)
== END | disposition home or self-care (01) ==
LOC: LAB SHORT 11:04 → LAB 11:04
PROVIDERS: Internal Medicine Nephrology
DX: N18.30 Chronic kidney disease, stage 3 unspecified (principal); N39.0 Urinary tract infection, site not specified; D63.1 Anemia in chronic kidney disease
CPT/HCPCS: 80069; 85018

== ENCOUNTER → 2023-05-08 | Outpatient (CLI) | payer MEDICARE, OTHER ==
[2023-05-08 10:14] LABS: Albumin, Blood 1.9 g/dL (3.4-5.0); Anion Gap 9 mmol/L (6-16); Blood Urea Nitrogen 51 mg/dL (8-24); Bun/Creatinine Ratio 16.6 (12.0-20.0); CO2, Blood 20 mmol/L (21-32); Calcium, Blood 7.8 mg/dL (8.5-10.1); Chloride, Blood 112 mmol/L (98-108); Creatinine, Blood 3.08 mg/dL (0.60-1.20); Glomerular Filtration Rate 21 (60-); Glucose, Blood 73 mg/dL (70-99); Phosphorus, Blood 5.6 mg/dL (2.5-4.9); Potassium, Blood 5.4 mmol/L (3.5-5.5); Sodium, Blood 141 mmol/L (136-145)
== END | disposition home or self-care (01) ==
LOC: LAB 08:10 → LAB SHORT 08:10
PROVIDERS: Internal Medicine Nephrology
DX: N18.30 Chronic kidney disease, stage 3 unspecified (principal); D63.1 Anemia in chronic kidney disease
CPT/HCPCS: 80069

== ENCOUNTER → 2023-05-17 | Outpatient (CLI) | payer MEDICARE, OTHER ==
[2023-05-17 17:47] LABS: Albumin, Blood 2.1 g/dL (3.4-5.0); Anion Gap 7 mmol/L (6-16); Blood Urea Nitrogen 55 mg/dL (8-24); CO2, Blood 23 mmol/L (21-32); Chloride, Blood 110 mmol/L (98-108); Glomerular Filtration Rate 23 (60-); Glucose, Blood 104 mg/dL (70-99); Phosphorus, Blood 5.3 mg/dL (2.5-4.9); Potassium, Blood 4.2 mmol/L (3.5-5.5); Sodium, Blood 140 mmol/L (136-145)
== END | disposition home or self-care (01) ==
LOC: LAB SHORT 16:16 → LAB 16:16
PROVIDERS: Internal Medicine Nephrology
DX: N18.30 Chronic kidney disease, stage 3 unspecified (principal); D63.1 Anemia in chronic kidney disease
CPT/HCPCS: 80069; 85018

== ENCOUNTER → 2023-05-24 | Outpatient (CLI) | payer MEDICARE, OTHER | END | disposition home or self-care (01) | LOC: LAB SHORT 14:51 → LAB 14:51 | DX: N39.0 Urinary tract infection, site not specified (principal) | CPT/HCPCS: 87086 ==

== ENCOUNTER → 2023-06-18 | Outpatient (CLI) | payer MEDICARE, OTHER | END | disposition home or self-care (01) | LOC: LAB 16:11 → LAB SHORT 16:11 | DX: N39.0 Urinary tract infection, site not specified (principal) | CPT/HCPCS: 87077; 87086; 87186 ==

== ENCOUNTER → 2023-06-20 | Outpatient (CLI) | payer MEDICARE, OTHER ==
[2023-06-20 13:49] LABS: Albumin, Blood 2.1 g/dL (3.4-5.0); Anion Gap 5 mmol/L (6-16); Blood Urea Nitrogen 60 mg/dL (8-24); Bun/Creatinine Ratio 19.7 (12.0-20.0); CO2, Blood 19 mmol/L (21-32); Calcium, Blood 8.2 mg/dL (8.5-10.1); Chloride, Blood 117 mmol/L (98-108); Creatinine, Blood 3.05 mg/dL (0.60-1.20); Glomerular Filtration Rate 21 (60-); Glucose, Blood 129 mg/dL (70-99); Phosphorus, Blood 5.2 mg/dL (2.5-4.9); Potassium, Blood 5.7 mmol/L (3.5-5.5); Sodium, Blood 141 mmol/L (136-145)
== END | disposition home or self-care (01) ==
LOC: LAB 11:59 → LAB SHORT 11:59
PROVIDERS: Internal Medicine Nephrology
DX: N18.30 Chronic kidney disease, stage 3 unspecified (principal); D63.1 Anemia in chronic kidney disease
CPT/HCPCS: 80069

== ENCOUNTER → 2023-06-25 | Outpatient (CLI) | payer MEDICARE, OTHER ==
[~2023-06-25] MED LIST changes: +CEFU250T47 PO
[2023-06-25 15:27] LABS: Albumin, Blood 2.1 g/dL (3.4-5.0); Anion Gap 7 mmol/L (6-16); Blood Urea Nitrogen 60 mg/dL (8-24); Bun/Creatinine Ratio 18.8 (12.0-20.0); CO2, Blood 16 mmol/L (21-32); Calcium, Blood 8.1 mg/dL (8.5-10.1); Chloride, Blood 115 mmol/L (98-108); Glomerular Filtration Rate 20 (60-); Glucose, Blood 131 mg/dL (70-99); Phosphorus, Blood 4.7 mg/dL (2.5-4.9); Potassium, Blood 4.7 mmol/L (3.5-5.5); Sodium, Blood 138 mmol/L (136-145)
== END ==
LOC: LAB SHORT 11:34 → LAB 11:34
PROVIDERS: Internal Medicine Nephrology
DX: N18.30 Chronic kidney disease, stage 3 unspecified (principal); D63.1 Anemia in chronic kidney disease
CPT/HCPCS: 80069

== ENCOUNTER 2023-06-28 11:48 | Emergency (ER) | payer MEDICARE, OTHER ==
[~2023-06-28] VITALS: Ht 165.1 cm; Wt 99.8 kg
[~2023-06-28 11:48] MED LIST changes: -CEFU250T47 PO
[2023-06-28 15:44] LABS: Source, Urine Foley catheter
[2023-06-28 16:21] LABS: Bilirubin, Urine Neg (Neg); Blood, Urine 4+ (Neg); Glucose Qualitative, Urine Neg (Neg); Ketones, Urine Neg (Neg); Leukocyte Esterase, Urine 3+ (Neg); Nitrite, Urine Neg (Neg); Protein, Urine 2+ (Neg); Specific Gravity, Urine 1.005 (1.003-1.022); Urobilinogen, Urine NORM (Normal)
[2023-06-28 16:41] VITALS: BP 118/87
[2023-06-28 17:13] LABS: Color, Urine Pale Yellow (P-Yellow)
[2023-06-28 17:14] LABS: Appearance, Urine Cloudy (Clear)
[2023-06-28 17:16] LABS: Bacteria Many /hpf; Mucus Light (0-Heavy); Squamous Epithelial Cells Rare /hpf (Few); White Blood Cells, Urine TNTC /hpf (0-5)
[2023-06-28] MEDS ORDERED: CEFU250T47 PO (17:19)
== END 2023-06-28 19:40 | disposition home or self-care (01) ==
LOC: ER 11:48
PROVIDERS: Emergency Medicine
DX: N39.0 Urinary tract infection, site not specified (principal); Z46.6 Encounter for fitting and adjustment of urinary device; I12.9 Hypertensive chronic kidney disease with stage 1 through stage 4 chronic kidney disease, or unspecified chronic kidney disease; E11.22 Type 2 diabetes mellitus with diabetic chronic kidney disease; N18.4 Chronic kidney disease, stage 4 (severe); Z88.0 Allergy status to penicillin; Z88.1 Allergy status to other antibiotic agents; Z88.7 Allergy status to serum and vaccine; Z91.041 Radiographic dye allergy status; Z87.891 Personal history of nicotine dependence
CPT/HCPCS: 51702; 81001; 87077; 87086; 87186; 99285-25; A9270

== ENCOUNTER → 2023-07-30 | Outpatient (CLI) | payer MEDICARE, OTHER ==
[~2023-07-30] MED LIST changes: +CEFU250T47 PO
[2023-07-30 14:48] LABS: Anion Gap 9 mmol/L (6-16); Blood Urea Nitrogen 77 mg/dL (8-24); Bun/Creatinine Ratio 25.4 (12.0-20.0); CO2, Blood 15 mmol/L (21-32); Calcium, Blood 7.6 mg/dL (8.5-10.1); Chloride, Blood 117 mmol/L (98-108); Creatinine, Blood 3.03 mg/dL (0.60-1.20); Glomerular Filtration Rate 22 (60-); Glucose, Blood 84 mg/dL (70-99); Phosphorus, Blood 5.9 mg/dL (2.5-4.9); Potassium, Blood 4.9 mmol/L (3.5-5.5); Sodium, Blood 141 mmol/L (136-145)
== END ==
LOC: LAB 11:10 → LAB SHORT 11:10
PROVIDERS: Internal Medicine Nephrology
DX: N18.4 Chronic kidney disease, stage 4 (severe) (principal); D63.1 Anemia in chronic kidney disease
CPT/HCPCS: 80069

== ENCOUNTER → 2023-08-16 | Outpatient (CLI) | payer MEDICARE, OTHER ==
[2023-08-16 12:11] LABS: Albumin, Blood 2.2 g/dL (3.4-5.0); Anion Gap 8 mmol/L (6-16); Blood Urea Nitrogen 83 mg/dL (8-24); Bun/Creatinine Ratio 22.8 (12.0-20.0); CO2, Blood 15 mmol/L (21-32); Calcium, Blood 7.5 mg/dL (8.5-10.1); Chloride, Blood 114 mmol/L (98-108); Creatinine, Blood 3.64 mg/dL (0.60-1.20); Glomerular Filtration Rate 17 (60-); Glucose, Blood 126 mg/dL (70-99); Phosphorus, Blood 6.1 mg/dL (2.5-4.9); Potassium, Blood 4.7 mmol/L (3.5-5.5); Sodium, Blood 137 mmol/L (136-145)
== END | disposition home or self-care (01) ==
LOC: LAB SHORT 11:16 → LAB 11:16
PROVIDERS: Internal Medicine Nephrology
DX: I12.9 Hypertensive chronic kidney disease with stage 1 through stage 4 chronic kidney disease, or unspecified chronic kidney disease (principal); N18.4 Chronic kidney disease, stage 4 (severe); D63.1 Anemia in chronic kidney disease
CPT/HCPCS: 80069; 85018

== ENCOUNTER 2023-08-25 16:00 | Inpatient (IN) | payer MEDICARE, OTHER ==
[~2023-08-25] VITALS: Ht 170.2 cm; Wt 140.3 kg
[2023-08-25 16:32] LABS: BASOPHILS ABSOLUTE AUTO 0.03 K/mm3 (0.00-0.23); BASOPHILS PERCENT AUTO 1 % (0-2); EOSINOPHILS ABSOLUTE AUTO 0.17 K/mm3 (0.00-0.68); EOSINOPHILS PERCENT AUTO 3 % (0-6); Hematocrit 43.1 % (37.0-53.0); IMMATURE GRAN ABSOLUTE AUTO 0.06 K/mm3 (0.00-0.10); IMMATURE GRAN PERCENT AUTO 1 % (0-1); LYMPHOCYTES ABSOLUTE AUTO 2.02 K/mm3 (0.84-5.20); LYMPHOCYTES PERCENT AUTO 34 % (21-46); MONOCYTES ABSOLUTE AUTO 0.14 K/mm3 (0.16-1.47); MONOCYTES PERCENT AUTO 2 % (4-13); Mean Corpuscular HGB 26.1 pg (26.0-34.0); Mean Corpuscular HGB Conc 30.2 g/dL (31.5-36.5); Mean Corpuscular Volume 86 fL (80-100); Mean Platelet Volume 9.2 fL (9.1-12.4); NEUTROPHILS ABSOLUTE AUTO 3.55 K/mm3 (1.96-9.15); NEUTROPHILS PERCENT AUTO 60 % (41-73); Platelet Count 564 K/mm3 (150-400); RDW Coefficient Variation 19.9 % (11.7-14.2); RDW Standard Deviation 61.4 fL (35.1-46.3); Red Blood Cell Count 4.99 M/mm3 (4.30-5.90); White Blood Cell Count 5.97 K/mm3 (4.00-11.30)
[2023-08-25 16:37] LABS: Base Excess Venous -14.1 mmol/L; Bicarbonate Venous 14.3 mmol/L (24.0-30.0); PCO2 Venous 35.8 mmHg (38-42)
[2023-08-25 17:24] LABS: Albumin, Blood 2.4 g/dL (3.4-5.0); Albumin/Globulin Ratio 0.5 (0.8-1.8); Bilirubin, Total 0.5 mg/dL (0.1-1.0); Bun/Creatinine Ratio 22.8 (12.0-20.0); Calcium, Blood 8.4 mg/dL (8.5-10.1); Creatinine, Blood 3.42 mg/dL (0.60-1.20); Globulin, Blood 5.3 g/dL (2.2-4.0); Magnesium, Blood 1.4 mg/dL (1.6-2.4); Potassium, Blood 4.4 mmol/L (3.5-5.5); Total Protein, Blood 7.7 g/dL (6.4-8.2)
[2023-08-25 17:25] LABS: Source, Urine Foley catheter
[2023-08-25 17:30] LABS: Appearance, Urine Turbid (Clear); Bilirubin, Urine Neg (Neg); Blood, Urine 5+ (Neg); Glucose Qualitative, Urine Neg (Neg); Ketones, Urine Neg (Neg); Leukocyte Esterase, Urine 3+ (Neg); Nitrite, Urine Neg (Neg); Protein, Urine 3+ (Neg); Specific Gravity, Urine 1.015 (1.003-1.022); Urobilinogen, Urine NORM (Normal)
[2023-08-25 17:40] LABS: Color, Urine Pale Yellow (P-Yellow)
[2023-08-25 17:45] LABS: White Blood Cells, Urine TNTC /hpf (0-5)
[2023-08-25 17:46] LABS: Bacteria Many /hpf; Hyaline Casts 0-2 /lpf (0-2); Red Blood Cells, Urine TNTC /hpf (0-2); Squamous Epithelial Cells Rare /hpf (Few)
[2023-08-25 22:00] VITALS: BP 123/106
[2023-08-25 22:30] VITALS: BP 71/43
[2023-08-25 22:37] LABS: Bicarbonate Venous 11.2 mmol/L (24.0-30.0); PCO2 Venous 48.8 mmHg (38-42); pH Blood Venous 7.05 (7.34-7.37)
[2023-08-25 23:00] VITALS: BP 122/104
[2023-08-25 23:15] VITALS: BP 123/103
[2023-08-25 23:30] VITALS: BP 70/45
[2023-08-26] VITALS (37 sets, daily range): BP systolic 62–123; BP diastolic 38–107
[2023-08-26 01:06] LABS: PCO2 Arterial 30.1 mmHg (35-45)
[2023-08-26 01:07] LABS: PO2 Arterial 81.6 mmHg (80-100); pH Blood Arterial 7.07 (7.35-7.45)
[2023-08-26 03:35] LABS: BASOPHILS ABSOLUTE AUTO 0.04 K/mm3 (0.00-0.23); BASOPHILS PERCENT AUTO 0 % (0-2); EOSINOPHILS ABSOLUTE AUTO 0.15 K/mm3 (0.00-0.68); EOSINOPHILS PERCENT AUTO 1 % (0-6); Hematocrit 41.4 % (37.0-53.0); Hemoglobin 12.4 g/dL (13.5-17.5); IMMATURE GRAN ABSOLUTE AUTO 0.22 K/mm3 (0.00-0.10); IMMATURE GRAN PERCENT AUTO 1 % (0-1); LYMPHOCYTES ABSOLUTE AUTO 0.58 K/mm3 (0.84-5.20); LYMPHOCYTES PERCENT AUTO 3 % (21-46); MONOCYTES ABSOLUTE AUTO 0.94 K/mm3 (0.16-1.47); MONOCYTES PERCENT AUTO 5 % (4-13); Mean Corpuscular HGB 26.3 pg (26.0-34.0); Mean Corpuscular Volume 88 fL (80-100); Mean Platelet Volume 9.4 fL (9.1-12.4); NEUTROPHILS ABSOLUTE AUTO 18.52 K/mm3 (1.96-9.15); NEUTROPHILS PERCENT AUTO 91 % (41-73); NRBC ABSOLUTE 0.04 K/mm3 (0.00-0.02); NRBC Auto 0.2 /100 WBC (0.0-0.2); Platelet Count 394 K/mm3 (150-400); RDW Coefficient Variation 19.6 % (11.7-14.2); RDW Standard Deviation 62.2 fL (35.1-46.3); Red Blood Cell Count 4.71 M/mm3 (4.30-5.90); White Blood Cell Count 20.45 K/mm3 (4.00-11.30)
[2023-08-26 03:58] LABS: Albumin, Blood 1.9 g/dL (3.4-5.0); Albumin/Globulin Ratio 0.5 (0.8-1.8); Bun/Creatinine Ratio 24.1 (12.0-20.0); Calcium, Blood 6.9 mg/dL (8.5-10.1); Creatinine, Blood 2.94 mg/dL (0.60-1.20); Globulin, Blood 4.2 g/dL (2.2-4.0); Potassium, Blood 5.1 mmol/L (3.5-5.5); Total Protein, Blood 6.1 g/dL (6.4-8.2)
[2023-08-26 04:14] LABS: PCO2 Arterial 28.6 mmHg (35-45); PO2 Arterial 185 mmHg (80-100)
[2023-08-26 04:15] LABS: pH Blood Arterial 7.13 (7.35-7.45)
--- NOTE | 2023-08-26 09:33 | NUR ---
Pt's sister Rosa Isela defers to their cousin Tavares for decision making. Tavares states by phone to this RN that pt would not want to be resucitated, and asks that we change his code status to DNR. Cecilia, Palliative RN witnessed the conversation. Will request code status change order from physician. Tavares states she will be in to see pt sometime this morning.
[2023-08-26 09:43] LABS: PCO2 Arterial 28.3 mmHg (35-45)
[2023-08-26 09:44] LABS: pH Blood Arterial 7.17 (7.35-7.45)
--- NOTE | 2023-08-26 10:45 | NUR ---
ASSUMED CARE/STATUS UPDATE CARE WAS ASSUMED OF PT AT 0700 REPORT GIVEN BY ALYSON. PT INTUBATED AND SEDATED. PROPOFOL GTT INFUSING, SEE FLOWSHEET. AT SHIFT CHANGE PT RESPONDING TO PHYSICAL STIMULI AND FOLLOWING SOME COMMANDS. WEAK AIRLINE DISPATCHER WITH BILATERAL HANDS. PT SLIGHTLY OPENING EYES WITH STIMULATION. BILATERAL WRIST RESTRAINTS REMOVED D/T PT NOT HAVING ANY PURPOSEFUL MOVEMENTS THAT WOULD INDICATE A RISK FOR SELF-EXTUBATION. RASS -3 . VENTILATOR SETTINGS AC/VC 26/500/8/80% AT SHIFT CHANGE. O2 SATS > 95%. CARDIAC MONITORING REFLECTS NSR, HR 70s. LEVOPHED, VASOPRESSIN, NEOSYNEPHRINE, AND EPINEPHRINE INFUSING FOR MAP GOAL > 65. SEE FLOWSHEET. EXTREMITIES MODERATELY EDEMATOUS, 1+-2+, COOL TO TOUCH. LEFT RADIAL ARTERIAL LINE IN PLACE, PATENT AND ZEROED. ARTERIAL LINE SECURED WITH SUTURES. GTTs INFUSING THROUGH LIJ, PATENT WITH POSITIVE BLOOD RETURN. BICARB INFUSING @ 150. CHRONIC QUINTEROS IN PLACE, SMALL AMOUNT OF URINE NOTED LEAKED AROUND CATHETER TUBING. NO OUTPUT NOTED IN COLLECTION BAG. WOUNDS TO PT'S BODY DOCUMENTED WITH PICTURES IN CHART, DR. CERVANTES AND DR. DOWNEY AWARE. SINCE CHANGE OF SHIFT PT'S VASOPRESSOR REQUIREMENTS HAVE STEADILY INCREASED, SEE FLOWSHEET. PALLIATIVE CARE WAS ABLE TO MAKE CONTACT WITH PT'S CAREGIVER AND SISTER AND THE DECISION WAS MADE FOR PT TO BECOME A DNR. DR. CERVANTES IN TO SEE PATIENT, SEE UPDATED ORDERS. CAREGIVER AND SISTER AT BEDSIDE, EDUCATION PROVIDED WITH UPDATE ON PT'S STATUS.
--- NOTE | 2023-08-26 10:45 | NUR ---
ASSUMED CARE/PT UPDATE
--- NOTE | 2023-08-26 12:35 | NUR ---
Pt's family have elected for comfort for the patient. Placing comfort orders now, per Dr. New.
--- NOTE | 2023-08-26 17:03 | NUR ---
SHIFT SUMMARY PT REMAINS INTUBATED AND SEDATED. PROPOFOL GTT INFUSING, SEE FLOWSHEET. PT HAS BECOME INCREASINGLY MORE UNRESPONSIVE T/O SHIFT. PT NOT FOLLOWING COMMANDS AT THIS TIME. PT REMAINS OUT OF BILATERAL WRIST RESTRAINTS, NO PURPOSEFUL MOVEMENTS INDICATIVE OF RISK FOR SELF-EXTUBATION OBSERVED. RASS -5, CPOT 0-1. PT MINIMALLY MOVES NECK/ARMS. VENT SETTINGS AC/VC 26/500/8/45% AT THIS TIME. O2 SATS > 95%. CARDIAC MONITORING REFLECTS NSR, HR 70s. LEVOPHED, VASOPRESSIN, EPINEPHRINE GTT INFUSING FOR MAP GOAL > 65 , SEE FLOWSHEET. NEOSYNEPHRINE GTT PUT ON SB THIS SHIFT. GTTs INFUSING THOUGH LIJ, POSITIVE BLOOD RETURN. LEFT RADIAL ARTERIAL LINE IN PLACE. NO OUTPUT NOTED IN COLLECTION BAG FOR CHRONIC QUINTEROS, SMALL AMOUNT OF LEAKAGE NOTED IN QUINTEROS. < 150 mL MEASURED WITH EACH BLADDER SCAN. OG TUBE ADVANCED 5 INCHES THIS MORNING PRIOR TO MEDICATION ADMIN. OG SET TO LIS. FAMILY PROVIDED UPDATES AND EDUCATION ON PT'S STATUS T/O SHIFT. BILATERAL FEET BECOMING MOTTLED. SKIN REMAINS COOL TO TOUCH.
--- NOTE | 2023-08-26 18:37 | NUR ---
PT BECOMING INCREASINGLY MORE AWAKE. CPOT 4, MEDICATED PT FOR PAIN PER EMAR. RASS -3. PT ATTEMPTING TO OPEN EYES AND MOVE BUE.
[2023-08-27 03:54] LABS: Hematocrit 30.8 % (37.0-53.0); Hemoglobin 9.7 g/dL (13.5-17.5); Mean Corpuscular HGB 26.4 pg (26.0-34.0); Mean Corpuscular HGB Conc 31.5 g/dL (31.5-36.5); Mean Corpuscular Volume 84 fL (80-100); Mean Platelet Volume 9.9 fL (9.1-12.4); Platelet Count 168 K/mm3 (150-400); RDW Coefficient Variation 19.5 % (11.7-14.2); RDW Standard Deviation 58.5 fL (35.1-46.3); Red Blood Cell Count 3.68 M/mm3 (4.30-5.90)
[2023-08-27 04:13] LABS: Albumin, Blood 2.7 g/dL (3.4-5.0); Anion Gap 13 mmol/L (6-16); Blood Urea Nitrogen 69 mg/dL (8-24); Bun/Creatinine Ratio 24.7 (12.0-20.0); CO2, Blood 19 mmol/L (21-32); Calcium, Blood 6.2 mg/dL (8.5-10.1); Chloride, Blood 102 mmol/L (98-108); Creatinine, Blood 2.79 mg/dL (0.60-1.20); Glomerular Filtration Rate 24 (60-); Glucose, Blood 172 mg/dL (70-99); Phosphorus, Blood 5.5 mg/dL (2.5-4.9); Sodium, Blood 134 mmol/L (136-145)
[2023-08-27 04:55] LABS: BAND PERCENT MAN 37 % (0-8); BASOPHILS PERCENT MAN 0 % (0-2); EOSINOPHILS PERCENT MAN 0 % (0-6); METAMYELOCYTE ABSOLUTE MAN 0.71 K/mm3 (0.00-0.00); METAMYELOCYTE PERCENT MAN 5 % (0-0); MONOCYTES ABSOLUTE MAN 0.42 K/mm3 (0.16-1.47); MONOCYTES PERCENT MAN 3 % (4-13); NEUTROPHILS ABSOLUTE MAN 13.15 K/mm3 (1.96-9.15); SEG NEUTROPHILS PERCENT MAN 55 % (41-73); TOTAL CELLS COUNTED 100
[2023-08-27 05:19] LABS: Base Excess Venous -7.7 mmol/L; Bicarbonate Venous 18.3 mmol/L (24.0-30.0); PCO2 Venous 34.1 mmHg (38-42); pH Blood Venous 7.34 (7.34-7.37)
[2023-08-27 10:48] LABS: PCO2 Arterial 28.6 mmHg (35-45); PO2 Arterial 66.2 mmHg (80-100); pH Blood Arterial 7.38 (7.35-7.45)
--- NOTE | 2023-08-27 17:21 | NUR ---
SHIFT SUMMARY NO ACUTE CHANGES THIS SHIFT. PT REMAINS INTUBATED AND SEDATED. VENT SETTINGS AC 16, TV 500, PEEP 8, FIO2 45%. PT WITH MINIMAL SECRETIONS WITH ETT SUCTION. PT SEDATED WITH PROPOFOL AT 20 MCG/KG/MIN. PT WITH COUGH AND GAG, BUT DOES NOT ROUSE TO NOXIOUS OR VERBAL STIMULI. PT DOES NOT FOLLOW ANY COMMANDS. CENTRAL LINE TO LIJ C/D/I. NS INFUSING TKO, BICARB 75 ML/HR, VASOPRESSIN 0.04 UNIT/MIN, AND LEVOPHED REMAINS AT 20 MCG/MIN. ARTERIAL LINE TO LEFT RADIAL SITE REMAINS C/D/I AND POSITIONAL. GOOD WAVEFORM NOTED WITH WRIST EXTENSION. VITAL SIGNS HAVE REMAINED STABLE. OGT REPLACED THIS MORNING DUE TO KINK IN TUBE. NEW OGT VERIFIED BY DR CERVANTES WITH CXR. TF STARTED AT 25 ML/HR THIS AFTERNOON PER ORDERS. QUINTEROS REMAINS IN PLACE WITH SCANT, DARK JYOTI WITH SEDIMENT OUTPUT NOTED. QUINTEROS CONTINUES TO LEAK AT INSERTION. WRAPS IN PLACE. RECTAL TEMP PROBE REMAINS IN PLACE. WOUNDS TO LOWER EXTREMITIES REMAIN UNCHANGED. WELFARE INTERVIEWER STATES SHE WILL BE BACK TO ASSESS WOUNDS TOMORROW 08/28. PT CAREGIVER AT BEDSIDE PART OF THIS SHIFT. WILL CONTINUE TO MONITOR AND REPORT OFF TO ONCOMING RN.
--- NOTE | 2023-08-27 19:00 | NUR ---
CARE ASSUMPTION DURING BEDSIDE SIFT REPORT W SAE RN THE PT IS LYING IN BED INTUBATED ON THE VENTILATOR. PT'S ET TUBE IS AN 8.0 AND 27CM TO HIS LIP. VENT SETTINGS ARE 16/500/8.0 W 45% FIO2. PT'S MONITOR SHOWING SR 80'S. BP WNL AND STABLE VIA ARTERIAL LINE WHICH IS IN HIS R RADIAL ARTERY W PT ON 20 OF LEVOPHED AND VASOPRESSIN RUNNING AT 0.4 UNITS/MIN. NA BICARB IN D5 RUNNING AT 75ML/HR. TF RUNNING AT 25ML/HR INTO PT'S OG TUBE. CENTRAL LINE IN PT'S RIJ W PREVIOUSLY MENTIONS GTT'S. CORE TEMP SHOWING THAT THE PT IS AFEBRILE. GTT'S AND ET TUBE CONFIRMED AT BEDSIDE W DAY SHIFT RN.
--- NOTE | 2023-08-28 01:40 | NUR ---
UPDATE/LOW CBG PT'S CBG TRENDING DOWN AND IS NOW [address] MCCONNELL WAS CONTACED WHO GAVE THIS RN ORDERS FOR D50 25GM PUSH AND AN INCREASE TO THE RATE OF THE D5 W BICARB. TRANSACTION COORDINATOR UPDATED.
[2023-08-28 04:08] LABS: Hematocrit 33.4 % (37.0-53.0); Hemoglobin 10.9 g/dL (13.5-17.5); Mean Corpuscular HGB 26.7 pg (26.0-34.0); Mean Corpuscular HGB Conc 32.6 g/dL (31.5-36.5); Mean Corpuscular Volume 82 fL (80-100); Mean Platelet Volume 10.8 fL (9.1-12.4); Platelet Count 178 K/mm3 (150-400); RDW Coefficient Variation 19.6 % (11.7-14.2); RDW Standard Deviation 57.5 fL (35.1-46.3); Red Blood Cell Count 4.08 M/mm3 (4.30-5.90); White Blood Cell Count 30.85 K/mm3 (4.00-11.30)
[2023-08-28 04:24] LABS: Albumin, Blood 2.5 g/dL (3.4-5.0); Anion Gap 14 mmol/L (6-16); Blood Urea Nitrogen 71 mg/dL (8-24); Bun/Creatinine Ratio 25.4 (12.0-20.0); CO2, Blood 19 mmol/L (21-32); Calcium, Blood 6.8 mg/dL (8.5-10.1); Chloride, Blood 96 mmol/L (98-108); Creatinine, Blood 2.79 mg/dL (0.60-1.20); Glomerular Filtration Rate 24 (60-); Glucose, Blood 89 mg/dL (70-99); Magnesium, Blood 1.5 mg/dL (1.6-2.4); Phosphorus, Blood 6.2 mg/dL (2.5-4.9); Potassium, Blood 5.7 mmol/L (3.5-5.5); Sodium, Blood 129 mmol/L (136-145)
[2023-08-28 04:35] LABS: BAND PERCENT MAN 24 % (0-8); BASOPHILS PERCENT MAN 0 % (0-2); EOSINOPHILS PERCENT MAN 0 % (0-6); LYMPHOCYTES % ATYPICAL MANUAL 1 % (0-0); MONOCYTES PERCENT MAN 1 % (4-13); NEUTROPHILS ABSOLUTE MAN 30.23 K/mm3 (1.96-9.15); SEG NEUTROPHILS PERCENT MAN 74 % (41-73); TOTAL CELLS COUNTED 100
--- NOTE | 2023-08-28 05:16 | NUR ---
UPDATE/PROVIDER CONTACT PROVIDER CONTACTED REGARDING PT'S ELEVATED K LEVEL WELL OTHER ABNORMAL ELECTROLYTE LEVELS. PROVIDER EXPRESSED THAT HE WAS NOT CONCERNED ABOUT THE K LEVEL AND WOULD POSSIBLY PUT IN ORDERS AFTER HE LOOKED AT THE PT'S CHART. PROVIDER ALSO NOTIFIED OF THIS RN'S CONCERNS ABOUT THE PT'S NEURO STATUS REGRESSION, ORDERS TO CHECK AMMONIA LEVEL GIVEN. JEWEL WAXER NOTIFIED.
--- NOTE | 2023-08-28 06:53 | NUR ---
COAGULATING OPERATOR SUMMARY PT BEGAN THE SHIFT W A COUGH AND GAG REFLEX HOWEVER HIS NEURO STATUS DECLINED AND HE NO LONGER HAS A COUGH/GAG REFLEX NOR DOES HE WITHDRAWL FROM PAINFUL STIMULI, PROVIDER NOTIFIED OF THESE CHANGES AND BLOOD AMMONIA WAS ORDERED. AMMONIA LEVELS ELEVATED AND FIRST DOSE OF LACTULOSE WAS GIVEN THIS AM. PT'S PROPOFOL REDUCED FROM 20MCG/KG/MIN TO 10MCG/KG/MIN TO SEE IF NEURO STATUS WOULD IMPROVE TO WHICH IT HAS NOT. PT'S BP DROPPING THIS SHIFT REQUIRING INCREASE OF LEVOPHED TO 26MCG/MIN FROM THE 20MCG/MIN HE STARTED THE SHIFT WITH DESPITE VASOPRESSIN GTT RUNNING AT 0.04 UNITS/MIN ALL SHIFT. PT'S SPO2 DROPPING THIS SHIFT REQUIRING INCREASE IN FIO2 FROM 45% TO 60%. VENT 16/500/5.0 W 60% FIO2. PT HAS LARGE AMOUNTS OF THICK RESTREPO SECRETIONS THIS SHIFT ORALLY W MINIMAL THICK SECRETION FRIM ET TUBE. PT'S BLOOD GLUCOSE CONTINUED TO DROP THIS SHIFT REQUIRNG D50 X2 AND D5 W BICARB WAS CHANGED TO D10. TUBE FEEDS INCREASED FROM 25ML/HR TO 45ML/HR. PT AFEBRILE THIS SHIFT. WILL REPORT TO ONCOMING RN.
--- NOTE | 2023-08-28 11:02 | NUR ---
ASSUMED CARE CARE WAS ASSUMED OF PT AT 0700, REPORT GIVEN BY [facility]. PT INTUBATED AND SEDATED. PROPOFOL GTT INFUSING AT SHIFT CHANGE, BUT HAS BEEN ON SB SINCE 919, SEE FLOWSHEET. PT UNRESPONSIVE. NO RESPONSE OBSERVED WITH NAILBED PRESSURE NOR TRAPEZIUS SQUEEZE. NO CORNEAL REFLEX OBSERVED, GAG REFLEX INTACT. NO COUGH REFLEX. PT WILL OCCASIONALLY MINIMALLY MOVE HANDS, BUT NOT PURPOSEFUL. PT CONTINUES TO NOT BE IN BILATERAL SOFT WRIST RESTRAINTS, NO SIGNS OF RISK FOR SELF-EXTUBATION. RASS -5, CPOT 0. VENTILATOR SETTINGS AC/VC 16/500/8/60%. O2 SATS > 92%. CARDIAC MONITORING REFLECTS NSR, HR 70s-80s. LEFT RADIAL ARTERIAL LINE IN PLACE, ZEROED AND PATENT. LEVOPHED AND VASOPRESSIN INFUSING FOR MAP GOAL > 65, SEE FLOWSHEET. D10 1/4 NS INFUSING PER EMAR. GTTs INFUSING THROUGH LIJ, PATENT WITH BLOOD DRAWBACK. TF STOPPED THIS MORNING D/T PT HAVING LARGE AMOUNT OF GASTRIC CONTENTS POOLING IN MOUTH AND ONTO PILLOW. CONTINUOUSLY PERFORMING ORAL SUCTIONING. DR. CERVANTES AWARE. NO MEDICATIONS GIVEN THROUGH OGT SINCE TF STOPPED. PT HAVING SEVERE DEPENDENT SCROTAL EDEMA, WEEPING AND PURPLE IN COLOR. DR. DOWNEY AWARE.
--- NOTE | 2023-08-28 12:06 | NUR ---
Met with ICU bedside RN today, she reports the patient has not been waking up, has no gag reflex or pupil response today. He remains ventilated, but has been off propofol since early this morning. He is not making urine. Spoke with pt's cousin Tavares who is primary CG, and she is going to talk to pt's sister Rosa Isela. No decisions have been made at this time, but Nidhi and Rosa Isela state the pt would not want dialysis, or to be "kept alive" by machines. Palliative planning to meet with Tavares and Chikis today when they arrive.
[2023-08-28 12:46] VITALS: BP 125/59
--- NOTE | 2023-08-28 13:19 | NUR ---
Pt's family at bedside, and they have elected comfort care. The pt remains non-responsive.
--- NOTE | 2023-08-28 13:23 | NUR ---
"Spiritual Care | Family/Nurse Request. Pt. is intubated and not responsive. Family members are at bedside and welcome my visit. Facilitated a life review, and considered matters of the family dynamic. Caregiver (and cousin) Felicitas and Pts. sister, Pat contribute to the life review and supply memories to the family history. Prayed over the Pt. with Felicitas at bedside. Nurse Bernarda arrives, and gently and apporpriately speaks to Felicitas about plan of care. Family verbalized gratitude for the spiritual care visit. This youth leader will remain available to the Pt. and family, especially once comfort care is determined."
--- NOTE | 2023-08-28 15:17 | NUR ---
Spiritual Care EOL Pt. had passed in ICU5. This building estimator gave care and support to the Pts. sister and infant childcare provider. Stayed with family until the left ICU. Family verbalized gratitude for the spiritual care support. ICU Nurse Jayashree confirmed that [facility] would be the home.
--- NOTE | 2023-08-28 16:33 | NUR ---
SHIFT SUMMARY PT REMAINED UNRESPONSIVE TO PAINFUL STIMULI T/O SHIFT. NO CORNEAL REFLEX, NO RESPONSE TO PAINFUL STIMULI. PT DID HAVE GAG REFLEX. PT REMAINED INTUBATED WITHOUT SEDATION UNTIL DECISION WAS MADE BY FAMILY FOR PT TO BECOME COMFORT CARE AND WITHDRAW CARE. LEVOPHED, VASOPRESSIN AND DOBUTAMINE WERE PUT ON SB UPON EXTUBATION AT 1430. TOD 1442, FAMILY AT BEDSIDE. CALL MADE TO DONOR LINE, PT NOT CANDIDATE FOR ORGAN DONATION. PT TO BE TRANSPORTED TO [facility]. PT DID NOT HAVE ANY VALUABLES TO BE SENT HOME WITH FAMILY.
== END 2023-08-28 14:42 | DRG 698 ==
LOC: ER 16:00 → ICUE 22:32
PROVIDERS: Family Medicine; Internal Medicine; Internal Medicine Critical Care Medicine; Student in an Organized Health Care Education/Training Program; ADMIT Internal Medicine
PROC: 3E03329 Introduction of Other Anti-infective into Peripheral Vein, Percutaneous Approach (ICD-10-PCS; 2023-08-25)
PROC: 3E033XZ Introduction of Vasopressor into Peripheral Vein, Percutaneous Approach (ICD-10-PCS; 2023-08-25)
PROC: 5A1945Z Respiratory Ventilation, 24-96 Consecutive Hours (ICD-10-PCS; principal; 2023-08-26)
PROC: 3E03328 Introduction of Oxazolidinones into Peripheral Vein, Percutaneous Approach (ICD-10-PCS; 2023-08-26)
PROC: 0BH17EZ Insertion of Endotracheal Airway into Trachea, Via Natural or Artificial Opening (ICD-10-PCS; 2023-08-26)
PROC: 03HY32Z Insertion of Monitoring Device into Upper Artery, Percutaneous Approach (ICD-10-PCS; 2023-08-26)
PROC: 4A133B1 Monitoring of Arterial Pressure, Peripheral, Percutaneous Approach (ICD-10-PCS; 2023-08-26)
PROC: 4A133J1 Monitoring of Arterial Pulse, Peripheral, Percutaneous Approach (ICD-10-PCS; 2023-08-26)
PROC: 4A133R1 Monitoring of Arterial Saturation, Peripheral, Percutaneous Approach (ICD-10-PCS; 2023-08-26)
DX: T83.511A Infection and inflammatory reaction due to indwelling urethral catheter, initial encounter (principal); A41.9 Sepsis, unspecified organism; G92.8 Other toxic encephalopathy; R65.21 Severe sepsis with septic shock; J96.01 Acute respiratory failure with hypoxia; N12 Tubulo-interstitial nephritis, not specified as acute or chronic; K56.7 Ileus, unspecified; K55.9 Vascular disorder of intestine, unspecified; I42.8 Other cardiomyopathies; N17.9 Acute kidney failure, unspecified; G82.20 Paraplegia, unspecified; N18.4 Chronic kidney disease, stage 4 (severe); E87.20 Acidosis, unspecified; I50.32 Chronic diastolic (congestive) heart failure; E87.1 Hypo-osmolality and hyponatremia; E72.20 Disorder of urea cycle metabolism, unspecified; Z68.43 Body mass index [BMI] 50.0-59.9, adult; Z51.5 Encounter for palliative care; Z66 Do not resuscitate; Q05.9 Spina bifida, unspecified; E11.22 Type 2 diabetes mellitus with diabetic chronic kidney disease; E66.9 Obesity, unspecified; I11.0 Hypertensive heart disease with heart failure; N31.9 Neuromuscular dysfunction of bladder, unspecified; K59.00 Constipation, unspecified; R74.01 Elevation of levels of liver transaminase levels; E11.649 Type 2 diabetes mellitus with hypoglycemia without coma; E83.42 Hypomagnesemia; E87.5 Hyperkalemia; Z96.652 Presence of left artificial knee joint; Z88.0 Allergy status to penicillin; Z88.1 Allergy status to other antibiotic agents; Z88.8 Allergy status to other drugs, medicaments and biological substances; Z86.14 Personal history of Methicillin resistant Staphylococcus aureus infection
CPT/HCPCS: 31500; 36415; 36556; 36600; 36620; 51702; 51798; 71045; 74018; 74176; 80053; 80069; 81001; 82140; 82330; 82803; 82947; 83605; 83690; 83735; 84145; 85025; 85651; 86140; 87040; 87070; 87075; 87086; 87205; 93005; 93010; 93306; 94002; 94003; 94660; 94762; 96361-59; 96365-59; 96366-59; 96368; 96375-59; 99285-25; A9270; C1751; C9113; J0171; J0612; J1250; J1644; J1720; J1815; J1940; J2020; J2185; J2250; J2270; J2371; J2704; J3010; J3370; J3475; J7030; J7040; J7042; J7050; J7060; J7070; J7120; J7131; P9047